=== PATIENT | female | born 1945 | race Caucasian/White ===

== ENCOUNTER → 2017-11-10 | Day surgery (SDC) | payer MEDICARE, BC ==
[2017-11-05 12:46] LABS: BASOPHILS # (AUTO) 0.1 (0.0-0.1); BASOPHILS % 1.2 % (0.0-1.0); EOSINOPHILS # (AUTO) 0.1 (0.0-0.4); EOSINOPHILS % 2.6 % (0.0-6.0); HEMATOCRIT 37.9 % (34.2-44.1); HEMOGLOBIN 12.1 g/dL (12.0-16.0); LYMPHOCYTES # (AUTO) 1.2 (1.0-3.2); LYMPHOCYTES % 23.3 % (18.0-39.1); MEAN CORPUSCULAR HEMOGLOBIN 31.6 pg (28-32); MEAN CORPUSCULAR HGB CONC 31.9 g/dL (31-35); MONOCYTES # (AUTO) 0.5 (0.2-0.8); MONOCYTES % 9.5 % (4.4-11.3); NEUTROPHILS # (AUTO) 3.1 (2.1-6.9); PLATELET COUNT 208 x10e3/uL (140-360); RED BLOOD COUNT 3.83 x10e6/uL (3.6-5.1)
[~2017-11-10] MED LIST: ACETYL L-CARNI500 MG; ACTOS30 MG PO; ALPRAZOLAM1 MG PO; AMARYL4 MG PO; ASPIRIN325 MG PO; BACLOFEN10 MG PO; CELEXA40 MG; CYMBALTA30 MG PO; DICYCLOMINE HCL10 MG PO; FENTANYL CITRATE/PF 100MCG/2 ML INJ ONE; HYOSCYAMINE SULFATE 0.5 MG/ML AMP ONE; JANUVIA100 MG PO; LOVASTATIN40 MG PO; METFORMIN HCL500 MG PO; MIDAZOLAM HCL 2 MG/2 ML VIAL ONE; NEURONTIN300 MG PO; NORCO 10-325 T1 EACH PO; NORCO 7.5-3251 EACH PO; PANTOPRAZOLE SO40 MG PO; PAXIL40 MG PO; PRENATAL FORMU1 EACH PO; PROPOFOL IV EMULSION 10 MG/ML 20 ML VIAL ONE; PROPOFOL IV EMULSION 10 MG/ML 50 ML VIAL ONE; REGLAN10 MG PO; REQUIP0.5 MG PO
[2017-11-10 13:05] VITALS: BP 151/73
--- NOTE | 2017-11-10 13:32 | Operative Report ---
DATE OF PROCEDURE: November 10, 2017 REFERRING PHYSICIAN: Dr. Ike Barnes PROCEDURES PERFORMED 1. Esophagogastroduodenoscopy with biopsies. 2. Colonoscopy with polypectomy and biopsies. INDICATIONS FOR EGD: Dyspepsia, history of Butler's esophagus. INDICATIONS FOR COLONOSCOPY: Chronic diarrhea, personal history of colon polyps, fecal urgency. MEDICATION: Patient was done under MAC. Please see anesthesiologist's note. PROCEDURE: With the patient in the left lateral decubitus position, the flexible fiberoptic Olympus gastroscope was introduced into the esophagus under direct visualization without any difficulty. A minute tongue of velvety red mucosa was noted to extend proximally from the GE junction, and that was biopsied. The scope was then advanced with ease into the stomach, traversing a small hiatal hernia. Mucosa overlying the antrum and the body revealed some patchy erythema and low-grade to moderate edema, and biopsies were obtained and sent to stain for H. pylori. Pylorus appeared to be of normal contour and shape. It was intubated with ease, and the scope was advanced all the way to the 2nd portion of the duodenum. The scope was then withdrawn slowly. Mucosa overlying the proximal 2nd portion and the duodenal bulb appeared to be within normal limits. The scope was then withdrawn back into the stomach and retroflexed. Mucosa overlying the fundus and the cardia appeared to be within normal limits. The scope was then straightened out. The stomach was decompressed. Scope was subsequently withdrawn. Patient tolerated the procedure well. IMPRESSION 1. Butler's esophagus, biopsied. 2. Small hiatal hernia. 3. Gastritis, biopsied. Biopsies sent to stain for H. pylori. PLAN: Follow up histology. Continue Protonix 40 mg 1 p.o. a.c. b.i.d. The patient was then turned around. After adequate lubrication of the anal canal, a flexible fiberoptic Olympus colonoscope was inserted into the rectum with ease and advanced all the way to the cecum. The mucosa overlying the cecum appeared to be within normal limits. The ileocecal valve was intubated, and the scope was advanced into the terminal ileum. Biopsies were obtained. The scope was then withdrawn back into the colon. It was then withdrawn slowly, and the mucosa overlying the ascending appeared to be within normal limits. One polyp was snared and 1 polyp was hot biopsied from the transverse colon. Some scattered diverticular disease was noted in the left colon. There were some patchy mild inflammatory changes noted in the left colon, and random biopsies were obtained as well as in the rectum. The scope was then retroflexed into the distal rectum, and small internal hemorrhoids were noted, none of which was actively bleeding. The scope was then straightened out. It was subsequently withdrawn after securing an adequate stool specimen that was sent for the appropriate stool studies. Patient tolerated the procedure well. IMPRESSION 1. Transverse colon polyps times 2, one snared and one hot biopsied. 2. Diverticulosis. 3. Mild, patchy, left-sided colitis. 4. Internal hemorrhoids, none actively bleeding. PLAN: Follow up histology. Follow up stool studies. Initiate Bentyl 10 mg 1 p.o. q.i.d. and VSL #3 one p.o. daily. The patient might benefit from a followup colonoscopy in 3 to 5 years. Job#: [id number] cc:IKE BARNES MD
[2017-11-10 14:01] LABS: C DIFFICILE TOXIN A&B AMP PROB NEGATIVE (NEGATIVE); WBC,FECAL (FECAL LACTOFERRIN) NEGATIVE (NEGATIVE)
== END | disposition home or self-care (01) ==
LOC: ENDO 09:46
PROVIDERS: ATTEND Internal Medicine Gastroenterology
DX: D12.3 Benign neoplasm of transverse colon (principal); Z87.19 Personal history of other diseases of the digestive system; K44.9 Diaphragmatic hernia without obstruction or gangrene; K29.70 Gastritis, unspecified, without bleeding; R19.7 Diarrhea, unspecified; R15.2 Fecal urgency; Z80.0 Family history of malignant neoplasm of digestive organs; Z68.31 Body mass index [BMI] 31.0-31.9, adult; R03.0 Elevated blood-pressure reading, without diagnosis of hypertension; Z86.010 Personal history of colon polyps; K22.70 Barrett's esophagus without dysplasia; K63.5 Polyp of colon; K57.30 Diverticulosis of large intestine without perforation or abscess without bleeding; K64.8 Other hemorrhoids; K51.50 Left sided colitis without complications; E11.9 Type 2 diabetes mellitus without complications; K21.0 Gastro-esophageal reflux disease with esophagitis; Z01.810 Encounter for preprocedural cardiovascular examination; Z01.812 Encounter for preprocedural laboratory examination
CPT/HCPCS: 36415; 43239; 45385; 83630; 83993; 85025; 87045; 87177; 87328; 87493; 88305; 88312; 93005; J1980; J2250; 45378; 45380; 45384

== ENCOUNTER → 2019-07-28 | Outpatient (CLI) | payer MEDICARE, BC ==
[~2019-07-28] MED LIST changes: -FENTANYL CITRATE/PF 100MCG/2 ML INJ ONE; -HYOSCYAMINE SULFATE 0.5 MG/ML AMP ONE; -MIDAZOLAM HCL 2 MG/2 ML VIAL ONE; -PROPOFOL IV EMULSION 10 MG/ML 20 ML VIAL ONE; -PROPOFOL IV EMULSION 10 MG/ML 50 ML VIAL ONE
--- NOTE | 2019-07-28 19:22 | Diagnostic Imaging Report ---
MRI SPINE LUMBAR WO HISTORY: Sciatica, right-sided COMPARISON: MRI of the lumbar spine report from 07/01/2012 (images not available); MRI of the lumbar spine 06/09/2012 TECHNIQUE: Sagittal T1, sagittal T2, sagittal STIR, axial T2, coronal T2, and axial proton density weighted images of the lumbar spine were obtained without contrast. DISCUSSION: Number of non-rib bearing lumbar vertebral bodies: 5. Alignment: Normal lordosis. Mild thoracolumbar levoscoliosis is present. Vertebrae: No fractures, infection or neoplasm. Conus medullaris: Normal, ends at L1-L2. Cauda equina: No masses or arachnoiditis. Posterior paraspinal muscles: There is paraspinal muscle atrophy throughout the lumbar spine. Posterior incision signal changes are noted. Soft tissues: No signal abnormalities. Multilevel advanced lumbar disc degeneration is present. T12-L1: Patent canal and foramina. L1-L2: Disc bulge without significant canal or foraminal stenosis. L2-L3: Mild canal stenosis due to disc bulge and ligamentum flavum thickening is accentuated by epidural lipomatosis. No significant foraminal stenosis. L3-L4: Moderate canal stenosis due to disc bulge and ligamentum flavum thickening is accentuated by epidural lipomatosis. Both lateral recesses are slightly effaced. Mild bilateral foraminal stenoses due to disc bulge and facet arthrosis. L4-L5: Left hemilaminotomy changes. Mild to moderate canal stenosis due to disc bulge and ligamentum flavum thickening. Both lateral recesses are slightly effaced. Mild right and moderate left foraminal stenoses due to disc bulge and facet arthrosis. L5-S1: Mild canal stenosis due to disc bulge and ligamentum flavum thickening. Mild to moderate right and moderate left foraminal stenoses due to disc bulge and facet arthrosis. IMPRESSION: 1. Multilevel advanced lumbar disc degeneration with mild thoracolumbar levoscoliosis. 2. Left hemilaminotomy changes at L4-L5. 3. Multilevel degenerative canal stenoses - moderate at L3-L4 and mild to moderate at L4-L5. 4. Multilevel degenerative foraminal stenoses - moderate on the left at L4-L5; mild to moderate right and moderate left at L5-S1. Signed by: Dr. Olu Bolton M.D. on 07/28/2019 7:19 PM
== END ==
LOC: MRI 14:22
PROVIDERS: ATTEND Internal Medicine
DX: M54.31 Sciatica, right side (principal)
CPT/HCPCS: 72148

== ENCOUNTER → 2019-08-12 | Day surgery (SDC) | payer MEDICARE, BC, OTHER ==
[2019-08-09 14:59] LABS: BASOPHILS # (AUTO) 0.1 (0.0-0.1); BASOPHILS % 0.9 % (0.0-1.0); EOSINOPHILS # (AUTO) 0.1 (0.0-0.4); EOSINOPHILS % 1.4 % (0.0-6.0); HEMATOCRIT 41.5 % (34.2-44.1); HEMOGLOBIN 12.9 g/dL (12.0-16.0); LYMPHOCYTES # (AUTO) 0.8 (1.0-3.2); LYMPHOCYTES % 8.3 % (18.0-39.1); MEAN CORPUSCULAR HEMOGLOBIN 31.1 pg (28-32); MEAN CORPUSCULAR HGB CONC 31.1 g/dL (31-35); MONOCYTES # (AUTO) 0.7 (0.2-0.8); MONOCYTES % 7.6 % (4.4-11.3); NEUTROPHILS # (AUTO) 7.5 (2.1-6.9); NEUTROPHILS % 81.6 % (38.7-80.0); PLATELET COUNT 232 x10e3/uL (140-360); RED BLOOD COUNT 4.15 x10e6/uL (3.6-5.1); RED CELL DISTRIBUTION WIDTH 13.8 % (11.7-14.4)
[2019-08-09 15:03] LABS: INR 0.88; PROTHROMBIN TIME 12.5 seconds (11.9-14.5)
[2019-08-09 15:09] LABS: ANION GAP 14.1 mmol/L (8-16); BLOOD UREA NITROGEN 17 mg/dL (7-26); BUN/CREATININE RATIO 20 (6-25); CALCIUM 9.9 mg/dL (8.4-10.2); CARBON DIOXIDE 29 mmol/L (22-29); CHLORIDE 104 mmol/L (98-107); CREATININE, SERUM 0.83 mg/dL (0.57-1.11); EST GLOMERULAR FILTRATION RATE > 60 ML/MIN (60-); GLUCOSE 144 mg/dL (74-118); POTASSIUM 4.1 mmol/L (3.5-5.1); SODIUM 143 mmol/L (136-145)
[2019-08-09 15:13] LABS: PARTIAL THROMBOPLASTIN TIME 27.2 seconds (23.8-35.5)
--- NOTE | 2019-08-09 15:18 | Diagnostic Imaging Report ---
X-ray chest PA and lateral views Comparison: None History: Preop Findings: Central airways unremarkable. Atherosclerotic aorta with prominence of descending thoracic aorta. Heart size normal. No pleural effusion. No pneumothorax. No focal lung disease. Visualized skeletal structures are remarkable for levo convexity of the thoracolumbar spine. Upper abdomen unremarkable. Impression: No acute cardiopulmonary disease. Signed by: Martin Turner MD on 08/09/2019 3:15 PM
[~2019-08-12] MED LIST changes: +ACETAMINOPHEN 1000 MG/100 ML IV ONE; +ACETAMINOPHEN 325 MG TAB PO PRN; +ASPIR 8181 MG PO; +BACITRACIN 50,000 UNIT VIAL ONE; +BACLOFEN 10 MG TAB PO SCH; +BUPIVACAINE 0.25%/EPI 30ML SDV INJ ONE; +CARISOPRODOL 350 MG TAB PO PRN; +CEFAZOLIN SOD 1 GM/NS 50ML 100 ML IV ONE; +CEFAZOLIN SOD 1 GM/NS 50ML 50 ML IV SCH; +CEPACOL SORE THROAT LOZENGES PO PRN; +DEXAMETHASONE SOD PHOS INJ 4 MG/ML VIAL ONE; +EPHEDRINE SULFATE INJ 50 MG/ML VIAL ONE; +ETOMIDATE 2 MG/ML 10 ML INJ IV ONE; +FENTANYL CITRATE/PF 100MCG/2 ML INJ ONE; +GABAPENTIN 300 MG CAP PO SCH; +GABAPENTIN 400 MG CAP PO SCH; +GLIMEPIRIDE 2 MG TAB PO SCH; +GLYCOPYRROLATE INJ 0.2 MG/ML VIAL ONE; +HYDROMORPHONE 2MG/ML 2 MG/ML ML IV PRN; +INGREZZA80 MG PO; +LACTATED RINGER'S 1,000 ML IV SCH; +LIDOCAINE HCL (LTA) 4 ML SOLN ONE; +LIDOCAINE HCL 2% LOCAL INJ 5 ML SDV VIAL INJ ONE; +MAGNESIUM/ALUMINUM/SIMETHICONE 30 ML UDC PO PRN; +MELOXICAM 7.5 MG TAB PO SCH; +MELOXICAM7.5 MG PO; +METFORMIN HCL 500 MG TAB PO SCH; +MORPHINE SULFATE 5 MG/ML VIAL IM PRN; +NEOSTIGMINE 1 MG/ML 10ML VIAL ONE; +NON-FORMULARY MEDICATION (Glimepiride (Amaryl) 4 MG) PO SCH; +ONDANSETRON HCL INJ 2MG/ML 2ML 2 MG/ML VIAL IV PRN; +ONDANSETRON HCL INJ 2MG/ML 2ML 2 MG/ML VIAL ONE; +OXYCODONE/ACETAMINOPHEN 5-325 1 EACH TABLET PO PRN; +PANTOPRAZOLE SOD 40 MG TABEC PO SCH; +PIOGLITAZONE HCL 15 MG TAB PO SCH; +PIOGLITAZONE HCL 30 MG PO SCH; +PROMETHAZINE HCL (IM) 25 MG/ML VIAL IM PRN; +PROPOFOL IV EMULSION 10 MG/ML 20 ML VIAL ONE; +ROCURONIUM BROMIDE 10 MG/ML 5ML VIAL IV ONE; +SERTRALINE HCL 50 MG TAB PO SCH; +SEVOFLURANE INHAL SOLN 250 ML PEN BTL ONE; +SIMVASTATIN 20 MG TAB PO SCH; +SIMVASTATIN 40 MG TAB PO SCH; +THROMBIN FOR SOLN 5,000 UNIT VIAL ONE; +VALBENAZINE TOSYLATE 80 MG PO SCH; +ZOLOFT50 MG PO; +ZOLPIDEM TARTRATE 5 MG TAB PO PRN
--- NOTE | 2019-08-12 09:55 | Operative Report ---
DATE OF PROCEDURE: 08/12/2019 SURGEON: Glenn Ramesh MD PREOPERATIVE DIAGNOSIS: L3-4 spinal stenosis with right-sided neurogenic claudication, M48.062. POSTOPERATIVE DIAGNOSIS: L3-4 spinal stenosis with right-sided neurogenic claudication, M48.062. PROCEDURE: 1. Right L3-4 laminotomy, medial facetectomy, and microsurgical lateral recess decompression, 01858. 2. Left L3-L4 lateral recess decompression through a unilateral right-sided laminotomy, 95381. ANESTHESIA: General. INDICATIONS: The patient is a 74-year-old woman with spinal stenosis at L3-4 due to facet and ligamentous hypertrophy, symptomatic with unilateral neurogenic claudication and L4 radiculopathy on the right side. She was taken to surgery for microsurgical lateral recess decompression bilaterally through unilateral right-sided approach. PROCEDURE IN DETAIL: After induction of general anesthesia, the patient was placed on the operating table in prone position over a Lino frame. Lumbar region was prepped and draped in sterile fashion. A preoperative x-ray was obtained. A small midline incision was created on the right side of the spinous processes and lamina of L3 and L4 and the medial aspect of the hypertrophic facet joint were exposed. The 2nd x-ray confirmed correct localization. The operating microscope was brought in. A high-speed drill equipped with tremaine bur was used to drill the inferior aspect of lamina of L3 and superior aspect of the lamina of L4 and the medial rim of the L3-L4 facet joint on the right side. The markedly hypertrophic ligamentum flavum was resected and the facet joint was undercut to fully expose and decompress the right side of the dural sac and the right L4 traversing nerve root. After satisfactory right-sided decompression had been achieved, the operating table was tilted towards the left. The base of the spinous processes of L3 and L4 were drilled. The contralateral ligamentum flavum on the left side was dissected from the undersurface of the left L3 and L4 lamina through a unilateral right-sided laminotomy. The ligamentum flavum was then resected with a 2 mm Kerrison rongeur until the contralateral L4 lateral recess was reached and decompressed. Excellent bilateral decompression was thus achieved through a unilateral right-sided laminotomy. The wound was irrigated with bacitracin solution. Hemostasis was secured. The lumbar fascia was closed with 0 Vicryl suture. Subcutaneous layer was closed with 2-0 Vicryl sutures. The skin was closed with 3-0 Monocryl sutures in subcuticular fashion. Steri-Strips and dressing were applied. The patient was awakened, extubated, and taken to postanesthesia care unit in stable condition. No intraoperative complications were encountered. ESTIMATED BLOOD LOSS: 10 mL. Glenn Ramesh MD PP/DIANE /[id number]
[2019-08-12 10:00] VITALS: BP 132/51
== END | disposition home or self-care (01) ==
LOC: OR 05:15
PROVIDERS: ATTEND Neurological Surgery
DX: M48.062 Spinal stenosis, lumbar region with neurogenic claudication (principal); E11.9 Type 2 diabetes mellitus without complications; K44.9 Diaphragmatic hernia without obstruction or gangrene; E78.5 Hyperlipidemia, unspecified; D64.9 Anemia, unspecified; F32.9 Major depressive disorder, single episode, unspecified; Z91.041 Radiographic dye allergy status; Z01.810 Encounter for preprocedural cardiovascular examination; Z01.812 Encounter for preprocedural laboratory examination; Z01.818 Encounter for other preprocedural examination; Z11.59 Encounter for screening for other viral diseases; Z79.84 Long term (current) use of oral hypoglycemic drugs; Z79.82 Long term (current) use of aspirin; Z68.30 Body mass index [BMI] 30.0-30.9, adult; Z86.73 Personal history of transient ischemic attack (TIA), and cerebral infarction without residual deficits
CPT/HCPCS: 36415 ×2; 63047; 71046; 72020; 80048; 82948; 85025; 85610; 85730; 86850; 86900; 87635; 88304; 93005; J0131; J0690; J1100; J2001; J2405; J2704; J2710; J3010

== ENCOUNTER 2019-08-27 00:12 | Observation (INO) | payer MEDICARE, BC, OTHER ==
[2019-08-27] VITALS (8 sets, daily range): BP systolic 145–164; BP diastolic 48–80
[~2019-08-27] VITALS: Ht 160 cm; Wt 77.1 kg
[~2019-08-27 00:12] MED LIST changes: -ACETAMINOPHEN 1000 MG/100 ML IV ONE; -ACETAMINOPHEN 325 MG TAB PO PRN; -BACITRACIN 50,000 UNIT VIAL ONE; -BACLOFEN 10 MG TAB PO SCH; -BUPIVACAINE 0.25%/EPI 30ML SDV INJ ONE; -CARISOPRODOL 350 MG TAB PO PRN; -CEFAZOLIN SOD 1 GM/NS 50ML 100 ML IV ONE; -CEFAZOLIN SOD 1 GM/NS 50ML 50 ML IV SCH; -CEPACOL SORE THROAT LOZENGES PO PRN; -DEXAMETHASONE SOD PHOS INJ 4 MG/ML VIAL ONE; -EPHEDRINE SULFATE INJ 50 MG/ML VIAL ONE; -ETOMIDATE 2 MG/ML 10 ML INJ IV ONE; -FENTANYL CITRATE/PF 100MCG/2 ML INJ ONE; -GABAPENTIN 300 MG CAP PO SCH; -GABAPENTIN 400 MG CAP PO SCH; -GLIMEPIRIDE 2 MG TAB PO SCH; -GLYCOPYRROLATE INJ 0.2 MG/ML VIAL ONE; -HYDROMORPHONE 2MG/ML 2 MG/ML ML IV PRN; -LACTATED RINGER'S 1,000 ML IV SCH; -LIDOCAINE HCL (LTA) 4 ML SOLN ONE; -LIDOCAINE HCL 2% LOCAL INJ 5 ML SDV VIAL INJ ONE; -MAGNESIUM/ALUMINUM/SIMETHICONE 30 ML UDC PO PRN; -MELOXICAM 7.5 MG TAB PO SCH; -METFORMIN HCL 500 MG TAB PO SCH; -MORPHINE SULFATE 5 MG/ML VIAL IM PRN; -NEOSTIGMINE 1 MG/ML 10ML VIAL ONE; -NON-FORMULARY MEDICATION (Glimepiride (Amaryl) 4 MG) PO SCH; -ONDANSETRON HCL INJ 2MG/ML 2ML 2 MG/ML VIAL IV PRN; -ONDANSETRON HCL INJ 2MG/ML 2ML 2 MG/ML VIAL ONE; -OXYCODONE/ACETAMINOPHEN 5-325 1 EACH TABLET PO PRN; -PANTOPRAZOLE SOD 40 MG TABEC PO SCH; -PIOGLITAZONE HCL 15 MG TAB PO SCH; -PIOGLITAZONE HCL 30 MG PO SCH; -PROMETHAZINE HCL (IM) 25 MG/ML VIAL IM PRN; -PROPOFOL IV EMULSION 10 MG/ML 20 ML VIAL ONE; -ROCURONIUM BROMIDE 10 MG/ML 5ML VIAL IV ONE; -SERTRALINE HCL 50 MG TAB PO SCH; -SEVOFLURANE INHAL SOLN 250 ML PEN BTL ONE; -SIMVASTATIN 20 MG TAB PO SCH; -SIMVASTATIN 40 MG TAB PO SCH; -THROMBIN FOR SOLN 5,000 UNIT VIAL ONE; -VALBENAZINE TOSYLATE 80 MG PO SCH; -ZOLPIDEM TARTRATE 5 MG TAB PO PRN
--- NOTE | 2019-08-27 01:38 | Diagnostic Imaging Report ---
History:Headache Comparison studies: None Technique: Axial images were obtained from the skull base to the vertex. Coronal and sagittal images reconstructed from the axial data. Dose modulation, iterative reconstruction, and/or weight based adjustment of the mA/kV was utilized to reduce the radiation dose to as low as reasonably achievable. Intravenous contrast: None Findings: Scalp/skull: No abnormalities. Extra-axial spaces: No masses. No fluid collections. Brain sulci: Mildly prominent. Ventricles: Mild compensatory dilatation. No hydrocephalus. Parenchyma: Focal and confluent, hypodensities in the supratentorial white matter are small vessel ischemic changes. No masses, hemorrhage, acute or chronic cortical vascular insults. Sellar/suprasellar region: No abnormalities. Craniocervical junction: Patent foramen magnum. No Chiari one malformation. Incidental findings: Subtle atherosclerotic calcifications in the carotid siphons . Impression: No acute abnormalities. Chronic findings: 1. Mild generalized volume loss. 2. Mild supratentorial white matter small vessel ischemic changes. Signed by: Dr. Wilbur Smith M.D. on 08/27/2019 1:35 AM
--- NOTE | 2019-08-27 01:48 | Emergency Department Note ---
History of Present Illnes History of Present Illness Chief Complaint: Headache History of Present Illness This is a 74 year old female PRESENTS TO ED WITH REPORT OF SEVERE HEADACHE; PT STATES, "I WOKE UP WITH A SEVERE HEADACHE AND THE TV TOLD ME TO HOLD MY CEREBELLUM AND CALL 911, SO I DID." PTS BP WAS ELEVATED AT 198/87 AT RESIDENCE, EMS ADMINISTERED ENALAPRIL WITH RESULTING BP 160/82; PT REPORTS ISIDRO MOSTLY RESOLVED AT THIS TIME, EMS ALSO REPORTS PT FSBS WAS 60 PN THIER ARRIVAL, GIVEN ORAL GLUCOSE, FSBS NOW 71 . Historian: Patient, Candy Cutter Hand/EMS Arrival Mode: [facility] Onset (how long ago): hour(s) (1) Location: HEAD Quality: PAIN Radiation: Reports non-radiation Severity: severe Onset quality: sudden Duration (how long): hour(s) (1) Timing of current episode: unable to specify Progression: resolved Chronicity: new Context: Denies recent illness, Denies recent surgery Relieving factors: none Exacerbating factors: none Associated symptoms: Reports denies other symptoms Treatments prior to arrival: other (ENALAPRIL GIVEN BY EMS FOR BLOOD PRESSURE) Past Medical/Family History Physician Review I have reviewed the patient's past medical and family history. Any updates have been documented here. Past Medical History Recent Fever: No Clinical Suspicion of Infectio: No New/Unexplained Change in Ment: No Past Medical History: Diabetes, TIA Past Surgical History: Knee Replacement, Back Surgery, Cataract Removal Social History Smoking Cessation: Never Smoker Counseling Performed: No Alcohol Use: None Any Illegal Drug Use: No Other Any Pre-Existing Lines (PICC,: No Review of Systems Review of Systems Constitutional: Reports no symptoms EENTM: Reports no symptoms Cardiovascular: Reports no symptoms Respiratory: Reports no symptoms Gastrointestinal: Reports no symptoms Genitourinary: Reports no symptoms Musculoskeletal: Reports no symptoms Integumentary: Reports no symptoms Neurological: Reports as per HPI Psychological: Reports no symptoms Endocrine: Reports no symptoms Hematological/Lymphatic: Reports no symptoms Physical Exam Related Data Allergies: Coded Allergies: Iodinated Contrast Media (Verified Allergy, Unknown, severe headache, 08/07/19) Triage Vital Signs Vital Signs Date Time Temp Pulse Resp B/P (MAP) Pulse Ox O2 Delivery O2 Flow Rate FiO2 08/27/19 00:33 98.7 81 16 142/54 97 Room Air Vital signs reviewed: Yes Physical Exam CONSTITUTIONAL Constitutional: Present well-developed, Present well-nourished, Present other (NO DISTRESS NOTED) HENT HENT: Present normocephalic, Present atraumatic, Present oropharynx cl ear/moist, Present nose normal HENT L/R: Present left ext ear normal, Present right ext ear normal EYES Eyes: Reports PERRL, Reports conjunctivae normal NECK Neck: Present ROM normal PULMONARY Pulmonary: Present effort normal, Present breath sounds normal CARDIOVASCULAR Cardiovascular: Present regular rhythm, Present heart sounds normal, Present capillary refill normal, Present normal rate GASTROINTESTINAL Abdominal: Present soft, Present nontender, Present bowel sounds normal GENITOURINARY Genitourinary: Present exam deferred SKIN Skin: Present warm, Present dry MUSCULOSKELETAL Musculoskeletal: Present ROM normal NEUROLOGICAL Neurological: Present alert, Present oriented x 3, Present no gross motor or sensory deficits PSYCHOLOGICAL Psychological: Present mood/affect normal, Present judgement normal Results Laboratory Laboratory Laboratory Tests Test 08/27/19 03:38 08/27/19 00:30 White Blood Count 5.74 x10e3/uL (4.8-10.8) Red Blood Count 3.78 x10e6/uL (3.6-5.1) Hemoglobin 12.0 g/dL (12.0-16.0) Hematocrit 38.2 % (34.2-44.1) Mean Corpuscular Volume 101.1 fL (81-99) Mean Corpuscular Hemoglobin 31.7 pg (28-32) Mean Corpuscular Hemoglobin Concent 31.4 g/dL (31-35) Red Cell Distribution Width 13.7 % (11.7-14.4) Platelet Count 279 x10e3/uL (140-360) Neutrophils (%) (Auto) 62.8 % (38.7-80.0) Lymphocytes (%) (Auto) 19.9 % (18.0-39.1) Monocytes (%) (Auto) 10.3 % (4.4-11.3) Eosinophils (%) (Auto) 5.1 % (0.0-6.0) Basophils (%) (Auto) 1.4 % (0.0-1.0) Neutrophils # (Auto) 3.6 (2.1-6.9) Lymphocytes # (Auto) 1.1 (1.0-3.2) Monocytes # (Auto) 0.6 (0.2-0.8) Eosinophils # (Auto) 0.3 (0.0-0.4) Basophils # (Auto) 0.1 (0.0-0.1) Absolute Immature Granulocyte (auto 0.03 x10e3/uL (0-0.1) Prothrombin Time 11.0 seconds (11.9-14.5) Prothromb Time International Ratio 0.75 Activated Partial Thromboplast Time 28.4 seconds (23.8-35.5) Sodium Level 146 mmol/L (136-145) Potassium Level 5.4 mmol/L (3.5-5.1) Chloride Level 105 mmol/L (98-107) Carbon Dioxide Level 29 mmol/L (22-29) Anion Gap 17.4 mmol/L (8-16) Blood Urea Nitrogen 28 mg/dL (7-26) Creatinine 1.73 mg/dL (0.57-1.11) Estimat Glomerular Filtration Rate 29 ML/MIN (60-) BUN/Creatinine Ratio 16 (6-25) Glucose Level 55 mg/dL (74-118) Calcium Level 9.5 mg/dL (8.4-10.2) Total Bilirubin 0.2 mg/dL (0.2-1.2) Aspartate Amino Transf (AST/SGOT) 20 IU/L (5-34) Alanine Aminotransferase (ALT/SGPT) 12 IU/L (0-55) Alkaline Phosphatase 72 IU/L (40-150) Creatine Kinase 29 IU/L (29-168) Creatine Kinase MB 0.40 ng/mL (0-5.0) Troponin I < 0.001 ng/mL (0-0.300) Total Protein 6.5 g/dL (6.5-8.1) Albumin 3.7 g/dL (3.5-5.0) Globulin 2.8 g/dL (2.3-3.5) Albumin/Globulin Ratio 1.3 (0.8-2.0) Lab results reviewed: Yes Laboratory comments PT WITH MILD HYPERKALEMIA AND ACUTE RENAL INSUFFICIENCY Imaging Imaging results reviewed: Yes Impressions Procedure: [id number] DX/CHEST SINGLE (PORTABLE) Exam Date: Exam Time: REPORT STATUS: Signed EXAMINATION: CHEST SINGLE (PORTABLE) INDICATION: Headache, elevated blood pressure. COMPARISON: Chest x-ray 08/09/2019 FINDINGS: TUBES and LINES: None. LUNGS: Normal lung volumes. Lungs are clear. Prominent central pulmonary vasculature. PLEURA: No pleural effusion or pneumothorax. HEART AND MEDIASTINUM: Cardiac size is mildly enlarged. Aortic calcifications. BONES AND SOFT TISSUES: No acute osseous lesion. Soft tissues are unremarkable. Degenerative changes in the spine and shoulders. UPPER ABDOMEN: No free air under the diaphragm. IMPRESSION: Mild cardiomegaly and pulmonary vascular congestion. Signed by: Markos Carpenter DO on 08/27/2019 2:28 AM Procedure: [id number] CT/CT BRAIN WO Exam Date: Exam Time: REPORT STATUS: Signed History:Headache Comparison studies: None Technique: Axial images were obtained from the skull base to the vertex. Coronal and sagittal images reconstructed from the axial data. Dose modulation, iterative reconstruction, and/or weight based adjustment of the mA/kV was utilized to reduce the radiation dose to as low as reasonably achievable. Intravenous contrast: None Findings: Scalp/skull: No abnormalities. Extra-axial spaces: No masses. No fluid collections. Brain sulci: Mildly prominent. Ventricles: Mild compensatory dilatation. No hydrocephalus. Parenchyma: Focal and confluent, hypodensities in the supratentorial white matter are small vessel ischemic changes. No masses, hemorrhage, acute or chronic cortical vascular insults. Sellar/suprasellar region: No abnormalities. Craniocervical junction: Patent foramen magnum. No Chiari one malformation. Incidental findings: Subtle atherosclerotic calcifications in the carotid siphons . Impression: No acute abnormalities. Chronic findings: 1. Mild generalized volume loss. 2. Mild supratentorial white matter small vessel ischemic changes. Signed by: Dr. Wilbur Smith M.D. on 08/27/2019 1:35 AM Dictated By: WILBUR SMITH MD, MD 4 Transcribed By: DAVON on 08/27/19134 COPY TO: ERICH OLMSTEAD MD~ Procedures 12 Lead ECG Interpretation ECG Interpretation : ECG: ECG 1 Flame Channeler: Interpreted by ED physician Date: Aug 27, 2019 Time: 00:26 Rhythm: sinus rhythm Rate: normal BPM: 78 QRS axis: left ST segments normal: Yes T waves normal: Yes Other findings: LVH Q waves: III, aVF, V1, V2 Clinical Impression: abnormal ECG Assessment & Plan Medical Decision Making MDM PT AWOKE WITH HEADACHE AND EMS REPORTS INITIAL SYS BOP 198 CBC, CMP, EKG, CARDIAC ENZYMES, CXR, CT BRAIN, UA ORDERED TO EVAL FOR INTRACRANIAL ABNORMALITY, MYOCARDIAL INFARCTION,ELECTROLYTE ABNORMALITY, UTI, I SPOKE WITH DR BARNES, PLACE IN OBS FOR IV HYDRATION, RECHECK LABS IN AM Reassessment Reassessment time: 04:13 Reassessment HEADACHE RESOLVED AT THIS TIME Assessment & Plan Final Impression: (1) Headache (2) Dehydration (3) Acute renal insufficiency (4) Hyperkalemia Depart Disposition: ADMITTED Last Vital Signs Date Time Temp Pulse Resp B/P (MAP) Pulse Ox O2 Delivery O2 Flow Rate FiO2 08/27/19 00:33 98.7 81 16 142/54 97 Room Air Home Meds Reported Medications Meloxicam (MELOXICAM) 7.5 Mg Tablet, 15 MG PO DAILY, #30 TAB 08/06/19 Valbenazine Tosylate (Ingrezza) 80 Mg Capsule, 80 MG PO DAILY 08/06/19 Sertraline Hcl (ZOLOFT) 50 Mg Tablet, 100 MG PO DAILY, #30 TAB 08/06/19 Aspirin (ASPIR 81) 81 Mg Tablet.dr, 81 MG PO DAILY 08/06/19 Citalopram Hydrobromide (CELEXA) 40 Mg Tablet 11/05/17 Pantoprazole Sodium* (PROTONIX) 40 Mg Tablet.dr, 40 MG PO BID, TAB 09/13/15 Baclofen (BACLOFEN) 10 Mg Tablet, 20 MG PO TID, TAB 09/16/13 Lovastatin (LOVASTATIN) 40 Mg Tablet, 40 MG PO DAILY 07/20/12 Gabapentin (NEURONTIN) 300 Mg Capsule, 800 MG PO TID 07/20/12 Pioglitazone Hcl (ACTOS) 30 Mg Tablet, 30 MG PO DAILY 07/20/12 Glimepiride (AMARYL) 4 Mg Tablet, 4 MG PO BID 07/20/12 Metformin Hcl (METFORMIN HCL) 500 Mg Tablet, 1000 MG PO BID 07/20/12 ERICH OLMSTEAD MD Aug 27, 2019 01:48
[2019-08-27 01:49] LABS: BASOPHILS # (AUTO) 0.1 (0.0-0.1); BASOPHILS % 1.4 % (0.0-1.0); EOSINOPHILS # (AUTO) 0.3 (0.0-0.4); EOSINOPHILS % 5.1 % (0.0-6.0); HEMATOCRIT 38.2 % (34.2-44.1); LYMPHOCYTES # (AUTO) 1.1 (1.0-3.2); LYMPHOCYTES % 19.9 % (18.0-39.1); MEAN CORPUSCULAR HEMOGLOBIN 31.7 pg (28-32); MEAN CORPUSCULAR HGB CONC 31.4 g/dL (31-35); MEAN CORPUSCULAR VOLUME 101.1 fL (81-99); MONOCYTES # (AUTO) 0.6 (0.2-0.8); MONOCYTES % 10.3 % (4.4-11.3); NEUTROPHILS # (AUTO) 3.6 (2.1-6.9); NEUTROPHILS % 62.8 % (38.7-80.0); PLATELET COUNT 279 x10e3/uL (140-360); RED BLOOD COUNT 3.78 x10e6/uL (3.6-5.1); RED CELL DISTRIBUTION WIDTH 13.7 % (11.7-14.4)
[2019-08-27 02:04] LABS: PARTIAL THROMBOPLASTIN TIME 28.4 seconds (23.8-35.5)
[2019-08-27 02:08] LABS: INR 0.75
[2019-08-27 02:10] LABS: ALANINE AMINOTRANSFERASE 12 IU/L (0-55); ALBUMIN 3.7 g/dL (3.5-5.0); ALBUMIN/GLOBULIN RATIO 1.3 (0.8-2.0); ALKALINE PHOSPHATASE 72 IU/L (40-150); ANION GAP 17.4 mmol/L (8-16); BLOOD UREA NITROGEN 28 mg/dL (7-26); BUN/CREATININE RATIO 16 (6-25); CALCIUM 9.5 mg/dL (8.4-10.2); CARBON DIOXIDE 29 mmol/L (22-29); CHLORIDE 105 mmol/L (98-107); CREATINE KINASE 29 IU/L (29-168); CREATININE, SERUM 1.73 mg/dL (0.57-1.11); EST GLOMERULAR FILTRATION RATE 29 ML/MIN (60-); POTASSIUM 5.4 mmol/L (3.5-5.1); SODIUM 146 mmol/L (136-145)
[2019-08-27 02:12] LABS: GLUCOSE 55 mg/dL (74-118)
--- NOTE | 2019-08-27 02:12 | NUR ---
CRITICAL LAB RESULT: BGL 55MG/DL. DR OLMSTEAD NOTIFIED
--- NOTE | 2019-08-27 02:32 | Diagnostic Imaging Report ---
EXAMINATION: CHEST SINGLE (PORTABLE) INDICATION: Headache, elevated blood pressure. COMPARISON: Chest x-ray 08/09/2019 FINDINGS: TUBES and LINES: None. LUNGS: Normal lung volumes. Lungs are clear. Prominent central pulmonary vasculature. PLEURA: No pleural effusion or pneumothorax. HEART AND MEDIASTINUM: Cardiac size is mildly enlarged. Aortic calcifications. BONES AND SOFT TISSUES: No acute osseous lesion. Soft tissues are unremarkable. Degenerative changes in the spine and shoulders. UPPER ABDOMEN: No free air under the diaphragm. IMPRESSION: Mild cardiomegaly and pulmonary vascular congestion. Signed by: Markos Carpenter DO on 08/27/2019 2:28 AM
[2019-08-27] MEDS ORDERED: DEXTROSE 50% SYRINGE 50 ML IV STA (03:06)
[2019-08-27] MEDS ORDERED: SODIUM CHLORIDE 0.9% 1000ML 1,000 ML IV ONE (04:15)
[2019-08-27] MEDS ORDERED: DEXTROSE 50% SYRINGE 50 ML IV PRN (04:15)
[2019-08-27 04:17] LABS: CLARITY,URINE CLEAR (CLEAR); COLOR,URINE YELLOW (YELLOW)
[2019-08-27 04:18] LABS: BILIRUBIN,URINE NEGATIVE (NEGATIVE); KETONES,URINE NEGATIVE (NEGATIVE); LEUKOCYTE ESTERASE ,URINE NEGATIVE (NEGATIVE); NITRITE,URINE NEGATIVE (NEGATIVE); PROTEIN,URINE DIPSTICK NEGATIVE (NEGATIVE); URINE UROBILINOGEN 0.2 mg/dL (0.2 - 1)
[2019-08-27 04:25] LABS: BACTERIA,URINE FEW /HPF; EPITHELIAL CELLS,URINE FEW /LPF; RENAL EPITHELIAL CELLS,URINE FEW; TRANSITIONAL EPI CELLS,URINE FEW
--- NOTE | 2019-08-27 05:15 | NUR ---
PT ARRIVED BY STRETCHER TO ROOM 111. PT IS AAOX3, RR EVEN AND NON-LABORED, ON ROOM AIR. NO IV ACCESS AT THIS TIME. PT REPORTS SHE WENT TO THE BATHROOM AND ACCIDENTLY PULLED IT OUT IN THE ER. PT ASSISTED TO AMBULATE TO HOSPITAL BED. ORIENTED PT TO HOSPITAL ROOM, CALL LIGHT, BED CONTROLS AND LIGHTS. LEFT PT LAYING SEMI FOWLERS IN BED, BED IN LOW LOCKED POSITION, SIDE RAILS UPX2, CALL LIGHT AND PHONE WITHIN REACH.
[2019-08-27] MEDS: SODIUM CHLORIDE 0.9% 1000ML 1,000 ML IV SCH ×2 (06:00→19:05)
[2019-08-27 06:52] LABS: CREATINE KINASE MB 0.5 ng/mL (0-5.0)
--- NOTE | 2019-08-27 07:10 | NUR ---
RCD PT AT BED PT IS ALERT AND ORIENTED PT RESTING ON BED IV PATENT BY SALINE FLUSH BED LOW AND LOCKED CALL LIGHT IN REACH
[2019-08-27] MEDS: GLIMEPIRIDE 2 MG TAB PO SCH ×2 (07:30→16:30)
[2019-08-27] MEDS: INSULIN REGULAR, HUMAN 100 UNIT/1 ML 3ML VIAL SQ SCH ×4 (07:30→20:37)
[2019-08-27] MEDS: PANTOPRAZOLE SOD 40 MG TABEC PO SCH ×2 (07:30→16:30)
[2019-08-27] MEDS: METFORMIN HCL 500 MG TAB PO SCH ×2 (08:00→17:00)
[2019-08-27] MEDS: MELOXICAM 7.5 MG TAB PO SCH (09:00)
[2019-08-27] MEDS ORDERED: SIMVASTATIN 20 MG TAB PO SCH (09:00)
[2019-08-27] MEDS ORDERED: PIOGLITAZONE HCL 30 MG PO SCH (09:00)
[2019-08-27] MEDS: SERTRALINE HCL 50 MG TAB PO SCH (09:00)
[2019-08-27] MEDS: BACLOFEN 10 MG TAB PO SCH ×3 (09:00→21:30)
[2019-08-27] MEDS ORDERED: NON-FORMULARY MEDICATION (Glimepiride (Amaryl) 4 MG) PO SCH (09:00)
[2019-08-27] MEDS: GABAPENTIN 400 MG CAP PO SCH ×3 (09:00→21:30)
[2019-08-27] MEDS: ASPIRIN 81 MG CHEW TAB PO SCH (09:00)
[2019-08-27] MEDS: PIOGLITAZONE HCL 15 MG TAB PO SCH (09:00)
[2019-08-27] MEDS ORDERED: GABAPENTIN 300 MG CAP PO SCH (09:00)
[2019-08-27 16:55] LABS: CREATINE KINASE 20 IU/L (29-168)
--- NOTE | 2019-08-27 19:27 | NUR ---
PT RESTING ON BED BED SIDE REPORT GIVEN TO ONCOMING NURSE
[2019-08-27] MEDS ORDERED: SIMVASTATIN 40 MG TAB PO SCH (21:00)
[2019-08-28] VITALS: BP 158/51
[2019-08-28 04:00] VITALS: BP 173/63
[2019-08-28 05:27] LABS: BASOPHILS # (AUTO) 0.1 (0.0-0.1); BASOPHILS % 1.5 % (0.0-1.0); EOSINOPHILS # (AUTO) 0.2 (0.0-0.4); EOSINOPHILS % 4.3 % (0.0-6.0); HEMATOCRIT 35.8 % (34.2-44.1); HEMOGLOBIN 11.3 g/dL (12.0-16.0); LYMPHOCYTES # (AUTO) 1.1 (1.0-3.2); LYMPHOCYTES % 19.8 % (18.0-39.1); MEAN CORPUSCULAR HEMOGLOBIN 32.1 pg (28-32); MEAN CORPUSCULAR HGB CONC 31.6 g/dL (31-35); MEAN CORPUSCULAR VOLUME 101.7 fL (81-99); MONOCYTES # (AUTO) 0.5 (0.2-0.8); NEUTROPHILS # (AUTO) 3.4 (2.1-6.9); PLATELET COUNT 223 x10e3/uL (140-360); RED BLOOD COUNT 3.52 x10e6/uL (3.6-5.1); RED CELL DISTRIBUTION WIDTH 13.7 % (11.7-14.4)
[2019-08-28 06:07] LABS: ALANINE AMINOTRANSFERASE 11 IU/L (0-55); ALBUMIN 3.3 g/dL (3.5-5.0); ALBUMIN/GLOBULIN RATIO 1.2 (0.8-2.0); ALKALINE PHOSPHATASE 70 IU/L (40-150); ANION GAP 13.2 mmol/L (8-16); BLOOD UREA NITROGEN 17 mg/dL (7-26); BUN/CREATININE RATIO 23 (6-25); CALCIUM 9.1 mg/dL (8.4-10.2); CARBON DIOXIDE 26 mmol/L (22-29); CHLORIDE 109 mmol/L (98-107); CREATININE, SERUM 0.74 mg/dL (0.57-1.11); EST GLOMERULAR FILTRATION RATE > 60 ML/MIN (60-); POTASSIUM 4.2 mmol/L (3.5-5.1); SODIUM 144 mmol/L (136-145)
[2019-08-28] MEDS: SODIUM CHLORIDE 0.9% 1000ML 1,000 ML IV SCH (06:07)
[2019-08-28 06:12] LABS: GLUCOSE 56 mg/dL (74-118)
[2019-08-28] MEDS: ONDANSETRON HCL INJ 2MG/ML 2ML 2 MG/ML VIAL IV PRN ×2 (06:15→09:34)
--- NOTE | 2019-08-28 06:19 | NUR ---
blood glucose reading 56, patient is aaox3. OJ given. Will recheck blood glucose
--- NOTE | 2019-08-28 07:05 | NUR ---
RCD PT AT BED PT IS ALERT AND ORIENTED PT RESTING ON BED IV PATENT BY SALINE FLUSH BED LOW AND LOCKED CALL LIGHT IN REACH
[2019-08-28] MEDS: GLIMEPIRIDE 2 MG TAB PO SCH (07:30)
[2019-08-28] MEDS: PANTOPRAZOLE SOD 40 MG TABEC PO SCH (07:30)
[2019-08-28] MEDS: INSULIN REGULAR, HUMAN 100 UNIT/1 ML 3ML VIAL SQ SCH (07:30)
[2019-08-28] MEDS: METFORMIN HCL 500 MG TAB PO SCH (08:00)
[2019-08-28 08:34] VITALS: BP 174/81
[2019-08-28] MEDS: SERTRALINE HCL 50 MG TAB PO SCH (09:00)
[2019-08-28] MEDS: ASPIRIN 81 MG CHEW TAB PO SCH (09:00)
[2019-08-28] MEDS: GABAPENTIN 400 MG CAP PO SCH (09:00)
[2019-08-28] MEDS: MELOXICAM 7.5 MG TAB PO SCH (09:00)
[2019-08-28] MEDS: BACLOFEN 10 MG TAB PO SCH (09:00)
[2019-08-28] MEDS: PIOGLITAZONE HCL 15 MG TAB PO SCH (09:00)
--- NOTE | 2019-08-28 09:04 | Progress Note ---
DATE: SUBJECTIVE: The patient came in with acute renal insufficiency, hyperkalemia and dehydration, feeling better, had a drop of blood sugars on glimepiride. We will hold the glimepiride down, feeling nauseous, Zofran does help. The patient's laboratory values are better. No chest pain. No shortness of breath, but complains of some nausea. OBJECTIVE: VITAL SIGNS: Temperature is 98.6, pulse of 80, respirations of 20, blood pressure is 173/63, and pulse oximetry 98%. HEENT: Normocephalic and atraumatic. Pupils are reactive. CVS: S1 and S2 normal. Regular rate and rhythm. ABDOMEN: Slightly tender in the epigastric area. EXTREMITIES: No clubbing, cyanosis and/or no edema. LABORATORY VALUES: The patient's white count is 5.9, hemoglobin 11.3, and hematocrit 35.7. Chemistry shows sodium 144, potassium 4.2, BUN of 17, creatinine 0.7, and glucose of 56. ASSESSMENT: 1. Acute renal failure. 2. Dehydration. 3. Reflux esophagitis. 4. Hyperglycemia secondary to hypoglycemic agent, namely glimepiride. 5. Hypertension. 6. Arthritis. 7. Nausea secondary to reflux esophagitis and hyperlipidemia. PLAN: Okay to discharge home. The patient has been offered to stay, but wants to go home because of the situation in the hospital. The patient will be discharged on Zofran 4 mg q.4 hours as needed. We will increase the pantoprazole to twice a day. We will hold back on the glimepiride 2 mg at this time and metformin at this time. Continue monitoring the patient's blood sugar at home. Avoid hypoglycemia. The patient has been given a bland diet, soft mechanical. Further recommendation per clinical course. The patient to see Dr. Jones as an outpatient on discharge. Strict ER warnings given and will discharge the patient. MD DRAKE Martin/GINGERL /[id number]
[2019-08-28 09:13] VITALS: BP 174/81
[2019-08-28] MEDS ORDERED: ZOFRAN4 MG PO (09:21)
[2019-08-28] MEDS ORDERED: LOSARTAN POTASS25 MG PO (09:22)
--- NOTE | 2019-08-28 09:58 | NUR ---
PATIENT WENT HOME IN SAFE CONDITION WITH HER DAUGHTER
== END 2019-08-28 09:58 | disposition home or self-care (01) ==
LOC: ER 00:45 → ERHOLD 04:17 → MED/SURG 05:30
PROVIDERS: ADMIT Internal Medicine; ATTEND Internal Medicine
DX: N17.9 Acute kidney failure, unspecified (principal); E86.0 Dehydration; R51 Headache; N28.9 Disorder of kidney and ureter, unspecified; E87.5 Hyperkalemia; I10 Essential (primary) hypertension; E11.42 Type 2 diabetes mellitus with diabetic polyneuropathy; Z82.49 Family history of ischemic heart disease and other diseases of the circulatory system; K21.0 Gastro-esophageal reflux disease with esophagitis; M19.90 Unspecified osteoarthritis, unspecified site; E11.65 Type 2 diabetes mellitus with hyperglycemia; E11.649 Type 2 diabetes mellitus with hypoglycemia without coma; Z79.84 Long term (current) use of oral hypoglycemic drugs; Z11.59 Encounter for screening for other viral diseases; Z91.041 Radiographic dye allergy status
CPT/HCPCS: 36415 ×2; 70450; 71045; 80053 ×2; 81001; 82550; 82553; 82948 ×2; 84132; 84484; 85025 ×2; 85610; 85730; 87635; 93005; 99284; G0378 ×2; J1817; J2405; J7030 ×2; J7799; S0164 ×2

== ENCOUNTER 2019-09-16 11:06 | Emergency (ER) | payer MEDICARE, BC, OTHER ==
[~2019-09-16] VITALS: Ht 160 cm; Wt 77.1 kg
[~2019-09-16 11:06] MED LIST changes: +LOSARTAN POTASS25 MG PO; +ZOFRAN4 MG PO
--- NOTE | 2019-09-16 11:35 | NUR ---
Purick placed on patient.
[2019-09-16 12:05] LABS: BASOPHILS % 0.7 % (0.0-1.0); EOSINOPHILS # (AUTO) 0.2 (0.0-0.4); EOSINOPHILS % 4.9 % (0.0-6.0); HEMOGLOBIN 11.3 g/dL (12.0-16.0); LYMPHOCYTES # (AUTO) 0.7 (1.0-3.2); LYMPHOCYTES % 16.5 % (18.0-39.1); MEAN CORPUSCULAR HEMOGLOBIN 30.9 pg (28-32); MEAN CORPUSCULAR HGB CONC 30.5 g/dL (31-35); MEAN CORPUSCULAR VOLUME 101.1 fL (81-99); MONOCYTES # (AUTO) 0.5 (0.2-0.8); MONOCYTES % 11.2 % (4.4-11.3); NEUTROPHILS # (AUTO) 2.9 (2.1-6.9); NEUTROPHILS % 66.2 % (38.7-80.0); PLATELET COUNT 192 x10e3/uL (140-360); RED BLOOD COUNT 3.66 x10e6/uL (3.6-5.1); RED CELL DISTRIBUTION WIDTH 13.4 % (11.7-14.4)
[2019-09-16 12:09] LABS: CLARITY,URINE CLEAR (CLEAR); COLOR,URINE YELLOW (YELLOW); LEUKOCYTE ESTERASE ,URINE TRACE (NEGATIVE); NITRITE,URINE NEGATIVE (NEGATIVE); PROTEIN,URINE DIPSTICK TRACE (NEGATIVE)
[2019-09-16 12:10] LABS: BILIRUBIN,URINE SMALL (NEGATIVE); KETONES,URINE TRACE (NEGATIVE); URINE UROBILINOGEN 0.2 mg/dL (0.2 - 1)
[2019-09-16 12:20] LABS: BACTERIA,URINE MANY /HPF; EPITHELIAL CELLS,URINE FEW /LPF; TRANSITIONAL EPI CELLS,URINE FEW; WBC,URINE (MAN) >50 /HPF (0-5)
[2019-09-16 12:22] LABS: ALBUMIN 3.5 g/dL (3.5-5.0); ALBUMIN/GLOBULIN RATIO 1.3 (0.8-2.0); ANION GAP 16.6 mmol/L (8-16); CALCIUM 8.9 mg/dL (8.4-10.2); CREATININE, SERUM 2.92 mg/dL (0.57-1.11); POTASSIUM 4.6 mmol/L (3.5-5.1)
[2019-09-16 12:29] LABS: CREATINE KINASE MB 0.9 ng/mL (0-5.0)
--- NOTE | 2019-09-16 13:04 | Diagnostic Imaging Report ---
CT BRAIN WO HISTORY: Altered mental status COMPARISON: Head CT 08/27/2019 Technique: Noncontrast axial scans were obtained from skull base to the vertex. Coronal and sagittal reconstructions obtained from the axial data. One or more of the following dose reduction techniques were used: Automated exposure control, adjustment of the mA and/or kV according to patient size, and/or utilization of iterative reconstruction technique. Beam hardening artifacts obscure some details. DISCUSSION: Scalp/Skull: Unremarkable. Brain sulci: Mildly prominent. Ventricles: Compensatory dilatation. Extra-axial spaces: No masses or fluid collections. Carotid siphon calcifications are present. Parenchyma: Mild to moderate bilateral deep white matter hypodensity is likely chronic microvascular ischemic change. Otherwise, no masses, hemorrhage, or large vascular territory acute infarct. Dural sinuses: No abnormal densities. Sellar/Suprasellar region: Intact. Skull base: Intact. Incidental findings: Bilateral ocular lens replacement. IMPRESSION: 1. No acute intracranial abnormalities. 2. Mild to moderate supratentorial chronic microvascular ischemic change. Mild generalized cerebral volume loss. Signed by: Dr. Olu Bolton M.D. on 09/16/2019 1:01 PM
--- NOTE | 2019-09-16 13:44 | NUR ---
Raghu Pyle (son) [phone]
--- NOTE | 2019-09-16 14:59 | NUR ---
Spoke with patients juan antonio Krishnamurthy in order to get permission to transferred downtown. He stated that patient could be transferred downtown.
[2019-09-16 15:15] VITALS: BP 151/57
--- NOTE | 2019-09-16 15:23 | Emergency Department Note ---
History of Present Illnes History of Present Illness Chief Complaint: Neurological History of Present Illness This is a 74 year old female arrived to the ED for slurred speech and generalized malaise, patient with a history of CVAs in the past. 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 Any updates have been documented here. Past Medical History Recent Fever: No Clinical Suspicion of Infectio: No New/Unexplained Change in Ment: No Past Medical History: Diabetes, TIA Other Medical History: SEVERE PERIPHERAL NEUOPATHY TARDIVE DYSKINESIA Past Surgical History: Hysterectomy, Back Surgery, Cataract Removal Other Surgery: X2 KNEE ARTHROSCOPY X2 NECK SX, X2 LOWER BACK SX Social History Smoking Cessation: Never Smoker Counseling Performed: No Alcohol Use: None Any Illegal Drug Use: No Physically hurt or threatened: No Other Any Pre-Existing Lines (PICC,: No Review of Systems Review of Systems Constitutional: Reports no symptoms EENTM: Reports no symptoms Cardiovascular: Reports no symptoms Respiratory: Reports no symptoms Gastrointestinal: Reports no symptoms Genitourinary: Reports no symptoms Musculoskeletal: Reports no symptoms Integumentary: Reports no symptoms Neurological: Reports as per HPI, Reports weakness Psychological: Reports no symptoms Endocrine: Reports no symptoms Hematological/Lymphatic: Reports no symptoms Physical Exam Related Data Allergies: Coded Allergies: Iodinated Contrast Media (Verified Allergy, Unknown, severe headache, 08/07/19) Triage Vital Signs Vital Signs Date Time Temp Pulse Resp B/P (MAP) Pulse Ox O2 Delivery O2 Flow Rate FiO2 09/16/19 11:47 98.0 75 12 120/55 96 Room Air 09/16/19 11:54 2.0 Vital signs reviewed: Yes Physical Exam CONSTITUTIONAL Constitutional: Present well-developed, Present well-nourished HENT HENT: Present normocephalic, Present atraumatic, Present oropharynx clear/moist, Present nose normal HENT L/R: Present left ext ear normal, Present right ext ear normal EYES Eyes: Reports PERRL, Reports conjunctivae normal NECK Neck: Present ROM normal PULMONARY Pulmonary: Present effort normal, Present breath sounds normal CARDIOVASCULAR Cardiovascular: Present regular rhythm, Present heart sounds normal, Present capillary refill normal, Present normal rate GASTROINTESTINAL Abdominal: Present soft, Present nontender, Present bowel sounds normal GENITOURINARY Genitourinary: Present exam deferred SKIN Skin: Present warm, Present dry MUSCULOSKELETAL Musculoskeletal: Present ROM normal NEUROLOGICAL Neurological: Present alert, Present no gross motor or sensory deficits PSYCHOLOGICAL Psychological: Present mood/affect normal, Present judgement normal Results Laboratory Result Diagram: 09/16/19 1130 09/16/19 1130 Laboratory Laboratory Tests Test 09/16/19 12:14 09/16/19 11:30 White Blood Count 4.30 x10e3/uL (4.8-10.8) Red Blood Count 3.66 x10e6/uL (3.6-5.1) Hemoglobin 11.3 g/dL (12.0-16.0) Hematocrit 37.0 % (34.2-44.1) Mean Corpuscular Volume 101.1 fL (81-99) Mean Corpuscular Hemoglobin 30.9 pg (28-32) Mean Corpuscular Hemoglobin Concent 30.5 g/dL (31-35) Red Cell Distribution Width 13.4 % (11.7-14.4) Platelet Count 192 x10e3/uL (140-360) Neutrophils (%) (Auto) 66.2 % (38.7-80.0) Lymphocytes (%) (Auto) 16.5 % (18.0-39.1) Monocytes (%) (Auto) 11.2 % (4.4-11.3) Eosinophils (%) (Auto) 4.9 % (0.0-6.0) Basophils (%) (Auto) 0.7 % (0.0-1.0) Neutrophils # (Auto) 2.9 (2.1-6.9) Lymphocytes # (Auto) 0.7 (1.0-3.2) Monocytes # (Auto) 0.5 (0.2-0.8) Eosinophils # (Auto) 0.2 (0.0-0.4) Basophils # (Auto) 0.0 (0.0-0.1) Absolute Immature Granulocyte (auto 0.02 x10e3/uL (0-0.1) Urine Color Yellow (YELLOW) Urine Clarity Clear (CLEAR) Urine pH 5 (5 - 7) Urine Specific [place] >=1.030 (1.010-1.025) Urine Protein Trace (NEGATIVE) Urine Glucose (UA) 1+ (NEGATIVE) Urine Ketones Trace (NEGATIVE) Urine Blood Negative (NEGATIVE) Urine Nitrite Negative (NEGATIVE) Urine Bilirubin Small (NEGATIVE) Urine Urobilinogen 0.2 mg/dL (0.2 - 1) Urine Leukocyte Esterase Trace (NEGATIVE) Urine RBC None /HPF (0-5) Urine WBC >50 /HPF (0-5) Urine Epithelial Cells Few /LPF (NONE) Urine Transitional Epithelial Cells Few (NONE) Urine Bacteria Many /HPF (NONE) Sodium Level 143 mmol/L (136-145) Potassium Level 4.6 mmol/L (3.5-5.1) Chloride Level 107 mmol/L (98-107) Carbon Dioxide Level 24 mmol/L (22-29) Anion Gap 16.6 mmol/L (8-16) Blood Urea Nitrogen 29 mg/dL (7-26) Creatinine 2.92 mg/dL (0.57-1.11) Estimat Glomerular Filtration Rate 16 ML/MIN (60-) BUN/Creatinine Ratio 10 (6-25) Glucose Level 214 mg/dL (74-118) Calcium Level 8.9 mg/dL (8.4-10.2) Total Bilirubin 0.2 mg/dL (0.2-1.2) Aspartate Amino Transf (AST/SGOT) 11 IU/L (5-34) Alanine Aminotransferase (ALT/SGPT) 10 IU/L (0-55) Alkaline Phosphatase 70 IU/L (40-150) Creatine Kinase 35 IU/L (29-168) Creatine Kinase MB 0.90 ng/mL (0-5.0) Troponin I 0.015 ng/mL (0-0.300) Total Protein 6.2 g/dL (6.5-8.1) Albumin 3.5 g/dL (3.5-5.0) Globulin 2.7 g/dL (2.3-3.5) Albumin/Globulin Ratio 1.3 (0.8-2.0) Imaging Imaging results reviewed: Yes Procedures 12 Lead ECG Interpretation ECG Interpretation : ECG: ECG 1 Trailer Technician: Interpreted by ED physician Prior ECG tracings: reviewed Rate: normal ST segments normal: Yes Clinical Impression: normal ECG Assessment & Plan Medical Decision Making MDM 74-year-old female arrives to the ED with, also noted to have acute renal failure. Concerns of slurred speech/altered mental status may be encephalopathic in origin. Patient transferred to [facility] for higher level of care. Assessment & Plan Final Impression: (1) Acute renal insufficiency (2) CVA (cerebral vascular accident) (3) Aphasia Depart Disposition: HOME, SELF-CARE Last Vital Signs Date Time Temp Pulse Resp B/P (MAP) Pulse Ox O2 Delivery O2 Flow Rate FiO2 09/16/19 14:42 98.2 85 12 151/57 100 Nasal Cannula 2.0 Home Meds Reported Medications Losartan Potassium (LOSARTAN POTASSIUM) 25 Mg Tablet, MG PO BID, #60 08/28/19 Ondansetron Hcl* (ZOFRAN*) 4 Mg Tablet, 4 MG PO Q4HR, #30 08/28/19 Valbenazine Tosylate (Ingrezza) 80 Mg Capsule, 80 MG PO DAILY 08/06/19 Sertraline Hcl (ZOLOFT) 50 Mg Tablet, 100 MG PO DAILY, #30 TAB 08/06/19 Aspirin (ASPIR 81) 81 Mg Tablet.dr, 81 MG PO DAILY 08/06/19 Pantoprazole Sodium* (PROTONIX) 40 Mg Tablet.dr, 40 MG PO BID, TAB 09/13/15 Baclofen (BACLOFEN) 10 Mg Tablet, 20 MG PO TID, TAB 09/16/13 Lovastatin (LOVASTATIN) 40 Mg Tablet, 40 MG PO DAILY 07/20/12 Gabapentin (NEURONTIN) 300 Mg Capsule, 800 MG PO TID 07/20/12 Pioglitazone Hcl (ACTOS) 30 Mg Tablet, 30 MG PO DAILY 07/20/12 Metformin Hcl (METFORMIN HCL) 500 Mg Tablet, 1000 MG PO BID 07/20/12 TOD DYE, Sep 16, 2019 15:23
--- NOTE | 2019-09-16 15:25 | Emergency Department Note ---
History of Present Illnes History of Present Illness Chief Complaint: Neurological History of Present Illness This is a 74 year old female . 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 Any updates have been documented here. Past Medical History Recent Fever: No Clinical Suspicion of Infectio: No New/Unexplained Change in Ment: No Past Medical History: Diabetes, TIA Other Medical History: SEVERE PERIPHERAL NEUOPATHY TARDIVE DYSKINESIA Past Surgical History: Hysterectomy, Back Surgery, Cataract Removal Other Surgery: X2 KNEE ARTHROSCOPY X2 NECK SX, X2 LOWER BACK SX Social History Smoking Cessation: Never Smoker Counseling Performed: No Alcohol Use: None Any Illegal Drug Use: No Physically hurt or threatened: No Other Any Pre-Existing Lines (PICC,: No Physical Exam Related Data Allergies: Coded Allergies: Iodinated Contrast Media (Verified Allergy, Unknown, severe headache, 08/07/19) Triage Vital Signs Vital Signs Date Time Temp Pulse Resp B/P (MAP) Pulse Ox O2 Delivery O2 Flow Rate FiO2 09/16/19 11:47 98.0 75 12 120/55 96 Room Air 09/16/19 11:54 2.0 Physical Exam CONSTITUTIONAL HENT EYES NECK PULMONARY CARDIOVASCULAR GASTROINTESTINAL GENITOURINARY SKIN MUSCULOSKELETAL NEUROLOGICAL PSYCHOLOGICAL Results Laboratory Result Diagram: 09/16/19 1130 09/16/19 1130 Laboratory Laboratory Tests Test 09/16/19 12:14 09/16/19 11:30 White Blood Count 4.30 x10e3/uL (4.8-10.8) Red Blood Count 3.66 x10e6/uL (3.6-5.1) Hemoglobin 11.3 g/dL (12.0-16.0) Hematocrit 37.0 % (34.2-44.1) Mean Corpuscular Volume 101.1 fL (81-99) Mean Corpuscular Hemoglobin 30.9 pg (28-32) Mean Corpuscular Hemoglobin Concent 30.5 g/dL (31-35) Red Cell Distribution Width 13.4 % (11.7-14.4) Platelet Count 192 x10e3/uL (140-360) Neutrophils (%) (Auto) 66.2 % (38.7-80.0) Lymphocytes (%) (Auto) 16.5 % (18.0-39.1) Monocytes (%) (Auto) 11.2 % (4.4-11.3) Eosinophils (%) (Auto) 4.9 % (0.0-6.0) Basophils (%) (Auto) 0.7 % (0.0-1.0) Neutrophils # (Auto) 2.9 (2.1-6.9) Lymphocytes # (Auto) 0.7 (1.0-3.2) Monocytes # (Auto) 0.5 (0.2-0.8) Eosinophils # (Auto) 0.2 (0.0-0.4) Basophils # (Auto) 0.0 (0.0-0.1) Absolute Immature Granulocyte (auto 0.02 x10e3/uL (0-0.1) Urine Color Yellow (YELLOW) Urine Clarity Clear (CLEAR) Urine pH 5 (5 - 7) Urine Specific [place] >=1.030 (1.010-1.025) Urine Protein Trace (NEGATIVE) Urine Glucose (UA) 1+ (NEGATIVE) Urine Ketones Trace (NEGATIVE) Urine Blood Negative (NEGATIVE) Urine Nitrite Negative (NEGATIVE) Urine Bilirubin Small (NEGATIVE) Urine Urobilinogen 0.2 mg/dL (0.2 - 1) Urine Leukocyte Esterase Trace (NEGATIVE) Urine RBC None /HPF (0-5) Urine WBC >50 /HPF (0-5) Urine Epithelial Cells Few /LPF (NONE) Urine Transitional Epithelial Cells Few (NONE) Urine Bacteria Many /HPF (NONE) Sodium Level 143 mmol/L (136-145) Potassium Level 4.6 mmol/L (3.5-5.1) Chloride Level 107 mmol/L (98-107) Carbon Dioxide Level 24 mmol/L (22-29) Anion Gap 16.6 mmol/L (8-16) Blood Urea Nitrogen 29 mg/dL (7-26) Creatinine 2.92 mg/dL (0.57-1.11) Estimat Glomerular Filtration Rate 16 ML/MIN (60-) BUN/Creatinine Ratio 10 (6-25) Glucose Level 214 mg/dL (74-118) Calcium Level 8.9 mg/dL (8.4-10.2) Total Bilirubin 0.2 mg/dL (0.2-1.2) Aspartate Amino Transf (AST/SGOT) 11 IU/L (5-34) Alanine Aminotransferase (ALT/SGPT) 10 IU/L (0-55) Alkaline Phosphatase 70 IU/L (40-150) Creatine Kinase 35 IU/L (29-168) Creatine Kinase MB 0.90 ng/mL (0-5.0) Troponin I 0.015 ng/mL (0-0.300) Total Protein 6.2 g/dL (6.5-8.1) Albumin 3.5 g/dL (3.5-5.0) Globulin 2.7 g/dL (2.3-3.5) Albumin/Globulin Ratio 1.3 (0.8-2.0) Assessment & Plan Last Vital Signs Date Time Temp Pulse Resp B/P (MAP) Pulse Ox O2 Delivery O2 Flow Rate FiO2 09/16/19 14:42 98.2 85 12 151/57 100 Nasal Cannula 2.0 Home Meds Reported Medications Losartan Potassium (LOSARTAN POTASSIUM) 25 Mg Tablet, MG PO BID, #60 08/28/19 Ondansetron Hcl* (ZOFRAN*) 4 Mg Tablet, 4 MG PO Q4HR, #30 08/28/19 Valbenazine Tosylate (Ingrezza) 80 Mg Capsule, 80 MG PO DAILY 08/06/19 Sertraline Hcl (ZOLOFT) 50 Mg Tablet, 100 MG PO DAILY, #30 TAB 08/06/19 Aspirin (ASPIR 81) 81 Mg Tablet.dr, 81 MG PO DAILY 08/06/19 Pantoprazole Sodium* (PROTONIX) 40 Mg Tablet.dr, 40 MG PO BID, TAB 09/13/15 Baclofen (BACLOFEN) 10 Mg Tablet, 20 MG PO TID, TAB 09/16/13 Lovastatin (LOVASTATIN) 40 Mg Tablet, 40 MG PO DAILY 07/20/12 Gabapentin (NEURONTIN) 300 Mg Capsule, 800 MG PO TID 07/20/12 Pioglitazone Hcl (ACTOS) 30 Mg Tablet, 30 MG PO DAILY 07/20/12 Metformin Hcl (METFORMIN HCL) 500 Mg Tablet, 1000 MG PO BID 07/20/12 TOD DYE, Sep 16, 2019 15:25
== END 2019-09-16 16:29 | disposition other institution (70) ==
LOC: ER 11:14
DX: I63.9 Cerebral infarction, unspecified (principal); R47.01 Aphasia; N28.9 Disorder of kidney and ureter, unspecified; E11.42 Type 2 diabetes mellitus with diabetic polyneuropathy
CPT/HCPCS: 36415; 70450; 80053; 81001; 82550; 82553; 84484; 85025; 93005; 99284; U0002

== ENCOUNTER 2019-09-25 18:29 | Emergency (ER) | payer MEDICARE, BC ==
[~2019-09-25] VITALS: Ht 160 cm; Wt 77.1 kg
[2019-09-25] MEDS ORDERED: VANCOMYCIN 1GM/NS 250 ML 250 ML IV ONE (18:45)
[2019-09-25] MEDS ORDERED: CEFEPIME 2 GM/NS 0.9% 100 ML 100 ML IV SCH (18:45)
--- NOTE | 2019-09-25 19:10 | NUR ---
to room on rounds. pt noted attempting to get out of stretcher. pt noted confused and combative. extra staff called to room for assistance. md ordered ativan once iv established. pt fighting staff and uncooperative during iv start. iv started to l fa c 20ga x 1 attempt. linens noted soiled c urine, linens changed. pt clothing removed, place in diaper. pt given ativan per orders. repositioned on stretcher. pt remains combative and attempting to get out of stretcher. charge nurse informed to request sitter or family to come stay c patient.
[2019-09-25] MEDS ORDERED: LORAZEPAM INJ 2 MG/ML VIAL IV ONE (19:15)
[2019-09-25] MEDS ORDERED: ZIPRASIDONE 20 MG VIAL IM PRN (19:30)
[2019-09-25 19:50] LABS: BASOPHILS # (AUTO) 0.1 (0.0-0.1); BASOPHILS % 0.4 % (0.0-1.0); EOSINOPHILS % 0.1 % (0.0-6.0); HEMATOCRIT 41.3 % (34.2-44.1); HEMOGLOBIN 13.2 g/dL (12.0-16.0); LYMPHOCYTES # (AUTO) 0.4 (1.0-3.2); LYMPHOCYTES % 3.8 % (18.0-39.1); MEAN CORPUSCULAR HEMOGLOBIN 31.4 pg (28-32); MEAN CORPUSCULAR VOLUME 98.1 fL (81-99); MONOCYTES # (AUTO) 0.7 (0.2-0.8); MONOCYTES % 6.1 % (4.4-11.3); NEUTROPHILS # (AUTO) 10.1 (2.1-6.9); NEUTROPHILS % 88.8 % (38.7-80.0); PLATELET COUNT 246 x10e3/uL (140-360); RED BLOOD COUNT 4.21 x10e6/uL (3.6-5.1); RED CELL DISTRIBUTION WIDTH 12.9 % (11.7-14.4)
[2019-09-25 20:14] LABS: ALANINE AMINOTRANSFERASE 17 IU/L (0-55); ALBUMIN 3.8 g/dL (3.5-5.0); ALBUMIN/GLOBULIN RATIO 1.5 (0.8-2.0); ALKALINE PHOSPHATASE 71 IU/L (40-150); ANION GAP 21.3 mmol/L (8-16); BLOOD UREA NITROGEN 9 mg/dL (7-26); BUN/CREATININE RATIO 12 (6-25); CALCIUM 9.5 mg/dL (8.4-10.2); CARBON DIOXIDE 25 mmol/L (22-29); CHLORIDE 98 mmol/L (98-107); CREATINE KINASE 57 IU/L (29-168); CREATININE, SERUM 0.76 mg/dL (0.57-1.11); EST GLOMERULAR FILTRATION RATE > 60 ML/MIN (60-); GLUCOSE 209 mg/dL (74-118); POTASSIUM 3.3 mmol/L (3.5-5.1); SODIUM 141 mmol/L (136-145)
[2019-09-25 20:15] LABS: PARTIAL THROMBOPLASTIN TIME 18.5 seconds (23.8-35.5)
[2019-09-25 20:17] LABS: CLARITY,URINE CLEAR (CLEAR); COLOR,URINE YELLOW (YELLOW)
[2019-09-25 20:18] LABS: BILIRUBIN,URINE NEGATIVE (NEGATIVE); KETONES,URINE 2+ (NEGATIVE); LEUKOCYTE ESTERASE ,URINE NEGATIVE (NEGATIVE); NITRITE,URINE NEGATIVE (NEGATIVE); PROTEIN,URINE DIPSTICK 1+ (NEGATIVE); URINE UROBILINOGEN 0.2 mg/dL (0.2 - 1)
[2019-09-25 20:19] LABS: BACTERIA,URINE FEW /HPF; EPITHELIAL CELLS,URINE FEW /LPF; WBC,URINE (MAN) 0-5 /HPF (0-5)
[2019-09-25 20:27] LABS: INR 0.89; PROTHROMBIN TIME 12.5 seconds (11.9-14.5)
--- NOTE | 2019-09-25 20:39 | Diagnostic Imaging Report ---
EXAMINATION: CHEST SINGLE (PORTABLE) INDICATION: ams COMPARISON: Radiograph dated 08/27/2019. FINDINGS: Shallow lung volumes. LUNGS: Shallow lung volumes. New mild patchy bibasilar opacities. . PLEURA: No pleural effusion or pneumothorax. HEART AND MEDIASTINUM: The cardiomediastinal silhouette is unremarkable. BONES AND SOFT TISSUES: Cervical fusion hardware is partially imaged and incompletely assessed. IMPRESSION: Shallow lung volumes. New mild bibasilar patchy opacities could represent atelectasis or viral pneumonia/early pneumonia in the appropriate clinical setting. Signed by: Shai Olmos MD on 09/25/2019 8:35 PM
--- NOTE | 2019-09-25 20:54 | Emergency Department Note ---
History of Present Illnes History of Present Illness Chief Complaint: Neurological History of Present Illness This is a 74 year old female brought to the emergecy room for new onset of AMS that began this morning. Patient is usually A/0X3 per ems/family. Patient was recently [facility] for a U[facility] at [facility] the medical centerand discharged. Patient is currently oriented to self and aggitated.. PER DAUGHTER THE WAY PT IS ACTING NOW IS EXACTLY SAME WAY SHE ACTED BEFORE BEING ADMITTED TO THE OTHER HOSPITAL SHE WAS DISCHARGED FROM 2 DAYS AGO . Historian: Family Member, In Home Baby Sitter/EMS Arrival Mode: [facility] Additional Treatment SALES APPRENTICE: 256 History limited by: condition of the patient (AMS, AGITATION) Onset (how long ago): hour(s) (12) Location: UNKNOWN Quality: AMS, AGITATION Radiation: Reports non-radiation Severity: severe Onset quality: sudden Duration (how long): hour(s) (12) Timing of current episode: constant Progression: worsening Chronicity: recurrent Context: Reports recent illness (UTI WITH AMS AND WAS ADMITTED TO ANOTHER HOSPITAL AND DISCHARGED 2 DAYS AGO) Past Medical/Family History Physician Review I have reviewed the patient's past medical and family history. Any updates have been documented here. Past Medical History Recent Fever: No Clinical Suspicion of Infectio: Yes New/Unexplained Change in Ment: Yes Past Medical History: Diabetes, TIA Other Medical History: SEVERE PERIPHERAL NEUROPATHY TARDIVE DYSKINESIA Past Surgical History: Hysterectomy, Back Surgery, Cataract Removal Other Surgery: X2 KNEE ARTHROSCOPY X2 NECK SX, X2 LOWER BACK SX Social History Smoking Cessation: Never Smoker Alcohol Use: None Any Illegal Drug Use: No Other Any Pre-Existing Lines (PICC,: No Review of Systems Review of Systems Constitutional: Reports no symptoms EENTM: Reports no symptoms Cardiovascular: Reports no symptoms Respiratory: Reports no symptoms Gastrointestinal: Reports no symptoms Genitourinary: Reports no symptoms Musculoskeletal: Reports no symptoms Integumentary: Reports no symptoms Neurological: Reports as per HPI Psychological: Reports as per HPI Endocrine: Reports no symptoms Hematological/Lymphatic: Reports no symptoms Physical Exam Related Data Allergies: Coded Allergies: Iodinated Contrast Media (Verified Allergy, Unknown, severe headache, 08/07/19) Triage Vital Signs Vital Signs Date Time Temp Pulse Resp B/P (MAP) Pulse Ox O2 Delivery O2 Flow Rate FiO2 09/25/19 19:04 97.9 101 20 169/80 97 Room Air Vital signs reviewed: Yes Physical Exam CONSTITUTIONAL Constitutional: Present well-developed, Present well-nourished, Present other (AGITATED) HENT HENT: Present normocephalic, Present atraumatic, Present oropharynx clear/moist, Present nose normal HENT L/R: Present left ext ear normal, Present right ext ear normal EYES Eyes: Reports PERRL, Reports conjunctivae normal NECK Neck: Present ROM normal PULMONARY Pulmonary: Present effort normal, Present breath sounds normal CARDIOVASCULAR Cardiovascular: Present regular rhythm, Present heart sounds normal, Present capillary refill normal, Present tachycardia (103) GASTROINTESTINAL Abdominal: Present soft, Present nontender, Present bowel sounds normal GENITOURINARY Genitourinary: Present exam deferred SKIN Skin: Present warm, Present dry MUSCULOSKELETAL Musculoskeletal: Present ROM normal NEUROLOGICAL PT IS ALERT, ORIENTED TO NAME ONLY AND EXTREMELY AGITATED, WILL NOT FOLLOW COMMANDS, THRASHING AROUND IN THE BED. PSYCHOLOGICAL Psychological: Present mood/affect normal, Present judgement normal Results Laboratory Result Diagram: 09/25/19191909/25/192018 Laboratory Laboratory Tests Test 09/25/19 20:19 09/25/19 19:48 09/25/19 19:20 Sodium Level 141 mmol/L (136-145) Potassium Level 3.3 mmol/L (3.5-5.1) Chloride Level 98 mmol/L (98-107) Carbon Dioxide Level 25 mmol/L (22-29) Anion Gap 21.3 mmol/L (8-16) Blood Urea Nitrogen 9 mg/dL (7-26) Creatinine 0.76 mg/dL (0.57-1.11) Estimat Glomerular Filtration Rate > 60 ML/MIN (60-) BUN/Creatinine Ratio 12 (6-25) Glucose Level 209 mg/dL (74-118) Calcium Level 9.5 mg/dL (8.4-10.2) Total Bilirubin 0.5 mg/dL (0.2-1.2) Aspartate Amino Transf (AST/SGOT) 19 IU/L (5-34) Alanine Aminotransferase (ALT/SGPT) 17 IU/L (0-55) Alkaline Phosphatase 71 IU/L (40-150) Creatine Kinase 57 IU/L (29-168) Creatine Kinase MB 1.20 ng/mL (0-5.0) Troponin I 0.004 ng/mL (0-0.300) Total Protein 6.4 g/dL (6.5-8.1) Albumin 3.8 g/dL (3.5-5.0) Globulin 2.6 g/dL (2.3-3.5) Albumin/Globulin Ratio 1.5 (0.8-2.0) Urine Color Yellow (YELLOW) Urine Clarity Clear (CLEAR) Urine pH 6 (5 - 7) Urine Specific [place] 1.020 (1.010-1.025) Urine Protein 1+ (NEGATIVE) Urine Glucose (UA) 3+ (NEGATIVE) Urine Ketones 2+ (NEGATIVE) Urine Blood Negative (NEGATIVE) Urine Nitrite Negative (NEGATIVE) Urine Bilirubin Negative (NEGATIVE) Urine Urobilinogen 0.2 mg/dL (0.2 - 1) Urine Leukocyte Esterase Negative (NEGATIVE) Urine RBC None /HPF (0-5) Urine WBC 0-5 /HPF (0-5) Urine Epithelial Cells Few /LPF (NONE) Urine Bacteria Few /HPF (NONE) White Blood Count 11.32 x10e3/uL (4.8-10.8) Red Blood Count 4.21 x10e6/uL (3.6-5.1) Hemoglobin 13.2 g/dL (12.0-16.0) Hematocrit 41.3 % (34.2-44.1) Mean Corpuscular Volume 98.1 fL (81-99) Mean Corpuscular Hemoglobin 31.4 pg (28-32) Mean Corpuscular Hemoglobin Concent 32.0 g/dL (31-35) Red Cell Distribution Width 12.9 % (11.7-14.4) Platelet Count 246 x10e3/uL (140-360) Neutrophils (%) (Auto) 88.8 % (38.7-80.0) Lymphocytes (%) (Auto) 3.8 % (18.0-39.1) Monocytes (%) (Auto) 6.1 % (4.4-11.3) Eosinophils (%) (Auto) 0.1 % (0.0-6.0) Basophils (%) (Auto) 0.4 % (0.0-1.0) Neutrophils # (Auto) 10.1 (2.1-6.9) Lymphocytes # (Auto) 0.4 (1.0-3.2) Monocytes # (Auto) 0.7 (0.2-0.8) Eosinophils # (Auto) 0.0 (0.0-0.4) Basophils # (Auto) 0.1 (0.0-0.1) Absolute Immature Granulocyte (auto 0.09 x10e3/uL (0-0.1) Differential Total Cells Counted 100 Neutrophils % (Manual) 86 % (40-74) Band Neutrophils % 4 % Lymphocytes % (Manual) 3 % (19-48) Monocytes % (Manual) 6 % (3.4-9.0) Eosinophils % (Manual) 1 % (0-7) Platelet Estimate Adequate Platelet Morphology Comment Normal Red Cell Morphology Comment Normal Prothrombin Time 12.5 seconds (11.9-14.5) Prothromb Time International Ratio 0.89 Activated Partial Thromboplast Time 18.5 seconds (23.8-35.5) Lactic Acid Level 2.0 mmol/L (0.5-2.0) Laboratory Tests Test 09/25/19 20:19 09/25/19 19:48 09/25/19 19:20 Sodium Level 141 mmol/L (136-145) Potassium Level 3.3 mmol/L (3.5-5.1) Chloride Level 98 mmol/L (98-107) Carbon Dioxide Level 25 mmol/L (22-29) Anion Gap 21.3 mmol/L (8-16) Blood Urea Nitrogen 9 mg/dL (7-26) Creatinine 0.76 mg/dL (0.57-1.11) Estimat Glomerular Filtration Rate > 60 ML/MIN (60-) BUN/Creatinine Ratio 12 (6-25) Glucose Level 209 mg/dL (74-118) Calcium Level 9.5 mg/dL (8.4-10.2) Total Bilirubin 0.5 mg/dL (0.2-1.2) Aspartate Amino Transf (AST/SGOT) 19 IU/L (5-34) Alanine Aminotransferase (ALT/SGPT) 17 IU/L (0-55) Alkaline Phosphatase 71 IU/L (40-150) Creatine Kinase 57 IU/L (29-168) Creatine Kinase MB 1.20 ng/mL (0-5.0) Troponin I 0.004 ng/mL (0-0.300) Total Protein 6.4 g/dL (6.5-8.1) Albumin 3.8 g/dL (3.5-5.0) Globulin 2.6 g/dL (2.3-3.5) Albumin/Globulin Ratio 1.5 (0.8-2.0) Urine Color Yellow (YELLOW) Urine Clarity Clear (CLEAR) Urine pH 6 (5 - 7) Urine Specific [place] 1.020 (1.010-1.025) Urine Protein 1+ (NEGATIVE) Urine Glucose (UA) 3+ (NEGATIVE) Urine Ketones 2+ (NEGATIVE) Urine Blood Negative (NEGATIVE) Urine Nitrite Negative (NEGATIVE) Urine Bilirubin Negative (NEGATIVE) Urine Urobilinogen 0.2 mg/dL (0.2 - 1) Urine Leukocyte Esterase Negative (NEGATIVE) Urine RBC None /HPF (0-5) Urine WBC 0-5 /HPF (0-5) Urine Epithelial Cells Few /LPF (NONE) Urine Bacteria Few /HPF (NONE) White Blood Count 11.32 x10e3/uL (4.8-10.8) Red Blood Count 4.21 x10e6/uL (3.6-5.1) Hemoglobin 13.2 g/dL (12.0-16.0) Hematocrit 41.3 % (34.2-44.1) Mean Corpuscular Volume 98.1 fL (81-99) Mean Corpuscular Hemoglobin 31.4 pg (28-32) Mean Corpuscular Hemoglobin Concent 32.0 g/dL (31-35) Red Cell Distribution Width 12.9 % (11.7-14.4) Platelet Count 246 x10e3/uL (140-360) Neutrophils (%) (Auto) 88.8 % (38.7-80.0) Lymphocytes (%) (Auto) 3.8 % (18.0-39.1) Monocytes (%) (Auto) 6.1 % (4.4-11.3) Eosinophils (%) (Auto) 0.1 % (0.0-6.0) Basophils (%) (Auto) 0.4 % (0.0-1.0) Neutrophils # (Auto) 10.1 (2.1-6.9) Lymphocytes # (Auto) 0.4 (1.0-3.2) Monocytes # (Auto) 0.7 (0.2-0.8) Eosinophils # (Auto) 0.0 (0.0-0.4) Basophils # (Auto) 0.1 (0.0-0.1) Absolute Immature Granulocyte (auto 0.09 x10e3/uL (0-0.1) Prothrombin Time 12.5 seconds (11.9-14.5) Prothromb Time International Ratio 0.89 Activated Partial Thromboplast Time 18.5 seconds (23.8-35.5) Lactic Acid Level 2.0 mmol/L (0.5-2.0) Lab results reviewed: Yes Imaging Imaging results reviewed: Yes Impressions Procedure: [id number] DX/CHEST SINGLE (PORTABLE) Exam Date: 09/25/19 Exam Time: 2004 REPORT STATUS: Signed EXAMINATION: CHEST SINGLE (PORTABLE) INDICATION: ams COMPARISON: Radiograph dated 08/27/2019. FINDINGS: Shallow lung volumes. LUNGS: Shallow lung volumes. New mild patchy bibasilar opacities. . PLEURA: No pleural effusion or pneumothorax. HEART AND MEDIASTINUM: The cardiomediastinal silhouette is unremarkable. BONES AND SOFT TISSUES: Cervical fusion hardware is partially imaged and incompletely assessed. IMPRESSION: Shallow lung volumes. New mild bibasilar patchy opacities could represent atelectasis or viral pneumonia/early pneumonia in the appropriate clinical setting. Signed by: Tracy Braswell MD on 09/25/2019 8:35 PM Dictated By: TRACY BRASWELL MD 34 Transcribed By: DAVON on 09/25/192034 Examination: CT head without contrast Clinical Indication: Confusion; altered mental status. Technique: Transaxial noncontrast images from the skull base through the vertex were obtained. Sagittal and coronal reformatted images were done. Dose modulation, iterative reconstruction, and/or weight based adjustment of the mA/kV was utilized to reduce the radiation dose to as low as reasonably achievable. Comparison: Head CT dated September 16, 2019. Findings: Scalp: No abnormalities. Bones: Intact. No fractures. No blastic or lytic lesions. Brain sulci: Appropriate for patient's age. Ventricles: Normal in size and configuration. No hydrocephalus. . Extra-axial space: No abnormalities. Parenchyma: Again seen are confluent areas of low-attenuation within subcortical and periventricular white matter, nonspecific, but could represent microvascular ischemic disease. No masses, hemorrhage, or acute or chronic cortical based vascular insults. Suprasellar region: No abnormalities. Craniocervical junction: The foramen magnum is patent. No Chiari one malformation. Incidental findings: Atherosclerotic calcification of the cavernous and supraclinoid internal carotid arteries. Impression: 1. No acute intracranial abnormality when compared to prior head CT dated September 16, 2019. 2. Unchanged chronic microvascular ischemic change. Signed by: Dr. Damaris Becerra M.D. on 09/25/2019 9:38 PM Dictated By: DAMARIS RODRIGUEZ MD 37 Transcribed By: DAVON on 09/25/192137 COPY TO: ERICH OLMSTEAD MD~ Procedures 12 Lead ECG Interpretation ECG Interpretation : ECG: ECG 1 Utility System Operator: Interpreted by ED physician Date: Sep 25, 2019 Time: 19:46 Rhythm: sinus rhythm Rate: normal BPM: 93 QRS axis: left ST segments normal: Yes T waves normal: Yes Q waves: II, III, aVF, V1 Clinical Impression: abnormal ECG Assessment & Plan Medical Decision Making MDM PT WITH AMS, AGITATION RECENTLY ADMITTED TO ANOTHER HOSPITAL FOR SAME AND TREATED FOR A UTI DUE TO AGITATION AND NEED TO BE ABLE TO WORK PT UP I ORDERED THE FOLLOWING GEODON 10 MG IM, ATIVAN 2 MG IV, PT RESPONDED WELL TO THESE MEDICATIONS AND IS NOW SLEEPING. CBC, CMP, EKG, CXR, CT BRAIN ,UA, BLOOD CULTURE, URINE CULTURE, LACTIC ACID, CARDIAC ENZYMES, EKG ORDERED TO EVAL FOR INTRACRANIAL ABNORMALITY, UTI, ELECTROLYTE ABNORMALITY, UTI, SEPSIS, MYOCARDIAL INFARCTION CEFEPIME 2 GRAMS IV ORDERED VANCOMYCIN 1 GRAM IV ORDERED PT WITH NEW BIBASILAR INFILTRATE ON CXR PT HAS PNEUMONIA, COVID TEST PENDING. NO NEURO AVAILABLE AT THIS FACILITY, PT WILL REQUIRE TRANSFER AGAIN. [address] POLANCO (NEURO) AT [facility] IS HAPPY TO SEE PT BUT PT NEEDS TO BE ADMITTED TO [facility]ITALIST [address] MARIE (HOSPITLALIST) ACCEPTS PT FOR TRANSFER Assessment & Plan Final Impression: (1) AMS (altered mental status) (2) Pneumonia (3) Suspected COVID-19 virus infection Depart Disposition: TRANS TO OTHER [facility] FAC[facility] Last Vital Signs Date Time Temp Pulse Resp B/P (MAP) Pulse Ox O2 Delivery O2 Flow Rate FiO2 09/25/19 19:59 93 12 163/72 97 Room Air 09/25/19 19:04 97.9 Home Meds Reported Medications Losartan Potassium (LOSARTAN POTASSIUM) 25 Mg Tablet, MG PO BID, #60 08/28/19 Ondansetron Hcl* (ZOFRAN*) 4 Mg Tablet, 4 MG PO Q4HR, #30 08/28/19 Valbenazine Tosylate (Ingrezza) 80 Mg Capsule, 80 MG PO DAILY 08/06/19 Sertraline Hcl (ZOLOFT) 50 Mg Tablet, 100 MG PO DAILY, #30 TAB 08/06/19 Aspirin (ASPIR 81) 81 Mg Tablet.dr, 81 MG PO DAILY 08/06/19 Pantoprazole Sodium* (PROTONIX) 40 Mg Tablet.dr, 40 MG PO BID, TAB 09/13/15 Baclofen (BACLOFEN) 10 Mg Tablet, 20 MG PO TID, TAB 09/16/13 Lovastatin (LOVASTATIN) 40 Mg Tablet, 40 MG PO DAILY 07/20/12 Gabapentin (NEURONTIN) 300 Mg Capsule, 800 MG PO TID 07/20/12 Pioglitazone Hcl (ACTOS) 30 Mg Tablet, 30 MG PO DAILY 07/20/12 Metformin Hcl (METFORMIN HCL) 500 Mg Tablet, 1000 MG PO BID 07/20/12 Medications in the ED Vancomycin HCl 250 ml @ 200 mls/hr NOW ONCE IV ; Start 09/25/19 at 18:45; Stop 09/25/19 at 19:59 Cefepime HCl 100 ml @ 200 mls/hr Q12H IV Last administered on 09/25/19at 19:56; Admin Dose 200 MLS/HR; Start 09/25/19 at 18:45; Stop 10/02/19 at 18:44 Lorazepam 2 mg ONCE ONCE IV Last administered on 09/25/19at 19:15; Admin Dose 2 MG; Start 09/25/19 at 19:15; Stop 09/25/19 at 19:16 Ziprasidone 10 mg HS PRN IM AGITATION Last administered on 09/25/19at 19:30; Admi n Dose 10 MG; Start 09/25/19 at 19:30; Stop 10/25/19 at 19:29 ERICH OLMSTEAD MD Sep 25, 2019 20:54
[2019-09-25 21:31] LABS: LYMPHOCYTES % (MANUAL) 3 % (19-48); MONOCYTES % (MANUAL) 6 % (3.4-9.0); NEUTROPHILS % (MANUAL) 86 % (40-74)
[2019-09-25 21:32] LABS: BAND NEUTROPHILS % (MANUAL) 4 %; EOSINOPHILS % (MANUAL) 1 % (0-7); PLATELET ESTIMATE ADEQUATE; PLATELET MORPHOLOGY COMMENT NORMAL; RBC MORPHOLOGY COMMENT NORMAL
--- NOTE | 2019-09-25 21:41 | Diagnostic Imaging Report ---
Examination: CT head without contrast Clinical Indication: Confusion; altered mental status. Technique: Transaxial noncontrast images from the skull base through the vertex were obtained. Sagittal and coronal reformatted images were done. Dose modulation, iterative reconstruction, and/or weight based adjustment of the mA/kV was utilized to reduce the radiation dose to as low as reasonably achievable. Comparison: Head CT dated September 16, 2019. Findings: Scalp: No abnormalities. Bones: Intact. No fractures. No blastic or lytic lesions. Brain sulci: Appropriate for patient's age. Ventricles: Normal in size and configuration. No hydrocephalus. . Extra-axial space: No abnormalities. Parenchyma: Again seen are confluent areas of low-attenuation within subcortical and periventricular white matter, nonspecific, but could represent microvascular ischemic disease. No masses, hemorrhage, or acute or chronic cortical based vascular insults. Suprasellar region: No abnormalities. Craniocervical junction: The foramen magnum is patent. No Chiari one malformation. Incidental findings: Atherosclerotic calcification of the cavernous and supraclinoid internal carotid arteries. Impression: 1. No acute intracranial abnormality when compared to prior head CT dated September 16, 2019. 2. Unchanged chronic microvascular ischemic change. Signed by: Dr. Damaris Becerra M.D. on 09/25/2019 9:38 PM
[2019-09-25] MEDS ORDERED: AZITHROMYCIN 500MG/NS 250 ML 250 ML IV ONE (22:00)
[2019-09-26] MEDS ORDERED: HYDRALAZINE HCL 20 MG/ML VIAL IV STA ×2 (00:19→01:52)
[2019-09-26] MEDS ORDERED: HYDRALAZINE HCL 20 MG/ML VIAL ONE (00:37)
[2019-09-26] MEDS ORDERED: ACETAMINOPHEN 650 MG SUPP PR ONE (00:43)
[2019-09-26] MEDS ORDERED: ACETAMINOPHEN 325 MG SUPP PR ONE (00:45)
[2019-09-26 02:11] VITALS: BP 180/64
== END 2019-09-26 02:14 | disposition other institution (70) ==
LOC: ER 18:32
DX: J18.9 Pneumonia, unspecified organism (principal); R41.82 Altered mental status, unspecified; Z11.59 Encounter for screening for other viral diseases
CPT/HCPCS: 36415; 70450; 71045; 80053; 81001; 82550; 82553; 83605; 84484; 85025; 85610; 85730; 87040; 87086; 93005; 99285; J0360; J0456; J2060; J3370; J3486; U0002

== ENCOUNTER 2019-10-04 12:30 | Inpatient (IN) | payer MEDICARE, BC, OTHER ==
[~2019-10-04] VITALS: Ht 160 cm; Wt 68.1 kg
[2019-10-04] MEDS ORDERED: SODIUM CHLORIDE 0.9% 1000ML 1,000 ML IV STA (13:37)
[2019-10-04 13:55] LABS: BASOPHILS % 0.3 % (0.0-1.0); HEMATOCRIT 40.7 % (34.2-44.1); HEMOGLOBIN 13.2 g/dL (12.0-16.0); LYMPHOCYTES # (AUTO) 0.3 (1.0-3.2); LYMPHOCYTES % 3.7 % (18.0-39.1); MEAN CORPUSCULAR HEMOGLOBIN 30.6 pg (28-32); MEAN CORPUSCULAR HGB CONC 32.4 g/dL (31-35); MEAN CORPUSCULAR VOLUME 94.4 fL (81-99); MONOCYTES # (AUTO) 0.5 (0.2-0.8); MONOCYTES % 6.2 % (4.4-11.3); NEUTROPHILS # (AUTO) 6.7 (2.1-6.9); NEUTROPHILS % 88.9 % (38.7-80.0); PLATELET COUNT 255 x10e3/uL (140-360); RED BLOOD COUNT 4.31 x10e6/uL (3.6-5.1); RED CELL DISTRIBUTION WIDTH 13.1 % (11.7-14.4)
[2019-10-04 14:09] LABS: INR 1.03; PARTIAL THROMBOPLASTIN TIME 31.8 seconds (23.8-35.5)
[2019-10-04 14:11] LABS: ALANINE AMINOTRANSFERASE 20 IU/L (0-55); ALBUMIN 3.9 g/dL (3.5-5.0); ALBUMIN/GLOBULIN RATIO 1.4 (0.8-2.0); ALKALINE PHOSPHATASE 82 IU/L (40-150); ANION GAP 19.2 mmol/L (8-16); BLOOD UREA NITROGEN 6 mg/dL (7-26); BUN/CREATININE RATIO 7 (6-25); CALCIUM 9.4 mg/dL (8.4-10.2); CARBON DIOXIDE 35 mmol/L (22-29); CHLORIDE 84 mmol/L (98-107); CREATININE, SERUM 0.87 mg/dL (0.57-1.11); EST GLOMERULAR FILTRATION RATE > 60 ML/MIN (60-); GLUCOSE 355 mg/dL (74-118); SODIUM 136 mmol/L (136-145)
[2019-10-04 14:17] LABS: MAGNESIUM 1.2 MG/DL (1.3-2.1)
[2019-10-04 14:19] LABS: POTASSIUM 2.2 mmol/L (3.5-5.1)
[2019-10-04 14:31] LABS: B-TYPE NATRIURETIC PEPTIDE2 152.1 pg/mL (0-100)
[2019-10-04 14:37] LABS: CREATINE KINASE MB 1.4 ng/mL (0-5.0); THYROID STIMULATING HORMONE 0.217 uIU/mL (0.350-4.940)
[2019-10-04] MEDS ORDERED: MAGNESIUM SULFATE 2GM/50ML 50 ML IV ONE ×2 (14:45→18:00)
[2019-10-04] MEDS ORDERED: POTASSIUM CHLORIDE 10MEQ/100ML 100 ML IV SCH (14:45)
--- NOTE | 2019-10-04 14:57 | Diagnostic Imaging Report ---
X-ray chest AP portable Comparison: 09/25/2019 History: Altered mental status, weakness Findings: Central airways unremarkable. Heart size borderline. Atherosclerotic ectatic aorta. No pleural effusion. No pneumothorax. No focal lung disease or nodules. Degenerative changes of the skeleton including the AC joints, the left shoulder and the lumbar spine. Anterior C-spine fusion. Upper abdomen unremarkable. Impression: No acute cardiopulmonary disease on this exam. Signed by: Martin Turner MD on 10/04/2019 2:53 PM
[2019-10-04 15:09] LABS: ABG HCO3 38 mmol/L (22-26); ABG PCO2 32 mmHg (35-45); ABG PH 7.67 (7.35-7.45); ABG PO2 53 mmHg (80-105); ABG TCO2 39
[2019-10-04 15:12] LABS: BILIRUBIN,URINE NEGATIVE (NEGATIVE); CLARITY,URINE CLEAR (CLEAR); COLOR,URINE YELLOW (YELLOW); KETONES,URINE 2+ (NEGATIVE); LEUKOCYTE ESTERASE ,URINE NEGATIVE (NEGATIVE); NITRITE,URINE NEGATIVE (NEGATIVE); PROTEIN,URINE DIPSTICK 1+ (NEGATIVE); URINE UROBILINOGEN 0.2 mg/dL (0.2 - 1)
[2019-10-04 15:19] LABS: BACTERIA,URINE RARE /HPF; EPITHELIAL CELLS,URINE FEW /LPF; RBC,URINE 0-5 /HPF (0-5); WBC,URINE (MAN) 0-5 /HPF (0-5)
[2019-10-04 15:20] LABS: TRANSITIONAL EPI CELLS,URINE FEW
--- NOTE | 2019-10-04 15:20 | Diagnostic Imaging Report ---
CT BRAIN WO HISTORY: Altered mental status COMPARISON: Head CT 09/25/2019 Technique: Noncontrast axial scans were obtained from skull base to the vertex. Coronal and sagittal reconstructions obtained from the axial data. One or more of the following dose reduction techniques were used: Automated exposure control, adjustment of the mA and/or kV according to patient size, and/or utilization of iterative reconstruction technique. Beam hardening artifacts obscure some details. DISCUSSION: Scalp/Skull: Unremarkable. Brain sulci: Mildly prominent. Ventricles: Compensatory dilatation. Extra-axial spaces: No masses or fluid collections. Carotid siphon calcifications are present. Parenchyma: Mild to moderate bilateral deep white matter hypodensity is likely chronic microvascular ischemic change. Otherwise, no masses, hemorrhage, or large vascular territory acute infarct. Dural sinuses: No abnormal densities. Sellar/Suprasellar region: Intact. Skull base: Intact. Incidental findings: Bilateral ocular lens replacement. IMPRESSION: 1. No acute intracranial abnormalities. 2. Mild to moderate supratentorial chronic microvascular ischemic change. Mild generalized cerebral volume loss. Signed by: Dr. Olu Bolton M.D. on 10/04/2019 3:16 PM
--- NOTE | 2019-10-04 15:28 | Diagnostic Imaging Report ---
CT CERVICAL SPINE WO HISTORY: Altered mental status COMPARISON: Report from cervical spine MRI dated 09/04/2015 TECHNIQUE: CT of the cervical spine without contrast. Sagittal and coronal reformations were created. One or more of the following dose reduction techniques were used: Automated exposure control, adjustment of the mA and/or kV according to patient size, and/or utilization of iterative reconstruction technique. Motion and hardware streak artifacts obscure some details. FINDINGS: Bone demineralization limits evaluation. ACDF changes from C3 to C7 are noted. Hardware from C5 to C7 has been removed. Hardware at C3-C4 remains. Cervical lordosis is straightened. There is no scoliosis or subluxation. No definite acute fracture or compression deformity seen. The craniocervical junction is intact. No gross spinal canal masses are seen. The paravertebral and paraspinal soft tissues are unremarkable. Degenerative changes: There are advanced spondylotic changes at C7-T1 and T1-T2. Minimal grade 1 anterolisthesis of C2 on C3 and C7 on T1 are due to facet arthrosis. Advanced atlantoaxial arthrosis is present; associated pannus causes at least mild canal stenosis at the C1 level. IMPRESSION: 1. No acute osseous abnormalities. 2. ACDF and degenerative changes as described above. Signed by: Dr. Olu Bolton M.D. on 10/04/2019 3:24 PM
[2019-10-04] MEDS ORDERED: ACETAMINOPHEN 325 MG SUPP PR ONE (15:30)
[2019-10-04] MEDS ORDERED: ACETAMINOPHEN 650 MG SUPP PR ONE ×3 (15:45→19:55)
[2019-10-04] MEDS ORDERED: SODIUM CHLORIDE 0.9% 1000ML 1,000 ML IV ONE (15:54)
[2019-10-04] MEDS ORDERED: VANCOMYCIN 1GM/NS 250 ML 250 ML IV ONE (17:15)
[2019-10-04] MEDS ORDERED: PANTOPRAZOLE 40 MG 10ML VIAL IV STA (17:23)
[2019-10-04] MEDS ORDERED: DEXTROSE 50% SYRINGE 50 ML IV PRN (17:30)
[2019-10-04] MEDS ORDERED: ONDANSETRON HCL INJ 2MG/ML 2ML 2 MG/ML VIAL IV PRN (17:30)
--- NOTE | 2019-10-04 17:46 | Emergency Department Note ---
History of Present Illnes History of Present Illness Chief Complaint: General Medicine Complaints History of Present Illness This is a 74 year old female presents to ED via EMS with N/V/D since last night and progressive AMS and elevated BG levels. Pt recently diagnosed and admitted to hospital with pneumonia on 09/25/19, pt negative for COVID. Historian: Band Splitter/EMS Arrival Mode: [facility] EMS Treatment COMMUNICATIONS ASSOCIATE: O2, See EMS Report Plate Fitter Required: No Onset (how long ago): day(s) Radiation: Reports non-radiation Severity: severe Onset quality: gradual Timing of current episode: constant Progression: worsening Chronicity: recurrent Context: Denies recent illness Relieving factors: none Exacerbating factors: none Associated symptoms: Reports confusion Treatments prior to arrival: none Past Medical/Family History Physician Review I have reviewed the patient's past medical and family history. Any updates have been documented here. Past Medical History Recent Fever: No Clinical Suspicion of Infectio: Yes New/Unexplained Change in Ment: Yes Past Medical History: Diabetes, TIA Other Medical History: SEVERE PERIPHERAL NEUROPATHY TARDIVE DYSKINESIA Past Surgical History: Hysterectomy, Back Surgery, Cataract Removal Other Surgery: X2 KNEE ARTHROSCOPY X2 NECK SX, X2 LOWER BACK SX Social History Smoking Cessation: Unknown if ever smoked Alcohol Use: Social Any Illegal Drug Use: No TB Exposure/Symptoms: No Physically hurt or threatened: No Family History Family history of heart diseas: No Other Any Pre-Existing Lines (PICC,: No Review of Systems ROS Narrative Unable to obtain ROS: altered mental status Review of Systems Constitutional: Reports weakness EENTM: Reports no symptoms Cardiovascular: Reports no symptoms Respiratory: Reports no symptoms Gastrointestinal: Reports no symptoms Genitourinary: Reports no symptoms Musculoskeletal: Reports no symptoms Integumentary: Reports no symptoms Neurological: Reports as per HPI Psychological: Reports no symptoms Endocrine: Reports no symptoms Hematological/Lymphatic: Reports no symptoms Physical Exam Related Data Allergies: Coded Allergies: Iodinated Contrast Media (Verified Allergy, Unknown, severe headache, 08/07/19) Triage Vital Signs Vital Signs Date Time Temp Pulse Resp B/P (MAP) Pulse Ox O2 Delivery O2 Flow Rate FiO2 10/04/19 12:57 98.7 104 21 182/83 100 Nasal Cannula 2.0 Vital signs reviewed: Yes Physical Exam CONSTITUTIONAL HENT EYES NECK PULMONARY CARDIOVASCULAR GASTROINTESTINAL GENITOURINARY SKIN MUSCULOSKELETAL NEUROLOGICAL PSYCHOLOGICAL Results Laboratory Result Diagram: 10/04/19 1307 10/04/19 1307 Laboratory Laboratory Tests Test 10/04/19 16:09 10/04/19 14:50 10/04/19 14:00 10/04/19 13:09 Urine Color Yellow (YELLOW) Urine Clarity Clear (CLEAR) Urine pH 7 (5 - 7) Urine Specific Stewart 1.015 (1.010-1.025) Urine Protein 1+ (NEGATIVE) Urine Glucose (UA) 2+ (NEGATIVE) Urine Ketones 2+ (NEGATIVE) Urine Blood Trace (NEGATIVE) Urine Nitrite Negative (NEGATIVE) Urine Bilirubin Negative (NEGATIVE) Urine Urobilinogen 0.2 mg/dL (0.2 - 1) Urine Leukocyte Esterase Negative (NEGATIVE) Urine RBC 0-5 /HPF (0-5) Urine WBC 0-5 /HPF (0-5) Urine Epithelial Cells Few /LPF (NONE) Urine Transitional Epithelial Cells Few (NONE) Urine Bacteria Rare /HPF (NONE) Arterial Blood pH 7.67 (7.35-7.45) Arterial Blood Partial Pressure CO2 32 mmHg (35-45) Arterial Blood Partial Pressure O2 53 mmHg (80-105) Arterial Blood HCO3 38 mmol/L (22-26) Arterial Blood Total CO2 39 Arterial Blood Oxygen Saturation 94.0 % (95-98) Arterial Blood Base Excess 17.0 mmol/L (-2 - 3) FiO2 28 % Ammonia 55 UG/DL (31-123) B-Type Natriuretic Peptide 152.1 pg/mL (0-100) Test 10/04/19 13:07 White Blood Count 7.54 x10e3/uL (4.8-10.8) Red Blood Count 4.31 x10e6/uL (3.6-5.1) Hemoglobin 13.2 g/dL (12.0-16.0) Hematocrit 40.7 % (34.2-44.1) Mean Corpuscular Volume 94.4 fL (81-99) Mean Corpuscular Hemoglobin 30.6 pg (28-32) Mean Corpuscular Hemoglobin Concent 32.4 g/dL (31-35) Red Cell Distribution Width 13.1 % (11.7-14.4) Platelet Count 255 x10e3/uL (140-360) Neutrophils (%) (Auto) 88.9 % (38.7-80.0) Lymphocytes (%) (Auto) 3.7 % (18.0-39.1) Monocytes (%) (Auto) 6.2 % (4.4-11.3) Eosinophils (%) (Auto) 0.0 % (0.0-6.0) Basophils (%) (Auto) 0.3 % (0.0-1.0) Neutrophils # (Auto) 6.7 (2.1-6.9) Lymphocytes # (Auto) 0.3 (1.0-3.2) Monocytes # (Auto) 0.5 (0.2-0.8) Eosinophils # (Auto) 0.0 (0.0-0.4) Basophils # (Auto) 0.0 (0.0-0.1) Absolute Immature Granulocyte (auto 0.07 x10e3/uL (0-0.1) Prothrombin Time 14.0 seconds (11.9-14.5) Prothromb Time International Ratio 1.03 Activated Partial Thromboplast Time 31.8 seconds (23.8-35.5) Sodium Level 136 mmol/L (136-145) Potassium Level 2.2 mmol/L (3.5-5.1) Chloride Level 84 mmol/L (98-107) Carbon Dioxide Level 35 mmol/L (22-29) Anion Gap 19.2 mmol/L (8-16) Blood Urea Nitrogen 6 mg/dL (7-26) Creatinine 0.87 mg/dL (0.57-1.11) Estimat Glomerular Filtration Rate > 60 ML/MIN (60-) BUN/Creatinine Ratio 7 (6-25) Glucose Level 355 mg/dL (74-118) Lactic Acid Level 2.0 mmol/L (0.5-2.0) Calcium Level 9.4 mg/dL (8.4-10.2) Magnesium Level 1.2 MG/DL (1.3-2.1) Total Bilirubin 0.8 mg/dL (0.2-1.2) Aspartate Amino Transf (AST/SGOT) 18 IU/L (5-34) Alanine Aminotransferase (ALT/SGPT) 20 IU/L (0-55) Alkaline Phosphatase 82 IU/L (40-150) Creatine Kinase 99 IU/L (29-168) Creatine Kinase MB 1.40 ng/mL (0-5.0) Troponin I 0.054 ng/mL (0-0.300) Total Protein 6.7 g/dL (6.5-8.1) Albumin 3.9 g/dL (3.5-5.0) Globulin 2.8 g/dL (2.3-3.5) Albumin/Globulin Ratio 1.4 (0.8-2.0) Thyroid Stimulating Hormone (TSH) 0.217 uIU/mL (0.350-4.940) Procedures 12 Lead ECG Interpretation ECG Interpretation : ECG: ECG 1 Plate Fitter: Interpreted by ED physician Date: Oct 04, 2019 Time: 13:19 Rhythm: sinus rhythm Rate: normal (96) QRS axis: left ST segments normal: Yes T waves normal: Yes Clinical Impression: abnormal ECG Additional Comments PROLONGED QT Critical Care Time Total Critical Care Time (min): 50 Critical care time exclusive o: separately billable procedures Critcal care necessary due to: CATTLE FEEDER failure or compromise, dehydration, me tabolic failure Critcal care time spent by me: discussion w consultants, discussion w primary provider, evaluation patient response to tx, obtaining hx from patient/surrogate, order/perform tx or interventions, order/review laboratory studies, order/review radiographic studies, pulse oximetry, re-evaluation of patient condition, review of old charts Assessment & Plan Medical Decision Making MDM AMS, N/V/D - CBC, CHEM, UA/CX, ECG, CARDIAC ENZYMES, CXR, CT BRAIN, UDS, NH3, TSH, ABG - R/O CEREBRAL BLEED, CVA, SDH, SAH, UTI, SEPSIS, PNEUMONIA, THYROID STORM, ELECTROLYTE ABNL, DKA, ENCEPHALOPATHY, DRUG INGESTION/ETOH Assessment & Plan Final Impression: (1) AMS (altered mental status) (2) Vomiting and diarrhea (3) Febrile illness (4) Metabolic alkalosis (5) Dehydration (6) Hypokalemia (7) Hypomagnesemia Depart Disposition: ADMITTED Last Vital Signs Date Time Temp Pulse Resp B/P (MAP) Pulse Ox O2 Delivery O2 Flow Rate FiO2 10/04/19 16:29 101.7 97 19 154/88 98 Nasal Cannula 3.0 Home Meds Reported Medications Losartan Potassium (LOSARTAN POTASSIUM) 25 Mg Tablet, MG PO BID, #60 08/28/19 Ondansetron Hcl* (ZOFRAN*) 4 Mg Tablet, 4 MG PO Q4HR, #30 08/28/19 Valbenazine Tosylate (Ingrezza) 80 Mg Capsule, 80 MG PO DAILY 08/06/19 Sertraline Hcl (ZOLOFT) 50 Mg Tablet, 100 MG PO DAILY, #30 TAB 08/06/19 Aspirin (ASPIR 81) 81 Mg Tablet.dr, 81 MG PO DAILY 08/06/19 Pantoprazole Sodium* (PROTONIX) 40 Mg Tablet.dr, 40 MG PO BID, TAB 09/13/15 Baclofen (BACLOFEN) 10 Mg Tablet, 20 MG PO TID, TAB 09/16/13 Lovastatin (LOVASTATIN) 40 Mg Tablet, 40 MG PO DAILY 07/20/12 Gabapentin (NEURONTIN) 300 Mg Capsule, 800 MG PO TID 07/20/12 Pioglitazone Hcl (ACTOS) 30 Mg Tablet, 30 MG PO DAILY 07/20/12 Metformin Hcl (METFORMIN HCL) 500 Mg Tablet, 1000 MG PO BID 07/20/12 Medications in the ED Sodium Chloride 1,000 ml @ 0 mls/hr Q0M STAT IV Last administered on 10/04/19at 14:15; Admin Dose 999 MLS/HR; Start 10/04/19 at 13:37; Stop 10/04/19 at 13:41; Status DC Magnesium Sulfate 50 ml @ 25 mls/hr ONCE ONCE IV Last administered on 10/04/19at 16:00; Admin Dose 25 MLS/HR; Start 10/04/19 at 14:45; Stop 10/04/19 at 16:44; Status DC Potassium Chloride 100 ml @ 100 mls/hr Q1H IV Last administered on 10/04/19at 15:22; Admin Dose 100 MLS/HR; Start 10/04/19 at 14:45; Stop 10/04/19 at 18:44 Acetaminophen 650 mg ONCE ONCE OK ; Start 10/04/19 at 15:30; Stop 10/04/19 at 15:31; Status UNV Acetaminophen 650 mg ONCE ONCE OK Last administered on 10/04/19at 15:45; Admin Dose 650 MG; Start 10/04/19 at 15:45; Stop 10/04/19 at 15:46; Status DC Sodium Chloride 1,000 ml @ 0 mls/hr Q0M ONCE IV Last administered on 10/04/19at 16:06; Admin Dose 999 MLS/HR; Start 10/04/19 at 15:54; Stop 10/04/19 at 15:58; Status DC Vancomycin HCl 250 ml @ 200 mls/hr NOW ONCE IV ; Start 10/04/19 at 17:15; Stop 10/04/19 at 18:29 Cefepime HCl 100 ml @ 200 mls/hr Q12H IV ; Start 10/04/19 at 17:15; Stop 10/11/19 at 17:14 Famotidine 20 mg Q12HR@0600,1800 IV ; Start 10/04/19 at 18:00; Stop 11/03/19 at 17:59 Ondansetron HCl 4 mg Q4H PRN IV NAUSEA AND VOMITING; Start 10/04/19 at 17:30; Stop 11/03/19 at 17:29 Pantoprazole Sodium 40 mg DAILY IV ; Start 10/05/19 at 09:00; Stop 11/04/19 at 08:59 Pantoprazole Sodium 40 mg NOW STAT IV ; Start 10/04/19 at 17:23; Stop 10/04/19 at 17:36; Status DC Potassium Chloride/Sodium Chloride 1,000 ml @ 100 mls/hr Q10H IV ; Start 10/04/19 at 17:30; Stop 10/05/19 at 13:29 Insulin Human Lispro ACHS SQ ; Start 10/04/19 at 21:00; Stop 11/03/19 at 20:59 Dextrose 50 ml PRN PRN IV BLOOD SUGAR; Start 10/04/19 at 17:30; Stop 11/03/19 at 17:29 MARK MARQUEZ MD Oct 04, 2019 17:46
[2019-10-04] MEDS ORDERED: MAGNESIUM SULF 1GRAM/DEXTROSE 100 ML IV ONE (18:00)
[2019-10-04] MEDS: FAMOTIDINE 20 MG/2 ML VIAL IV SCH (18:26)
[2019-10-04] MEDS ORDERED: ACETAMINOPHEN 325 MG TAB PO PRN (18:30)
[2019-10-04 18:33] LABS: PHENCYCLIDINE SCREEN,URINE NEGATIVE (NEGATIVE)
[2019-10-04 18:35] LABS: AMPHETAMINES SCREEN,URINE POSITIVE (NEGATIVE); BENZODIAZEPINES SCREEN,URINE POSITIVE (NEGATIVE)
[2019-10-04 18:39] LABS: SALICYLATE < 5.0 mg/dL (0-30)
[2019-10-04 19:16] LABS: POTASSIUM,URINE 15.6 mmol/L
[2019-10-04] MEDS: KCL 20MEQ/.9 SOD CHL 1,000 ML IV SCH (20:00)
[2019-10-04] MEDS: POTASSIUM CHLORIDE 20MEQ/100ML 100 ML IV SCH ×3 (20:21→23:00)
[2019-10-04] MEDS: CEFEPIME 2 GM/NS 0.9% 100 ML 100 ML IV SCH (21:14)
[2019-10-04] MEDS ORDERED: VANCOMYCIN 1GM/NS 250 ML 250 ML ONE (22:14)
[2019-10-04 22:25] LABS: OCCULT BLOOD STOOL POSITIVE (NEGATIVE)
[2019-10-04] MEDS: INSULIN LISPRO 100 UNIT/1 ML 3ML VIAL SQ SCH (22:30)
[2019-10-05 00:21] LABS: CREATINE KINASE MB 2.1 ng/mL (0-5.0)
[2019-10-05 04:21] LABS: ABG PCO2 56 mmHg (35-45); ABG PO2 184 mmHg (80-105)
[2019-10-05 04:22] LABS: ABG HCO3 34 mmol/L (22-26); ABG TCO2 36
[2019-10-05 04:32] LABS: BASOPHILS % 0.1 % (0.0-1.0); HEMATOCRIT 38.8 % (34.2-44.1); HEMOGLOBIN 12.5 g/dL (12.0-16.0); LYMPHOCYTES # (AUTO) 0.6 (1.0-3.2); LYMPHOCYTES % 6.1 % (18.0-39.1); MEAN CORPUSCULAR HEMOGLOBIN 30.7 pg (28-32); MEAN CORPUSCULAR HGB CONC 32.2 g/dL (31-35); MEAN CORPUSCULAR VOLUME 95.3 fL (81-99); MONOCYTES # (AUTO) 0.9 (0.2-0.8); MONOCYTES % 9.4 % (4.4-11.3); NEUTROPHILS # (AUTO) 7.9 (2.1-6.9); NEUTROPHILS % 83.9 % (38.7-80.0); PLATELET COUNT 241 x10e3/uL (140-360); RED BLOOD COUNT 4.07 x10e6/uL (3.6-5.1); RED CELL DISTRIBUTION WIDTH 13.3 % (11.7-14.4)
[2019-10-05] MEDS: ACETAMINOPHEN 650 MG SUPP PR PRN ×2 (04:46→20:50)
[2019-10-05 04:52] LABS: ALANINE AMINOTRANSFERASE 21 IU/L (0-55); ALBUMIN 3.6 g/dL (3.5-5.0); ALBUMIN/GLOBULIN RATIO 1.4 (0.8-2.0); ALKALINE PHOSPHATASE 72 IU/L (40-150); BLOOD UREA NITROGEN 7 mg/dL (7-26); BUN/CREATININE RATIO 10 (6-25); CALCIUM 8.7 mg/dL (8.4-10.2); CARBON DIOXIDE 30 mmol/L (22-29); CHLORIDE 95 mmol/L (98-107); CHOL/HDL RATIO 2.5 (3.0-3.6); CHOLESTEROL 178 MD/DL (0-199); CREATININE, SERUM 0.72 mg/dL (0.57-1.11); EST GLOMERULAR FILTRATION RATE > 60 ML/MIN (60-); GLUCOSE 232 mg/dL (74-118); HDL CHOLESTEROL 71 MG/DL (40-60); LDL CHOLESTEROL 90 MG/DL (60-130); SODIUM 141 mmol/L (136-145); TRIGLYCERIDES 86 MG/DL (0-149)
[2019-10-05 05:05] LABS: MAGNESIUM 1.7 MG/DL (1.3-2.1); PHOSPHORUS 2.4 MG/DL (2.3-4.7)
[2019-10-05] MEDS ORDERED: POTASSIUM CHLORIDE 20MEQ/100ML 200 ML IV ONE (05:30)
[2019-10-05 05:53] LABS: AMPHETAMINES SCREEN,URINE NEGATIVE (NEGATIVE); BENZODIAZEPINES SCREEN,URINE POSITIVE (NEGATIVE); PHENCYCLIDINE SCREEN,URINE NEGATIVE (NEGATIVE)
[2019-10-05] MEDS: KCL 20MEQ/.9 SOD CHL 1,000 ML IV SCH (06:10)
[2019-10-05] MEDS ORDERED: POTASSIUM CHLORIDE 20MEQ/100ML 100 ML IV ONE ×2 (06:15→08:15)
[2019-10-05] MEDS ORDERED: MAGNESIUM SULFATE 2GM/50ML 50 ML IV ONE (06:30)
[2019-10-05] MEDS: FAMOTIDINE 20 MG/2 ML VIAL IV SCH ×2 (06:43→17:05)
[2019-10-05] MEDS ORDERED: ACETAMINOPHEN 1000 MG/100 ML IV STA (06:54)
[2019-10-05] MEDS: INSULIN LISPRO 100 UNIT/1 ML 3ML VIAL SQ SCH ×4 (07:39→20:25)
--- NOTE | 2019-10-05 08:32 | History and Physical ---
REASON FOR ADMISSION: Sepsis, encephalopathy, electrolyte imbalance. HISTORY OF PRESENT ILLNESS: The patient is a 74-year-old, who has had multiple admissions recently for electrolyte imbalances, decreased p.o. intake, dehydration, who was brought into the emergency room with mental status changes and fever and possible sepsis as well as significant electrolyte imbalance. PAST MEDICAL HISTORY: Diabetes, neuropathy, hypertension, chronic anemia. MEDICATIONS: See MAR. ALLERGIES: IODINE CONTRAST. SOCIAL HISTORY: Lives at home. Nonsmoker, nondrinker. FAMILY HISTORY: Diabetes. PHYSICAL EXAMINATION: VITAL SIGNS: Temperature 101, pulse 84, blood pressure 136/74, sats 100%. GENERAL: She is confused, lying in bed. NECK: Supple. LUNGS: Clear to auscultation bilaterally. CARDIOVASCULAR: Regular rate and rhythm. ABDOMEN: Good bowel sounds. Soft, nontender. EXTREMITIES: No clubbing or cyanosis. NEUROLOGIC: Moves all extremities x4. ASSESSMENT AND PLAN: 1. Sepsis secondary to unknown etiology. Continue broad-spectrum antibiotics and consult Dr. Fuller, I wonder for possible encephalitis. 2. Diabetes. Continue current care and monitoring. 3. Hypertension. Continue current care and monitoring. 4. Metabolic alkalosis. Unsure due to type of diuretic therapy. So, we will continue with IV fluids. 5. Hypokalemia. We will replace and recheck. 6. Hypomagnesium, replaced. 7. Anemia. Continue to monitor. Please see hospital chart for full details. MD BLACK Ruiz/MODL /[id number]
[2019-10-05] MEDS ORDERED: PANTOPRAZOLE 40 MG 10ML VIAL IV SCH (09:00)
[2019-10-05] MEDS: CEFEPIME 2 GM/NS 0.9% 100 ML 100 ML IV SCH (10:02)
[2019-10-05 11:31] LABS: C DIFFICILE TOXIN A&B AMP PROB NEGATIVE (NEGATIVE)
[2019-10-05 12:20] LABS: CREATINE KINASE MB 2.2 ng/mL (0-5.0)
[2019-10-05 12:37] LABS: ALANINE AMINOTRANSFERASE 23 IU/L (0-55); ALBUMIN 3.6 g/dL (3.5-5.0); ALBUMIN/GLOBULIN RATIO 1.5 (0.8-2.0); ALKALINE PHOSPHATASE 70 IU/L (40-150); ANION GAP 24.6 mmol/L (8-16); BLOOD UREA NITROGEN 9 mg/dL (7-26); BUN/CREATININE RATIO 11 (6-25); CALCIUM 8.7 mg/dL (8.4-10.2); CARBON DIOXIDE 24 mmol/L (22-29); CHLORIDE 99 mmol/L (98-107); CREATININE, SERUM 0.79 mg/dL (0.57-1.11); EST GLOMERULAR FILTRATION RATE > 60 ML/MIN (60-); GLUCOSE 263 mg/dL (74-118); POTASSIUM 3.6 mmol/L (3.5-5.1); SODIUM 144 mmol/L (136-145)
--- NOTE | 2019-10-05 12:44 | Consultation ---
DATE OF CONSULTATION: 10/05/2019 History probably from chart and electronic records and discussion with ED physician. HISTORY OF PRESENT ILLNESS: A 74-year-old female, who presented to the hospital with altered mental status, was found to have severe respiratory and metabolic alkalosis with severe electrolyte imbalance. Renal was consulted. The patient is quite obtunded, opens eyes, sometimes stairs up toward the [place], restless, moving around. Does have a history of nausea, vomiting, diarrhea prior to admission. Has workup included CT brain, which showed no acute intracranial abnormalities, [id number] supratentorial chronic microvascular ischemic changes. Had a chest x-ray, please see official report, shows no acute cardiopulmonary disease. LABORATORY TESTS: As mentioned, showed a white count of 7.54, hemoglobin 13.2, and platelets 255. Sodium 136, potassium 2.2, bicarb 35, anion gap 19, BUN 6, creatinine 0.8, glucose 355, magnesium of 1.2. Phosphorus 2.5. LFTs noted. Total protein 6.7, globulin 2.8. TSH of 0.217. The patient is quite altered and has a sitter in the room. Restless, unable to get any history. Unable to get review of systems. The patient does not follow any commands. PAST MEDICAL HISTORY: History of sciatica at L3, L4 lateral stenosis, C3-C4 spondylosis, history of prior colonic polyp, lumbar radiculopathy, history of reflux esophagitis, history of diabetes, hypertension. ALLERGIES: IODINATED CONTRAST MATERIAL. CURRENT MEDICATIONS: The patient was given 2 L of normal saline and then we gave her normal saline with KCl 20 mEq/L, three runs of potassium, KCl 20 mEq, total of 60. Magnesium sulfate 2 g IV. Home medications have been stopped. She has been on apparently metformin, losartan, gabapentin, baclofen, pantoprazole, Actos, sertraline, and Ingrezza at home. SOCIAL HISTORY: Not available to me. FAMILY HISTORY: Not available to me. Please see prior admissions. Currently, she has cefepime going 2 g q.12, normal saline going. She was given a dose of vancomycin. She is on Tylenol p.r.n., ondansetron p.r.n., hydralazine p.r.n. Protonix injection. PHYSICAL EXAMINATION: GENERAL: Confused, restless. Blood pressure is 178/85, pulse rate 99, and temperature 101.2. HEAD AND NECK: No icterus noted. LUNGS: Relatively clear. No rales. HEART: S1 and S2 audible. ABDOMEN: Otherwise, soft, nontender. No visceromegaly. LOWER EXTREMITIES: No edema. SKIN: Dry, poor turgor. IMPRESSION: Combined respiratory metabolic alkalosis with profound hypokalemia, hypomagnesium, electrolyte imbalance, elevated, anion gap, history of nausea, vomiting, and diarrhea. Initially impression was aspirin toxicity, but aspirin level came back less than 5. Tylenol level was also less than 10, however, ethyl alcohol was less than 10. However, urine drug screen positive for amphetamines, methamphetamine, and benzodiazepines. So, the possible reason for respiratory alkalosis is the amphetamine and the metabolic alkalosis likely contraction alkalosis due to the nausea, vomiting, and diarrhea. Profound electrolyte imbalance, unclear how well the patient has been eating, and what the nutritional status is given the total protein, does not look like a paraproteinemia. Plan to repeat labs, potassium, magnesium has been replaced. Sitter in the room. CT scan noted afebrile. On cefepime, which I will continue. I will invite Infectious Disease. Further recommendations to follow. MD RUT Peng/DIANE /[id number]
[2019-10-05 15:09] VITALS: BP 186/69
[2019-10-05 15:25] VITALS: BP 186/69
[2019-10-05] MEDS: HYDRALAZINE HCL 20 MG/ML VIAL IV PRN (15:53)
[2019-10-05 16:18] VITALS: BP 156/77
[2019-10-05] MEDS: CEFTRIAXONE SOD 2 GM/NS 100 ML 100 ML IV SCH (17:45)
[2019-10-05] MEDS: AMPICILLIN SOD 2 GM/NS 100ML 100 ML IV SCH (17:45)
[2019-10-05 20:00] VITALS: BP 167/58
[2019-10-05] MEDS ORDERED: LABETALOL HCL 5 MG/ML 20ML VIAL IV PRN (20:00)
[2019-10-05] MEDS: SODIUM CHLORIDE 0.9% 1000ML 1,000 ML IV SCH (20:13)
[2019-10-05] MEDS ORDERED: HALOPERIDOL LACTATE 5 MG/ML VIAL IM SCH (20:15)
[2019-10-05] MEDS ORDERED: SODIUM CHLORIDE 0.9% 1000ML 1,000 ML ONE (20:17)
[2019-10-05] MEDS: SODIUM CHLORIDE 0.9% IV SCH (20:24)
[2019-10-05] MEDS: ACYCLOVIR SODIUM IV SCH (20:24)
[2019-10-05 21:08] VITALS: BP 167/58
[2019-10-05] MEDS ORDERED: KETOROLAC TROMETHAMINE 30 MG/ML VIAL IV PRN (21:15)
[2019-10-05] MEDS: IBUPROFEN 800 MG/200 ML IV PRN (21:47)
[2019-10-05] MEDS ORDERED: HYDROMORPHONE 1MG/1ML INJ IM SCH (21:50)
[2019-10-05] MEDS: VANCOMYCIN 1GM/NS 250 ML 250 ML IV SCH (21:58)
[2019-10-05] MEDS ORDERED: LIDOCAINE HCL 2% LOCAL 20 ML VIAL ONE (22:27)
[2019-10-05] MEDS ORDERED: LIDOCAINE HCL 2% LOCAL 20 ML VIAL INJ ONE (22:30)
[2019-10-05 23:31] LABS: APPEARANCE,CSF CLEAR (CLEAR); COLOR,CSF COLORLESS (COLORLESS); TUBE NUMBER 3
[2019-10-05 23:32] LABS: WHITE BLOOD CELL,CSF 4 cells/uL (0-5)
[2019-10-06] VITALS (10 sets, daily range): BP systolic 117–165; BP diastolic 41–82
--- NOTE | 2019-10-06 00:02 | Consultation ---
DATE OF CONSULTATION: Neurology Consultation REASON FOR CONSULTATION: I am seeing the patient for concern for encephalitis versus meningitis, so called in acutely to evaluate the patient to be performed. CSF sent to the lab. HISTORY OF PRESENT ILLNESS: The patient is a 74-year-old female with multiple admissions for multiple electrolyte imbalances, dehydration, decreased p.o. intake. Three strokes in the past including 1 causing brainstem dysfunction, dysmetria, disequilibrium, and nausea and vomiting. She comes in also febrile and with concerns of sepsis. She has a past medical history of diabetes, neuropathy, hypertension, chronic anemia as well as a history of 3 strokes at least as per the daughter. Medications at home, she takes aspirin, although she has been taking her medications as needed. Otherwise, the home medications include that she is on antibiotics at home. She has been getting Haldol, labetalol, lidocaine, ondansetron, magnesium, Ketoralac, and acetaminophen. She has a family history of lupus, dementia, colon cancer. She has a personal history of depression, anxiety, hysterectomy, back surgery for scoliosis. She has been experiencing substantial nausea and vomiting before admission, comes in with diffuse severe encephalopathy and what sounds like acute dystonic syndrome. CURRENT MEDICATIONS: Discussed above. SOCIAL HISTORY: Not available. FAMILY HISTORY: Other than as mentioned above is not available. PHYSICAL EXAMINATION: VITAL SIGNS: We have a temperature of 101.3, pulse of 113, blood pressure 186/96. GENERAL: She is awake. HEENT: Her extraocular muscles are intact. Her pupils are reactive. NECK: Increased tone, but not necessarily meningismus. Her trachea is midline. PULMONARY: Clear. ABDOMEN: Soft. CARDIOVASCULAR: Tachycardic. NEUROLOGIC: There is no edema, but there is extensive bruising on the left shoulder, arm, left hip either secondary to falls or possibly that is not entirely clear. Her reflexes are symmetric. Her toes are upgoing bilaterally. She has a scar on the back from previous surgery, midline between L4 and L5. No rashes in the axillary area. No rashes on the neck or on the chest. ASSESSMENT AND PLAN: Severely encephalopathic patient, comes to my attention for possible meningitis. This is a critical care consultation for meningitis evaluation acutely with an acute lumbar puncture, which was performed at the bedside. We are going to get an EEG in the morning. We will send CSF for encephalitic and meningitic labs. The opening pressure was 17 and the CSF was clear and nonturbid. I will continue her on isolation precautions as much as possible. Continue her on the current antibiotics until we get the labs back and then progress from there. As far as imaging goes, the patient did have a CT of the brain on admission, which was no acute abnormalities, but history [place] [id number]. Critical care consultation 30 minutes duration. MEENA FERRER MD RR/MODL /[id number]
[2019-10-06] MEDS: AMPICILLIN SOD 2 GM/NS 100ML 100 ML IV SCH ×3 (01:31→11:14)
[2019-10-06] MEDS: HALOPERIDOL LACTATE 5 MG/ML VIAL IM PRN ×3 (01:31→15:25)
[2019-10-06] MEDS ORDERED: PANTOPRAZOLE 40 MG 10ML VIAL IV SCH (03:15)
[2019-10-06 03:51] LABS: RETICULOCYTE % 3.4 % (0.8-2.2)
[2019-10-06] MEDS: SODIUM CHLORIDE 0.9% IV SCH ×2 (04:04→11:25)
[2019-10-06] MEDS: ACYCLOVIR SODIUM IV SCH ×2 (04:04→11:25)
[2019-10-06 04:09] LABS: ALANINE AMINOTRANSFERASE 21 IU/L (0-55); ALBUMIN 3.1 g/dL (3.5-5.0); ALBUMIN/GLOBULIN RATIO 1.4 (0.8-2.0); ALKALINE PHOSPHATASE 60 IU/L (40-150); BLOOD UREA NITROGEN 13 mg/dL (7-26); BUN/CREATININE RATIO 16 (6-25); CALCIUM 8.2 mg/dL (8.4-10.2); CARBON DIOXIDE 28 mmol/L (22-29); CHLORIDE 106 mmol/L (98-107); CREATININE, SERUM 0.79 mg/dL (0.57-1.11); EST GLOMERULAR FILTRATION RATE > 60 ML/MIN (60-); GLUCOSE 188 mg/dL (74-118); MAGNESIUM 1.9 MG/DL (1.3-2.1); PHOSPHORUS 2.8 MG/DL (2.3-4.7); SODIUM 150 mmol/L (136-145)
[2019-10-06 04:10] LABS: % IRON SATURATION 16 % (15-50); IRON 33 ug/dL (50-170); TOTAL IRON BINDING CAPACITY 209 ug/dL (261-478); TRANSFERRIN 149 mg/dL (180-382)
[2019-10-06] MEDS: CEFTRIAXONE SOD 2 GM/NS 100 ML 100 ML IV SCH (04:27)
[2019-10-06 04:30] LABS: FERRITIN 323.54 ng/mL (4.63-204.00)
[2019-10-06] MEDS ORDERED: KCL 20MEQ/.9 SOD CHL 1,000 ML IV SCH (05:15)
[2019-10-06] MEDS ORDERED: POTASSIUM CHLORIDE 20MEQ/100ML 300 ML IV ONE (05:15)
[2019-10-06] MEDS: FAMOTIDINE 20 MG/2 ML VIAL IV SCH ×2 (05:24→17:23)
--- NOTE | 2019-10-06 06:05 | Diagnostic Imaging Report ---
EXAMINATION: CHEST XRAY LINE PLACEMENT INDICATION: PICC LINE PLACEMENT, verify position COMPARISON: Chest x-ray 10/04/2019 FINDINGS: TUBES and LINES: New right upper extremity PICC, tip in the superior cavoatrial junction. LUNGS: Normal lung volumes. Lungs are clear. No consolidations. PLEURA: No pleural effusion or pneumothorax. HEART AND MEDIASTINUM: The cardiomediastinal silhouette is unremarkable. There are atherosclerotic calcifications within the aorta. BONES AND SOFT TISSUES: No acute osseous lesion. Soft tissues are unremarkable. UPPER ABDOMEN: No free air under the diaphragm. IMPRESSION: New right upper extremity PICC, tip in the superior cavoatrial junction. Signed by: Markos Carpenter DO on 10/06/2019 6:02 AM
[2019-10-06] MEDS ORDERED: SODIUM CHLORIDE 0.9% 250ML 250 ML ONE (06:16)
--- NOTE | 2019-10-06 07:32 | Consultation ---
DATE OF CONSULTATION: 10/05/2019 HISTORY OF PRESENT ILLNESS: Ms. Pyle is here for altered mental status. The patient had multiple admissions for altered mental status. The patient has diabetes, neuropathy, hypertension, anemia. The patient comes in from home. She was recently here with pneumonia. She was checked three times for COVID, twice here and one at [facility], all negative. The patient is coming with as mentioned above altered mental status. LABORATORY STUDIES: When she first came, her white count was 7.5, hemoglobin 13. Sodium 144, potassium 3.6, creatinine 0.79. Her COVID-19 is pending. Her C difficile is negative. Her white count is 9.3, hemoglobin 12. PHYSICAL EXAMINATION: GENERAL: She is currently alert, confused. VITAL SIGNS: Stable, afebrile. HEENT: Normocephalic. NECK: Supple. CHEST: Clear. HEART: S1 and S2. ABDOMEN: Soft. Bowel sounds present. EXTREMITIES: No edema. SKIN: No rash. IMPRESSION: Altered mental status fever, etiology unclear, concerned about sepsis currently, urinary tract infection with sepsis, aspiration pneumonia is a possibility. Her chest x-ray shows no acute finding. We will get CT of abdomen and pelvis. We will also proceed with an LP to rule out meningitis. We will put her on Rocephin and vancomycin and follow until we get further information. Also could try acyclovir. We will follow. MD CAMILO Malone/MODL /[id number]
[2019-10-06] MEDS: INSULIN LISPRO 100 UNIT/1 ML 3ML VIAL SQ SCH ×4 (08:05→21:23)
[2019-10-06] MEDS ORDERED: CEFEPIME 2 GM/NS 0.9% 100 ML 100 ML IV SCH (09:00)
[2019-10-06] MEDS: PANTOPRAZOLE 40 MG 10ML VIAL IV SCH ×2 (09:20→20:18)
[2019-10-06] MEDS: SODIUM CHLORIDE 0.9% 1000ML 1,000 ML IV SCH (09:20)
[2019-10-06] MEDS: VANCOMYCIN 1GM/NS 250 ML 250 ML IV SCH (09:20)
[2019-10-06] MEDS: IBUPROFEN 800 MG/200 ML IV PRN (11:14)
[2019-10-06] MEDS: ACETAMINOPHEN 650 MG SUPP PR PRN (11:27)
[2019-10-06] MEDS ORDERED: DEXTROSE 5% 1,000 ML IV ONE (11:30)
[2019-10-06] MEDS ORDERED: POTASSIUM CHLORIDE 20MEQ/100ML 100 ML IV ONE (12:00)
[2019-10-06] MEDS: DEXTROSE 5% 1,000 ML IV SCH ×2 (12:03→21:36)
[2019-10-06] MEDS: HYDRALAZINE HCL 20 MG/ML VIAL IV PRN (12:05)
[2019-10-06] MEDS: HYDROMORPHONE 1MG/1ML INJ IV PRN ×2 (13:30→14:28)
[2019-10-06 14:50] LABS: ALANINE AMINOTRANSFERASE 22 IU/L (0-55); ALBUMIN 2.9 g/dL (3.5-5.0); ALBUMIN/GLOBULIN RATIO 1.4 (0.8-2.0); ALKALINE PHOSPHATASE 56 IU/L (40-150); ANION GAP 22.5 mmol/L (8-16); BLOOD UREA NITROGEN 15 mg/dL (7-26); BUN/CREATININE RATIO 21 (6-25); CARBON DIOXIDE 22 mmol/L (22-29); CHLORIDE 111 mmol/L (98-107); CREATININE, SERUM 0.73 mg/dL (0.57-1.11); EST GLOMERULAR FILTRATION RATE > 60 ML/MIN (60-); GLUCOSE 163 mg/dL (74-118); POTASSIUM 3.5 mmol/L (3.5-5.1); SODIUM 152 mmol/L (136-145)
[2019-10-07] VITALS (7 sets, daily range): BP systolic 136–168; BP diastolic 48–79
[2019-10-07] MEDS: INSULIN LISPRO 100 UNIT/1 ML 3ML VIAL SQ SCH ×4 (00:19→18:01)
[2019-10-07] MEDS: DEXTROSE 5% 1,000 ML IV SCH (05:30)
[2019-10-07 05:50] LABS: BASOPHILS % 0.2 % (0.0-1.0); HEMATOCRIT 29.9 % (34.2-44.1); LYMPHOCYTES # (AUTO) 0.7 (1.0-3.2); LYMPHOCYTES % 12.3 % (18.0-39.1); MEAN CORPUSCULAR HGB CONC 33.1 g/dL (31-35); MEAN CORPUSCULAR VOLUME 102.7 fL (81-99); MONOCYTES # (AUTO) 0.6 (0.2-0.8); MONOCYTES % 11.1 % (4.4-11.3); NEUTROPHILS # (AUTO) 4.2 (2.1-6.9); NEUTROPHILS % 75.7 % (38.7-80.0); PLATELET COUNT 141 x10e3/uL (140-360); RED BLOOD COUNT 2.91 x10e6/uL (3.6-5.1); RED CELL DISTRIBUTION WIDTH 14.8 % (11.7-14.4)
[2019-10-07 05:58] LABS: ALANINE AMINOTRANSFERASE 19 IU/L (0-55); ALBUMIN 2.6 g/dL (3.5-5.0); ALBUMIN/GLOBULIN RATIO 1.4 (0.8-2.0); ALKALINE PHOSPHATASE 56 IU/L (40-150); ANION GAP 14.7 mmol/L (8-16); BLOOD UREA NITROGEN 11 mg/dL (7-26); BUN/CREATININE RATIO 17 (6-25); CALCIUM 7.9 mg/dL (8.4-10.2); CARBON DIOXIDE 27 mmol/L (22-29); CHLORIDE 106 mmol/L (98-107); CREATININE, SERUM 0.63 mg/dL (0.57-1.11); EST GLOMERULAR FILTRATION RATE > 60 ML/MIN (60-); GLUCOSE 174 mg/dL (74-118); SODIUM 145 mmol/L (136-145)
[2019-10-07 06:01] LABS: POTASSIUM 2.7 mmol/L (3.5-5.1)
[2019-10-07 06:15] LABS: HEMOGLOBIN 9.9 g/dL (12.0-16.0)
[2019-10-07] MEDS ORDERED: POTASSIUM CHLORIDE 20MEQ/100ML 300 ML IV ONE (06:30)
[2019-10-07 06:44] LABS: AMYLASE 25 U/L (25-125); LIPASE 31 U/L (8-78)
[2019-10-07] MEDS: FAMOTIDINE 20 MG/2 ML VIAL IV SCH ×2 (06:46→18:00)
--- NOTE | 2019-10-07 07:17 | Diagnostic Imaging Report ---
EXAMINATION: MRI of the brain without contrast. HISTORY: Altered mental status, dehydration, fever COMPARISON: None. TECHNIQUE: Sagittal T2; axial DWI, T2, FLAIR, T1-IR, T2 gradient echo; coronal FLAIR. Image quality: Artifact from patient's motion limits the evaluation of most of the sequences. FINDINGS: Parenchyma: 1. Scatter and mildly confluent periventricular white matter T2 and FLAIR hyperintense foci, most likely nonspecific chronic microvascular ischemic changes. 2. No mass, hemorrhage, acute or chronic infarcts. Skull: Unremarkable. Vessels: Expected flow voids present in the major arteries and dural sinuses. Extra-axial spaces: No abnormal signal intensity or mass effect. Brain volume: Within normal limits for age. Ventricles: No hydrocephalus or displacement. Foramen magnum: Unremarkable. Sella: Unremarkable. Paranasal / mastoid sinuses: No significant inflammatory disease. IMPRESSION: 1. Suboptimal study due to motion artifact. Grossly no acute intracranial hemorrhage, infarct, midline shift or herniation. 2. Moderate chronic microvascular ischemic changes, stable compared to head CT of 10/04/2019. Signed by: Dr. Leslie Barkley M.D. on 10/07/2019 7:13 AM
[2019-10-07] MEDS: PANTOPRAZOLE 40 MG 10ML VIAL IV SCH ×2 (07:59→19:25)
[2019-10-07] MEDS: CEFTRIAXONE SOD 1 GM/NS 50 ML 50 ML IV SCH (08:02)
[2019-10-07] MEDS ORDERED: POTASSIUM CHLORIDE 20MEQ/100ML 200 ML IV ONE (12:00)
[2019-10-07] MEDS ORDERED: MAGNESIUM SULFATE 2GM/50ML 50 ML IV ONE (12:30)
[2019-10-07] MEDS: POTASSIUM CHLORIDE 20 MEQ in DEXTROSE 5% 1,000 ML IV SCH (12:46)
--- NOTE | 2019-10-07 21:45 | Electroencephalogram ---
DATE OF STUDY: 10/07/2019 REQUESTING PHYSICIAN: PROCEDURE: 30 minute EEG. INDICATIONS FOR PROCEDURE: EEG is being done to evaluate for encephalopathy. 10-20 international electrode placement EEG read as bipolar and transverse montages. EEG DATA: Posterior dominant rhythm is 5 to 7 hertz reactive. Intermittent high-amplitude slow waves and delta frequency noted in this EEG. Increased beta activity is noted in the posterior head regions as well as anterior frontal regions bilaterally. Intermittent slowing is seen frequently gets EEG about 50% of the record. No seizures captured in this EEG. Posterior dominant rhythm is reactive at times as high as 8 hertz, but often stays in the theta frequency and this is 5 to 7 range. EEG INTERPRETATION: This EEG suggests a [id number] encephalopathy with reactivity. There is increased beta activity suggesting possible sedation, but no underlying evidence epileptogenicity seizure activity captured in this study. MD ISIS MEDRANO/DIANE /[id number]
[2019-10-08] VITALS (9 sets, daily range): BP systolic 143–181; BP diastolic 48–85
[2019-10-08] MEDS: INSULIN LISPRO 100 UNIT/1 ML 3ML VIAL SQ SCH ×4 (01:00→18:00)
[2019-10-08] MEDS: POTASSIUM CHLORIDE 20 MEQ in DEXTROSE 5% 1,000 ML IV SCH ×3 (02:25→21:55)
[2019-10-08] MEDS ORDERED: D5NS/KCL 20MEQ 1,000 ML IV ONE (02:26)
--- NOTE | 2019-10-08 04:17 | Progress Note ---
DATE: 10/07/2019 SUBJECTIVE: Ms. Pyle remains confused, seems to be in more alert. She is currently on Rocephin. LABORATORY DATA: Reviewed. Her white count is 5.5, hemoglobin 9.9. Her C difficile was negative. Her sodium 145, potassium of 2.7. PHYSICAL EXAMINATION: GENERAL: Currently alert, confused. VITAL SIGNS: Stable. There is no fever since admission. HEENT: She is not icteric. NECK: Supple. CHEST: Clear. HEART: S1, S2. No murmurs. ABDOMEN: Soft. Bowel sounds present. EXTREMITIES: No edema. SKIN: No rash. Her blood cultures coagulase-negative staph contamination. Urine cultures are negative. IMPRESSION: 1. Altered mental status, probably metabolic, concerns drug-related. Fever on admission, could be also on drug. 2. Altered mental status. Neurology continued to follow. If her blood cultures are negative, can discontinue antibiotic. MD CAMILO Malone/DIANE /[id number]
[2019-10-08 05:45] LABS: ALANINE AMINOTRANSFERASE 19 IU/L (0-55); ALBUMIN 2.7 g/dL (3.5-5.0); ALBUMIN/GLOBULIN RATIO 1.4 (0.8-2.0); ALKALINE PHOSPHATASE 64 IU/L (40-150); ANION GAP 13.4 mmol/L (8-16); BLOOD UREA NITROGEN < 5 mg/dL (7-26); CALCIUM 8.2 mg/dL (8.4-10.2); CARBON DIOXIDE 28 mmol/L (22-29); CHLORIDE 105 mmol/L (98-107); CREATININE, SERUM 0.64 mg/dL (0.57-1.11); EST GLOMERULAR FILTRATION RATE > 60 ML/MIN (60-); GLUCOSE 190 mg/dL (74-118); MAGNESIUM 1.6 MG/DL (1.3-2.1); POTASSIUM 3.4 mmol/L (3.5-5.1); SODIUM 143 mmol/L (136-145)
[2019-10-08 05:49] LABS: BUN/CREATININE RATIO 8 (6-25)
[2019-10-08 05:50] LABS: BASOPHILS % 0.5 % (0.0-1.0); EOSINOPHILS % 0.7 % (0.0-6.0); HEMATOCRIT 37.5 % (34.2-44.1); HEMOGLOBIN 11.7 g/dL (12.0-16.0); LYMPHOCYTES # (AUTO) 0.9 (1.0-3.2); LYMPHOCYTES % 21.5 % (18.0-39.1); MEAN CORPUSCULAR HEMOGLOBIN 30.5 pg (28-32); MEAN CORPUSCULAR HGB CONC 31.2 g/dL (31-35); MEAN CORPUSCULAR VOLUME 97.7 fL (81-99); MONOCYTES # (AUTO) 0.6 (0.2-0.8); MONOCYTES % 12.8 % (4.4-11.3); NEUTROPHILS # (AUTO) 2.8 (2.1-6.9); NEUTROPHILS % 63.8 % (38.7-80.0); PLATELET COUNT 170 x10e3/uL (140-360); RED BLOOD COUNT 3.84 x10e6/uL (3.6-5.1); RED CELL DISTRIBUTION WIDTH 14.2 % (11.7-14.4)
[2019-10-08] MEDS: FAMOTIDINE 20 MG/2 ML VIAL IV SCH ×2 (06:28→18:29)
[2019-10-08] MEDS: PANTOPRAZOLE 40 MG 10ML VIAL IV SCH ×2 (08:54→20:24)
[2019-10-08] MEDS: CEFTRIAXONE SOD 1 GM/NS 50 ML 50 ML IV SCH (09:00)
[2019-10-08] MEDS: IRON SUCROSE 100 MG in SODIUM CHLORIDE 0.9% 100 ML 100 ML IV SCH (09:40)
[2019-10-08] MEDS: DIVALPROEX SODIUM 250 MG TAB...DR PO SCH (20:24)
[2019-10-08] MEDS: HYDRALAZINE HCL 20 MG/ML VIAL IV PRN (20:25)
[2019-10-08] MEDS ORDERED: DEPAKOTE DELAYED-RELEASE TAB 500 MG PO SCH (21:00)
[2019-10-09] VITALS (10 sets, daily range): BP systolic 132–163; BP diastolic 60–91
[2019-10-09] MEDS: INSULIN LISPRO 100 UNIT/1 ML 3ML VIAL SQ SCH ×4 (05:25→18:44)
[2019-10-09] MEDS: FAMOTIDINE 20 MG/2 ML VIAL IV SCH ×2 (05:37→18:24)
[2019-10-09] MEDS: PANTOPRAZOLE 40 MG 10ML VIAL IV SCH ×2 (08:34→20:11)
[2019-10-09] MEDS: CEFTRIAXONE SOD 1 GM/NS 50 ML 50 ML IV SCH (08:34)
[2019-10-09] MEDS: DIVALPROEX SODIUM 250 MG TAB...DR PO SCH ×3 (08:35→20:11)
[2019-10-09] MEDS: IRON SUCROSE 100 MG in SODIUM CHLORIDE 0.9% 100 ML 100 ML IV SCH (08:35)
--- NOTE | 2019-10-09 08:52 | Progress Note ---
DATE: SUBJECTIVE: This is a 74-year-old female, who came in with acute mental status changes. The patient currently has a diagnosis of encephalopathy, seen by Dr. Espana, Neurology and also has metabolic alkalosis and febrile illness. Current medications reviewed. The patient has a sitter by the bedside. Had an episode of diarrhea today. Otherwise, sleepy, but is available to answer questions. MEDICATIONS: Reviewed. OBJECTIVE: VITAL SIGNS: Temperature 98.6, pulse of 102, respirations of 21, blood pressure is 155/69, pulse oximetry of 97%. HEENT: Normocephalic and atraumatic. Pupils are reactive. CVS: S1 and S2, tachy. ABDOMEN: Soft, nontender, nondistended. EXTREMITIES: No clubbing, no cyanosis, no edema. LABORATORY VALUES: White count today was 4.38, hemoglobin of 11.7, hematocrit 37.5. Chemistries; glucose has been running from which was today's morning at 05:22. Toxicology; amphetamines positive and benzodiazepines are positive. Serology pending. Cultures and viral studies and also pending fungal studies. MICROBIOLOGY: Blood culture preliminary showed coagulase-negative Staphylococcus, contaminant probably otherwise AFB is pending. ASSESSMENT: This is Ms. Pyle with acute encephalopathy, contamination with coagulase-negative Staph, and altered mental status. PLAN: Continue to monitor the patient. Discontinue all antibiotics at this time. Continue monitoring her mental status. Try to avoid sedation as much as possible. Further recommendation and clinical course for hypertension, for her diabetes, and for rate control. Continue same medication. We will scale down the insulin to low dose. Further recommendation per clinical course. Montrell Santoyo MD ASJ/MODL /[id number]
[2019-10-09] MEDS: POTASSIUM CHLORIDE 20 MEQ in DEXTROSE 5% 1,000 ML IV SCH ×2 (09:13→18:26)
--- NOTE | 2019-10-09 17:39 | Progress Note ---
DATE: SUBJECTIVE: The patient is seen and evaluated. I had discussed with staff, the patient is currently in room in a bed comfortable with sitting in her room. REVIEW OF SYSTEMS: No nausea, vomiting, fever, chills, chest pain, shortness of breath, headache, rash, diarrhea. PHYSICAL EXAMINATION: VITAL SIGNS: Temperature is 98.4, pulse of 101, respirations 16, blood pressure 135/60. GENERAL: The patient is alert and oriented to herself. She knows where she is. She knows the year. She does not know what month, wants to go home. Very pleasant. CV: S1, S2. CHEST: Equal expansion. Clear to auscultation. No acute distress. ABDOMEN: Soft, nontender, no distention. Bowel sounds positive. HEENT: Moist. No pallor. No JVD. EXTREMITIES: Moves all, weak and as a matter of fact the patient ambulates with the help of the staff to the bathroom. MEDICATIONS: Medication list reviewed. From ID point of view the patient is on Rocephin. LABORATORY STUDIES: White blood cells of 4.38, hemoglobin 11.7, platelet 170. Sodium 143, potassium 3.4, creatinine of 0.64. MICROBIOLOGY: No new microbiology studies available. Blood culture from 10/04/2019 showed coag-negative staph. Spinal fluid from 10/05/2019 culture negative so far. AFB smear of the bronchial wash is pending. Urine culture was negative on 10/04/2019. RADIOLOGY STUDIES: Showing it is pending the result. The patient had MRI of the brain on 10/06/2019, showed suboptimal study due to motion artifact coarsely. No acute intracranial hemorrhage, infarct, midline shift or herniation. The patient showed to have moderate chronic microvascular ischemic changes that overall seem to be stable compared with the CT head on 10/04/2019. Serology; West Nile negative. HSV, PCR negative. RSV rhinovirus, Aspergillus, parainfluenza, influenza A and B, chlamydia and adenovirus all pending. ASSESSMENT AND PLAN: Altered mental status and fever. The patient remains confused, however, as mentioned above. The patient is alert and oriented x2. Fever resolved. Workup as mentioned above. Continue with Rocephin. Severely debilitated, needs PT/OT. Contaminated blood culture. Can discontinue Rocephin from ID point of view and continue to follow with the serology and remaining of the workup. This was discussed with Dr. Fuller in detail. Dictated by Jaspal Whitman) ASHWINI Knutson MD FABRICIO Malone/DIANE /[id number]
[2019-10-09] MEDS: HALOPERIDOL LACTATE 5 MG/ML VIAL IM PRN (17:41)
[2019-10-10] MEDS: INSULIN LISPRO 100 UNIT/1 ML 3ML VIAL SQ SCH ×4 (00:42→15:50)
[2019-10-10 04:19] VITALS: BP 158/71
[2019-10-10] MEDS: FAMOTIDINE 20 MG/2 ML VIAL IV SCH ×2 (05:25→17:15)
[2019-10-10] MEDS: POTASSIUM CHLORIDE 20 MEQ in DEXTROSE 5% 1,000 ML IV SCH ×3 (05:48→18:25)
[2019-10-10 06:09] LABS: BASOPHILS % 0.6 % (0.0-1.0); EOSINOPHILS # (AUTO) 0.2 (0.0-0.4); EOSINOPHILS % 4.5 % (0.0-6.0); HEMATOCRIT 37.7 % (34.2-44.1); HEMOGLOBIN 11.8 g/dL (12.0-16.0); LYMPHOCYTES # (AUTO) 1.2 (1.0-3.2); LYMPHOCYTES % 24.1 % (18.0-39.1); MEAN CORPUSCULAR HEMOGLOBIN 30.6 pg (28-32); MEAN CORPUSCULAR HGB CONC 31.3 g/dL (31-35); MEAN CORPUSCULAR VOLUME 97.9 fL (81-99); MONOCYTES # (AUTO) 0.7 (0.2-0.8); MONOCYTES % 13.6 % (4.4-11.3); NEUTROPHILS # (AUTO) 2.9 (2.1-6.9); NEUTROPHILS % 56.2 % (38.7-80.0); PLATELET COUNT 185 x10e3/uL (140-360); RED BLOOD COUNT 3.85 x10e6/uL (3.6-5.1); RED CELL DISTRIBUTION WIDTH 14.5 % (11.7-14.4)
[2019-10-10 06:19] LABS: ANION GAP 15.6 mmol/L (8-16); BLOOD UREA NITROGEN < 5 mg/dL (7-26); CALCIUM 8.7 mg/dL (8.4-10.2); CARBON DIOXIDE 24 mmol/L (22-29); CHLORIDE 107 mmol/L (98-107); CREATININE, SERUM 0.65 mg/dL (0.57-1.11); EST GLOMERULAR FILTRATION RATE > 60 ML/MIN (60-); GLUCOSE 145 mg/dL (74-118); POTASSIUM 3.6 mmol/L (3.5-5.1); SODIUM 143 mmol/L (136-145)
[2019-10-10 06:29] LABS: BUN/CREATININE RATIO 8 (6-25)
[2019-10-10] MEDS: DIVALPROEX SODIUM 250 MG TAB...DR PO SCH ×2 (08:25→14:51)
[2019-10-10] MEDS: PANTOPRAZOLE 40 MG 10ML VIAL IV SCH ×2 (08:25→20:26)
[2019-10-10] MEDS: IRON SUCROSE 100 MG in SODIUM CHLORIDE 0.9% 100 ML 100 ML IV SCH (08:25)
--- NOTE | 2019-10-10 09:20 | Progress Note ---
DATE: SUBJECTIVE: Karissa Pyle is a 74-year-old female, who came in with acute mental status changes, was diagnosed with acute encephalopathy. The patient is currently feeling much better. She also had metabolic alkalosis and dehydration, feeling better, sitting up, and very coherent. Alert and oriented x3. No complaints today from nursing staff. The patient has a sitter by the bedside. OBJECTIVE: VITAL SIGNS: Temperature is 98.3, pulse of 68, respirations of 18, and blood pressure is 158/71. HEENT: Normocephalic and atraumatic. Pupils are reactive. CVS: S1 and S2 normal. Regular rate and rhythm. ABDOMEN: Soft, nontender, and nondistended. EXTREMITIES: No clubbing. No cyanosis. No edema. LABORATORY VALUES: From today, white count is 5.07, hemoglobin of 11.8, and hematocrit of 37. Chemistry shows sodium 143, BUN of less than 5, and creatinine is 0.65. Serology; viral cultures are pending. Coronavirus not detected. No new imaging studies. ASSESSMENT: This is Ms. Karissa Pyle with: 1. Acute encephalopathy, blood cultures with contamination. 2. Altered mental status. 3. Fever. PLAN: Continue with workup. Viral cultures are pending. Continue with Rocephin. Physical therapy to be ordered. Contaminated blood cultures. We will continue monitoring. Discontinued Rocephin. Further recommendation per clinical course. The patient is faring well. Physical therapy and occupational therapy will be ordered today. MD DRAKE Martin/MODL /[id number]
[2019-10-10 09:21] VITALS: BP 109/63
[2019-10-10 09:45] VITALS: BP 145/75
[2019-10-10 11:51] VITALS: BP 154/61
--- NOTE | 2019-10-10 14:22 | Progress Note ---
DATE: SUBJECTIVE: The patient is seen and evaluated. Discussed with the grandson in the room. Discussed with staff. No new complaints. REVIEW OF SYSTEMS: The patient remains confused, but from my discussion with the family has improved some, but she is still confused. PHYSICAL EXAMINATION: VITAL SIGNS: Temperature 98.5, pulse 105, respiration 18, and blood pressure 154/61. GENERAL: Alert and oriented to herself and she knows that her grandson in the room, but from our discussion with the patient and this grandson, the patient seems to be confused. CV: S1 and S2. CHEST: Equal expansion. Clear to auscultation bilaterally. ABDOMEN: Soft. No distention. Nontender. HEENT: Moist. No pallor. No JVD. EXTREMITIES: Weak. No significant edema. MEDICATIONS: Reviewed and from ID point of view, the patient is off antibiotic, status post Rocephin. LABORATORY STUDIES: White count of 5.07, hemoglobin 11.8, and platelet 185. Sodium 142, potassium 3.6, and creatinine 0.65. Serology is still pending. No new serology result. MICROBIOLOGY: No new microbiology studies available. RADIOLOGY STUDIES: Also, no new radiology studies available. ASSESSMENT AND PLAN: 1. Altered mental status. 2. Fever, resolved. 3. Debility. 4. The patient is status post Rocephin. Follow with the serology. No new microbiology studies available. Slowly improving. However, the patient still remains confused. No new findings at this point. Discussed with Dr. Fuller in details. Dictated by Jaspal Knutson PA-C (Al) Keyla Fuller MD /MODL /[id number]
[2019-10-10 16:25] VITALS: BP 155/65
[2019-10-10 20:00] VITALS: BP 144/61
[2019-10-11] VITALS (9 sets, daily range): BP systolic 116–152; BP diastolic 61–91
[2019-10-11] MEDS: INSULIN LISPRO 100 UNIT/1 ML 3ML VIAL SQ SCH ×4 (00:50→18:00)
[2019-10-11] MEDS: FAMOTIDINE 20 MG/2 ML VIAL IV SCH ×2 (05:54→18:33)
[2019-10-11] MEDS ORDERED: POTASSIUM CHLORIDE 20 MEQ in DEXTROSE 5% 1,000 ML IV SCH (09:15)
[2019-10-11] MEDS: IRON SUCROSE 100 MG in SODIUM CHLORIDE 0.9% 100 ML 100 ML IV SCH (09:30)
[2019-10-11] MEDS: PANTOPRAZOLE 40 MG 10ML VIAL IV SCH ×2 (09:30→20:59)
[2019-10-11] MEDS: HYDROMORPHONE 1MG/1ML INJ IV PRN (20:59)
[2019-10-12] VITALS (8 sets, daily range): BP systolic 126–158; BP diastolic 51–62
[2019-10-12] MEDS: INSULIN LISPRO 100 UNIT/1 ML 3ML VIAL SQ SCH ×5 (00:33→21:00)
[2019-10-12] MEDS: FAMOTIDINE 20 MG/2 ML VIAL IV SCH ×2 (05:45→17:30)
[2019-10-12 06:01] LABS: BASOPHILS # (AUTO) 0.1 (0.0-0.1); EOSINOPHILS # (AUTO) 0.3 (0.0-0.4); EOSINOPHILS % 4.2 % (0.0-6.0); HEMATOCRIT 35.9 % (34.2-44.1); HEMOGLOBIN 11.2 g/dL (12.0-16.0); LYMPHOCYTES # (AUTO) 1.1 (1.0-3.2); MEAN CORPUSCULAR HEMOGLOBIN 30.9 pg (28-32); MEAN CORPUSCULAR HGB CONC 31.2 g/dL (31-35); MEAN CORPUSCULAR VOLUME 98.9 fL (81-99); MONOCYTES # (AUTO) 0.8 (0.2-0.8); MONOCYTES % 13.7 % (4.4-11.3); NEUTROPHILS # (AUTO) 3.6 (2.1-6.9); NEUTROPHILS % 60.7 % (38.7-80.0); PLATELET COUNT 213 x10e3/uL (140-360); RED BLOOD COUNT 3.63 x10e6/uL (3.6-5.1); RED CELL DISTRIBUTION WIDTH 14.7 % (11.7-14.4)
[2019-10-12 06:19] LABS: ALANINE AMINOTRANSFERASE 12 IU/L (0-55); ALBUMIN 2.8 g/dL (3.5-5.0); ALBUMIN/GLOBULIN RATIO 1.2 (0.8-2.0); ALKALINE PHOSPHATASE 82 IU/L (40-150); ANION GAP 14.3 mmol/L (8-16); BLOOD UREA NITROGEN < 5 mg/dL (7-26); CALCIUM 8.5 mg/dL (8.4-10.2); CARBON DIOXIDE 28 mmol/L (22-29); CHLORIDE 103 mmol/L (98-107); CREATININE, SERUM 0.71 mg/dL (0.57-1.11); EST GLOMERULAR FILTRATION RATE > 60 ML/MIN (60-); GLUCOSE 110 mg/dL (74-118); MAGNESIUM 1.3 MG/DL (1.3-2.1); POTASSIUM 3.3 mmol/L (3.5-5.1); SODIUM 142 mmol/L (136-145)
[2019-10-12 06:20] LABS: BUN/CREATININE RATIO 7 (6-25)
[2019-10-12] MEDS: PANTOPRAZOLE 40 MG 10ML VIAL IV SCH ×2 (08:35→21:13)
[2019-10-12] MEDS: IRON SUCROSE 100 MG in SODIUM CHLORIDE 0.9% 100 ML 100 ML IV SCH (10:23)
[2019-10-12] MEDS: HYDROMORPHONE 1MG/1ML INJ IV PRN (10:30)
[2019-10-12] MEDS ORDERED: POTASSIUM CHLORIDE 20MEQ/100ML 200 ML IV ONE (11:45)
[2019-10-13] VITALS (8 sets, daily range): BP systolic 127–171; BP diastolic 56–86
[2019-10-13] MEDS: FAMOTIDINE 20 MG/2 ML VIAL IV SCH ×2 (05:15→17:22)
[2019-10-13] MEDS: INSULIN LISPRO 100 UNIT/1 ML 3ML VIAL SQ SCH ×4 (07:30→20:18)
[2019-10-13] MEDS: PANTOPRAZOLE 40 MG 10ML VIAL IV SCH ×2 (08:13→20:17)
[2019-10-13] MEDS: IRON SUCROSE 100 MG in SODIUM CHLORIDE 0.9% 100 ML 100 ML IV SCH (08:13)
[2019-10-13] MEDS: HYDRALAZINE HCL 20 MG/ML VIAL IV PRN (09:06)
[2019-10-13 12:50] LABS: ANION GAP 17.1 mmol/L (8-16); BLOOD UREA NITROGEN 5 mg/dL (7-26); BUN/CREATININE RATIO 7 (6-25); CALCIUM 8.6 mg/dL (8.4-10.2); CARBON DIOXIDE 25 mmol/L (22-29); CHLORIDE 104 mmol/L (98-107); CREATININE, SERUM 0.71 mg/dL (0.57-1.11); EST GLOMERULAR FILTRATION RATE > 60 ML/MIN (60-); GLUCOSE 139 mg/dL (74-118); POTASSIUM 4.1 mmol/L (3.5-5.1); SODIUM 142 mmol/L (136-145)
[2019-10-13] MEDS ORDERED: HYDROMORPHONE 1MG/1ML INJ IV PRN (14:45)
[2019-10-13] MEDS ORDERED: DIPHENHYDRAMINE HCL INJ 50 MG/ML VIAL IV ONE (18:30)
[2019-10-13] MEDS: HYDROCODONE/APAP 10MG-325MG TAB PO PRN (20:55)
[2019-10-14] VITALS (8 sets, daily range): BP systolic 125–145; BP diastolic 55–69
[2019-10-14] MEDS: HALOPERIDOL LACTATE 5 MG/ML VIAL IM PRN
[2019-10-14] MEDS: FAMOTIDINE 20 MG/2 ML VIAL IV SCH ×2 (06:23→17:27)
[2019-10-14] MEDS: INSULIN LISPRO 100 UNIT/1 ML 3ML VIAL SQ SCH ×4 (07:30→22:02)
[2019-10-14] MEDS: PANTOPRAZOLE 40 MG 10ML VIAL IV SCH ×2 (07:49→18:41)
[2019-10-14] MEDS: IRON SUCROSE 100 MG in SODIUM CHLORIDE 0.9% 100 ML 100 ML IV SCH (07:51)
--- NOTE | 2019-10-14 12:03 | Diagnostic Imaging Report ---
PROCEDURE: X-RAY MODIFIED BARIUM SWALLOW COMPARISON: None. INDICATION: Aspiration Radiation Details: Fluoroscopy time: 1.9 minutes Cumulative dose: 8.7 mGy DISCUSSION: Fluoroscopic examination was performed in conjunction with speech pathology during swallowing a variety of thin and thick liquid consistencies. Provided images demonstrate minimal laryngeal penetration and no aspiration. CONCLUSION: Modified barium swallow demonstrating minimal laryngeal penetration and no aspiration. Please refer to the speech pathology report for further details. Signed by: Jesse Leonard MD on 10/14/2019 12:00 PM
--- NOTE | 2019-10-14 14:41 | Consultation ---
DATE OF CONSULTATION: 10/14/2019 REASON FOR CONSULTATION: 1. Debilitation. 2. Sepsis. 3. Encephalopathy. 4. Diabetes. HISTORY: A 74-year-old female with multiple medical issues secondary to electrolyte imbalances, who has been in the hospital now secondary to electrolyte imbalance. Came into the hospital at this time on 10/04/2019 with diagnosis of sepsis secondary to unknown etiology and possible encephalitis, was seen by Dr. Fuller, undergoing workup. She is doing a lot better now. I am being asked to evaluate for rehab needs. PAST MEDICAL HISTORY: Diabetes, hypertension, metabolic alkalosis, anemia, history of dementia, history of colon cancer, and anxiety. PAST SURGICAL HISTORY: Hysterectomy and back surgery for scoliosis. SOCIAL HISTORY: Lives with her daughter. Her daughter actually moved in recently with her. She has a walker to mobilize. FAMILY HISTORY: Noncontributory. ALLERGIES: PLEASE SEE ELECTRONIC MAR. LABORATORY DATA: White cell count of 5.9, hemoglobin 11.2, hematocrit 35.9, and platelets of 213. Sodium is 140, potassium 4.1, BUN of 5, and creatinine 0.71. DIAGNOSTIC STUDIES: She had a modified barium swallow which showed minimal laryngeal penetration with no aspiration. She had a brain MRI, suboptimal secondary to motion artifact, but moderate chronic microvascular ischemic changes. Chest x-ray the other day, no acute cardiopulmonary disease. PHYSICAL EXAMINATION: GENERAL: Awake and alert. She is oriented x3. Knows it is obvious 2019, Raman is the president. She had 2/3 recall for testing of short-term memory. EYES: Gaze conjugate. ORAL: Tongue is midline. NECK: Supple. HEART: Regular. LUNGS: Fair air entry. ABDOMEN: Nondistended. EXTREMITIES: Functional range of motion without focal deficits demonstrating 4/5 strength in arms and legs bilaterally. Clonus negative bilaterally. Sensory chavez, denies any numbness, tingling in her feet or face. GENITOURINARY: She has a Fisher in place. NEUROLOGIC: She was able to get up with me to walk with a walker, slow steps, slightly decreased maxim. Using a walker for her balance. IMPRESSION: 1. Encephalopathy. 2. Sepsis. 3. Electrolyte abnormalities. 4. Hypertension. 5. Diabetes. PLAN: Physical Therapy has evaluated the patient and they note that she is back to baseline. She tells me she is pretty much close to her baseline. At this point, inpatient rehab would not be of much help. She should hopefully can go home with home health. Walking 200 feet, modified independent according to chart records. Thank you once again for allowing me to participate in the care of this pleasant patient. Zoran Pino DO RPL/MODL /[id number]
[2019-10-14] MEDS: HYDROCODONE/APAP 10MG-325MG TAB PO PRN ×2 (18:21→23:06)
[2019-10-15] VITALS: BP 135/52
[2019-10-15 04:00] VITALS: BP 144/50
[2019-10-15] MEDS: FAMOTIDINE 20 MG/2 ML VIAL IV SCH (05:58)
[2019-10-15] MEDS ORDERED: DIPHENHYDRAMINE HCL 25 MG CAP PO PRN (06:00)
[2019-10-15 07:30] VITALS: BP 152/75
[2019-10-15] MEDS: INSULIN LISPRO 100 UNIT/1 ML 3ML VIAL SQ SCH ×3 (07:30→16:30)
[2019-10-15] MEDS ORDERED: ONDANSETRON HCL 4 MG ORAL DISINTEGRATING TAB PO PRN (07:45)
[2019-10-15] MEDS: IRON SUCROSE 100 MG in SODIUM CHLORIDE 0.9% 100 ML 100 ML IV SCH (08:24)
[2019-10-15] MEDS: PANTOPRAZOLE 40 MG 10ML VIAL IV SCH (08:24)
[2019-10-15 08:31] VITALS: BP 152/75
[2019-10-15 11:44] VITALS: BP 146/76
[2019-10-15 15:59] VITALS: BP 131/60
--- NOTE | 2019-10-16 07:43 | Discharge Summary ---
DISCHARGE DIAGNOSES: 1. Encephalopathy secondary to toxins. 2. Acute renal failure. 3. Electrolyte imbalance. 4. Diabetes. HISTORY OF PRESENT ILLNESS AND HOSPITAL COURSE: See hospital chart for full details. The patient is a lady, who presented with acute encephalopathic changes, fever, acute renal failure and electrolyte imbalance. She was brought in and placed on IV fluids. Her electrolytes replaced. She was seen by Infectious Disease where she had an LP done that was negative, cultures were done that were negative. The patient has been having repeated bouts where she has had three hospitalizations in a very short periods of time for similar circumstances and recently she started a new medicine called Ingrezza for tardive dyskinesia and we felt like it may be drug-induced aspect, so this medication was withheld and family states that she has only deteriorated since she has been placed on that medication. By the time of discharge the patient was back to her baseline mental status. She was eating well with no issues. She did have some evidence of low iron anemia, which she was seen by GI, who is going to do an outpatient study for, spoke to the family, the daughter is going to be staying with the patient at all times, so we will keep an eye on her status and she will follow up with me in about 1 to 2 weeks. Please see hospital chart for full details. MD BLACK Ruiz/DIANE /[id number]
== END 2019-10-15 17:30 | disposition home or self-care (01) | DRG 92 ==
LOC: ER 12:35 → ERHOLD 17:32 → IMCU 10-05 14:42 → MED/SURG 10-07 17:35
PROVIDERS: ADMIT Internal Medicine; ATTEND Internal Medicine
PROC: 009U3ZX Drainage of Spinal Canal, Percutaneous Approach, Diagnostic (ICD-10-PCS; principal; 2019-10-05)
PROC: 02HV33Z Insertion of Infusion Device into Superior Vena Cava, Percutaneous Approach (ICD-10-PCS; 2019-10-06)
PROC: B548ZZA Ultrasonography of Superior Vena Cava, Guidance (ICD-10-PCS; 2019-10-06)
DX: G92 Toxic encephalopathy (principal); E87.4 Mixed disorder of acid-base balance; N17.9 Acute kidney failure, unspecified; K92.2 Gastrointestinal hemorrhage, unspecified; E11.42 Type 2 diabetes mellitus with diabetic polyneuropathy; E87.6 Hypokalemia; E83.42 Hypomagnesemia; I10 Essential (primary) hypertension; E86.0 Dehydration; Z84.89 Family history of other specified conditions; Z80.0 Family history of malignant neoplasm of digestive organs; R53.81 Other malaise; Z86.73 Personal history of transient ischemic attack (TIA), and cerebral infarction without residual deficits; Z91.041 Radiographic dye allergy status; F03.90 Unspecified dementia, unspecified severity, without behavioral disturbance, psychotic disturbance, mood disturbance, and anxiety; T50.995A Adverse effect of other drugs, medicaments and biological substances, initial encounter; D50.9 Iron deficiency anemia, unspecified; Z79.82 Long term (current) use of aspirin; Z79.84 Long term (current) use of oral hypoglycemic drugs
CPT/HCPCS: 36415; 36569; 36600; 51700; 70450; 70551; 71045; 72125; 74230; 74470; 80048; 80053; 80061; 80307; 80320; 80329; 81001; 82140; 82150; 82270; 82550; 82553; 82607; 82728; 82805; 82945; 82948; 83520; 83540; 83605; 83690; 83735; 83880; 84100; 84133; 84300; 84443; 84466; 84484; 85025; 85045; 85610; 85651; 85730; 86592; 86606; 86612; 86698; 86789; 87040; 87070; 87071; 87086; 87116; 87205; 87206; 87493; 87529; 87633; 87798; 89051; 93005; 95812; 96361; 96372; 97139; 99284; J0360; J0696; J1170; J1200; J1630; J1756; J2001; J2405; J3370; J3475; J3480; J7030; J7050; J7070; J7799; U0002

== ENCOUNTER 2019-10-17 15:06 | Inpatient (IN) | payer MEDICARE, BC ==
[~2019-10-17] VITALS: Ht 160 cm; Wt 68.0 kg
[2019-10-17] MEDS ORDERED: CEFEPIME 1GM/NS 0.9% 50 ML 50 ML IV STA (15:28)
[2019-10-17] MEDS ORDERED: SODIUM CHLORIDE 0.9% 1000ML 1,000 ML IV STA (15:28)
--- NOTE | 2019-10-17 15:34 | Emergency Department Note ---
History of Present Illnes History of Present Illness Chief Complaint: General Medicine Complaints History of Present Illness This is a 74 year old female arrived to the ED altered, unable to provide any history. Chief Complaint Comment Patient in from home via EMS with reports of altered mental status, hypoxia and hyperglycemia. Patient is unable to provide any subjective information and responds to painful stimuli only. Patient does not open up her eyes during triage even for pain. Patient was found on the ground, supine, at home by her daughter who called 911. She was last seen normal yesterday when she was out with her family shopping and eating. 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 Any updates have been documented here. Past Medical History Recent Fever: No Clinical Suspicion of Infectio: Yes New/Unexplained Change in Ment: Yes Past Medical History: Hypertension, Diabetes, TIA, Anemia, Depression, GERD Other Medical History: SEVERE PERIPHERAL NEUROPATHY TARDIVE DYSKINESIA Past Surgical History: Back Surgery Other Surgery: X2 KNEE ARTHROSCOPY X2 NECK SX, X2 LOWER BACK SX Review of Systems ROS Narrative Unable to obtain ROS: Unable to obtain due to, altered mental status Physical Exam Related Data Allergies: Coded Allergies: Iodinated Contrast Media (Verified Allergy, Unknown, severe headache, 08/07/19) Triage Vital Signs Vital Signs Date Time Temp Pulse Resp B/P (MAP) Pulse Ox O2 Delivery O2 Flow Rate FiO2 10/17/19 15:17 97.4 94 13 133/95 100 Nasal Cannula 2.0 Physical Exam CONSTITUTIONAL Constitutional: Present well-developed, Present well-nourished HENT HENT: Present normocephalic, Present atraumatic, Present oropharynx clear/moist, Present nose normal HENT L/R: Present left ext ear normal, Present right ext ear normal EYES Eyes: Reports PERRL, Reports conjunctivae normal NECK Neck: Present ROM normal PULMONARY Pulmonary: Present effort normal, Present breath sounds normal CARDIOVASCULAR Cardiovascular: Present regular rhythm, Present heart sounds normal, Present capillary refill normal, Present normal rate GASTROINTESTINAL Abdominal: Present soft, Present nontender, Present bowel sounds normal GENITOURINARY Genitourinary: Present exam deferred SKIN Skin: Present warm, Present dry MUSCULOSKELETAL Musculoskeletal: Present ROM normal NEUROLOGICAL Neurological: Present no gross motor or sensory deficits PSYCHOLOGICAL Psychological: Present judgement normal; Absent mood/affect normal Results Laboratory Lab results reviewed: Yes Laboratory comments Laboratory Tests Test 10/17/19 17:00 10/17/19 15:35 White Blood Count 9.96 x10e3/uL (4.8-10.8) Red Blood Count 4.40 x10e6/uL (3.6-5.1) Hemoglobin 13.7 g/dL (12.0-16.0) Hematocrit 44.7 % (34.2-44.1) Mean Corpuscular Volume 101.6 fL (81-99) Mean Corpuscular Hemoglobin 31.1 pg (28-32) Mean Corpuscular Hemoglobin Concent 30.6 g/dL (31-35) Red Cell Distribution Width 15.5 % (11.7-14.4) Platelet Count 183 x10e3/uL (140-360) Neutrophils (%) (Auto) 82.8 % (38.7-80.0) Lymphocytes (%) (Auto) 6.9 % (18.0-39.1) Monocytes (%) (Auto) 9.2 % (4.4-11.3) Eosinophils (%) (Auto) 0.1 % (0.0-6.0) Basophils (%) (Auto) 0.5 % (0.0-1.0) Neutrophils # (Auto) 8.2 (2.1-6.9) Lymphocytes # (Auto) 0.7 (1.0-3.2) Monocytes # (Auto) 0.9 (0.2-0.8) Eosinophils # (Auto) 0.0 (0.0-0.4) Basophils # (Auto) 0.1 (0.0-0.1) Absolute Immature Granulocyte (auto 0.05 x10e3/uL (0-0.1) Sodium Level 140 mmol/L (136-145) Potassium Level 4.6 mmol/L (3.5-5.1) Chloride Level 105 mmol/L (98-107) Carbon Dioxide Level 20 mmol/L (22-29) Anion Gap 19.6 mmol/L (8-16) Blood Urea Nitrogen 21 mg/dL (7-26) Creatinine 1.32 mg/dL (0.57-1.11) Estimat Glomerular Filtration Rate 40 ML/MIN (60-) BUN/Creatinine Ratio 16 (6-25) Glucose Level 276 mg/dL (74-118) Lactic Acid Level 2.8 mmol/L (0.5-2.0) Calcium Level 8.6 mg/dL (8.4-10.2) Total Bilirubin 0.5 mg/dL (0.2-1.2) Aspartate Amino Transf (AST/SGOT) 10 IU/L (5-34) Alanine Aminotransferase (ALT/SGPT) 11 IU/L (0-55) Alkaline Phosphatase 108 IU/L (40-150) Creatine Kinase 25 IU/L (29-168) Creatine Kinase MB 0.60 ng/mL (0-5.0) Troponin I 0.003 ng/mL (0-0.300) Total Protein 5.6 g/dL (6.5-8.1) Albumin 2.8 g/dL (3.5-5.0) Globulin 2.8 g/dL (2.3-3.5) Albumin/Globulin Ratio 1.0 (0.8-2.0) Urine Color Yellow (YELLOW) Urine Clarity Sl cloudy (CLEAR) Urine pH 5 (5 - 7) Urine Specific [place] >=1.030 (1.010-1.025) Urine Protein Negative (NEGATIVE) Urine Glucose (UA) 2+ (NEGATIVE) Urine Ketones Negative (NEGATIVE) Urine Blood Negative (NEGATIVE) Urine Nitrite Negative (NEGATIVE) Urine Bilirubin Small (NEGATIVE) Urine Urobilinogen 0.2 mg/dL (0.2 - 1) Urine Leukocyte Esterase Negative (NEGATIVE) Urine RBC 0-5 /HPF (0-5) Urine WBC 0-5 /HPF (0-5) Urine Epithelial Cells Few /LPF (NONE) Urine Bacteria Rare /HPF (NONE) Urine Opiates Screen Negative (NEGATIVE) Urine Methadone Screen Negative (NEGATIVE) Urine Barbiturates Screen Negative (NEGATIVE) Urine Phencyclidine Screen Negative (NEGATIVE) Urine Amphetamines Screen Negative (NEGATIVE) Urine Methamphetamines Screen Negative (NEGATIVE) Urine Benzodiazepines Screen Negative (NEGATIVE) Urine Cocaine Screen Negative (NEGATIVE) Urine Cannabinoids Screen Negative (NEGATIVE) Assessment & Plan Medical Decision Making MDM 74 F arrived to the ED unable to provide history 2/2 AMS. Concerns of impending sepsis at 1730 Lactic acid elevated, Dr. Bolanos signed out to follow second lactic Cefepime given at 1557 Blood cultures collected Pt admitted. Assessment & Plan Final Impression: (1) Severe sepsis (2) Altered mental status Depart Disposition: ADMITTED Last Vital Signs Date Time Temp Pulse Resp B/P (MAP) Pulse Ox O2 Delivery O2 Flow Rate FiO2 10/17/19 15:17 97.4 94 13 133/95 100 Nasal Cannula 2.0 Home Meds Reported Medications Losartan Potassium (LOSARTAN POTASSIUM) 25 Mg Tablet, MG PO BID, #60 08/28/19 Ondansetron Hcl* (ZOFRAN*) 4 Mg Tablet, 4 MG PO Q4HR, #30 08/28/19 Sertraline Hcl (ZOLOFT) 50 Mg Tablet, 100 MG PO DAILY, #30 TAB 08/06/19 Aspirin (ASPIR 81) 81 Mg Tablet.dr, 81 MG PO DAILY 08/06/19 Pantoprazole Sodium* (PROTONIX) 40 Mg Tablet.dr, 40 MG PO BID, TAB 09/13/15 Baclofen (BACLOFEN) 10 Mg Tablet, 20 MG PO TID, TAB 09/16/13 Lovastatin (LOVASTATIN) 40 Mg Tablet, 40 MG PO DAILY 07/20/12 Gabapentin (NEURONTIN) 300 Mg Capsule, 800 MG PO TID 07/20/12 Pioglitazone Hcl (ACTOS) 30 Mg Tablet, 30 MG PO DAILY 07/20/12 Metformin Hcl (METFORMIN HCL) 500 Mg Tablet, 1000 MG PO BID 07/20/12 Discontinued Reported Medications Valbenazine Tosylate (Ingrezza) 80 Mg Capsule, 80 MG PO DAILY 08/06/19 Medications in the ED Cefepime HCl 50 ml @ 100 mls/hr Q24H STAT IV ; Start 10/17/19 at 15:28; Stop 10/17/19 at 15:57 Sodium Chloride 1,000 ml @ 0 mls/hr Q0M STAT IV ; Start 10/17/19 at 15:28; Stop 10/17/19 at 15:31; Status TOD VANEGAS DO Oct 17, 2019 15:34
[2019-10-17 16:03] LABS: CLARITY,URINE SL CLOUDY (CLEAR); COLOR,URINE YELLOW (YELLOW)
[2019-10-17 16:04] LABS: LEUKOCYTE ESTERASE ,URINE NEGATIVE (NEGATIVE); NITRITE,URINE NEGATIVE (NEGATIVE)
[2019-10-17 16:05] LABS: AMPHETAMINES SCREEN,URINE NEGATIVE (NEGATIVE); BENZODIAZEPINES SCREEN,URINE NEGATIVE (NEGATIVE); KETONES,URINE NEGATIVE (NEGATIVE); PHENCYCLIDINE SCREEN,URINE NEGATIVE (NEGATIVE); PROTEIN,URINE DIPSTICK NEGATIVE (NEGATIVE)
[2019-10-17 16:06] LABS: BACTERIA,URINE RARE /HPF; BILIRUBIN,URINE SMALL (NEGATIVE); EPITHELIAL CELLS,URINE FEW /LPF; RBC,URINE 0-5 /HPF (0-5); URINE UROBILINOGEN 0.2 mg/dL (0.2 - 1); WBC,URINE (MAN) 0-5 /HPF (0-5)
--- NOTE | 2019-10-17 16:21 | Diagnostic Imaging Report ---
EXAMINATION: CHEST SINGLE (PORTABLE) INDICATION: Altered mental status. COMPARISON: None FINDINGS: TUBES and LINES: None. LUNGS: Normal lung volumes. Lungs are clear. No consolidations. PLEURA: No pleural effusion or pneumothorax. Obliquely oriented density overlying the right midlung may represent small amount of fluid or scarring in the minor fissure. HEART AND MEDIASTINUM: The cardiomediastinal silhouette is unremarkable. BONES AND SOFT TISSUES: No acute osseous lesion. Soft tissues are unremarkable. UPPER ABDOMEN: No free air under the diaphragm. IMPRESSION: 1. No acute thoracic radiographic abnormality. 2. Obliquely oriented density overlying the right midlung may represent small amount of fluid or scarring in the minor fissure. Signed by: Irwin Cheney MD on 10/17/2019 4:17 PM
[2019-10-17 17:10] LABS: BASOPHILS # (AUTO) 0.1 (0.0-0.1); BASOPHILS % 0.5 % (0.0-1.0); EOSINOPHILS % 0.1 % (0.0-6.0); HEMATOCRIT 44.7 % (34.2-44.1); HEMOGLOBIN 13.7 g/dL (12.0-16.0); LYMPHOCYTES # (AUTO) 0.7 (1.0-3.2); LYMPHOCYTES % 6.9 % (18.0-39.1); MEAN CORPUSCULAR HEMOGLOBIN 31.1 pg (28-32); MEAN CORPUSCULAR HGB CONC 30.6 g/dL (31-35); MEAN CORPUSCULAR VOLUME 101.6 fL (81-99); MONOCYTES # (AUTO) 0.9 (0.2-0.8); MONOCYTES % 9.2 % (4.4-11.3); NEUTROPHILS # (AUTO) 8.2 (2.1-6.9); NEUTROPHILS % 82.8 % (38.7-80.0); PLATELET COUNT 183 x10e3/uL (140-360); RED CELL DISTRIBUTION WIDTH 15.5 % (11.7-14.4)
--- NOTE | 2019-10-17 17:11 | Diagnostic Imaging Report ---
Examination: CT head without contrast Clinical Indication: Altered mental status. Technique: Transaxial noncontrast images from the skull base through the vertex were obtained. Sagittal and coronal reformatted images were done. Dose modulation, iterative reconstruction, and/or weight based adjustment of the mA/kV was utilized to reduce the radiation dose to as low as reasonably achievable. Comparison: Head CT dated 10/04/2019. Brain MRI dated 10/06/2019. Findings: Scalp: No abnormalities. Bones: Intact. No fractures. No blastic or lytic lesions. Brain sulci: Mild volume loss for patient's age. Ventricles: No hydrocephalus. Extra-axial space: No abnormalities. Parenchyma: There are mild confluent areas of low-attenuation within subcortical and periventricular white matter, nonspecific, but could represent microvascular ischemic disease. No masses, hemorrhage, or acute or chronic cortical based vascular insults. Suprasellar region: No abnormalities. Craniocervical junction: The foramen magnum is patent. No Chiari one malformation. Impression: 1. No acute intracranial finding. No change from prior head CT dated 10/04/2019. 2. Unchanged generalized volume loss and chronic microvascular ischemic change. Signed by: Dr. Damaris Becerra M.D. on 10/17/2019 5:08 PM
[2019-10-17 17:34] LABS: ALBUMIN 2.8 g/dL (3.5-5.0); ANION GAP 19.6 mmol/L (8-16); CALCIUM 8.6 mg/dL (8.4-10.2); CREATININE, SERUM 1.32 mg/dL (0.57-1.11); POTASSIUM 4.6 mmol/L (3.5-5.1)
[2019-10-17 17:43] LABS: CREATINE KINASE MB 0.6 ng/mL (0-5.0)
[2019-10-18] MEDS ORDERED: SODIUM CHLORIDE 0.9% 1000ML 1,000 ML ONE (00:25)
[2019-10-18] MEDS: SODIUM CHLORIDE 0.9% 1000ML 1,000 ML IV SCH ×3 (00:30→20:30)
[2019-10-18 03:54] LABS: CREATINE KINASE MB 0.9 ng/mL (0-5.0)
[2019-10-18 05:37] LABS: BASOPHILS % 0.6 % (0.0-1.0); EOSINOPHILS # (AUTO) 0.1 (0.0-0.4); EOSINOPHILS % 0.7 % (0.0-6.0); HEMATOCRIT 28.5 % (34.2-44.1); HEMOGLOBIN 9.4 g/dL (12.0-16.0); LYMPHOCYTES # (AUTO) 0.7 (1.0-3.2); LYMPHOCYTES % 10.1 % (18.0-39.1); MEAN CORPUSCULAR HEMOGLOBIN 33.5 pg (28-32); MEAN CORPUSCULAR VOLUME 101.4 fL (81-99); MONOCYTES # (AUTO) 0.6 (0.2-0.8); MONOCYTES % 9.2 % (4.4-11.3); NEUTROPHILS # (AUTO) 5.4 (2.1-6.9); NEUTROPHILS % 78.8 % (38.7-80.0); PLATELET COUNT 164 x10e3/uL (140-360); RED BLOOD COUNT 2.81 x10e6/uL (3.6-5.1); RED CELL DISTRIBUTION WIDTH 15.3 % (11.7-14.4)
[2019-10-18 05:59] LABS: ALANINE AMINOTRANSFERASE 9 IU/L (0-55); ALBUMIN/GLOBULIN RATIO 1.1 (0.8-2.0); ALKALINE PHOSPHATASE 71 IU/L (40-150); BLOOD UREA NITROGEN 11 mg/dL (7-26); BUN/CREATININE RATIO 20 (6-25); CARBON DIOXIDE 18 mmol/L (22-29); CHLORIDE 116 mmol/L (98-107); CREATININE, SERUM 0.55 mg/dL (0.57-1.11); EST GLOMERULAR FILTRATION RATE > 60 ML/MIN (60-); GLUCOSE 120 mg/dL (74-118); SODIUM 144 mmol/L (136-145)
[2019-10-18 06:08] LABS: CALCIUM 6.1 mg/dL (8.4-10.2)
[2019-10-18 06:20] VITALS: BP 138/58
[2019-10-18] MEDS ORDERED: POTASSIUM CHLORIDE 10MEQ EA PO SCH (06:50)
[2019-10-18] MEDS ORDERED: CALCIUM GLUCONATE 10% INJ 9.3 MEQ in SODIUM CHLORIDE 0.9% 100 ML 100 ML IV ONE (07:15)
[2019-10-18] MEDS: PANTOPRAZOLE SOD 40 MG TABEC PO SCH ×2 (08:13→18:34)
[2019-10-18] MEDS: ASPIRIN 81 MG CHEW TAB PO SCH (08:13)
[2019-10-18] MEDS: SIMVASTATIN 20 MG TAB PO SCH (08:13)
[2019-10-18 08:55] VITALS: BP 138/58
[2019-10-18 11:23] VITALS: BP 138/58
--- NOTE | 2019-10-18 12:21 | History and Physical ---
REASON FOR ADMISSION: Encephalopathy. HISTORY OF PRESENT ILLNESS: The patient was recently discharged two days ago for admission for acute renal failure and encephalopathy, which was felt to be secondary to her medication that was discontinued. She went home, had a very good day on Friday, went shopping, meeting with the daughter and the daughter stated after they got back from shopping the patient then started becoming very sleepy and by the next morning after about 24 hours of being asleep, daughter was concerned, called me with teleconference since the patient was sedated light but she was able to converse. The family was overly concerned that she was confused again, so she was then brought in back into the emergency room where she was once again confused, but when she left the hospital two days earlier, she was alert and oriented x4 and was able to ambulate without any assistance and patient refused any type of long term or rehab. PAST MEDICAL HISTORY: Significant for diabetes, hypertension, neuropathy, gastritis, tardive dyskinesia. MEDICATIONS: See MAR. ALLERGIES: SEE EMR. SOCIAL HISTORY: Nonsmoker and nondrinker. Lives at home. The daughter just recently moved in with her due to her decline in health. FAMILY HISTORY: Hypertension. PHYSICAL EXAMINATION: VITAL SIGNS: Temperature 98.6, blood pressure 156/74, pulse 74, sats 98%. GENERAL: She is in no apparent distress. NECK: Supple. Oropharynx is little dry. CARDIOVASCULAR: Regular rate and rhythm. LUNGS: Clear to auscultation bilaterally. ABDOMEN: Has good bowel sounds, soft, nontender. EXTREMITIES: No clubbing or cyanosis. NEUROLOGIC: She moves all extremities x4. She is alert, but very confused. ASSESSMENT AND PLAN: 1. Encephalopathy. Unsure of the etiology. Her lactic acid is elevated, but no other evidence of infection, so we will continue to monitor. We will consult Neuro tomorrow. 2. Acute renal failure. We will rehydrate her since usually hydration helps. 3. Diabetes. We will continue to monitor her right now. 4. Hypertension. We will continue to monitor. We will try to hold off those medications to see how her encephalopathy does. 5. Gastritis. We will continue with her proton pump inhibitor. Please see hospital chart for details. Ike Robert, MD [place]/DIANE /[id number]
[2019-10-18 12:37] LABS: CREATINE KINASE MB 1.9 ng/mL (0-5.0)
[2019-10-18 12:58] VITALS: BP 138/58
--- NOTE | 2019-10-18 13:07 | Consultation ---
DATE OF CONSULTATION: 10/18/2019 Neurology Consultation HISTORY OF PRESENT ILLNESS: The patient is known to me from previous admission. She is a 74-year-old female with history of neurocognitive decline, apparently spontaneous. She was recently hospitalized for nonresponsive state. A thorough evaluation was performed including EEG, MRI, and spinal tap, which were felt to be reassuring and then she was brought back to the emergency room by the EMS for minimal response with stimulation. She does have a history of doing this similar thing for several months before as per the daughter without a clear diagnosis being made. She is awake at this time. She is responsive. She is conversant. She is mildly disoriented, but pleasant. There is no evidence of focal neurological deficits and the previous evaluations did not reveal any evidence of seizure activity. REVIEW OF SYSTEMS: As per her entirely negative. No complaints of any acute neurological changes. SOCIAL HISTORY: Denies tobacco, alcohol, or drugs. PHYSICAL EXAMINATION: VITAL SIGNS: Temperature on admission was 99.5, respiratory rate is 16 to 20, blood pressure 125/53, heart rate is between 99 and 103. HEENT: Extraocular muscles intact. She is following some commands pretty well. She does not do crossover or three-step command very well. She does not have ptosis. Her pupils are reactive. Face is symmetric. Her speech is clear. There is no nuchal rigidity. NECK: Supple. CARDIOVASCULAR: Mildly tachycardic. PULMONARY: Clear. ABDOMEN: Soft and nontender. EXTREMITIES: There is no significant edema in upper and lower extremities. NEUROLOGICAL: Her strength is 4/5 in uppers and lowers. Reflexes diminished, but present in all four. There is no ataxia or tremors noted or cogwheeling or increased tone or myotonia. ASSESSMENT AND PLAN: I am seeing Ms. 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 She might have a form of dementia that is causing these kind of fluctuations. We are going to repeat the EEG. I am going to start her on Depakote 250 t.i.d., both as a neurotropic as well as a possible antiepileptic until the EEG is done. We will check a prolactin level and ammonia level, and I will also start her on rivastigmine to increase acetylcholine availability in her brain for possible dementia-like symptoms. [id number] Neurology Consultation. MD ISIS MEDRANO/DIANE /[id number]
[2019-10-18] MEDS: DIVALPROEX SODIUM 250 MG TAB...DR PO SCH ×2 (15:56→22:20)
[2019-10-18] MEDS: RIVASTIGMINE TARTRATE 1.5 MG CAP PO SCH (18:34)
--- NOTE | 2019-10-18 21:00 | NUR ---
Received patient from ICU confused, given a sponge bath and settled in bed, vitals stable
[2019-10-18 22:29] VITALS: BP 133/68
[2019-10-18 22:31] VITALS: BP 133/68
[2019-10-19] VITALS (8 sets, daily range): BP systolic 121–147; BP diastolic 56–93
[2019-10-19 04:38] LABS: BASOPHILS % 0.5 % (0.0-1.0); EOSINOPHILS # (AUTO) 0.1 (0.0-0.4); EOSINOPHILS % 1.7 % (0.0-6.0); HEMATOCRIT 33.7 % (34.2-44.1); HEMOGLOBIN 10.9 g/dL (12.0-16.0); LYMPHOCYTES % 13.3 % (18.0-39.1); MEAN CORPUSCULAR HEMOGLOBIN 31.3 pg (28-32); MEAN CORPUSCULAR HGB CONC 32.3 g/dL (31-35); MEAN CORPUSCULAR VOLUME 96.8 fL (81-99); MONOCYTES # (AUTO) 0.8 (0.2-0.8); MONOCYTES % 10.4 % (4.4-11.3); NEUTROPHILS # (AUTO) 5.5 (2.1-6.9); NEUTROPHILS % 73.7 % (38.7-80.0); PLATELET COUNT 198 x10e3/uL (140-360); RED BLOOD COUNT 3.48 x10e6/uL (3.6-5.1); RED CELL DISTRIBUTION WIDTH 14.9 % (11.7-14.4)
[2019-10-19 04:49] LABS: ALBUMIN 3.1 g/dL (3.5-5.0)
[2019-10-19 04:58] LABS: ALANINE AMINOTRANSFERASE 10 IU/L (0-55); ALBUMIN/GLOBULIN RATIO 1.8 (0.8-2.0); ALKALINE PHOSPHATASE 82 IU/L (40-150); ANION GAP 14.6 mmol/L (8-16); BLOOD UREA NITROGEN < 5 mg/dL (7-26); CALCIUM 8.2 mg/dL (8.4-10.2); CARBON DIOXIDE 21 mmol/L (22-29); CHLORIDE 108 mmol/L (98-107); CREATININE, SERUM 0.63 mg/dL (0.57-1.11); EST GLOMERULAR FILTRATION RATE > 60 ML/MIN (60-); GLUCOSE 117 mg/dL (74-118); MAGNESIUM 1.2 MG/DL (1.3-2.1); POTASSIUM 3.6 mmol/L (3.5-5.1); SODIUM 140 mmol/L (136-145)
[2019-10-19 05:07] LABS: BUN/CREATININE RATIO 8 (6-25)
--- NOTE | 2019-10-19 06:00 | NUR ---
remains confused but vitals stable.
[2019-10-19] MEDS: DIVALPROEX SODIUM 250 MG TAB...DR PO SCH ×3 (06:13→21:32)
[2019-10-19] MEDS: SODIUM CHLORIDE 0.9% 1000ML 1,000 ML IV SCH ×2 (07:34→17:15)
[2019-10-19] MEDS: PANTOPRAZOLE SOD 40 MG TABEC PO SCH ×2 (08:07→17:15)
[2019-10-19] MEDS: ASPIRIN 81 MG CHEW TAB PO SCH (08:07)
[2019-10-19] MEDS: SIMVASTATIN 20 MG TAB PO SCH (08:07)
[2019-10-19] MEDS: RIVASTIGMINE TARTRATE 1.5 MG CAP PO SCH ×2 (08:13→17:15)
--- NOTE | 2019-10-19 09:56 | NUR ---
awake and pleasnt HEENT: Extraocular muscles intact. She is following some commands pretty well. She does not do crossover or three-step command very well. She does not have ptosis. Her pupils are reactive. Face is symmetric. Her speech is clear. There is no nuchal rigidity. NECK: Supple. CARDIOVASCULAR: Mildly tachycardic. PULMONARY: Clear. ABDOMEN: Soft and nontender. EXTREMITIES: There is no significant edema in upper and lower extremities. NEUROLOGICAL: Her strength is 4/5 in uppers and lowers. Reflexes diminished, but present in all four. There is no ataxia or tremors noted or cogwheeling or increased tone or myotonia. ASSESSMENT AND PLAN: I am seeing Ms. 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 initiate depakote 250 tid repeat EEG possible cataplexy will need halfway eeg for evaluating a symptomatic onset and recovery period . EMU admission wuld be warranted
--- NOTE | 2019-10-19 20:00 | NUR ---
Received patient alert showing much more improvement than from the previous night, vitals stable
[2019-10-19] MEDS: ZOLPIDEM TARTRATE 5 MG TAB PO PRN (21:32)
[2019-10-20] VITALS (8 sets, daily range): BP systolic 118–155; BP diastolic 54–75
[2019-10-20] MEDS: SODIUM CHLORIDE 0.9% 1000ML 1,000 ML IV SCH ×2 (05:03→13:21)
[2019-10-20] MEDS: DIVALPROEX SODIUM 250 MG TAB...DR PO SCH ×3 (06:18→20:29)
--- NOTE | 2019-10-20 07:25 | NUR ---
awake, responsive sitting in bed vs 98 89 147/ 81 HEENT: eomi. ncat NECK: Supple. CARDIOVASCULAR: rrr. PULMONARY: Clear. ABDOMEN: Soft and nontender. EXTREMITIES: There is no significant edema in upper and lower extremities. NEUROLOGICAL: Her strength is 4/5 in uppers and lowers. Reflexes diminished, but present in all four. There is no ataxia or tremors noted or cogwheeling or increased tone or myotonia. ASSESSMENT AND PLAN: I am seeing Ms. 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
--- NOTE | 2019-10-20 07:36 | NUR ---
eeg 30 min study 10/20 international electrode placement system read in bipolar and transverse montage EEG data posterior dominant rythm 7-9hz - reactive anterior beta - 14-18hz < 20mv intermittent slow waves- theta frequecy EEG interpretation abnormal I mild diffuse encephalopathy w background slowing. no evidence for seizure activiy
[2019-10-20] MEDS: SIMVASTATIN 20 MG TAB PO SCH (08:27)
[2019-10-20] MEDS: PAROXETINE HCL 20 MG TAB PO SCH (08:27)
[2019-10-20] MEDS: LACTOBACILLUS ACIDOPHILUS CAPSULE PO SCH ×2 (08:27→16:34)
[2019-10-20] MEDS: PANTOPRAZOLE SOD 40 MG TABEC PO SCH ×2 (08:27→16:34)
[2019-10-20] MEDS: ASPIRIN 81 MG CHEW TAB PO SCH (08:27)
[2019-10-20] MEDS: RIVASTIGMINE TARTRATE 1.5 MG CAP PO SCH ×2 (08:58→16:34)
[2019-10-20] MEDS: LOPERAMIDE HCL 2 MG CAP PO PRN (16:39)
--- NOTE | 2019-10-20 19:05 | NUR ---
Received patient from day nurse patient is alert and oriented x3. patient is on 2 lc/prn room air. safety and fall precautions maintained as per hospital protocol: bed in lowest position and locked, needed items beside bed and call [facility] close to patient, patient instructed to use it to call nurses for help. patient is currently stable, will continue to monitor.
[2019-10-20] MEDS: ZOLPIDEM TARTRATE 5 MG TAB PO PRN (20:29)
[2019-10-21] VITALS (8 sets, daily range): BP systolic 120–160; BP diastolic 64–99
[2019-10-21] MEDS: SODIUM CHLORIDE 0.9% 1000ML 1,000 ML IV SCH ×3 (03:59→18:30)
[2019-10-21] MEDS ORDERED: MAGNESIUM SULFATE 2GM/50ML 50 ML IV ONE (04:45)
[2019-10-21 04:49] LABS: BASOPHILS % 1.1 % (0.0-1.0); EOSINOPHILS # (AUTO) 0.2 (0.0-0.4); EOSINOPHILS % 4.8 % (0.0-6.0); HEMOGLOBIN 10.4 g/dL (12.0-16.0); LYMPHOCYTES # (AUTO) 0.9 (1.0-3.2); LYMPHOCYTES % 24.4 % (18.0-39.1); MEAN CORPUSCULAR HEMOGLOBIN 30.8 pg (28-32); MEAN CORPUSCULAR HGB CONC 31.5 g/dL (31-35); MEAN CORPUSCULAR VOLUME 97.6 fL (81-99); MONOCYTES # (AUTO) 0.4 (0.2-0.8); MONOCYTES % 12.3 % (4.4-11.3); PLATELET COUNT 193 x10e3/uL (140-360); RED BLOOD COUNT 3.38 x10e6/uL (3.6-5.1); RED CELL DISTRIBUTION WIDTH 14.2 % (11.7-14.4)
[2019-10-21] MEDS: PANTOPRAZOLE 40 MG 10ML VIAL IV SCH ×3 (04:53→20:48)
[2019-10-21 05:14] LABS: ALANINE AMINOTRANSFERASE 6 IU/L (0-55); ALBUMIN 2.8 g/dL (3.5-5.0); ALBUMIN/GLOBULIN RATIO 1.8 (0.8-2.0); ALKALINE PHOSPHATASE 70 IU/L (40-150); ANION GAP 13.3 mmol/L (8-16); BLOOD UREA NITROGEN < 5 mg/dL (7-26); CALCIUM 7.5 mg/dL (8.4-10.2); CARBON DIOXIDE 22 mmol/L (22-29); CHLORIDE 110 mmol/L (98-107); CREATININE, SERUM 0.57 mg/dL (0.57-1.11); EST GLOMERULAR FILTRATION RATE > 60 ML/MIN (60-); GLUCOSE 99 mg/dL (74-118); POTASSIUM 3.3 mmol/L (3.5-5.1); SODIUM 142 mmol/L (136-145)
[2019-10-21 05:22] LABS: BUN/CREATININE RATIO 9 (6-25)
[2019-10-21] MEDS: DIVALPROEX SODIUM 250 MG TAB...DR PO SCH ×3 (05:41→23:18)
[2019-10-21 05:46] LABS: FERRITIN 697.25 ng/mL (4.63-204.00)
--- NOTE | 2019-10-21 06:45 | NUR ---
Patient endorsed to next shift for continuity of care.
[2019-10-21] MEDS: RIVASTIGMINE TARTRATE 1.5 MG CAP PO SCH ×2 (08:42→17:06)
[2019-10-21] MEDS: SIMVASTATIN 20 MG TAB PO SCH (08:43)
[2019-10-21] MEDS: LACTOBACILLUS ACIDOPHILUS CAPSULE PO SCH ×2 (08:43→17:06)
[2019-10-21] MEDS: ASPIRIN 81 MG CHEW TAB PO SCH (08:43)
[2019-10-21] MEDS: PAROXETINE HCL 20 MG TAB PO SCH (08:43)
[2019-10-21] MEDS: LOPERAMIDE HCL 2 MG CAP PO PRN ×3 (08:43→19:28)
--- NOTE | 2019-10-21 17:22 | NUR ---
awake, responsive sitting in bed 98 89 153/64 HEENT: eomi. ncat NECK: Supple. CARDIOVASCULAR: rrr. PULMONARY: Clear. ABDOMEN: Soft and nontender. EXTREMITIES: There is no significant edema in upper and lower extremities. NEUROLOGICAL: Her strength is 4/5 in uppers and lowers. Reflexes diminished, but present in all four. There is no ataxia or tremors noted or cogwheeling or increased tone or myotonia. ASSESSMENT AND PLAN: I am seeing Ms. 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 initiate depakote 250 tid - empirically for possible intemrittent subclinical seizure and possible cataplexy - sleep study and halfway EEG -either at home or emu
[2019-10-21] MEDS ORDERED: LEVETIRACETAM 500MG/5ML VIAL 2,000 MG in SODIUM CHLORIDE 0.9% 100 ML 100 ML IV SCH (17:30)
[2019-10-21] MEDS ORDERED: SODIUM CHLORIDE 0.9% INJ SCH (18:00)
[2019-10-21] MEDS ORDERED: VALPROATE SOD INJ SCH (18:00)
[2019-10-21] MEDS: ZOLPIDEM TARTRATE 5 MG TAB PO PRN (20:48)
[2019-10-21] MEDS ORDERED: LORAZEPAM INJ 2 MG/ML VIAL IV SCH (22:00)
[2019-10-22] VITALS (8 sets, daily range): BP systolic 139–161; BP diastolic 60–94
[2019-10-22] MEDS ORDERED: DICYCLOMINE HCL 10 MG CAP PO STA (02:44)
[2019-10-22] MEDS ORDERED: POTASSIUM CHLORIDE 20 MEQ TAB CR PO ONE (04:00)
[2019-10-22 05:17] LABS: BASOPHILS # (AUTO) 0.1 (0.0-0.1); BASOPHILS % 1.2 % (0.0-1.0); EOSINOPHILS # (AUTO) 0.1 (0.0-0.4); EOSINOPHILS % 3.2 % (0.0-6.0); HEMATOCRIT 33.2 % (34.2-44.1); HEMOGLOBIN 11.1 g/dL (12.0-16.0); LYMPHOCYTES # (AUTO) 0.8 (1.0-3.2); LYMPHOCYTES % 18.3 % (18.0-39.1); MEAN CORPUSCULAR HEMOGLOBIN 32.7 pg (28-32); MEAN CORPUSCULAR HGB CONC 33.4 g/dL (31-35); MEAN CORPUSCULAR VOLUME 97.9 fL (81-99); MONOCYTES # (AUTO) 0.5 (0.2-0.8); NEUTROPHILS # (AUTO) 2.6 (2.1-6.9); NEUTROPHILS % 62.6 % (38.7-80.0); PLATELET COUNT 191 x10e3/uL (140-360); RED BLOOD COUNT 3.39 x10e6/uL (3.6-5.1); RED CELL DISTRIBUTION WIDTH 14.1 % (11.7-14.4)
[2019-10-22 05:54] LABS: ALANINE AMINOTRANSFERASE 9 IU/L (0-55); ALBUMIN 3.1 g/dL (3.5-5.0); ALBUMIN/GLOBULIN RATIO 1.7 (0.8-2.0); ALKALINE PHOSPHATASE 77 IU/L (40-150); ANION GAP 15.7 mmol/L (8-16); CALCIUM 8.3 mg/dL (8.4-10.2); CARBON DIOXIDE 23 mmol/L (22-29); CHLORIDE 107 mmol/L (98-107); CREATININE, SERUM 0.56 mg/dL (0.57-1.11); EST GLOMERULAR FILTRATION RATE > 60 ML/MIN (60-); GLUCOSE 130 mg/dL (74-118); MAGNESIUM 1.5 MG/DL (1.3-2.1); POTASSIUM 3.7 mmol/L (3.5-5.1); SODIUM 142 mmol/L (136-145)
[2019-10-22 06:02] LABS: BLOOD UREA NITROGEN < 5 mg/dL (7-26); BUN/CREATININE RATIO 9 (6-25)
[2019-10-22] MEDS: DIVALPROEX SODIUM 250 MG TAB...DR PO SCH ×3 (06:13→21:04)
[2019-10-22] MEDS: METRONIDAZOLE 500MG/NS 100ML 100 ML IV SCH ×4 (06:13→22:48)
[2019-10-22] MEDS: SODIUM CHLORIDE 0.9% 1000ML 1,000 ML IV SCH ×3 (06:13→22:48)
[2019-10-22] MEDS: LACTOBACILLUS ACIDOPHILUS CAPSULE PO SCH ×2 (08:37→15:56)
[2019-10-22] MEDS: IRON SUCROSE 100 MG in SODIUM CHLORIDE 0.9% 100 ML 100 ML IV SCH (08:37)
[2019-10-22] MEDS: RIVASTIGMINE TARTRATE 1.5 MG CAP PO SCH ×2 (08:37→15:56)
[2019-10-22] MEDS: PANTOPRAZOLE 40 MG 10ML VIAL IV SCH ×2 (08:37→21:04)
[2019-10-22] MEDS: PAROXETINE HCL 20 MG TAB PO SCH (08:37)
[2019-10-22] MEDS: SIMVASTATIN 20 MG TAB PO SCH (08:37)
[2019-10-22] MEDS: DICYCLOMINE HCL 10 MG CAP PO SCH ×3 (08:37→21:04)
[2019-10-22] MEDS: ASPIRIN 81 MG CHEW TAB PO SCH (08:37)
--- NOTE | 2019-10-22 09:49 | NUR ---
pt aaox3. no c/o pain. amb to [facility]. vs stable.
--- NOTE | 2019-10-22 11:17 | NUR ---
[facility] CM SPOKE WITH DR BARNES WHO STATES PT MAY DC TOMORROW TO SNF
[2019-10-22] MEDS: ZOLPIDEM TARTRATE 5 MG TAB PO PRN (21:04)
[2019-10-23] VITALS: BP 121/68
[2019-10-23 04:00] VITALS: BP 133/73
[2019-10-23 05:51] LABS: BASOPHILS # (AUTO) 0.1 (0.0-0.1); BASOPHILS % 1.9 % (0.0-1.0); EOSINOPHILS # (AUTO) 0.1 (0.0-0.4); EOSINOPHILS % 3.3 % (0.0-6.0); HEMATOCRIT 33.1 % (34.2-44.1); HEMOGLOBIN 10.8 g/dL (12.0-16.0); LYMPHOCYTES # (AUTO) 0.8 (1.0-3.2); LYMPHOCYTES % 22.2 % (18.0-39.1); MEAN CORPUSCULAR HEMOGLOBIN 32.3 pg (28-32); MEAN CORPUSCULAR HGB CONC 32.6 g/dL (31-35); MEAN CORPUSCULAR VOLUME 99.1 fL (81-99); MONOCYTES # (AUTO) 0.4 (0.2-0.8); MONOCYTES % 11.1 % (4.4-11.3); PLATELET COUNT 201 x10e3/uL (140-360); RED BLOOD COUNT 3.34 x10e6/uL (3.6-5.1); RED CELL DISTRIBUTION WIDTH 14.2 % (11.7-14.4)
[2019-10-23] MEDS: METRONIDAZOLE 500MG/NS 100ML 100 ML IV SCH ×2 (05:53→12:49)
[2019-10-23] MEDS: DIVALPROEX SODIUM 250 MG TAB...DR PO SCH ×2 (05:53→15:00)
[2019-10-23 06:10] LABS: ALANINE AMINOTRANSFERASE 9 IU/L (0-55); ALBUMIN/GLOBULIN RATIO 1.9 (0.8-2.0); ALKALINE PHOSPHATASE 75 IU/L (40-150); ANION GAP 14.3 mmol/L (8-16); BLOOD UREA NITROGEN < 5 mg/dL (7-26); CALCIUM 8.1 mg/dL (8.4-10.2); CARBON DIOXIDE 24 mmol/L (22-29); CHLORIDE 105 mmol/L (98-107); CREATININE, SERUM 0.57 mg/dL (0.57-1.11); EST GLOMERULAR FILTRATION RATE > 60 ML/MIN (60-); GLUCOSE 121 mg/dL (74-118); POTASSIUM 3.3 mmol/L (3.5-5.1); SODIUM 140 mmol/L (136-145)
[2019-10-23 06:31] LABS: BUN/CREATININE RATIO 9 (6-25)
--- NOTE | 2019-10-23 06:42 | NUR ---
NOTIFIED DR BARNES PT POT LEVEL 3.3 THIS AM, ORDERED 40 PO POTASSIUM X1. ENTERED ORDER AND WILL CONT TO MONITOR.
[2019-10-23] MEDS ORDERED: POTASSIUM CHLORIDE 20 MEQ TAB CR PO ONE (07:10)
[2019-10-23 07:21] VITALS: BP 162/62
[2019-10-23 07:22] VITALS: BP 133/73
--- NOTE | 2019-10-23 07:26 | NUR ---
CUSTODIAL FACILITY DISCHARGE INFORMATION PATIENT HAS BEEN ACCEPTED TO: [address] [place] [address] ACCEPTING CABLE WORKER HELPER: Juan Antonio YEUNG MD: Dr. Ornelas ROOM: 109 NURSE CALL REPORT TO: [phone] (call for 100 sidhu nurse) IMM SIGNED AND OBTAINED (if applicable): THE FOLLOWING DOCUMENTS MUST ACCOMPANY PATIENT FOR TRANSFER: copy of chart COPIED CHART: RTF: placed with pt's packet on chart [id number] DNR: n/a ANAIS King notified of acceptance and that Venof[facility] must be DC'd prior to pt transferring. Addendum: 10/23/19 at 0814 by Odette Hernandez CM CORRECT ACCEPTING MD: DR. BARNES
[2019-10-23 08:22] LABS: ANISOCYTOSIS SLIGHT; EOSINOPHILS % (MANUAL) 2 % (0-7); LYMPHOCYTES % (MANUAL) 25 % (19-48); MONOCYTES % (MANUAL) 7 % (3.4-9.0); NEUTROPHILS % (MANUAL) 65 % (40-74); PLATELET ESTIMATE ADEQUATE; PLATELET MORPHOLOGY COMMENT NORMAL; RBC MORPHOLOGY COMMENT ABNORMAL
[2019-10-23] MEDS: ASPIRIN 81 MG CHEW TAB PO SCH (08:33)
[2019-10-23] MEDS: PANTOPRAZOLE 40 MG 10ML VIAL IV SCH (08:33)
[2019-10-23] MEDS: SIMVASTATIN 20 MG TAB PO SCH (08:33)
[2019-10-23] MEDS: IRON SUCROSE 100 MG in SODIUM CHLORIDE 0.9% 100 ML 100 ML IV SCH (08:33)
[2019-10-23] MEDS: RIVASTIGMINE TARTRATE 1.5 MG CAP PO SCH (08:33)
[2019-10-23] MEDS: DICYCLOMINE HCL 10 MG CAP PO SCH ×2 (08:33→15:00)
[2019-10-23] MEDS: LACTOBACILLUS ACIDOPHILUS CAPSULE PO SCH (08:33)
[2019-10-23] MEDS: PAROXETINE HCL 20 MG TAB PO SCH (08:33)
[2019-10-23] MEDS: SODIUM CHLORIDE 0.9% 1000ML 1,000 ML IV SCH (09:45)
--- NOTE | 2019-10-23 11:22 | Progress Note ---
DATE: SUBJECTIVE: Ms. Karissa Pyle is a 74-year-old female, who came in with acute mental status changes en route rehab facility. The patient is feeling better. Ambulating well, she continues to be verbal and noted. OBJECTIVE: VITAL SIGNS: Temperature of 98.4, pulse of 88, respirations of 24, blood pressure is 162/66, and she is on nasal cannula 2 L with satting 96%. HEENT: Normocephalic, atraumatic. Pupils are reactive. CVS: S1 and S2 normal. Regular rate and rhythm. ABDOMEN: Nontender, nondistended. EXTREMITIES: No clubbing, no cyanosis, no edema. MEDICATIONS: She is still on Flagyl, Depakote, zolpidem 5 mg p.r.n., lactobacillus twice a day, rivastigmine for dementia, paroxetine, simvastatin and loperamide as needed. LABORATORY VALUES: As noted. Diarrhea is better. ASSESSMENT AND PLAN: 1. Ms. Karissa Pyle with diarrhea, which is better. 2. Acute mental status, which is better. Encephalopathy better. Reflux esophagitis, type 2 diabetes and hypertension. 3. Continue current medication. For further information, look in the chart. Anemia of chronic disease. Continue monitoring her blood counts , which is better. Further recommendation per clinical course, can be discharged to the long term when accepted. MD DRAKE Martin/GINGERL /[id number]
[2019-10-23 12:00] VITALS: BP 154/84
[2019-10-23] MEDS ORDERED: ONDANSETRON HCL INJ 2MG/ML 2ML 2 MG/ML VIAL IV PRN (12:30)
[2019-10-23 16:19] VITALS: BP 149/83
== END 2019-10-23 18:23 | DRG 92 ==
LOC: ER 16:12 → ERHOLD 17:21 → ICU 10-18 06:27 → OBSVTOIN 10-18 16:58 → IMCU 10-18 19:41
PROVIDERS: ADMIT Internal Medicine; ATTEND Internal Medicine
DX: G92 Toxic encephalopathy (principal); N17.9 Acute kidney failure, unspecified; I10 Essential (primary) hypertension; R09.02 Hypoxemia; E11.65 Type 2 diabetes mellitus with hyperglycemia; E11.42 Type 2 diabetes mellitus with diabetic polyneuropathy; G24.01 Drug induced subacute dyskinesia; K29.70 Gastritis, unspecified, without bleeding; K21.0 Gastro-esophageal reflux disease with esophagitis; R19.7 Diarrhea, unspecified; F32.9 Major depressive disorder, single episode, unspecified; D64.9 Anemia, unspecified; Z91.041 Radiographic dye allergy status; Z11.59 Encounter for screening for other viral diseases; Z79.82 Long term (current) use of aspirin; Z79.84 Long term (current) use of oral hypoglycemic drugs
CPT/HCPCS: 36415; 51700; 70450; 71045; 80053; 80307; 81001; 82140; 82270; 82375; 82550; 82553; 82607; 82728; 82746; 83540; 83605; 83630; 83690; 83735; 83880; 84146; 84466; 84484; 85025; 85045; 87040; 87045; 87177; 93005; 95812; 97139; 99285; G0378; J0610; J0692; J1756; J2405; J3475; J7030; U0002

== ENCOUNTER 2019-12-10 06:06 | Inpatient (IN) | payer MEDICARE, BC ==
[~2019-12-10] VITALS: Ht 160 cm; Wt 68.0 kg
[2019-12-10] MEDS ORDERED: ONDANSETRON HCL INJ 2MG/ML 2ML 2 MG/ML VIAL IV STA (06:58)
[2019-12-10] MEDS ORDERED: MORPHINE SULFATE INJ 4 MG/ML INJ 1ML IV PRN (07:00)
[2019-12-10 07:12] LABS: BASOPHILS % 0.7 % (0.0-1.0); CLARITY,URINE CLEAR (CLEAR); COLOR,URINE YELLOW (YELLOW); EOSINOPHILS % 0.2 % (0.0-6.0); HEMATOCRIT 40.1 % (34.2-44.1); HEMOGLOBIN 13.1 g/dL (12.0-16.0); LYMPHOCYTES # (AUTO) 0.6 (1.0-3.2); LYMPHOCYTES % 11.2 % (18.0-39.1); MEAN CORPUSCULAR HGB CONC 32.7 g/dL (31-35); MEAN CORPUSCULAR VOLUME 94.8 fL (81-99); MONOCYTES # (AUTO) 0.8 (0.2-0.8); MONOCYTES % 14.3 % (4.4-11.3); NEUTROPHILS # (AUTO) 4.1 (2.1-6.9); NEUTROPHILS % 73.1 % (38.7-80.0); PLATELET COUNT 156 x10e3/uL (140-360); RED BLOOD COUNT 4.23 x10e6/uL (3.6-5.1); RED CELL DISTRIBUTION WIDTH 13.2 % (11.7-14.4)
[2019-12-10 07:13] LABS: KETONES,URINE 2+ (NEGATIVE); LEUKOCYTE ESTERASE ,URINE NEGATIVE (NEGATIVE); NITRITE,URINE NEGATIVE (NEGATIVE); PROTEIN,URINE DIPSTICK NEGATIVE (NEGATIVE); URINE UROBILINOGEN 0.2 mg/dL (0.2 - 1)
[2019-12-10 07:14] LABS: BACTERIA,URINE RARE /HPF; BILIRUBIN,URINE NEGATIVE (NEGATIVE); EPITHELIAL CELLS,URINE FEW /LPF; RBC,URINE 0-5 /HPF (0-5); WBC,URINE (MAN) 0-5 /HPF (0-5)
[2019-12-10 07:35] LABS: ALANINE AMINOTRANSFERASE 14 IU/L (0-55); ALBUMIN 3.4 g/dL (3.5-5.0); ALBUMIN/GLOBULIN RATIO 1.4 (0.8-2.0); ALKALINE PHOSPHATASE 80 IU/L (40-150); ANION GAP 17.8 mmol/L (8-16); BLOOD UREA NITROGEN 13 mg/dL (7-26); BUN/CREATININE RATIO 15 (6-25); CALCIUM 9.2 mg/dL (8.4-10.2); CARBON DIOXIDE 28 mmol/L (22-29); CHLORIDE 97 mmol/L (98-107); CREATININE, SERUM 0.87 mg/dL (0.57-1.11); EST GLOMERULAR FILTRATION RATE > 60 ML/MIN (60-); GLUCOSE 306 mg/dL (74-118); POTASSIUM 3.8 mmol/L (3.5-5.1); SODIUM 139 mmol/L (136-145)
[2019-12-10 12:31] VITALS: BP 138/81
[2019-12-10] MEDS: MORPHINE SULFATE INJ 4 MG/ML INJ 1ML IV PRN ×2 (16:02→20:08)
[2019-12-10] MEDS ORDERED: DEPAKOTE250 MG PO (16:12)
[2019-12-10] MEDS ORDERED: PAXIL40 MG PO (16:12)
[2019-12-10] MEDS ORDERED: RIVASTIGMINE1.5 MG PO (16:12)
[2019-12-10] MEDS ORDERED: XANAX0.5 MG PO (16:13)
[2019-12-10 16:25] VITALS: BP 138/81
[2019-12-10 16:30] VITALS: BP 138/81
[2019-12-10] MEDS ORDERED: DEXTROSE 50% SYRINGE 50 ML IV PRN (16:45)
[2019-12-10] MEDS ORDERED: ALPRAZOLAM 0.5 MG TAB PO PRN (16:45)
[2019-12-10 16:46] VITALS: BP 122/53
[2019-12-10] MEDS ORDERED: ONDANSETRON HCL 4 MG ORAL DISINTEGRATING TAB PO PRN (17:00)
[2019-12-10] MEDS ORDERED: ALPRAZOLAM 1 MG TAB PO PRN (17:00)
[2019-12-10] MEDS ORDERED: NON-FORMULARY MEDICATION (Ondansetron Hcl* (Zofran*) 4 MG) PO SCH (18:00)
[2019-12-10] MEDS: DIVALPROEX SODIUM 250 MG TAB...DR PO SCH (18:36)
[2019-12-10] MEDS: RIVASTIGMINE TARTRATE 1.5 MG CAP PO SCH (18:36)
[2019-12-10 19:50] VITALS: BP 107/55
[2019-12-10] MEDS: BACLOFEN 10 MG TAB PO SCH (20:07)
[2019-12-10] MEDS: INSULIN REGULAR, HUMAN 100 UNIT/1 ML 3ML VIAL SQ SCH (20:08)
[2019-12-10 23:50] VITALS: BP 94/47
[2019-12-11] VITALS (7 sets, daily range): BP systolic 100–119; BP diastolic 57–67
[2019-12-11] MEDS: INSULIN REGULAR, HUMAN 100 UNIT/1 ML 3ML VIAL SQ SCH ×4 (07:30→20:58)
[2019-12-11] MEDS: PAROXETINE HCL 20 MG TAB PO SCH (11:01)
[2019-12-11] MEDS: ENOXAPARIN 30 MG/0.3 ML SYR SC SCH ×2 (11:01→22:05)
[2019-12-11] MEDS: BACLOFEN 10 MG TAB PO SCH ×3 (11:01→21:00)
[2019-12-11] MEDS: DIVALPROEX SODIUM 250 MG TAB...DR PO SCH ×2 (11:01→17:38)
[2019-12-11] MEDS: PANTOPRAZOLE SOD 40 MG TABEC PO SCH (11:01)
[2019-12-11] MEDS: RIVASTIGMINE TARTRATE 1.5 MG CAP PO SCH ×2 (11:01→17:39)
[2019-12-11] MEDS: ASPIRIN 81 MG CHEW TAB PO SCH (11:01)
[2019-12-11] MEDS: SIMVASTATIN 20 MG TAB PO SCH (21:00)
[2019-12-11] MEDS: SODIUM CHLORIDE 0.9% 1000ML 1,000 ML IV SCH (23:54)
[2019-12-12] VITALS (8 sets, daily range): BP systolic 126–178; BP diastolic 62–85
[2019-12-12] MEDS: INSULIN REGULAR, HUMAN 100 UNIT/1 ML 3ML VIAL SQ SCH ×4 (07:30→21:00)
[2019-12-12] MEDS: PAROXETINE HCL 20 MG TAB PO SCH (09:00)
[2019-12-12] MEDS: BACLOFEN 10 MG TAB PO SCH ×3 (09:00→21:50)
[2019-12-12] MEDS: ENOXAPARIN 30 MG/0.3 ML SYR SC SCH ×2 (09:00→21:00)
[2019-12-12] MEDS: PANTOPRAZOLE SOD 40 MG TABEC PO SCH (09:00)
[2019-12-12] MEDS: DIVALPROEX SODIUM 250 MG TAB...DR PO SCH ×2 (09:00→19:41)
[2019-12-12] MEDS: ASPIRIN 81 MG CHEW TAB PO SCH (09:00)
[2019-12-12] MEDS: RIVASTIGMINE TARTRATE 1.5 MG CAP PO SCH ×2 (09:00→17:00)
[2019-12-12 10:46] LABS: BASOPHILS % 0.6 % (0.0-1.0); EOSINOPHILS % 0.2 % (0.0-6.0); HEMATOCRIT 36.7 % (34.2-44.1); LYMPHOCYTES # (AUTO) 0.5 (1.0-3.2); LYMPHOCYTES % 8.3 % (18.0-39.1); MEAN CORPUSCULAR HGB CONC 32.7 g/dL (31-35); MEAN CORPUSCULAR VOLUME 94.8 fL (81-99); MONOCYTES # (AUTO) 0.8 (0.2-0.8); NEUTROPHILS % 78.6 % (38.7-80.0); PLATELET COUNT 142 x10e3/uL (140-360); RED BLOOD COUNT 3.87 x10e6/uL (3.6-5.1)
[2019-12-12 10:47] LABS: ABG HCO3 28 mmol/L (22-26); ABG PCO2 45 mmHg (35-45); ABG PH 7.39 (7.35-7.45); ABG PO2 74 mmHg (80-105); ABG TCO2 29
[2019-12-12 11:14] LABS: ALANINE AMINOTRANSFERASE 9 IU/L (0-55); ALBUMIN 2.8 g/dL (3.5-5.0); ALBUMIN/GLOBULIN RATIO 1.2 (0.8-2.0); ALKALINE PHOSPHATASE 68 IU/L (40-150); BLOOD UREA NITROGEN 17 mg/dL (7-26); BUN/CREATININE RATIO 24 (6-25); CARBON DIOXIDE 25 mmol/L (22-29); CHLORIDE 98 mmol/L (98-107); CREATININE, SERUM 0.71 mg/dL (0.57-1.11); EST GLOMERULAR FILTRATION RATE > 60 ML/MIN (60-); GLUCOSE 220 mg/dL (74-118); SODIUM 138 mmol/L (136-145)
[2019-12-12] MEDS: SODIUM CHLORIDE 0.9% 1000ML 1,000 ML IV SCH ×2 (14:03→17:52)
[2019-12-12] MEDS ORDERED: CEFAZOLIN SOD 2 GM/D5W 50ML 50 ML IV ONE (15:00)
[2019-12-12] MEDS ORDERED: CEFAZOLIN SOD 1 GM VIAL IV ONE (15:00)
[2019-12-12] MEDS ORDERED: HYDROCODONE/APAP 7.5MG-325MG 1 EA TAB PO PRN (17:00)
[2019-12-12] MEDS ORDERED: ZOLPIDEM TARTRATE 5 MG TAB PO PRN (17:00)
[2019-12-12] MEDS ORDERED: DIPHENHYDRAMINE HCL INJ 50 MG/ML VIAL IV PRN (17:00)
[2019-12-12] MEDS: ASPIRIN 325 MG TAB PO SCH (17:00)
[2019-12-12] MEDS ORDERED: KETOROLAC TROMETHAMINE 30 MG/ML VIAL IV PRN (17:00)
[2019-12-12] MEDS ORDERED: DOCUSATE SODIUM 100 MG CAP PO PRN (17:00)
[2019-12-12] MEDS ORDERED: HYDROCODONE/APAP 5MG-325MG TAB PO PRN (17:00)
[2019-12-12] MEDS ORDERED: ACETAMINOPHEN 650 MG SUPP PR PRN (17:00)
[2019-12-12] MEDS: ONDANSETRON HCL INJ 2MG/ML 2ML 2 MG/ML VIAL IV PRN (18:15)
[2019-12-12] MEDS ORDERED: SEVOFLURANE INHAL SOLN 250 ML PEN BTL ONE (19:20)
[2019-12-12] MEDS ORDERED: NEOSTIGMINE 1 MG/ML 10ML VIAL ONE (19:20)
[2019-12-12] MEDS ORDERED: ONDANSETRON HCL INJ 2MG/ML 2ML 2 MG/ML VIAL ONE (19:20)
[2019-12-12] MEDS ORDERED: LIDOCAINE HCL 2% LOCAL INJ 5 ML SDV VIAL INJ ONE (19:20)
[2019-12-12] MEDS ORDERED: KETOROLAC TROMETHAMINE 30 MG/ML VIAL ONE (19:20)
[2019-12-12] MEDS ORDERED: DEXAMETHASONE SOD PHOS INJ 4 MG/ML VIAL ONE (19:20)
[2019-12-12] MEDS ORDERED: ROCURONIUM BROMIDE 10 MG/ML 5ML VIAL IV ONE (19:20)
[2019-12-12] MEDS ORDERED: ATROPINE SULFATE 1 MG/ML VIAL ONE (19:20)
[2019-12-12] MEDS ORDERED: LABETALOL HCL 5 MG/ML 20ML VIAL ONE (19:20)
[2019-12-12] MEDS ORDERED: PROPOFOL IV EMULSION 10 MG/ML 20 ML VIAL ONE (19:20)
[2019-12-12] MEDS: CELECOXIB 100 MG CAP PO SCH (19:41)
[2019-12-12] MEDS: SIMVASTATIN 20 MG TAB PO SCH (21:50)
[2019-12-13] VITALS (11 sets, daily range): BP systolic 133–176; BP diastolic 51–91
[2019-12-13] MEDS: SODIUM CHLORIDE 0.9% 1000ML 1,000 ML IV SCH ×5 (02:24→23:00)
[2019-12-13] MEDS: ONDANSETRON HCL INJ 2MG/ML 2ML 2 MG/ML VIAL IV PRN ×2 (03:40→15:28)
[2019-12-13 04:58] LABS: HEMATOCRIT 29.6 % (34.2-44.1); HEMOGLOBIN 9.9 g/dL (12.0-16.0)
[2019-12-13] MEDS: ACETAMINOPHEN 1000 MG/100 ML IV PRN (06:21)
[2019-12-13] MEDS: CEFAZOLIN SOD 1 GM/NS 50ML 50 ML IV SCH ×3 (07:49→16:17)
[2019-12-13] MEDS: CELECOXIB 100 MG CAP PO SCH ×2 (08:00→16:22)
[2019-12-13] MEDS: ENOXAPARIN 30 MG/0.3 ML SYR SC SCH ×2 (08:11→21:44)
[2019-12-13] MEDS: ASPIRIN 81 MG CHEW TAB PO SCH (09:00)
[2019-12-13] MEDS: PANTOPRAZOLE SOD 40 MG TABEC PO SCH (09:00)
[2019-12-13] MEDS: DIVALPROEX SODIUM 250 MG TAB...DR PO SCH ×2 (09:00→16:22)
[2019-12-13] MEDS: PAROXETINE HCL 20 MG TAB PO SCH (09:00)
[2019-12-13] MEDS: ASPIRIN 325 MG TAB PO SCH ×2 (09:00→16:26)
[2019-12-13] MEDS: BACLOFEN 10 MG TAB PO SCH ×3 (09:00→21:43)
[2019-12-13] MEDS: RIVASTIGMINE TARTRATE 1.5 MG CAP PO SCH ×2 (09:00→16:22)
[2019-12-13] MEDS: INSULIN REGULAR, HUMAN 100 UNIT/1 ML 3ML VIAL SQ SCH ×4 (09:18→21:45)
[2019-12-13] MEDS: SIMVASTATIN 20 MG TAB PO SCH (21:43)
[2019-12-14] VITALS (7 sets, daily range): BP systolic 91–121; BP diastolic 42–55
[2019-12-14] MEDS ORDERED: ACETAMINOPHEN 1000 MG/100 ML 100 ML IV ONE (02:45)
[2019-12-14] MEDS: ACETAMINOPHEN 1000 MG/100 ML IV PRN (02:52)
[2019-12-14 04:51] LABS: BASOPHILS % 0.1 % (0.0-1.0); HEMATOCRIT 23.1 % (34.2-44.1); HEMOGLOBIN 7.4 g/dL (12.0-16.0); LYMPHOCYTES # (AUTO) 0.9 (1.0-3.2); MEAN CORPUSCULAR HEMOGLOBIN 30.6 pg (28-32); MEAN CORPUSCULAR VOLUME 95.5 fL (81-99); MONOCYTES # (AUTO) 0.9 (0.2-0.8); MONOCYTES % 12.9 % (4.4-11.3); NEUTROPHILS # (AUTO) 5.4 (2.1-6.9); NEUTROPHILS % 74.7 % (38.7-80.0); PLATELET COUNT 135 x10e3/uL (140-360); RED BLOOD COUNT 2.42 x10e6/uL (3.6-5.1); RED CELL DISTRIBUTION WIDTH 13.5 % (11.7-14.4)
[2019-12-14 05:08] LABS: ALBUMIN 2.3 g/dL (3.5-5.0); ALKALINE PHOSPHATASE 43 IU/L (40-150); ANION GAP 14.8 mmol/L (8-16); BUN/CREATININE RATIO 35 (6-25); CALCIUM 8.4 mg/dL (8.4-10.2); CARBON DIOXIDE 27 mmol/L (22-29); CHLORIDE 100 mmol/L (98-107); CREATININE, SERUM 0.86 mg/dL (0.57-1.11); EST GLOMERULAR FILTRATION RATE > 60 ML/MIN (60-); GLUCOSE 154 mg/dL (74-118); MAGNESIUM 1.5 MG/DL (1.3-2.1); POTASSIUM 3.8 mmol/L (3.5-5.1); SODIUM 138 mmol/L (136-145)
[2019-12-14 05:10] LABS: ALANINE AMINOTRANSFERASE < 6 IU/L (0-55)
[2019-12-14 05:13] LABS: BLOOD UREA NITROGEN 30 mg/dL (7-26)
[2019-12-14] MEDS: SODIUM CHLORIDE 0.9% 1000ML 1,000 ML IV SCH ×2 (08:16)
[2019-12-14] MEDS: ASPIRIN 325 MG TAB PO SCH (08:16)
[2019-12-14] MEDS: CELECOXIB 100 MG CAP PO SCH (08:16)
[2019-12-14] MEDS: PANTOPRAZOLE SOD 40 MG TABEC PO SCH (08:16)
[2019-12-14] MEDS: RIVASTIGMINE TARTRATE 1.5 MG CAP PO SCH (08:16)
[2019-12-14] MEDS: DIVALPROEX SODIUM 250 MG TAB...DR PO SCH (08:16)
[2019-12-14] MEDS: PAROXETINE HCL 20 MG TAB PO SCH (08:16)
[2019-12-14] MEDS: BACLOFEN 10 MG TAB PO SCH (08:16)
[2019-12-14] MEDS: INSULIN REGULAR, HUMAN 100 UNIT/1 ML 3ML VIAL SQ SCH (08:46)
[2019-12-14] MEDS: ENOXAPARIN 30 MG/0.3 ML SYR SC SCH (10:29)
== END 2019-12-14 11:28 | DRG 481 ==
LOC: ER 07:15 → ERHOLD 08:41 → MED/SURG 12:08
PROVIDERS: ADMIT Internal Medicine; ATTEND Internal Medicine
PROC: 0QS706Z Reposition Left Upper Femur with Intramedullary Internal Fixation Device, Open Approach (ICD-10-PCS; principal; 2019-12-12 16:00)
DX: S72.142A Displaced intertrochanteric fracture of left femur, initial encounter for closed fracture (principal); D62 Acute posthemorrhagic anemia; I10 Essential (primary) hypertension; F41.9 Anxiety disorder, unspecified; E11.42 Type 2 diabetes mellitus with diabetic polyneuropathy; Z91.041 Radiographic dye allergy status; Z82.49 Family history of ischemic heart disease and other diseases of the circulatory system; E78.5 Hyperlipidemia, unspecified; W18.39XA Other fall on same level, initial encounter; Y93.01 Activity, walking, marching and hiking; Y92.019 Unspecified place in single-family (private) house as the place of occurrence of the external cause; K21.9 Gastro-esophageal reflux disease without esophagitis; Z11.59 Encounter for screening for other viral diseases
CPT/HCPCS: 36415; 36600; 51700; 70450; 76000; 80053; 80164; 81001; 82140; 82805; 82948; 83735; 85014; 85018; 85025; 86850; 86900; 93005; 96372; 97139; 99285; C1713; J0461; J0690; J1100; J1650; J1817; J1885; J2001; J2270; J2405; J2710; J7030; Q0162; U0002

== ENCOUNTER 2019-12-17 15:00 | Emergency (ER) | payer MEDICARE, BC ==
[~2019-12-17] VITALS: Ht 160 cm; Wt 68.0 kg
[~2019-12-17 15:00] MED LIST changes: +DEPAKOTE250 MG PO; +RIVASTIGMINE1.5 MG PO; +XANAX0.5 MG PO
--- NOTE | 2019-12-17 15:21 | Emergency Department Note ---
History of Present Illnes History of Present Illness Chief Complaint: Neurological History of Present Illness This is a 74 year old female status post left hip replacement approx imately one week ago here for altered mental status, per the [facility] they thought that her oxygen was low, EMS also had a low but not able to have a waveform with it. Patient does have thick fingernail coloring. Patient here denies any pain. . Arrival Mode: EMS Onset (how long ago): day(s) (1) Location: AMS worse 1 day, confused Radiation: Reports non-radiation Severity: moderate Onset quality: gradual Duration (how long): hour(s) (1) Timing of current episode: constant Progression: worsening Context: Reports recent surgery Relieving factors: none Exacerbating factors: none Associated symptoms: Reports confusion Treatments prior to arrival: none (BILLY WALDRON MD) Past Medical/Family History Physician Review I have reviewed the patient's past medical and family history. Any updates have been documented here. (BILLY WALDRON MD) Past Medical History Past Medical History: Hypertension, Diabetes Other Medical History: TIA, ANEMIA, DEPRESSION, GERD, NEUROPATHY, TARDIVE DYSKYNESIA Past Surgical History: Hip Replacement, Knee Replacement, Back Surgery, Cataract Removal Other Surgery: X2 KNEE ARTHROSCOPY X2 NECK SX, X2 LOWER BACK SX (BILLY WALDRON MD) Review of Systems ROS Narrative L hip replacement (BILLY WALDRON MD) Physical Exam Related Data Allergies: Coded Allergies: Iodinated Contrast Media (Verified Allergy, Unknown, severe headache, 08/07/19) Vital signs reviewed: Yes (BILLY WALDRON MD) Physical Exam CONSTITUTIONAL Constitutional: Present well-developed, Present well-nourished HENT HENT: Present normocephalic, Present atraumatic, Present oropharynx clear/moist, Present nose normal HENT L/R: Present left ext ear normal, Present right ext ear normal EYES Eyes: Reports PERRL, Reports conjunctivae normal NECK Neck: Present ROM normal PULMONARY Pulmonary: Present effort normal, Present other (diminished at the bases) CARDIOVASCULAR Cardiovascular: Present regular rhythm, Present heart sounds normal, Present capillary refill normal, Present normal rate GASTROINTESTINAL Abdominal: Present soft, Present nontender, Present bowel sounds normal GENITOURINARY Genitourinary: Present exam deferred SKIN Skin: Present warm, Present dry, Present other (surgical site c/d/i, ecchymosis ) MUSCULOSKELETAL Musculoskeletal: Present ROM normal NEUROLOGICAL Neurological: Present alert, Present oriented x 3, Present no gross motor or sensory deficits PSYCHOLOGICAL Psychological: Present mood/affect normal, Present judgement normal (BILLY WALDRON MD) Results Laboratory Laboratory Laboratory Tests Test 12/17/19 15:08 Bedside Glucose 213 mg/dL (70-120) (BILLY WALDRON MD) Imaging Imaging results reviewed: Yes Impressions Perfusion Lung Scan NOTE: Lung ventilation studies with xenon are not being performed per the recommendation of the Society of Nuclear Medicine and Molecular Imaging. It is not possible to be certain that the ventilation system is adequately disinfected. Ventilation studies with Tc-99m DTPA particles is contraindicated because the delivery by nebulization generates too many water droplets from the patient's airway. Reason for exam: 74-year-old female with acute onset SOB and dyspnea. Comparison: Chest radiograph 12/17/2019 Discussion: Ventilation images were not obtained. See note above. Perfusion images of the lungs were obtained in multiple projections following intravenous administration of approximately 6 mCi of Tc-99m MAA. Distribution of tracer is minimally throughout the lungs. No segmental perfusion defects of any size are identified. The cardiomediastinal silhouette is unremarkable. Impression: 1. Scan findings represent a VERY LOW probability for acute pulmonary embolic disease based on the perfusion only modified PIOPED II criteria. Concurrent ventilation study would not alter the assigned probability for acute PE. 2. Scan findings are compatible with diffuse parenchymal and/or obstructive lung disease. Signed by: Dr. An Thomas M.D. on 12/17/2019 10:47 PM Dictated By: AN THOMAS MD 46 Transcribed By: DAVON on 12/17/192246 COPY TO: BILLY WALDRON MD~ (ERICH OLMSTEAD MD) Assessment & Plan Medical Decision Making MDM Patient is a 74-year-old female with recent left hip replacement, now with altered mental status and concern for hypoxia. On exam at arrival, patient was placed on room air with 100% saturation. Concerned that her pulse oximetry was inaccurate, we'll check for infection. (BILLY WALDRON MD) Reassessment Reassessment EKG interp by ar NSR, rate 88, nl intervals, LAD, no ST changes 6PM patient talking, h/o UTI "few weeks ago" RA sat 100% (BILLY WALDRON MD) Assessment & Plan Final Impression: (1) Dyspnea (ERICH OLMSTEAD MD) Depart Disposition: TRANSFER CUSTODIAL Home Meds Reported Medications Alprazolam (XANAX) 0.5 Mg Tablet, 1 MG PO DAILY PRN for ANXIETY 12/10/19 Paroxetine Hcl (PAXIL) 40 Mg Tablet, 40 MG PO DAILY, TAB 12/10/19 Rivastigmine Tartrate (RIVASTIGMINE) 1.5 Mg Capsule, 1.5 MG PO BID, #60 CAP 12/10/19 Divalproex Sodium (DEPAKOTE) 250 Mg Tabec, 250 MG PO BID 12/10/19 Ondansetron Hcl* (ZOFRAN*) 4 Mg Tablet, 4 MG PO Q4HR, #30 08/28/19 Aspirin (ASPIR 81) 81 Mg Tablet.dr, 81 MG PO DAILY 08/06/19 Pantoprazole Sodium* (PROTONIX) 40 Mg Tablet.dr, 40 MG PO DAILY, TAB 09/13/15 Baclofen (BACLOFEN) 10 Mg Tablet, 20 MG PO TID, TAB 09/16/13 Lovastatin (LOVASTATIN) 40 Mg Tablet, 40 MG PO DAILY 07/20/12 Discontinued Reported Medications Losartan Potassium (LOSARTAN POTASSIUM) 25 Mg Tablet, MG PO BID, #60 08/28/19 Sertraline Hcl (ZOLOFT) 50 Mg Tablet, 100 MG PO DAILY, #30 TAB 08/06/19 Gabapentin (NEURONTIN) 300 Mg Capsule, 800 MG PO TID 07/20/12 Pioglitazone Hcl (ACTOS) 30 Mg Tablet, 30 MG PO DAILY 07/20/12 Metformin Hcl (METFORMIN HCL) 500 Mg Tablet, 1000 MG PO BID 07/20/12 BILLY WALDRON MD Dec 17, 2019 15:21 ERICH OLMSTEAD MD Dec 17, 2019 22:56
--- NOTE | 2019-12-17 16:02 | Diagnostic Imaging Report ---
Chest, 1 view, 12/17/2019. History: Shortness of breath, altered mental status. Comparison: None available. Findings: There is poor inspiration. The cardiomediastinal silhouette and pulmonary vasculature are within normal limits for a portable exam. There is no focal consolidation or pleural effusion. Linear opacities are present at the right lung base. There are no acute osseous or soft tissue abnormalities. Impression: Right-sided linear atelectasis. Signed by: Roman Blanc on 12/17/2019 3:59 PM
--- NOTE | 2019-12-17 16:05 | Diagnostic Imaging Report ---
EXAMINATION: Head CT HISTORY: Alteration of consciousness COMPARISON: Head CT 12/12/2019, 10/17/2019, 10/04/2019, 09/25/2019, 09/16/2019, 08/27/2019, brain MRI 10/06/2019. TECHNIQUE: Helical axial images of the head were obtained. Reformatted coronal and sagittal images from the axial data. Dose modulation, iterative reconstruction, and/or weight based adjustment of the mA/kV was utilized to reduce the radiation dose to as low as reasonably achievable. FINDINGS: Parenchyma: 1. Unchanged moderate confluent supratentorial white matter hypodensities, most likely nonspecific chronic microvascular ischemic changes.. 2. No mass or hemorrhage. No CT evidence of acute territorial vascular insult. Extra-axial spaces:No abnormal density. No extra-axial fluid collections Brain volume: Normal for age. Ventricles: Stable nonspecific ventriculomegaly which may correspond to ex vacuo compensatory dilatation, however mild degree of communicating normal pressure hydrocephalus cannot be excluded in the appropriate clinical setting. Arteries: No density suggestive of thrombus. Dural sinuses: No abnormal density. Foramen magnum: No mass, Chiari malformation, or basilar invagination. Sella: No obvious mass. Paranasal/mastoid sinuses: Imaged portions unremarkable. Skull/Scalp: No lytic or blastic lesions. No fractures. IMPRESSION: 1. No acute intracranial abnormalities. 2. Persistent mild ventriculomegaly. 3. Moderate chronic microvascular ischemic changes, stable compared to head CT of 12/12/2019, and 5 additional head CTs during the last 3 months Signed by: Dr. Leslie Barkley M.D. on 12/17/2019 4:02 PM
[2019-12-17 17:20] LABS: BASOPHILS % 0.8 % (0.0-1.0); EOSINOPHILS % 0.6 % (0.0-6.0); HEMATOCRIT 30.1 % (34.2-44.1); HEMOGLOBIN 9.5 g/dL (12.0-16.0); LYMPHOCYTES # (AUTO) 0.8 (1.0-3.2); LYMPHOCYTES % 15.6 % (18.0-39.1); MEAN CORPUSCULAR HEMOGLOBIN 30.6 pg (28-32); MEAN CORPUSCULAR HGB CONC 31.6 g/dL (31-35); MEAN CORPUSCULAR VOLUME 97.1 fL (81-99); MONOCYTES # (AUTO) 0.5 (0.2-0.8); MONOCYTES % 10.3 % (4.4-11.3); NEUTROPHILS # (AUTO) 3.5 (2.1-6.9); NEUTROPHILS % 70.9 % (38.7-80.0); PLATELET COUNT 267 x10e3/uL (140-360); RED CELL DISTRIBUTION WIDTH 13.4 % (11.7-14.4)
[2019-12-17 17:33] LABS: INR 0.94; PROTHROMBIN TIME 13.1 seconds (11.9-14.5)
[2019-12-17 17:41] LABS: ALBUMIN 2.8 g/dL (3.5-5.0); ALBUMIN/GLOBULIN RATIO 1.2 (0.8-2.0); ALKALINE PHOSPHATASE 54 IU/L (40-150); ANION GAP 16.2 mmol/L (8-16); BLOOD UREA NITROGEN 18 mg/dL (7-26); BUN/CREATININE RATIO 25 (6-25); CALCIUM 8.9 mg/dL (8.4-10.2); CARBON DIOXIDE 32 mmol/L (22-29); CHLORIDE 101 mmol/L (98-107); CREATINE KINASE 14 IU/L (29-168); CREATININE, SERUM 0.71 mg/dL (0.57-1.11); EST GLOMERULAR FILTRATION RATE > 60 ML/MIN (60-); GLUCOSE 202 mg/dL (74-118); POTASSIUM 3.2 mmol/L (3.5-5.1); SODIUM 146 mmol/L (136-145)
[2019-12-17 17:42] LABS: ALANINE AMINOTRANSFERASE < 6 IU/L (0-55)
[2019-12-17 18:01] LABS: THYROID STIMULATING HORMONE 1.028 uIU/mL (0.350-4.940)
[2019-12-17 18:15] LABS: BILIRUBIN,URINE NEGATIVE (NEGATIVE); CLARITY,URINE CLEAR (CLEAR); COLOR,URINE YELLOW (YELLOW); KETONES,URINE TRACE (NEGATIVE); LEUKOCYTE ESTERASE ,URINE NEGATIVE (NEGATIVE); MUCUS,URINE RARE (RARE); NITRITE,URINE NEGATIVE (NEGATIVE); PROTEIN,URINE DIPSTICK NEGATIVE (NEGATIVE); RBC,URINE 0-5 /HPF (0-5); URINE UROBILINOGEN 0.2 mg/dL (0.2 - 1); WBC,URINE (MAN) 0-5 /HPF (0-5)
--- NOTE | 2019-12-17 22:50 | Diagnostic Imaging Report ---
Perfusion Lung Scan NOTE: Lung ventilation studies with xenon are not being performed per the recommendation of the Society of Nuclear Medicine and Molecular Imaging. It is not possible to be certain that the ventilation system is adequately disinfected. Ventilation studies with Tc-99m DTPA particles is contraindicated because the delivery by nebulization generates too many water droplets from the patient's airway. Reason for exam: 74-year-old female with acute onset SOB and dyspnea. Comparison: Chest radiograph 12/17/2019 Discussion: Ventilation images were not obtained. See note above. Perfusion images of the lungs were obtained in multiple projections following intravenous administration of approximately 6 mCi of Tc-99m MAA. Distribution of tracer is minimally throughout the lungs. No segmental perfusion defects of any size are identified. The cardiomediastinal silhouette is unremarkable. Impression: 1. Scan findings represent a VERY LOW probability for acute pulmonary embolic disease based on the perfusion only modified PIOPED II criteria. Concurrent ventilation study would not alter the assigned probability for acute PE. 2. Scan findings are compatible with diffuse parenchymal and/or obstructive lung disease. Signed by: Dr. Twyla Petersen M.D. on 12/17/2019 10:47 PM
[2019-12-17 23:05] VITALS: BP 114/83
--- OUTSIDE RECORDS SUMMARY | 2019-12-23 18:04 | XMS REPORT | Clinical Summary ---
Author Author CHARU [facility] Address Unknown Phone Unavailable Care Team Providers Care Line Clearance Foreman Name Role Phone Ike Jones PCP Allergies No Known Allergies Medications End Date Status Medication Sig Dispensed Refills Start Date Active sertraline (ZOLOFT) 100 Take 100 mg 0 MG tablet by mouth daily. Active losartan (COZAAR) 25 MG Take 25 mg by 0 tablet mouth 2 (two) times daily. Active valbenazine (INGREZZA) 80 Take 80 mg by 0 mg Cap mouth daily. Active metFORMIN (GLUCOPHAGE) Take 1 tablet 0 02 1000 MG tablet (1,000 mg 0 total) by mouth 2 (two) times daily with breakfast and dinner. 09/29/2019 Discontinued (Stop Taking at Discharge) ALPRAZolam (XANAX) 0.5 MG Take 0.5 mg 0 tablet by mouth daily as needed for Anxiety. 09/20/2019 Discontinued (Stop Taking at Discharge) HYDROcodone-acetaminophen Take 1 tablet 0 (NORCO 10-325) 10-325 mg by mouth per tablet every 6 (six) hours as needed for Pain. 09/20/2019 Discontinued (Stop Taking at Discharge) gabapentin (NEURONTIN) Take 800 mg 0 800 MG tablet by mouth 3 (three) times daily. 09/20/2019 Discontinued (Reorder) metFORMIN (GLUCOPHAGE) Take 2,000 mg 0 1000 MG tablet by mouth 2 (two) times daily with breakfast and dinner. 12/20/2019 amLODIPine (NORVASC) 10 Take 0.5 15 tablet 2 MG tablet tablets (5 mg 0 total) by mouth daily for 90 days. 10/21/2019 magnesium oxide (MAG-OX) Take 1 tablet 30 tablet 0 400 mg (241.3 mg (400 mg 0 magnesium) tablet total) by mouth daily for 30 days. 10/01/2019 potassium chloride SA Take 1 tablet 10 tablet 0 (K-DUR,KLOR-CON) 20 MEQ (20 mEq 0 tablet total) by mouth daily for 10 days. 10/09/2019 levoFLOXacin (LEVAQUIN) Take 1 tablet 10 tablet 0 750 MG tablet (750 mg 0 total) by mouth daily for 10 days. Active Problems Problem Noted Date Agitation 09/26/2019 PNA (pneumonia) 09/26/2019 Toxic metabolic encephalopathy 09/26/2019 AMS (altered mental status) 09/16/2019 Benign essential HTN 09/16/2019 Type 2 diabetes mellitus without complication, withou t long-term current 09/16/2019 use of insulin MALIA (acute kidney injury) 09/16/2019 Encounters Care Team Description Date Type Specialty 09/27/2019 Travel Mateus Whitt MD Asim, MD Anastacio Slater, Kali Gotti MD Pneumonia of both lower lobes due to inf ectious organism (Primary Dx); Toxic metabolic encephalopathy; Benign essential HTN; Type 2 diabetes mellitus without complication, without long-term current use of insulin (HCC); MALIA (acute kidney injury) (HCC) 09/26/2019 [facility]icine - Encounter 09/29/2019 09/19/2019 Travel CamargoVivi echols MD Patel, MD Bryan Kern, Jasmyne oGel MD MALIA (acute kidney injury) (HCC); Altered mental status, unspecified altered mental status type; Benign essential HTN; Acute metabolic encephalopathy; Type 2 diabetes mellitus with diabetic polyneuropathy, without long-term current use of insulin ([facility]); Tardive dyskinesia; Acute cystitis without hematuria; Intractable nausea and vomiting 09/16/2019 [facility] dicine - Encounter 09/20/2019 Vivi Camargo MD 09/16/2019 Orders Only Internal Medicine CamargoVivi MD 09/16/2019 Documentation Internal Medicine after 12/16/2018 Social History Date Tobacco Use Types Packs/Day Years Used Never Smoker Smokeless Tobacco: Never Used Sex Assigned at Date Recorded Not on file Last Filed Vital Signs Reading Time Taken Comments Vital Sign 173/71 09/29/2019 3:34 PM CDT Blood Pressure 77 09/29/2019 3:34 PM CDT Pulse 36.8 C (98.2 F) 09/29/2019 3:34 PM CDT Temperature 18 09/29/2019 3:34 PM CDT Respiratory Rate 94% 09/29/2019 3:34 PM CDT Oxygen Saturation - - Inhaled Oxygen Concentration 70.5 kg (155 lb 6.8 oz) 09/26/2019 3:00 AM CDT Weight 160 cm (5' 3") 09/19/2019 9:07 PM CDT Height 27.53 09/19/2019 9:07 PM CDT Body Mass Index Plan of Treatment Health Maintenance Due Date Last Done Comments BREAST CANCER SCREENING 1945 COLON CANCER SCREENING 1947 COLONOSCOPY DIABETIC EYE EXAM 1957 DIABETIC FOOT EXAM 1957 URINE MICROALBUMIN 1957 PNEUMOCOCCAL 65+ YRS (1 02/23/2012 of 1 - [id number]) MEDICARE ANNUAL WELLNESS 02/18/2013 (YEAR 2 or FIRST YEAR if no IPPE) INFLUENZA VACCINE (#1) 2019 HEMOGLOBIN A1C 03/18/2020 09/16/2019 Procedures Comments Procedure Name Priority Date/Time Associated Diag nosis RHYTHM STRIP - SCAN 09/30/2019 3:10 PM CDT POCT-GLUCOSE METER Routine 09/29/2019 11:59 AM CDT CBC W/PLT COUNT & AUTO Routine 09/29/2019 DIFFERENTIAL 10:47 AM CDT CBC W/PLT COUNT & AUTO Routine 09/29/2019 DIFFERENTIAL 10:47 AM CDT POCT-GLUCOSE METER Routine 09/29/2019 8:05 AM CDT POCT-GLUCOSE METER Routine 09/28/2019 9:06 PM CDT POCT-GLUCOSE METER Routine 09/28/2019 5:06 PM CDT POCT-GLUCOSE METER Routine 09/28/2019 11:28 AM CDT POCT-GLUCOSE METER Routine 09/28/2019 8:36 AM CDT CBC W/PLT COUNT & AUTO Routine 09/28/2019 DIFFERENTIAL 4:03 AM CDT COMPREHENSIVE METABOLIC Routine 09/28/2019 PANEL 4:03 AM CDT CBC W/PLT COUNT & AUTO Routine 09/28/2019 DIFFERENTIAL 4:03 AM CDT POCT-GLUCOSE METER Routine 09/27/2019 9:32 PM CDT POCT-GLUCOSE METER Routine 09/27/2019 5:25 PM CDT POCT-GLUCOSE METER Routine 09/27/2019 12:13 PM CDT POCT-GLUCOSE METER Routine 09/27/2019 7:37 AM CDT CBC W/PLT COUNT & AUTO Routine 09/27/2019 DIFFERENTIAL 5:13 AM CDT VANCOMYCIN LEVEL, TROUGH Timed 09/27/2019 5:13 AM CDT COMPREHENSIVE METABOLIC Routine 09/27/2019 PANEL 5:13 AM CDT CBC W/PLT COUNT & AUTO Routine 09/27/2019 DIFFERENTIAL 5:13 AM CDT POCT-GLUCOSE METER Routine 09/26/2019 9:15 PM CDT POCT-GLUCOSE METER Routine 09/26/2019 5:15 PM CDT PROCALCITONIN STAT 09/26/2019 12:47 PM CDT LACTIC ACID, VENOUS STAT 09/26/2019 12:47 PM CDT MRSA SCREEN Routine 09/26/2019 12:47 PM CDT POCT-GLUCOSE METER Routine 09/26/2019 12:23 PM CDT POCT-GLUCOSE METER Routine 09/26/2019 9:12 AM CDT LEGIONELLA URINE ANTIGEN Routine 09/26/2019 4:56 AM CDT STREP PNEUMONIAE ANTIGEN Routine 09/26/2019 4:56 AM CDT SARS-COV2/RT-PCR ([facility] & Routine 09/26/2019 REF LABS) 4:35 AM CDT CBC W/PLT COUNT & AUTO Routine 09/26/2019 DIFFERENTIAL 4:25 AM CDT MAGNESIUM Routine 09/26/2019 4:25 AM CDT COMPREHENSIVE METABOLIC Routine 09/26/2019 PANEL 4:25 AM CDT CBC W/PLT COUNT & AUTO Routine 09/26/2019 DIFFERENTIAL 4:25 AM CDT RHYTHM STRIP - SCAN 09/21/2019 3:30 PM CDT POCT-GLUCOSE METER Routine 09/20/2019 8:55 AM CDT PHOSPHORUS STAT 09/20/2019 4:33 AM CDT MAGNESIUM Routine 09/20/2019 4:33 AM CDT CBC (HEMOGRAM ONLY) Routine 09/20/2019 4:33 AM CDT BASIC METABOLIC PANEL (7) Routine 09/20/2019 4:33 AM CDT POCT-GLUCOSE METER Routine 09/19/2019 9:07 PM CDT POCT-GLUCOSE METER Routine 09/19/2019 5:47 PM CDT POTASSIUM Routine 09/19/2019 5:07 PM CDT ECG 12-LEAD STAT 09/19/2019 11:59 AM CDT POCT-GLUCOSE METER Routine 09/19/2019 11:25 AM CDT PHOSPHORUS STAT 09/19/2019 10:59 AM CDT MAGNESIUM Routine 09/19/2019 10:59 AM CDT POCT-GLUCOSE METER Routine 09/19/2019 8:59 AM CDT CBC (HEMOGRAM ONLY) Routine 09/19/2019 3:50 AM CDT BASIC METABOLIC PANEL (7) Routine 09/19/2019 3:50 AM CDT POCT-GLUCOSE METER Routine 09/18/2019 8:27 PM CDT POCT-GLUCOSE METER Routine 09/18/2019 12:09 PM CDT US ABDOMEN COMPLETE Routine 09/18/2019 8:54 AM CDT POCT-GLUCOSE METER Routine 09/18/2019 8:12 AM CDT CREATINE KINASE (CK) Routine 09/18/2019 4:41 AM CDT CBC (HEMOGRAM ONLY) Routine 09/18/2019 4:41 AM CDT BASIC METABOLIC PANEL (7) Routine 09/18/2019 4:41 AM CDT CREATINE KINASE (CK) Routine 09/17/2019 10:39 PM CDT POCT-GLUCOSE METER Routine 09/17/2019 4:57 PM CDT RAPID DRUG SCREEN, URINE Routine 09/17/2019 1:03 PM CDT UREA NITROGEN, RANDOM Routine 09/17/2019 URINE 1:03 PM CDT CREATININE, RANDOM URINE Routine 09/17/2019 1:03 PM CDT SODIUM, RANDOM URINE Routine 09/17/2019 1:03 PM CDT URINALYSIS W/ REFLEX Routine 09/17/2019 URINE CULTURE 1:03 PM CDT XR CHEST 1 VIEW Routine 09/17/2019 PORTABLE/BEDSIDE 12:22 PM CDT ECG 12-LEAD Routine 09/17/2019 11:18 AM CDT POCT-GLUCOSE METER Routine 09/17/2019 11:13 AM CDT POCT-GLUCOSE METER Routine 09/17/2019 7:17 AM CDT HEPATIC FUNCTION PANEL Add-On 09/17/2019 4:44 AM CDT LIPASE Add-On 09/17/2019 4:44 AM CDT CBC (HEMOGRAM ONLY) Routine 09/17/2019 4:44 AM CDT BASIC METABOLIC PANEL (7) Routine 09/17/2019 4:44 AM CDT POCT-GLUCOSE METER Routine 09/16/2019 9:28 PM CDT TSH/FREE T4 IF INDICATED Routine 09/16/2019 7:13 PM CDT VITAMIN B12 AND FOLATE Routine 09/16/2019 7:13 PM CDT LIPID PANEL Routine 09/16/2019 6:46 PM CDT HEMOGLOBIN A1C AP Routine 09/16/2019 6:46 PM CDT CBC (HEMOGRAM ONLY) Routine 09/16/2019 6:46 PM CDT BASIC METABOLIC PANEL (7) Routine 09/16/2019 6:46 PM CDT SARS-COV2/RT-PCR ([facility] & Routine 09/16/2019 REF LABS) 6:34 PM CDT after 12/16/2018 Results * RHYTHM STRIP - SCAN (09/30/2019 3:10 PM CDT) Only the most recent of 2 results within the time period is included. Narrative Performed At This result has an attachment that is n ot available. * POC-Glucose meter (09/29/2019 11:59 AM CDT) Only the most recent of 26 results within the time period is included. POC-Glucose 234 (H)Comment: : TESTED AT 70 - 110 mg/dL [facility] [address] [facility] [address]: Rivet Passer/Preschool Assistant Teacher ID [facility] = [id number] for ANA MAR Specimen Blood Performing Organization Address City/State/Zipcode Ph one Number [place] [phone] [place], [place] [address] * CBC with platelet count + automated diff (09/29/2019 10:47 AM CDT) Only the most recent of 4 results within the time period is included. Pathologist [facility] WBC 5.8 3.5 - 10.5 K/L [facility] RBC 3.79 (L) 3.93 - 5.22 M/L [facility] Hemoglobin 12.0 11.2 - 15.7 GM/DL [facility] Hematocrit 37.0 34.1 - 44.9 % [facility] MCV 97.6 (H) 79.4 - 94.8 fL [facility] MCH 31.7 25.6 - 32.2 pg [facility] MCHC 32.4 32.2 - 35.5 GM/DL [facility] RDW 12.8 11.7 - 14.4 % [facility] Platelets 215 150 - 450 K/CU MM [facility] MPV 10.7 9.4 - 12.3 fL [facility] nRBC 0 0 - 0 /100 WBC [facility] % Neutros 78 % [facility] % Lymphs 11 % [facility] % Monos 10 % [facility] % Eos 0 % [facility] % Baso 0 % [facility] # Neutros 4.51 1.56 - 6.13 K/L [facility] # Lymphs 0.62 (L) 1.18 - 3.74 K/L [facility] # Monos 0.57 (H) 0.24 - 0.36 K/L [facility] # Eos 0.01 (L) 0.04 - 0.36 K/L [facility] # Baso 0.02 0.01 - 0.08 K/L [facility] Immature 2 (H) 0 - 1 % [facility] Specimen Blood Performing Organization Address City/State/Zipcode Ph one Number [address] [facility] * Comprehensive metabolic panel (09/28/2019 4:03 AM CDT) Only the most recent of 3 results within the time period is included. Protein, Total 6.3Comment: Specimen slightly 6.0 - 8.3 gm/dL [facility] Albumin 3.8Comment: Specimen slightly 3.5 - 5.0 g/dL [facility] Alkaline 62 40 - 150 U/L [facility] Total Bilirubin 0.6Comment: Specimen slightly 0.2 - 1.2 mg/dL [facility] Sodium 144 136 - 145 meq/L [facility] Potassium 3.0 (L)Comment: Specimen 3.5 - 5.1 meq/L [facility] Chloride 102 98 - 107 meq/L [facility] CO2 27 22 - 29 meq/L [facility] BUN 14 7 - 21 mg/dL [facility] Creatinine 0.86Comment: Specimen slightly 0.57 - 1.25 mg/ dL [facility] Glucose 237 (H) 70 - 105 mg/dL [facility] Calcium 8.8 8.4 - 10.2 mg/dL [facility] AST 26Comment: Specimen slightly 5 - 34 U/L C [facility] ALT 26Comment: Specimen slightly 6 - 55 U/L C [facility] EGFR Comment: INSUFFICIENT CLINICAL [facility] DATA TO CALCULATE ESTIMATED [facility] GFR. [facility] Specimen Blood Narrative Performed At Rivet Passer ID - DB [facility] Performing Organization Address [facility] [address] [place] [address] [phone] [place] [address] * Vancomycin level, trough (09/27/2019 5:13 AM CDT) Vancomycin Tr 14.4 10.0 - 20.0 ug/mL [facility] Specimen Blood Narrative Performed At Rivet Passer ID - EDASI [facility] Performing Organization Address [facility] one [place] [address] [phone] [place] [address] * Procalcitonin (09/26/2019 12:47 PM CDT) Procalcitonin 0.05 (H) <0.05 ng/mL [facility] Specimen Blood Narrative Performed At SEPSIS RISK (ng/mL) [facility] Low: 0.05-0.50 [facility] Intermediate: 0.51-2.00 High: >=2.01 Performing Organization Address [facility] one [place] [address] [phone] [place] [address] * Lactic acid, venous (09/26/2019 12:47 PM CDT) Lactate, Venous 1.05Comment: Specimen slightly 0.50 - 2.20 mm ol/L [facility] hemolyzed [facility] Specimen Blood Narrative Performed At Rivet Passer ID - ORION Barclay [facility] Performing Organization Address [facility] Ph one Number [facility] [address] [place], [place] [address] [facility] * MRSA screen (09/26/2019 12:47 PM CDT) Result No MRSA isolated [facility] Specimen Nasal - Both anterior nares (body structure) Performing Organization Address [facility] one Number [address] [facility] * Strep pneumoniae antigen (09/26/2019 4:56 AM CDT) Strep Presumptive negative for Presumptive negative [facility] pneumoniae pneumococcal pneumonia - see for pneumococcal [facility] Antigen comment pneumonia - see [facility] comment, Presumptive negative for pneumococcal meningitis - see comment Specimen Urine Narrative Performed At Presumptive negative for pneumococcal p neumonia, suggesting no current or recent [facility] pneumococcal infection. Infection due t o S. pneumoniae cannot be ruled out since [facility] the antigen present in the sample may b e below the detection limit of the test. Performing Organization Address [facility] one Number [facility] [address] [place], [place] [address] [facility] * Legionella antigen, urine (09/26/2019 4:56 AM CDT) Legionella Negative - see commentComment: [facility] Urine Antigen Negative for L. pneumophila [facility] serogroup 1 antigen, [facility]ENTER suggesting no recent or current infection with this serogroup. Legionellosis cannot be ruled out since other serogroups and species may cause disease. Specimen Urine Performing Organization Address [facility] one Number [facility] [address] [place], [place] [address] [facility] * SARS-CoV2/RT-PCR (Symptomatic ONLY) (09/26/2019 4:35 AM CDT) Only the most recent of 2 results within the time period is included. SARS-COV2/RT-PC Negative Not Detected, [facility] R Negative, See [facility] external report for [facility]ENTER linked test SARS-COV-2 [facility] PERFORMING LAB [facility] Specimen Other - Nasopharyngeal wall structure (body structure) Narrative Performed At Negative result for this test determine s that SARS-CoV-2 RNA was not present in [facility] the specimen above the Limit of Detecti on (LOD). However, Negative results do [facility] not preclude SARS-CoV-2 infection and s hould not be used as the sole basis for treatment or patient management decisio ns. Negative results must be combined with clinical observations, patient his tory, and epidemiological information. A false negative result may occur if a sp ecimen is improperly collected, transported or handled. A false negat chrissie result should be considered if patient's recent exposures or clinical presentation indicate that COVID-19 (SARS-CoV-2) is likely and diagnostic t ests for other causes of illness are negative. Re-testing should be consid ered in cases of suspected false negatives. The limit of detection for this assay i s 800 copies/mL. This SARS CoV-2 test is a real-time RT- PCR test intended for the qualitative detection of nucleic acid from SARS-CoV -2 in a nasopharyngeal swab specimen collected from individuals suspected of COVID-19 by their healthcare provider. This test has not been Food and Drug Ad ministration (FDA) cleared or approved. This is a modified version of an appr samira Emergency Use Authorization (EUA) and is in the process of review by the FDA. Once authorized by the FDA, the issued EUA will be effective until the declaration that circumstances exist justifying the authorization of the anjelica rgency use of in vitro diagnostic tests for detection and/or diagnosis of COVID -19 is terminated under Section 564(b)(2) of the Act or the EUA is revoked under Section 564(g) of the Act. Fact Sheet for Healthcare Providers: https://www.get2play.A Fourth Act/sites/default/files/product/documents/Fact_Sheet_HC_Provi fwjr_Rjhe_XYVI-GdK-0.pdf Fact Sheet for Healthcare Patients: https://www.MWI/sites/default/files/product/documents/Fact_Sheet_Patients _Hsdv_JNCO-BtM-8.pdf Performing Laboratory: [address] [place] [address] Performing Organization Address City/[facility] Ph one Number [place] [phone] * Magnesium (09/26/2019 4:25 AM CDT) Only the most recent of 3 results within the time period is included. Magnesium 1.2 (L) 1.6 - 2.6 mg/dL [facility] Specimen Blood Narrative Performed At Rivet Passer ID - EDASI [facility] Performing Organization Address City/[facility] Ph one Number [place] [phone] [phone] [address] * CBC (Hemogram only) (09/20/2019 4:33 AM CDT) Only the most recent of 5 results within the time period is included. WBC 7.0 3.5 - 10.5 K/L [facility] RBC 3.63 (L) 3.93 - 5.22 M/L [facility] Hemoglobin 11.4 11.2 - 15.7 GM/DL [facility] Hematocrit 35.2 34.1 - 44.9 % [facility] MCV 97.0 (H) 79.4 - 94.8 fL [facility] MCH 31.4 25.6 - 32.2 pg [facility] MCHC 32.4 32.2 - 35.5 GM/DL [facility] RDW 13.1 11.7 - 14.4 % [facility] Platelets 212 150 - 450 K/CU MM [facility] MPV 10.9 9.4 - 12.3 fL [facility] nRBC 0 0 - 0 /100 WBC [facility] Specimen Blood - Entire right upper arm (body structure) Performing Organization Address [facility] Ph one Number [address] 0 [phone] [place] [address] * Phosphorus (09/20/2019 4:33 AM CDT) Only the most recent of 2 results within the time period is included. Phosphorus 2.4 2.3 - 4.7 mg/dL [facility] Specimen Blood - Entire right upper arm (body structure) Narrative Performed At Rivet Passer ID - PIAYA L [facility] Performing Organization Address [facility] Ph one Number [place] [phone] [place] [address] * Basic metabolic panel (09/20/2019 4:33 AM CDT) Only the most recent of 5 results within the time period is included. Sodium 136 136 - 145 meq/L [facility] Potassium 3.5 3.5 - 5.1 meq/L [facility] Chloride 100 98 - 107 meq/L [facility] CO2 29 22 - 29 meq/L [facility] BUN 14 7 - 21 mg/dL [facility] Creatinine 0.72 0.57 - 1.25 mg/dL [facility] Glucose 172 (H) 70 - 105 mg/dL [facility] Calcium 8.7 8.4 - 10.2 mg/dL [facility] EGFR Comment: INSUFFICIENT CLINICAL [facility] DATA TO CALCULATE ESTIMATED [facility] GFR. [facility] Specimen Blood - Entire right upper arm (body structure) Narrative Performed At Rivet Passer ID - PIAYA L [facility] Performing Organization Address City/[facility] Ph one Number [facility] [address] [place] [address] [facility] * Potassium (09/19/2019 5:07 PM CDT) Potassium 3.5 3.5 - 5.1 meq/L [facility] Specimen Blood Narrative Performed At Rivet Passer ID - DB [facility] Performing Organization Address [facility] Ph one Number [facility] [address] [place], [place] [address] [facility] * ECG 12 lead (09/19/2019 11:59 AM CDT) Only the most recent of 2 results within the time period is included. Specimen Narrative Performed At Ventricular Rate 93 BPM GE MUSE Atrial Rate 93 BPM P-R Interval 130 ms QRS Duration 96 ms Q-T Interval 364 ms QTC Calculation(Bazett) 452 ms P [place] 59 degrees R [place] -33 degrees T [place] 1 degrees Normal sinus rhythm Horizontal axis Normal ECG When compared with ECG of 17-SEP-2019 1 1:18, No significant change was found Confirmed by Preeti HOLLIDAY MICHAEL (1 [phone]) on 09/20/2019 7:37:21 AM Procedure Note Interface, External Ris In - 09/20/2019 7:37 AM CDT Ventricular Rate 93 BPM Atrial Rate 93 BPM P-R Interval 130 ms QRS Duration 96 ms Q-T Interval 364 ms QTC Calculation(Bazett) 452 ms P [place] 59 degrees R [place] -33 degrees T [place] 1 degrees Normal sinus rhythm Horizontal axis Normal ECG When compared with ECG of 17-SEP-2019 11:18, No significant change was found Confirmed by Preeti HOLLIDAY MICHAEL ([id number]) on 09/20/2019 7:37:21 AM Performing Organization Address [facility] one Number GE MUSE * US abdomen complete (09/18/2019 8:54 AM CDT) Specimen Narrative Performed At FINAL REPORT GE RIS U/S, ABDOMINAL, COMPLETE CLINICAL HISTORY: abdominal pain and AK I COMPARISON: None. TECHNIQUE: Real time grayscale and colo r Doppler images of the abdominal organs were obtained using a curved transducer. FINDINGS: Pancreas: Partially visualized and unre markable. Liver: Normal in size and homogeneous i n echogenicity. Focal liver lesions: None. Portal vein: Normal, hepatopetal flow. Bile ducts: No intrahepatic biliary ivette leighann dilation. Common bile duct not visualized. Gallbladder: Contracted with no appreci able stones. Borderline apparent gallbladder wall thickening is likely related to underdistention. No sonographic Adkins' s sign. Kidneys: Normal in size with normal cor tical thickness and echogenicity. No hydronephrosis. Spleen: Normal in size. Ascites: None in the upper abdomen. Visualized aorta and IVC: Unremarkable. MEASUREMENTS: Liver: 14.8 cm Common Duct: Not visualized Right Kidney: 10.8 cm Left Kidney: 9.7 cm Spleen: 9.0 cm Maximum Diameter Aorta: 1.7 cm IMPRESSION: No sonographic correlate for the patien t's abdominal pain. Contracted gallbladder with no gallstones or evide nce of acute cholecystitis. No hydronephrosis bilaterally. Signed: Sneha Zhao MD Report Verified Date/Time: 09/18/2019 09:08:08 Reading Location: [facility] [id number] [employer] Reading Room Procedure Note Interface, External Ris In - 09/18/2019 9:10 AM CDT FINAL REPORT U/S, ABDOMINAL, COMPLETE CLINICAL HISTORY: abdominal pain and MALIA COMPARISON: None. TECHNIQUE: Real time grayscale and color Doppler images of the abdominal organs were obtained using a curved transducer. FINDINGS: Pancreas: Partially visualized and unremarkable. Liver: Normal in size and homogeneous in echogenicity. Focal liver lesions: None. Portal vein: Normal, hepatopetal flow. Bile ducts: No intrahepatic biliary ductal dilation. Common bile duct not visualized. Gallbladder: Contracted with no appreciable stones. Borderline apparent gallbladder wall thickening is likely related to underdistention. No sonographic Adkins's sign. Kidneys: Normal in size with normal cortical thickness and echogenicity. No hydronephrosis. Spleen: Normal in size. Ascites: None in the upper abdomen. Visualized aorta and IVC: Unremarkable. MEASUREMENTS: Liver: 14.8 cm Common Duct: Not visualized Right Kidney: 10.8 cm Left Kidney: 9.7 cm Spleen: 9.0 cm Maximum Diameter Aorta: 1.7 cm IMPRESSION: No sonographic correlate for the patient's abdominal pain. Contracted gallbladder with no gallstones or evidence of acute cholecystitis. No hydronephrosis bilaterally. Signed: Sneha Zhao MD Report Verified Date/Time: 09/18/2019 09:08:08 Reading Location: [address] Ortho Consult Reading Room Performing Organization Address City/[facility] Ph one Number GE RIS * Creatine Kinase (CK) (09/18/2019 4:41 AM CDT) Only the most recent of 2 results within the time period is included. Total CK 34 29 - 200 U/L [facility] Specimen Blood Narrative Performed At Rivet Passer ID - PIAYA L [facility] Performing Organization Address [facility] Ph one Number [place] [phone] [facility] * Urinalysis w/Microscopic + Reflex to Culture (09/17/2019 1:03 PM CDT) Color, UA Yellow [facility] Clarity, UA Hazy [facility] Specific 1.011 1.001 - 1.035 [facility] Isabella, [facility] pH, UA 5.0 5.0 - 8.0 [facility] Protein, UA 10 mg/dL (A) Negative [facility] Glucose, UA 1000 mg/dL (A) Negative [facility] Ketones, UA Negative Negative [facility] Bilirubin, UA Negative Negative [facility] Blood, UA Large (A) Negative [facility] Nitrite, UA Negative Negative [facility] Leukocytes, UA Negative Negative [facility] Urobilinogen, 0.2 0.2 - 1.0 mg/dL [facility] UA [facility] RBC, UA 229 /HPF [facility] WBC, UA 0 /HPF [facility] Bacteria, UA Rare [facility] Mucus Rare [facility] Specimen Source [facility] Specimen Urine Narrative Performed At Rivet Passer ID - [auto] [facility] Rivet Passer ID - tech [facility] Performing Organization Address [facility] Ph one Number [place] [phone] [place] [address] * Urea Nitrogen, random urine (09/17/2019 1:03 PM CDT) Urea Nitrogen, 297 mg/dL [facility] Specimen Urine Narrative Performed At Reference Range: No Normals [facility] Rivet Passer ID - [facility] Performing Organization Address [facility] Ph one Number [place] [phone] [place] [address] * Rapid drug screen, urine (09/17/2019 1:03 PM CDT) Barbiturate Negative Negative [facility] Benzodiazepine Positive (A) Negative [facility] Cocaine Negative Negative [facility] (Metab.) [facility] Methadone Negative Negative [facility] Opiate Screen Positive (A) Negative [facility] Cannabinoid Negative Negative [facility] Amph/Methamph Negative Negative [facility] Phencyclidine Negative Negative [facility] pH, UA 5.0 5.0 - 8.0 [facility] Specimen Urine Narrative Performed At [facility] Cocaine 300 ng/mL [facility] Cannabinoid 50 ng/mL Benzodiazepine 200 ng/mL Barbiturate 200 ng/mL Phencyclidine 25 ng/mL Opiate 300 ng/mL Methadone 300 ng/mL Amphetamine/ 1000 ng/mL Methamphetamine This assay provides an unconfirmed qual itative test result for the clinical management of patients in emergency sit uations. Chain of custody not maintained. Some [id number] medications, as w ell as adulterants, may cause inaccurate results. Clinical correlation should be applied. A more comprehensive drug screen or confirmation of a detected dr enid may be performed upon request. Rivet Passer ID - [facility] Performing Organization Address [facility] one Number [phone] [place] [address] * Sodium, random urine (09/17/2019 1:03 PM CDT) Sodium Urine 109 meq/L [facility] Specimen Urine Narrative Performed At Reference Range: No Normals [facility] Rivet Passer ID - [facility] Performing Organization Address [facility] one Number [address] 0 [phone] [address] * Creatinine, random urine (09/17/2019 1:03 PM CDT) Creatinine, Ur 66.1 mg/dL [facility] Specimen Urine Narrative Performed At Reference Range: No Normals [facility] Rivet Passer ID - [facility] Performing Organization Address [facility] one [place] [phone] [place] [address] * XR chest 1 view portable / bedside (09/17/2019 12:22 PM CDT) Specimen Narrative Performed At FINAL REPORT [facility] CLINICAL HISTORY: concern for aspiratio n TECHNIQUE: 1 view of the chest. COMPARISON: None IMPRESSION: There are hazy bilateral lower lung air space opacities which could represent pulmonary edema versus pneumo bogdan/aspiration. There is blunting of both costophrenic angles. T he cardiomediastinal silhouette is magnified by technique. T here are cervical fusion hardware. Signed: Moustapha Way MD Report Verified Date/Time: 09/17/2019 14:56:08 Reading Location: [facility] Reading Room Procedure Note Interface, External Ris In - 09/17/2019 2:58 PM CDT FINAL REPORT CLINICAL HISTORY: concern for aspiration TECHNIQUE: 1 view of the chest. COMPARISON: None IMPRESSION: There are hazy bilateral lower lung airspace opacities which could represent pulmonary edema versus pneumonia/aspiration. There is blunting of both costophrenic angles. The cardiomediastinal silhouette is magnified by technique. There are cervical fusion hardware. Signed: Moustapha Way MD Report Verified Date/Time: 09/17/2019 14:56:08 Reading Location: [facility] Reading Room Performing Organization Address City/[facility] Ph one Number GE RIS * Lipase (09/17/2019 4:44 AM CDT) Lipase 49 8 - 78 U/L [facility] Specimen Blood Narrative Performed At Rivet Passer ID - NTP [facility] Performing Organization Address City/[facility] Ph one Number [place] [phone] [facility] * Hepatic function panel (09/17/2019 4:44 AM CDT) Protein, Total 6.5 6.0 - 8.3 gm/dL [facility] Albumin 4.0 3.5 - 5.0 g/dL [facility] Total Bilirubin 0.3 0.2 - 1.2 mg/dL [facility] Bilirubin, 0.2 0.1 - 0.5 mg/dL [facility] Alkaline 72 40 - 150 U/L [facility] AST 13 5 - 34 U/L [facility] ALT 10 6 - 55 U/L [facility] Specimen Blood Narrative Performed At Rivet Passer ID - NTP [facility] Performing Organization Address City/[facility] Ph one Number [phone] [place] [address] * Vitamin B12 and Folate (09/16/2019 7:13 PM CDT) Vitamin B12 436 213 - 816 pg/mL [facility] Folate 10.50 >=7.00 ng/mL [facility] Specimen Blood Narrative Performed At Rivet Passer ID - NTP [facility] Performing Organization Address [facility] Ph one Number [phone] [place] [address] * TSH/Free T4 If Indicated (09/16/2019 7:13 PM CDT) TSH 0.448 0.350 - 4.940 uIU/mL [facility] Specimen Blood Narrative Performed At Rivet Passer ID - NTP [facility] Performing Organization Address [facility] Ph one Number [address] [facility] * Hemoglobin A1c (09/16/2019 6:46 PM CDT) Hemoglobin A1C 6.6 (H) 4.3 - 6.1 % [facility] Specimen Blood Performing Organization Address City/[facility] Ph one Number [address] [facility] * Lipid panel (09/16/2019 6:46 PM CDT) Triglycerides 224 mg/dL [facility] Cholesterol 169 mg/dL [facility] HDL 61 mg/dL [facility] LDL Calculated 63 mg/dL [facility] Specimen Blood Narrative Performed At Triglyceride Reference Range: [facility] Low Risk <150 [facility] Borderline 150-199 High Risk 200-499 Very High Risk >=500 Cholesterol Reference Range: Low Risk <200 Borderline 200-239 High Risk >240 HDL Cholesterol Reference Range: Low Risk >=60 High Risk <40 LDL Cholesterol Reference Range: Optimal <100 Near Optimal 100-129 Borderline 130-159 High 160-189 Very High >=190 Rivet Passer ID - NTP Performing Organization Address City/State/Zipcode Ph one Number [facility] [address] [place], [place] [address] [facility] after 12/16/2018 Insurance Type Payer Benefit Subscriber ID Effective Phone Address Plan / Dates Group Medicare MEDICARE MEDICARE A [id number] 2012-P B resent PPO BLUE [employer] BCBS FED [id number] 2006- [id number] [place] [address] CDC REVIEW CDC REVIEW [id number] 2019- [place] [address] [place] [phone] Advance Directives For more information, please contact: [phone] Date Inactivated Comments Code Status Date Activated 09/29/2019 8:21 PM Full Code 09/26/2019 3:15 AM This code status was determined by: Patient 09/20/2019 2:48 PM Full Code 09/16/2019 5:44 PM This code status was determined by: Patient
--- OUTSIDE RECORDS SUMMARY | 2019-12-23 18:05 | XMS REPORT | Continuity of Care Document ---
Author Author [facility] t Organization [facility] Address [address] [place] [address] Phone Unavailable Care Team Providers Care Switchboard Inspector Name Role Phone MD CHANA JONES PCP Conor WALDRON Attphys Unavailable CHANA JONES Attphys Unavailable Amrit DYE Attphys Unavailable MATEUS WHITT Attphys Unavailable Mateus Whitt MD Attphys [phone] Juan BISHOP, Nohemy Attphys Anastacio BISHOP, Ana María Bass Attphys Danny OLMSTEAD Attphys Unavailable Rajwinder Camargo MD Attphys Prudencio BISHOP, Lonnie Atkinson Attphys Bryan Streeter MD, Manasa Medley Attphys [phone] RAJWINDER CAMARGO Attphys Unavailable GLENN RAMESH Attphys Unavailable CHANA JONES Admphys Unavailable MATEUS WHITT Admphys Unavailable LONNIE VIERA Admphys Unavailable Payers Payer Name Policy Type Policy Number Effective Date Expiration Date S ource Medicare A & B [id number] 2012 00:00:00 [facility] [employer] [id number] 2006 00:00:0 0 [facility] Cdc Review Covid19 [id number] [facility] MEDICAREMEDICARE A [id number] 2012-PresentMedicare [id number] 2012 00:00:00 [facility] BLUE CROSS/BLUE SHIELDBCBS [id number] [place]ADA [id number], [place] [address]RHD [id number] 2006 00:00:00 [facility] CDC REVIEWCDC [id number]/[place] [address] [id number] 2019 00:00:00 [facility] Problems Condition Name Condition Details Condition Category Status Onset Date Resolution Date Last Treatment Date Treating Clinician Comments Source Agitation Agitation Disease Active 2019-09-26 00:00:00 [facility] PNA (pneumonia) PNA (pneumonia) Disease Active 2019-09-26 00:00:00 [facility] Toxic metabolic encephalopathy Toxic metabolic encephalopathy Disea se Active 2019-09-26 00:00:00 [facility] AMS (altered mental status) AMS (altered mental status) Disease Active 2019-09-16 00:00:00 [facility] Benign essential HTN Benign essential HTN Disease Active 00:00:00 [facility] Type 2 diabetes mellitus without complic ation, without long-term current use of insulin Type 2 diabetes mellitus without complic ation, without long-term current use of insulin Disease Active 2019-09-16 00:00:00 [facility] MALIA (acute kidney injury) MALIA (acute kidney injury) Disease Ac tive 2019-09-16 00:00:00 [facility] Headache Problem Active [facility] Dehydration Problem Active [facility] Acute renal insufficiency Problem Active [facility] Hyperkalemia Problem Active [facility] Aphasia Problem Active [facility] Cerebrovascular accident (CVA) Problem Active [facility] Suspected severe acute respiratory syndr ome coronavirus 2 (SARS-CoV-2) infection Problem Active [facility] Vomiting and diarrhea Problem Active [facility] Febrile illness Problem Active [facility] Metabolic alkalosis Problem Active [facility] Hypokalemia Problem Active [facility] Hypomagnesemia Problem Active [facility] Severe sepsis Problem Active [facility] Allergies, Adverse Reactions, Alerts Allergy Name Allergy Type Status Severity Reaction(s) Onset Date Inacti ve Date Treating Clinician Comments Source Iodinated Contrast Media Allergy to substance Active s evere headache 2019-08-07 00:00:00 [facility] Iodinated Contrast- Oral and IV Dye DA Active U 5 00:00:00 [facility] Social History Social Habit Start Date Stop Date Quantity Comments Source Sex Assigned At [facility] Tobacco use and exposure 2019-09-26 00:00:00 2019-09-26 00:00:00 Diane garcia used [facility] Smoking Status Start Date Stop Date Source Never smoker [facility] Medications Ordered Medication Name Filled Medication Name Start Date Stop Da te Current Medication? Ordering Clinician Indication Dosage Frequency Signature (SIG) Comments Components Source sertraline (ZOLOFT) 100 MG tablet 2019-09-29 18:21:31 Yes 100mg QD Take 100 mg by mouth daily. [facility] (COZAAR[facility] 25 MG tablet 2019-09-29 18:21:31 Yes 25mg Q.5D Take 25 mg by mouth 2 (two) times daily. [facility] valbenazine (INGREZZA) 80 mg Cap 2019-09-29 18:21:31 Yes 80mg QD Take 80 mg by mouth daily. [facility] ALPRAZolam (XANAX) 0.5 MG tablet 2019-09-29 12:02:58 2019-09 00:00:00 No .5mg Take 0.5 mg by mouth daily as needed for Anxiet y. [facility] levoFLOXacin (LEVAQUIN) 750 MG tablet 2019-09-29 00:00 :00 2019-10-09 23:59:00 No 750mg QD Take 1 tablet (750 mg total) by mouth da bethany for 10 days. [facility] amLODIPine (NORVASC) 10 MG tablet 2019-09-21 00:00:00 2019 23:59:00 No 5mg QD Take 0.5 tablets (5 mg total) by mouth d aily for 90 days. [facility] magnesium oxide (MAG-OX) 400 mg (241.3 mg magnesium) tablet 2019-09-21 00:00:00 2019-10-21 23:59:00 No 400mg QD Take 1 tablet (400 mg total) by mouth daily for 30 days. [facility] potassium chloride SA (K-DUR,KLOR-CON) 20 MEQ tablet 2019-09-21 00:00:00 2019-10-01 23:59:00 No 20meq QD Take 1 tablet (20 mEq total) by mouth daily for 10 days. [facility] metFORMIN (GLUCOPHAGE) 1000 MG tablet 2019-09-20 10:59 :14 2019-09-20 00:00:00 No 2000mg Take 2,000 mg b y mouth 2 (two) times daily with breakfast and dinner. [facility] HYDROcodone-acetaminophen (NORCO 10-325) 10-325 mg per table t 2019-09-20 10:57:15 2019-09-20 00:00:00 No 1{tbl} Take 1 tablet by mouth every 6 (six) hours as needed for Pain. [facility] gabapentin (NEURONTIN) 800 MG tablet 2019-09-20 10:57: 15 2019-09-20 00:00:00 No 800mg Q.[id number] Take 800 mg b y mouth 3 (three) times daily. [facility] metFORMIN (GLUCOPHAGE) 1000 MG tablet 2019-09-20 00:00:00 Y es 1000mg Take 1 tablet (1,000 mg total) by mouth 2 (two) times daily with breakfast and dinner. [facility] Aspirin (Aspir 81) 81 Mg TABLET. Aspirin (Aspir 81) 81 Mg TABLET. Yes 81 Daily [facility] Baclofen Baclofen Yes 20 Three Times A Day [facility] Gabapentin (Neurontin) 300 Mg CAPSULE Gabapentin (Neurontin) 300 Mg CAPSULE Yes 800 Three Times A Day [facility] Losartan Potassium Losartan Potassium Yes Tw ice A Day [facility] Lovastatin Lovastatin Yes 40 Daily [facility] Metformin Hcl Metformin Hcl Yes 1000 Twice A Day [facility] Ondansetron Hcl (Zofran*) 4 Mg TABLET Ondansetron Hcl (Zofran*) 4 M g TABLET Yes 4 Every 4 Hours [facility] Pantoprazole Sodium (Protonix) 40 Mg TABLET. Pantopr azole Sodium (Protonix) 40 Mg TABLET. Yes 40 Twice A Day [facility] Pioglitazone Hcl (Actos) 30 Mg TABLET Pioglitazone Hcl (Actos) 30 M g TABLET Yes 30 Daily [facility] Sertraline Hcl (Zoloft) 50 Mg TABLET Sertraline Hcl (Zoloft) 50 Mg TABLET Yes 100 Daily [facility] Valbenazine Tosylate (Ingrezza) 80 Mg CAPSULE Valbenaz ine Tosylate (Ingrezza) 80 Mg CAPSULE 2019-10-15 00:00:00 No 80 Daily [facility] Glimepiride (Amaryl) 4 Mg TABLET Glimepiride (Amaryl) 4 Mg TABLE T 2019-08-28 00:00:00 No 4 Twice A Day [facility] Meloxicam Meloxicam 2019-08-28 00:00:00 No 15 Daily [facility] Citalopram Hydrobromide (Celexa) 40 Mg TABLET Citalopr am Hydrobromide (Celexa) 40 Mg TABLET 2019-08-27 00:00:00 No [facility] Acetylcarnitine (Acetyl L-Carnitine) 500 Mg CAPSULE Ac etylcarnitine (Acetyl L- Carnitine) 500 Mg CAPSULE 2019-08-06 00:00:00 No [facility] Alprazolam Alprazolam 2019-08-06 00:00:00 No 1 Twi ce A Day [facility] Aspirin Aspirin 2019-08-06 00:00:00 No 325 Daily [facility] Hydrocodone Bit/Acetaminophen ([place] 10-325 Tablet) 1 Each TABLET Hydrocodone Bit/Acetaminophen ([place] 10-325 Tablet) 1 Each TABLET 2019-08-06 00:00:00 No Q6prn [facility] Hydrocodone Bit/Acetaminophen ([place] 7.5-325 Tablet) 1 Each TABLET Hydrocodone Bit/Acetaminophen ([place] 7.5-325 Tablet) 1 Each TABLET 2019-07-19 9 00:00:00 No Every 6 Hours as needed for Pain [facility] Metoclopramide Hcl (Reglan) 10 Mg TABLET Metoclopramid e Hcl (Reglan) 10 Mg TABLET 2019-08-06 00:00:00 No 10 Four Times Daily [facility] Ropinirole Hcl (Requip) 0.5 Mg TAB Ropinirole Hcl (Requip) 0.5 M g TAB 2019-08-06 00:00:00 No .5 Bedtime [facility] Sitagliptin Phosphate (Januvia) 100 Mg TABLET Sitaglip tin Phosphate (Januvia) 100 Mg TABLET 2019-08-06 00:00:00 No 100 Daily [facility] Vits W-Ca,Fe,Fa(<1MG) ( Formula) 1 Ea ch TABLET Vits W- Ca,Fe,Fa(<1MG) ( Formula) 1 Each TABLET 2017-11-10 00:00:00 No 1 Daily [facility] Dicyclomine Hcl Dicyclomine Hcl 2017-11-05 00:00:00 No 10 Three Times A Day [facility] Duloxetine Hcl (Cymbalta) 30 Mg CAPSULE. Duloxetine Hcl (Cymbalta) 30 Mg CAPSULE. 2017-11-05 00:00:00 No 60 Daily [facility] Paroxetine Hcl (Paxil) 40 Mg TABLET Paroxetine Hcl (Paxil) 40 Mg TABLET 2015-09-13 00:00:00 No 40 Daily [facility] Vital Signs Vital Name Observation Time Observation Value Comments Source Body Temperature 2019-10-23 16:19:00 98.2 [degF] [facility] BMI (Body Mass Index) 2019-10-18 22:21:00 26.6 kg/m2 [facility] Weight 2019-10-17 15:17:00 150 [lb_av] [facility] Body Temperature 2019-10-15 15:59:00 98.1 [degF] [facility] Weight 2019-10-09 04:57:00 150.19 [lb_av] [facility] BMI (Body Mass Index) 2019-10-09 04:57:00 26.6 kg/m2 [facility] Systolic blood pressure 2019-09-29 15:34:00 173 mm[Hg] [facility] Diastolic blood pressure 2019-09-29 15:34:00 71 mm[Hg] [facility] Heart rate 2019-09-29 15:34:00 77 /min [facility] Body temperature 2019-09-29 15:34:00 36.78 Vashti [facility] Respiratory rate 2019-09-29 15:34:00 18 /min [facility] Oxygen saturation in Arterial blood by Pulse oximetry 09-28 15:34:00 94 /min [facility] Body weight 2019-09-26 03:00:00 70.5 kg [facility] BMI 2019-09-26 03:00:00 27.53 kg/m2 [facility] Body Temperature 2019-09-26 02:11:00 101.0 [degF] [facility] Weight 2019-09-25 19:04:00 170 [lb_av] [facility] BMI (Body Mass Index) 2019-09-25 19:04:00 30.1 kg/m2 [facility] Body height 2019-09-19 21:07:00 160 cm [facility] Body Temperature 2019-09-16 15:15:00 98.2 [degF] [facility] Weight 2019-09-16 11:47:00 170 [lb_av] [facility] BMI (Body Mass Index) 2019-09-16 11:47:00 30.1 kg/m2 [facility] Body Temperature 2019-08-28 09:13:00 98.6 [degF] [facility] Weight 2019-08-28 00:56:00 170 [lb_av] [facility] BMI (Body Mass Index) 2019-08-28 00:56:00 30.1 kg/m2 [facility] Procedures Procedure Date / Time Performed Performing Clinician [facility] e Computed tomography of brain without radiopaque contrast 2019-09 00:00:00 [facility] Magnetic resonance imaging of brain without contrast 2019-10-06 00:00:00 [facility] INSERTION OF INFUSION DEV INTO SUP VENA CAVA, PERC APPROACH 2019-10-06 00:00:00 [facility] ULTRASONOGRAPHY OF SUPERIOR VENA CAVA, GUIDANCE 2019-10-06 00:00 :00 [facility] DRAINAGE OF SPINAL CANAL, PERCUTANEOUS APPROACH, DIAGNOSTIC 2019-10-05 00:00:00 [facility] Computed tomography of brain without radiopaque contrast 2019-09 00:00:00 [facility] Computed tomography of cervical spine without contrast 2019-09-18 7 00:00:00 [facility] RHYTHM STRIP - SCAN 2019-09-30 15:10:41 Provider, Zay jensen [facility] POCT-GLUCOSE METER 2019-09-29 11:59:00 Anastacio, Kali Gotti [facility] CBC W/PLT COUNT & AUTO DIFFERENTIAL 2019-09-29 10:47:00 Anastacio, Aiden carmona [facility] POCT-GLUCOSE METER 2019-09-29 08:05:00 [facility] 2019-09-28 21:06:00 Juan, [facility] POCT-GLUCOSE METER 2019-09-28 17:06:00 Juan, [facility] POCT-GLUCOSE METER 2019-09-28 11:28:00 Juan, [facility] POCT-GLUCOSE METER 2019-09-28 08:36:00 Juan, [facility] COMPREHENSIVE METABOLIC PANEL 2019-09-28 04:03:00 Peri [facility] CBC W/PLT COUNT & AUTO DIFFERENTIAL 2019-09-28 04:03:00 [facility] POCT-GLUCOSE METER 2019-09-27 21:32:00 Juan, [facility] POCT-GLUCOSE METER 2019-09-27 17:25:00 Juan, [facility] POCT-GLUCOSE METER 2019-09-27 12:13:00 Juan, [facility] POCT-GLUCOSE METER 2019-09-27 07:37:00 Juan, [facility] COMPREHENSIVE METABOLIC PANEL 2019-09-27 05:13:00 Peri [facility] VANCOMYCIN LEVEL, TROUGH 2019-09-27 05:13:00 [facility], [facility] CBC W/PLT COUNT & AUTO DIFFERENTIAL 2019-09-27 05:13:00 Oksana blue, [facility] POCT-GLUCOSE METER 2019-09-26 21:15:00 Juan, [facility] POCT-GLUCOSE METER 2019-09-26 17:15:00 Juan, [facility] MRSA SCREEN 2019-09-26 12:47:00 [facility], [facility] LACTIC ACID, VENOUS 2019-09-26 12:47:00 Juan, [facility] PROCALCITONIN 2019-09-26 12:47:00 Juan, [facility] POCT-GLUCOSE METER 2019-09-26 12:23:00 Juan, [facility] POCT-GLUCOSE METER 2019-09-26 09:12:00 Juan, [facility] LEGIONELLA URINE ANTIGEN 2019-09-26 04:56:00 Robert Whitt [facility] SARS-COV2/RT-PCR ([facility]) 2019-09-26 04:35:00 Pita gonzalez [facility] COMPREHENSIVE METABOLIC PANEL 2019-09-26 04:25:00 Peri [facility] MAGNESIUM 2019-09-26 04:25:00 Peri [facility] CBC W/PLT COUNT & AUTO DIFFERENTIAL 2019-09-26 04:25:00 Oksana blue [facility] Computed tomography of brain without radiopaque contrast 2019-09 00:00:00 [facility] RHYTHM STRIP - SCAN 2019-09-21 15:30:44 Provider, Zya jensen [facility] POCT-GLUCOSE METER 2019-09-20 08:55:00 Jasmyne Valverde [facility] BASIC METABOLIC PANEL (7) 2019-09-20 04:33:00 [place] Viera [facility] CBC (HEMOGRAM ONLY) 2019-09-20 04:33:00 China Viera [facility] MAGNESIUM 2019-09-20 04:33:00 Jasmyne Valverde [facility] PHOSPHORUS 2019-09-20 04:33:00 Jasmyne Valverde [facility] POCT-GLUCOSE METER 2019-09-19 21:07:00 [facility] 2019-09-19 17:47:00 Paulino Syl, Jasmyne Levyshelia shannon [facility] POTASSIUM 2019-09-19 17:07:00 Paulino Syl Jasmyne Goel [facility] ECG 12-LEAD 2019-09-19 11:59:17 [facility], [facility] POCT-GLUCOSE METER 2019-09-19 11:25:00 [facility], Jasmyne Mina [facility] MAGNESIUM 2019-09-19 10:59:00 [facility], Jasmyne Goel [facility] PHOSPHORUS 2019-09-19 10:59:00 [facility] POCT-GLUCOSE METER 2019-09-19 08:59:00 [facility] Syl, [facility] BASIC [facility]ABOLIC PANEL (7) 2019-09-19 03:50:00 Viera [facility] CBC (HEMOGRAM ONLY) 2019-09-19 03:50:00 Prudencio [facility] POCT-GLUCOSE METER 2019-09-18 20:27:00 Viera [facility] POCT-GLUCOSE METER 2019-09-18 12:09:00 Prudencio [facility] US ABDOMEN COMPLETE 2019-09-18 08:54:00 Viera, [facility] POCT-GLUCOSE METER 2019-09-18 08:12[facility] (7) 2019-09-18 04:41:00 [facility] CBC (HEMOGRAM ONLY) 2019-09-18 04:41:00 [facility] CREATINE KINASE (CK) 2019-09-18 04:41:00 Prudencio [facility] CREATINE KINASE (CK) 2019-09-17 22:39:00 Prudencio [facility] POCT-GLUCOSE METER 2019-09-17 16:57:00 Prudencio [facility] URINALYSIS W/ REFLEX URINE CULTURE 2019-09-17 13:03:00 Prudencio [facility] SODIUM, RANDOM URINE 2019-09-17 13:03:00 Prudencio [facility] CREATININE, RANDOM URINE 2019-09-17 13:03:00 Prudencio [facility] UREA NITROGEN, RANDOM URINE 2019-09-17 13:03:00 Prudencio [facility] RAPID DRUG SCREEN, URINE 2019-09-17 13:03:00 Prudencio [facility] XR CHEST 1 VIEW PORTABLE/BEDSIDE 2019-09-17 12:22:00 Prudencio Carrie danny [facility] ECG 12-LEAD 2019-09-17 11:18:27 Prudencio [facility] POCT-GLUCOSE METER 2019-09-17 11:13:00 Prudencio [facility] POCT-GLUCOSE METER 2019-09-17 07:17:00 Prudencio [facility] BASIC METABOLIC PANEL (7) 2019-09-17 04:44:00 Prudencio [facility] CBC (HEMOGRAM ONLY) 2019-09-17 04:44:00 Prudencio [facility] LIPASE 2019-09-17 04:44:00 Prudencio [facility] HEPATIC FUNCTION PANEL 2019-09-17 04:44:[address] [facility] POCT-GLUCOSE METER 2019-09-16 21:28:00 Prudencio [facility] VITAMIN B12 AND FOLATE 2019-09-16 19:13:00 Viera, [place] Lonnie [facility] TSH/FREE T4 IF INDICATED 2019-09-16 19:13:00 [place] Viera [facility] BASIC METABOLIC PANEL (7) 2019-09-16 18:46:00 [facility] 2019-09-16 18:46:00 [place] Viera [facility] HEMOGLOBIN A1C 2019-09-16 18:46:00 [place] Viera [facility] LIPID PANEL 2019-09-16 18:46:00 [facility]) 2019-09-16 18:34:00 Skylar Viera [facility] Computed tomography of brain without radiopaque contrast 2019-08 00:00:00 [facility] Computed tomography of brain without radiopaque contrast 2019-08 00:00:00 [facility] REMOVE SPINE LAMINA 1 LMBR 2019-08-12 00:00:00 [facility] X-ray of chest, two views 2019-08-09 00:00:00 [facility] Magnetic resonance imaging of lumbar spine without contrast 2019-07-28 00:00:00 [facility] Plan of Care Planned Activity Planned Date Details Comments Source Future Scheduled Test 2020-03-18 00:00:00 Hemoglobin A1c suzette surement (procedure) [code = 14079237] [facility] Future Scheduled Test 2019-10-19 00:00:00 INFLUENZA VACCINE (#1) [code = INFLUENZA VACCINE (#1)] [facility] r Future Scheduled Test 2013-02-18 00:00:00 MEDICARE ANNUAL WE LLNESS (YEAR 2 or FIRST YEAR if no IPPE) [code = MEDICARE ANNUAL WELLNESS (YEAR 2 or FIRST YEAR if no IPPE)] [facility] 2012-02-23 00:00:00 PNEUMOCOCCAL 65+ Y RS (1 of 1 - [id number]) [code = PNEUMOCOCCAL 65+ YRS (1 of 1 - [id number])] [facility] Future [facility]uled Test 1957 00:00:00 DIABETIC EYE EXAM [code = DIABETIC EYE EXAM] [facility] 1957 00:00:00 Diabetic foot exam ination (regime/therapy) [code = 063333553] [facility] Future Scheduled Test 1957 00:00:00 Urine screening fo r protein (procedure) [code = 252551639] [facility] Future Scheduled Test 1947 00:00:00 Screening for smith gnant neoplasm of breast (procedure) [code = 666736144] [facility] Future Scheduled Test 1947 00:00:00 Screening for smith gnant neoplasm of colon (procedure) [code = 863427888] [facility] Encounters Start Date/Time End Date/Time Encounter Type Admission Type [facility] Care Department Encounter ID Source 2019-10-18 16:58:00 2019-10-23 18:23:00 [facility]charged [facility] [id number] [facility] 2019-10-04 17:32:00 2019-10-15 17:30:00 Discharged Inpatient 1 CHANA JONES [facility] [id number] [facility] 2019-09-25 18:32:00 2019-09-26 02:14:00 Departed Emergency Room 1 ERICH OLMSTEAD [facility] [id number] [facility] 2019-09-16 11:14:00 2019-09-16 16:29:00 Departed Emergency Room 1 [facility]IN [facility] [id number] [facility] 2019-08-27 04:17:00 2019-08-28 09:58:00 Discharged Inpatient (obs) 1 CHANA JONES [facility] [id number] [facility] 2019-08-12 05:15:00 2019-08-12 05:15:00 Registered Surgical Day Car e [facility] [id number] [facility] 2019-07-28 14:22:00 2019-07-28 14:22:00 Registered Clinic 3 CHANA JONES [facility] [id number] [facility] Results Test Description Test Time Test Comments Results Result Comments Source VQ SCAN PERFUSION ONLY 2019-12-17 22:43:00 [facility] 1945 Sex: [place] [id number] Patient Name: LAURI ROBERSON MR #: [id number] : 1945 Age/Sex: 74/F Req #: [id number] [facility] Physician: Ordered by: BILLY WALDRON MD Report #: [id number] Location: Room/Bed: Procedure: [id number] NM/VQ SCAN PERFUSION ONLY Exam Date: Exam Time: REPORT STATUS: Signed Perfusion Lung Scan NOTE: Lung ventilation studies with xenon are not being performed per the recommendation of the Society of Nuclear Medicine and Molecular Imaging. It is not possible to be certain that the ventilation system is adequately disinfected. Ventilation studies with Tc-99m DTPA particles is contraindicated because the delivery by nebulization generates too many water droplets from the patient's airway. Reason for exam: 74-year-old female with acute onset SOB and dyspnea. Comparison: Chest radiograph 12/17/2019 Discussion: Ventilation images were not obtained. See note above. Perfusion images of the lungs were obtained in multiple projections following intravenous administration of approximately 6 mCi of Tc-99m MAA. Distribution of tracer is minimally throughout the lungs. No segmental perfusion defects of any size are identified. The cardiomediastinal silhouette is unremarkable. Impression: 1. Scan findings represent a VERY LOW probability for acute pulmonary embolic disease based on the perfusion only modified PIOPED II criteria. Concurrent ventilation study would not alter the assigned probability for acute PE. 2. Scan findings are compatible with diffuse parenchymal and/or obstructive lung disease. Signed by: Dr. Twyla Petersen M.D. on 12/17/2019 10:47 PM Dictated By: TWYLA PETERSEN MD 48 Transcribed By: DAVON on 12/17/192246 COPY TO: BILLY WALDRON MD CHEST SINGLE (PORTABLE) 2019-12-17 15:58:00 [facility] : 1945 Sex: F [facility] [address] [address] Patient Name: LAURI ROBERSON MR #: [id number] : 1945 Age/Sex: 74/F Req #: [id number] Adm Physician: Ordered by: BILLY WALDRON MD Report #: [id number] Location: ER Room/Bed: Procedure: [id number] DX/CHEST SINGLE (PORTABLE) Exam Date: 12/17/19 Exam Time: 1529 REPORT STATUS: Signed Chest, 1 view, 12/17/2019. History: Shortness of breath, altered mental status. Comparison: None available. Findings: There is poor inspiration. The cardiomediastinal silhouette and pulmonary vasculature are within normal limits for a portable exam. There is no focal consolidation or pleural effusion. Linear opacities are present at the right lung base. There are no acute osseous or soft tissue abnormalities. Impression: Right-sided linear atelectasis. Signed by: Roman Cantu on 12/17/2019 3:59 PM Dictated By: ROMAN CANTU MD 58 Transcribed By: DAVON on 12/17/191558 COPY TO: BILLY WALDRON MD CT BRAIN WO 2019-12-17 15:58:00 [facility] 1945 Sex: F [facility] [address] [address] Patient Name: LAURI ROBERSON MR #: [id number] : 1945 Age/Sex: 74/F Req #: [id number] Adm Physician: Ordered by: BILLY WALDRON MD Report #: [id number] Location: Room/Bed: Procedure: [id number] CT/CT BRAIN WO Exam Date: 12/17/19 Exam Time: 1529 REPORT STATUS: Signed EXAMINATION: Head CT HISTORY: Alteration of consciousness COMPARISON: Head CT 12/12/2019, 10/17/2019, 10/04/2019, 09/25/2019, 09/16/2019, 08/27/2019, brain MRI 10/06/2019. TECHNIQUE: Helical axial images of the head were obtained. Reformatted coronal and sagittal images from the axial data. Dose modulation, iterative reconstruction, and/or weight based adjustment of the mA/kV was utilized to reduce the radiation dose to as low as reasonably achievable. FINDINGS: Parenchyma: 1. Unchanged moderate confluent supratentorial white matter hypodensities, most likely nonspecific chronic microvascular ischemic changes.. 2. No mass or h emorrhage. No CT evidence of acute territorial vascular insult. Extra-axial spaces:No abnormal density. No extra-axial fluid collections Brain volume: Normal for age. Ventricles: Stable nonspecific ventriculomegaly which may correspond to ex vacuo compensatory dilatation, however mild degree of communicating normal pressure hydrocephalus cannot be excluded in the appropriate clinical setting. Arteries: No density suggestive of thrombus. Dural sinuses: No abnormal density. Foramen magnum: No mass, Chiari malformation, or basilar invagination. Sella: No obvious mass. Paranasal/mastoid sinuses: Imaged portions unremarkable. Skull/Scalp: No lytic or blastic lesions. No fractures. IMPRESSION: 1. No acute intracranial abnormalities. 2. Persistent mild ventriculomegaly. 3. Moderate chronic microvascular ischemic changes, stable compared to head CT of 12/12/2019, and 5 additional head CTs during the last 3 months Signed by: Dr. Michael Lang M.D. on 12/17/2019 4:02 PM Dictated By: MICHAEL LANG MD 01 Transcribed By: DAVON on 12/17/191601 COPY TO: BILLY WALDRON MD CT BRAIN WO 2019-12-12 11:11:00 [facility] : 1945 Sex: F [address] [address] Patient Name: LAURI ROBERSON MR #: [id number] : 1945 Age/Sex: 74/F Req #: [id number] Adm Physician: CHANA JONES MD Ordered by: CHANA JONES MD Report #: [id number] Location: MED/SURG Room/Bed: [facility] Procedure: [id number] CT/CT BRAIN WO Exam Date: 12/12/19 Exam Time: 1035 REPORT STATUS: Signed CT BRAIN WO HISTORY: Altered mental status COMPARISON: Head CT 10/17/2019 Technique: Noncontrast axial scans were obtained from skull base to the vertex. Coronal and sagittal reconstructions obtained from the axial data. One or more of the following dose reduction techniques were used: Automated exposure control, adjustment of the mA and/or kV according to patient size, and/or utilization of iterative reconstruction technique. DISCUSSION: Scalp/Skull: Unremarkable. Brain sulci: Mildly prominent. Ventricles: Compensatory dilatation. Extra- axial spaces: No masses or fluid collections. Carotid siphon calcifications are present. Parenchyma: Mild to moderate bilateral deep white matter hypodensity is likely chronic microvascular ischemic change. Otherwise, no masses, hemorrhage, or large vascular territory acute infarct. Dural sinuses: No abnormal densities. Sellar/Suprasellar region: Intact. Skull base: At least mild to moderate canal stenosis at C1 due to atlantoaxial joint pannus. Incidental findings: Bilateral ocular lens replacement. Partial right frontal sinus opacification. IMPRESSION: 1. No acute intracranial abnormalities. 2. Mild to moderate supratentorial chronic microvascular ischemic change. Mild generalized cerebral volume loss. Signed by: Dr. Olu Bolton M.D. on 12/12/2019 11:14 AM Dictated By: OLU BOLTON MD 13 Transcribed By: DAVON on 12/12/191113 COPY TO: CHANA JONES MD KNEE LEFT THREE VIEWS 2019-12-10 08:08:00 [facility] 1945 Sex: F [address] [address] Patient Name: LAURI ROBERSON MR #: [id number] : 1945 Age/Sex: 74/F Req #: [id number] Adm Physician: Ordered by: Ramy Deshpande MD Report #: [id number] Location: ER Room/Bed: Procedure: [id number] DX/KNEE LEFT THREE VIEWS Exam Date: 12/10/19 Exam Time: 07 REPORT STATUS: Signed X-ray pelvis 1 view and left hip 2 views X-ray left femur 2 views X-ray left knee 3 views HISTORY: Pain. COMPARISON: None available. FINDINGS: Bones: Acute comminuted minimally displaced intertrochanteric fracture. Joints: Advanced degenerative changes in the knee spine hips and pelvis. Soft tissues: Vascular calcifications. IMPRESSION: Acute comminuted minimally displaced intertrochanteric fracture. Advanced degenerative changes in the knee spine hips and pelvis. Signed by: Markos Arteaga DO on 12/10/2019 8:12 AM Dictated By: MARKOS ARTEAGA DO 1 Transcribed By: DAVON on 12/10/19811 COPY TO: RAMY DESHPANDE MD FEMUR 2 VIEWS MINIMUM LEFT 2019-12-10 08:08:00 [facility] : 1945 Sex: F [facility] [address] [address] Patient Name: LAURI ROBERSON MR #: [id number] : 1945 Age/Sex: 74/F Req #: [id number] Adm Physician: Ordered by: Ramy Deshpande MD Report #: [id number] Location: ER Room/Bed: Procedure: [id number] DX/FEMUR 2 VIEWS MINIMUM LEFT Exam Date: Exam Time: REPORT STATUS: Signed X-ray pelvis 1 view and left hip 2 views X- ray left femur 2 views X-ray left knee 3 views HISTORY: Pain. COMPARISON: None available. FINDINGS: Bones: Acute comminuted minimally displaced intertrochanteric fracture. Joints: Advanced degenerative changes in the knee spine hips and pelvis. Soft tissues: Vascular calcifications. IMPRESSION: Acute comminuted minimally displaced intertrochanteric fracture. Advanced degenerative changes in the knee spine hips and pelvis. Signed by: Markos Arteaga DO on 12/10/2019 8:12 AM Dictated By: MARKOS ARTEAGA DO 1 Transcribed By: DAVON on 12/10/19811 COPY TO: RAMY DESHPANDE MD HIP LEFT 2-3 VW (+/- PELVIS) 2019-12-10 08:08:00 [facility] : 1945 Sex: F [address] [address] Patient Name: LAURI ROBERSON MR #: [id number] : 1945 Age/Sex: 74/F Req #: [id number] [facility] Physician: Ordered by: Ramy Deshpande MD Report #: [id number] Location: ER Room/Bed: Procedure: [id number] DX/HIP LEFT 2-3 VW (+/- PELVIS) Exam Date: Exam Time: REPORT STATUS: Signed X-ray pelvis 1 view and left hip 2 views X-ray left femur 2 views X-ray left knee 3 views HISTORY: Pain. COMPARISON: None available. FINDINGS: Bones: Acute comminuted minimally displaced intertrochanteric fracture. Joints: Advanced degenerative changes in the knee spine hips and pelvis. Soft tissues: Vascular calcifications. IMPRESSION: Acute comminuted minimally displaced intertrochanteric fracture. Advanced degenerative changes in the knee spine hips and pelvis. Signed by: Markos Arteaga DO on 12/10/2019 8:12 AM Dictated By: MARKOS ARTEAGA DO 1 Transcribed By: DAVON on 12/10/19811 COPY TO: RAMY DESHPANDE MD Blood leukocytes automated count (number/volume) 2019-10-23 05:05:00 Test Item White Blood Count (test code = 6690-2) 3.69 4.8-10.8 [facility] automated count (number/volume)2019-10-23 05:05:00* Test Item Value Reference Range Interpretation Comments Red Blood Count (test code = 789-8) 3.34 3.6-5.1 [facility] CenterBlood hemoglobin measurement (moles/volume)2019-10-23 05:05:00* Test Item Value Reference Range Interpretation Comments Hemoglobin (test code = 91490-0) 10.8 12.0-16.0 [facility] CenterAutomated blood hematocrit (volume fraction)2019-10-23 05:05:00* Test Item Value Reference Range Interpretation Comments Hematocrit (test code = 4544-3) 33.1 34.2-44.1 [facility] CenterAutomated erythrocyte mean corpuscular geblsk0568-71-10 05:05:00* Test Item Value Reference Range Interpretation Comments Mean Corpuscular Volume (test code = 787-2) 99.1 81-99 [facility] CenterAutomated erythrocyte mean corpuscular hemoglobin (mass per erythrocyte)2019-10-23 05:05:00* Test Item Value Reference Range Interpretation Comments Mean Corpuscular Hemoglobin (test code = 785-6) 32.3 28-32 [facility] CenterAutomated erythrocyte mean corpuscular hemoglobin concentration measurement (mass/volume)2019-10-23 05:05:00* Test Item Value Reference Range Interpretation Comments Mean Corpuscular Hemoglobin Concent (test code = 786-4) 32.6 31-35 [facility] CenterRDW KdqMr-Dny9657-77-05 05:05:00* Test Item Value Reference Range Interpretation Comments Red Cell Distribution Width (test code = 70874-6) 14.2 11.7 -14.4 [facility] CenterAutomated blood platelet count (count/volume)2019-10-23 05:05:00* Test Item Value Reference Range Interpretation Comments Platelet Count (test code = 777-3) 201 140-360 [facility] CenterAutomated blood segmented neutrophil count as percentage of total mrzcmaehnl8237-78-73 05:05:00* Test Item Value Reference Range Interpretation Comments Neutrophils (%) (Auto) (test code = 59694-7) 55.0 38.7-80.0 [facility] CenterAutomated blood lymphocyte count as percentage ot total blcsyvvyey3368-92-74 05:05:00* Test Item Value Reference Range Interpretation Comments Lymphocytes (%) (Auto) (test code = 736-9) 22.2 18.0-39.1 [facility] CenterAutomated blood monocyte count as percentage of total vqqhrmriic6460-12-88 05:05:00* Test Item Value Reference Range Interpretation Comments Monocytes (%) (Auto) (test code = 5905-5) 11.1 4.4-11.3 [facility] CenterAutomated blood eosinophil count as percentage of total qqbmsymwqw5348-97-58 05:05:00* Test Item Value Reference Range Interpretation Comments Eosinophils (%) (Auto) (test code = 713-8) 3.3 0.0-6.0 [facility] CenterAutomated blood basophil count as percentage of total xjwjrjamxh5682-15-47 05:05:00* Test Item Value Reference Range Interpretation Comments Basophils (%) (Auto) (test code = 706-2) 1.9 0.0-1.0 [facility] CenterFluoroscopic procedure less than one hour xxxabhxs7514-86-28 05:05:00* Test Item Value Reference Range Interpretation Comments IM GRANULOCYTES % (test code = IM GRANULOCYTES %) 6.5 0.0- 1.0 [facility] CenterAutomated blood neutrophil count 2019-10-23 05:05:00* Test Item Value Reference Range Interpretation Comments Neutrophils # (Auto) (test code = 751-8) 2.0 2.1-6.9 [facility] CenterBlood lymphocytes count (number/volume) 2019-10-23 05:05:00* Test Item Value Reference Range Interpretation Comments Lymphocytes # (Auto) (test code = 86856-4) 0.8 1.0-3.2 [facility] CenterBlmay[facility] clinic hospital monocytes automated count (number/volume)2019-10-23 05:05:00* Test Item Value Reference Range Interpretation Comments Monocytes # (Auto) (test code = 742-7) 0.4 0.2-0.8 [facility] CenterAutomated blood eosinophil count 2019-10-23 05:05:00* Test Item Value Reference Range Interpretation Comments Eosinophils # (Auto) (test code = 711-2) 0.1 0.0-0.4 [facility] CenterAutomated blood basophil count (count/volume)2019-10-23 05:05:00* Test Item Value Reference Range Interpretation Comments Basophils # (Auto) (test code = 704-7) 0.1 0.0-0.1 [facility] CenterFluoroscopic procedure less than one hour uyseeorf4087-41-04 05:05:00* Test Item Value Reference Range Interpretation Comments Absolute Immature Granulocyte (auto (sarabjit t code = Absolute Immature Granulocyte (auto) 0.24 0-0.1 [facility] CenterFluoroscopic procedure less than one hour kqjnryaz9966-81-25 05:05:00* Test Item Value Reference Range Interpretation Comments Differential Total Cells Counted (test code = Differvalarie tial Total Cells Counted) 100 [facility] blood neutrophils/100 leukocytes 2019-10-23 05:05:00* Test Item Value Reference Range Interpretation Comments Neutrophils % (Manual) (test code = 34666-4) 65 40-74 [facility] blood lymphocytes/100 leukocytes 2019-10-23 05:05:00* Test Item Value Reference Range Interpretation Comments Lymphocytes % (Manual) (test code = 737-7) 25 19-48 [facility] CenterManual blood monocytes/100 leukocytes 2019-10-23 05:05:00* Test Item Value Reference Range Interpretation Comments Monocytes % (Manual) (test code = 744-3) 7 3.4-9.0 [facility] blood eosinophil count as percentage of total wjtywkdook2627-03-15 05:05:00* Test Item Value Reference Range Interpretation Comments Eosinophils % (Manual) (test code = 714-6) 2 0-7 [facility] CenterManual basophil hxtaczyxww9529-16-21 05:05:00* Test Item Value Reference Range Interpretation Comments Basophils % (Manual) (test code = 80948-3) 1 0-1.5 [facility] CenterBlood platelets count by estimate (number/volume)2019-10-23 05:05:00* Test Item Value Reference Range Interpretation Comments Platelet Estimate (test code = 52824-4) ADEQUATE [facility] CenterPlatelet mmgilayiby3327-55-73 05:05:00* Test Item Value Reference Range Interpretation Comments Platelet Morphology Comment (test code = 77812-4) NORMAL [facility] CenterBlmayo clinic hospital anisocytosis detection by light egmwjwijgo5864-83-48 05:05:00* Test Item Value Reference Range Interpretation Comments Anisocytosis (test code = 702-1) SLIGHT [facility] macrocytes detection by light xziapbjxvg7641-98-26 05:05:00* Test Item Value Reference Range Interpretation Comments Macrocytosis (test code = 738-5) SLIGHT [facility] CenterRBC jmqmkiqrdt9785-82-42 05:05:00* Test Item Value Reference Range Interpretation Comments Red Cell Morphology Comment (test code = 6742-1) ABNORMAL [facility] sodium measurement (moles/volume)2019-10-23 05:05:00* Test Item Value Reference Range Interpretation Comments Sodium Level (test code = 2951-2) 140 136-145 [facility] Centererum or plasma potassium measurement (moles/volume)2019-10-23 05:05:00* Test Item Value Reference Range Interpretation Comments Potassium Level (test code = 2823-3) 3.3 3.5-5.1 [facility] Centererum or plasma chloride measurement (moles/volume)2019-10-23 05:05:00* Test Item Value Reference Range Interpretation Comments Chloride Level (test code = 2075-0) 105 98-107 [facility] Centererum or plasma carbon dioxide, total measurement (moles/volume)2019-10-23 05:05:00* Test Item Value Reference Range Interpretation Comments Carbon Dioxide Level (test code = 2028-9) 24 22-29 [facility] Centererum or plasma anion pta4352-08-86 05:05:00* Test Item Value Reference Range Interpretation Comments Anion Gap (test code = 02069-1) 14.3 8-16 [facility] Centererum or plasma urea nitrogen measurement (mass/volume)2019-10-23 05:05:00* Test Item Value Reference Range Interpretation Comments Blood Urea Nitrogen (test code = 3094-0) < 5 7-26 [facility] Centererum or plasma creatinine measurement (mass/volume)2019-10-23 05:05:00* Test Item Value Reference Range Interpretation Comments Creatinine (test code = 2160-0) 0.57 0.57-1.11 [facility] Centererum or plasma urea nitrogen/creatinine mass wulgo3335-20-11 05:05:00* Test Item Value Reference Range Interpretation Comments BUN/Creatinine Ratio (test code = 3097-3) 9 6-25 [facility] CenterEstimated glomerular filtration rate (GFR) cwvvpvscxcvan9434-60-36 05:05:00* Test Item Value Reference Range Interpretation Comments Estimat Glomerular Filtration Rate (test code = 024990764) > 60 >60 Ranges were taken from the National Kidney Disease Education Program and the [facility] [employer] literature.Reference ranges:60 or greater: Jwaifb99-25 ( for 3 consecutive months): Chronic kidney disease 15 or less: Kidney failureNacogdoches Medical CenterGlucose eaeqnhmrixh5120-06-30 05:05:00* Test Item Value Reference Range Interpretation Comments Glucose Level (test code = MKA0190) 121 74-118 [facility] Centererum or plasma calcium measurement (mass/volume)2019-10-23 05:05:00* Test Item Value Reference Range Interpretation Comments Calcium Level (test code = 91268-8) 8.1 8.4-10.2 [facility] Centererum or plasma total bilirubin measurement (mass/volume)2019-10-23 05:05:00* Test Item Value Reference Range Interpretation Comments Total Bilirubin (test code = 1975-2) 0.2 0.2-1.2 [facility] CenterFluoroscopic procedure less than one hour uiwosavj7859-94-04 05:05:00* Test Item Value Reference Range Interpretation Comments Aspartate Amino Transf (AST/SGOT) (test code = Aspartate Amino Transf (AST/SGOT)) 11 5-34 [facility] Centererum or plasma alanine aminotransferase measurement (enzymatic activity/volume)2019-10-23 05:05:00* Test Item Value Reference Range Interpretation Comments Alanine Aminotransferase (ALT/SGPT) (test code = 1742-6) 9 0-55 [facility] Centererum or plasma protein measurement (mass/volume)2019-10-23 05:05:00* Test Item Value Reference Range Interpretation Comments Total Protein (test code = 2885-2) 4.6 6.5-8.1 [facility] Centererum or plasma albumin measurement (mass/volume)2019-10-23 05:05:00* Test Item Value Reference Range Interpretation Comments Albumin (test code = 1751-7) 3.0 3.5-5.0 [facility] CenterPlasma globulin measurement (mass/volume) 2019-10-23 05:05:00* Test Item Value Reference Range Interpretation Comments Globulin (test code = 35633-2) 1.6 2.3-3.5 [facility] Centererum or plasma albumin/globulin mass kwnfh3700-68-99 05:05:00* Test Item Value Reference Range Interpretation Comments Albumin/Globulin Ratio (test code = 1759-0) 1.9 0.8-2.0 [facility] Centererum or plasma alkaline phosphatase measurement (enzymatic activity/volume)2019-10-23 05:05:00* Test Item Value Reference Range Interpretation Comments Alkaline Phosphatase (test code = 6768-6) 75 40-150 [facility] Centererum or plasma magnesium measurement (mass/volume)2019-10-22 04:35:00* Test Item Value Reference Range Interpretation Comments Magnesium Level (test code = 41819-1) 1.5 1.3-2.1 [facility] Centertool lactoferrin lvlsrjabb1335-16-05 10:40:00* Test Item Value Reference Range Interpretation Comments Stool Lactoferrin (LAB) (test code = 43036-2) POSITIVE NEGATIVE Testing on stool aspirate specimens is outside rn examiner claims since specime n type not validated on this assay.[facility] Centertool gastrointestinal hemoglobin gbzzfnuqz1406-31-59 10:40:00* Test Item Value Reference Range Interpretation Comments Stool Occult Blood (test code = 2335-8) POSITIVE NEGATIVE [facility] CenterAutomated reticulocyte count as percentage of total hxxugpiepqda2570-55-84 04:25:00* Test Item Value Reference Range Interpretation Comments Percent Reticulocyte Count (test code = 79443-7) 1.8 0.8-2 .2 [facility] Centererum or plasma iron measurement (mass/volume)2019-10-21 04:25:00* Test Item Value Reference Range Interpretation Comments Iron Level (test code = 2498-4) 48 50-170 [facility] Centererum or plasma iron binding capacity measurement (mass/volume)2019-10-21 04:25:00* Test Item Value Reference Range Interpretation Comments Total Iron Binding Capacity (test code = 2500-7) 148 261-4 78 [facility] Centererum or plasma iron saturation measurement (mass fraction)2019-10-21 04:25:00* Test Item Value Reference Range Interpretation Comments Percent Iron Saturation (test code = 2502-3) 32 15-50 [facility] Centererum or plasma transferrin measurement (mass/volume)2019-10-21 04:25:00* Test Item Value Reference Range Interpretation Comments Transferrin (test code = 3034-6) 106 180-382 [facility] Centererum or plasma ferritin measurement (mass/volume)2019-10-21 04:25:00* Test Item Value Reference Range Interpretation Comments Ferritin (test code = 2276-4) 697.25 4.63-204.00 [facility] CenterBlood cobalamin (vitamin B12) measurement (mass/volume)2019-10-21 04:25:00* Test Item Value Reference Range Interpretation Comments Vitamin B12 Level (test code = 49816-5) 566 213816 [facility] Centererum or plasma folate measurement (mass/volume)2019-10-21 04:25:00* Test Item Value Reference Range Interpretation Comments Folate (test code = 2284-8) 11.6 >3.0 A serum folate concentration of less than 3.1 ng/mL isconsidered to represent cl inical deficiency.Performed at: [facility] [address] [id number] Director: Young Thibodeaux MD, Phone: [phone] Medical CenterAmmonia Lvi-zArt1291-28-31 12:05:00* Test Item Value Reference Range Interpretation Comments Ammonia (test code = 16691-1) 38 31-123 [facility] Centererum or plasma creatine kinase measurement (enzymatic activity/volume)2019-10-18 12:05:00* Test Item Value Reference Range Interpretation Comments Creatine Kinase (test code = 2157-6) 44 29-168 [facility] Centererum or plasma creatine kinase MB measurement (mass/volume)2019-10-18 12:05:00* Test Item Value Reference Range Interpretation Comments Creatine Kinase MB (test code = 38044-3) 1.90 0-5.0 [facility] CenterTroponin I measurement by highly sensitive enzyme ctydzffvvyr6997-02-75 12:05:00* Test Item Value Reference Range Interpretation Comments Troponin I (test code = 64925-6) 0.019 0-0.300 [facility] Centererum or plasma prolactin measurement (mass/volume)2019-10-18 12:05:00* Test Item Value Reference Range Interpretation Comments Prolactin (test code = 2842-3) 9.1 4.8-23.3 Performed at: [facility] [id number] [place], [place] [id number] Director: Young Thibodeaux MD, Phone: [phone] HospitalP Wmp-yMmt6861-23-31 05:25:00* Test Item Value Reference Range Interpretation Comments B-Type Natriuretic Peptide (test code = 74420-7) 22.4 0-100 [facility] CenterFluoroscopic procedure less than one hour vvzfpfqw0485-70-19 01:40:00* Test Item Value Reference Range Interpretation Comments Lactic Acid Level (test code = Lactic Acid Level) 1.2 0.5- 2.0 [facility] CenterFluoroscopic procedure less than one hour ezrjorbe3032-60-34 22:56:00* Test Item Value Reference Range Interpretation Comments Coronavirus (PCR) (test code = Coronavirus (PCR)) NOT DETECTED NOTD ETECTED [employer] SARS-CoV-2 assay is a nucleic amplification test intended for the qualitative detection of RNA from SARS-CoV-2 from nasopharyngeal (TELEVISION SCHEDULE COORDINATOR) specimens. It is used under Emergency Use Authorization (EUA) by FDA.A positive result is indicative of the presence of SARS-CoV-2 RNA. Clinical correlation with patient history and other diagnostic information is necessary to determine patient infe ction status.A negative (Not Detected) result does not preclude SARS-CoV-2 infec tion. Clinical Correlation with patient history and other diagnostic information should be used in patient management decisions.Invalid: Unable to generate a va lid result on this specimen. Please submit a new specimen for reprat testing oc clinically indicated.Tesing performed by:[facility] [address] [place] [address] [id number], Erich Ozuna MD, PhD [facility]Blood eexawkp7491-50-89 17:15:00* Test Item Value Reference Range Interpretation Comments Blood Culture (test code = 71978025) NO GROWTH AFTER 5 DAYS, FINAL REPORT [facility] CenterCT BRAIN [id number] 17:03:00 [place] [address] Patient Name: LAURI ROBERSON MR #: [id number] : 1945 Age/Sex: 74/F Req #: [id number] [facility] Physician: Ordered by: TOD DYE DO Report #: [id number] Location: ER Room/Bed: Procedure: [id number] CT/CT BRAIN WO Exam Date: 10/17/19 Exam Time: 1540 REPORT STATUS: Signed Examination: CT head with out contrast Clinical Indication: Altered mental status. Technique: Transaxi al noncontrast images from the skull base through the vertex were obtained. Sa gittal and coronal reformatted images were done. Dose modulation, iterative re construction, and/or weight based adjustment of the mA/kV was utilized to redu ce the radiation dose to as low as reasonably achievable. Comparison: Head CT dated 10/04/2019. Brain MRI dated 10/06/2019. Findings: Scalp: No abn ormalities. Bones: Intact. No fractures. No blastic or lytic lesions. B rain sulci: Mild volume loss for patient's age. Ventricles: No hydrocephalus. Extra-axial space: No abnormalities. Parenchyma: There are mild confluent areas of low-attenuation within subcortical and periventricular whit e matter, nonspecific, but could represent microvascular ischemic disease. N o masses, hemorrhage, or acute or chronic cortical based vascular insults. Suprasellar region: No abnormalities. Craniocervical junction: The foramen mag num is patent. No Chiari one malformation. Impression: 1. No acute intracranial finding. No change from prior head CT dated 10/04/2019. 2. Unchanged generalized volume loss and chronic microvascular ischemic change. Signed by: Dr. Damaris Becerra M.D. on 10/17/2019 5:08 PM Dictated B y: DAMARIS RODRIGUEZ MD 07 Transcribed By: DVAON on 10/17/191707 COPY TO: TOD DYE DO Serum or plasma lipase measurement (enzymatic activity/volume)2019-10-17 17:00:00* Test Item Value Reference Range Interpretation Comments Lipase (test code = 3040-3) 7 8-78 [facility] SINGLE (PORTABLE)2019-10-17 16:15:00 [facility] [address] [place] [address] Patient Name: LAURI ROBERSON MR #: [id number] : 1945 Age/Sex: 74/F Req #: [id number] Adm Physician: Ordered by: TOD DYE DO Report #: [id number] Location: ER Room/Bed: Procedure: [id number] DX/CHEST SINGL E (PORTABLE) Exam Date: 10/17/19 Exam Time: 1550 REPORT STATUS: Signed EXAMINATION: CHEST SINGLE (PORTABLE) INDICATION: Altered mental status. COMPAR GODFREY: None FINDINGS: TUBES and LINES: None. LUNGS: No rmal lung volumes. Lungs are clear. No consolidations. PLEURA: No pleura l effusion or pneumothorax. Obliquely oriented density overlying the right mid lung may represent small amount of fluid or scarring in the minor fissure. HEART AND MEDIASTINUM: The cardiomediastinal silhouette is unremarkable. BONES AND SOFT TISSUES: No acute osseous lesion. Soft tissues are unrem arkable. UPPER ABDOMEN: No free air under the diaphragm. IMPRESSIO N: 1. No acute thoracic radiographic abnormality. 2. Obliquely oriente d density overlying the right midlung may represent small amount of fluid or s carring in the minor fissure. Signed by: Irwin Cagle MD on 10/17/2019 4 :17 PM Dictated By: IRWIN CAGLE MD 16 Transcribed By: DAVON on 10/17/191616 COPY TO: TOD DYE DO Urine color lmspgbzaadjus7044-05-26 15:35:00* Test Item Value Reference Range Interpretation Comments Urine Color (test code = 5778-6) YELLOW YELLOW [facility] CenterUrine rprenhr3081-45-55 15:35:00* Test Item Value Reference Range Interpretation Comments Urine Clarity (test code = 98873-7) SL CLOUDY CLEAR [facility] Centerpecific gravity of Urine by Test strip 2019-10-17 15:35:00* Test Item Value Reference Range Interpretation Comments Urine Specific Poston (test code = 5811-5) >=1.030 1.010-1.02 5 [facility] CenterUrine pH measurement by automated test xpjfx6757-96-10 15:35:00* Test Item Value Reference Range Interpretation Comments Urine pH (test code = 37401-3) 5 5-7 [facility] CenterUrine leukocyte esterase detection by qrdpbtiv5564-93-21 15:35:00* Test Item Value Reference Range Interpretation Comments Urine Leukocyte Esterase (test code = 5799-2) NEGATIVE NEGATIVE [facility] CenterUrine nitrite vcxtffqik5632-25-50 15:35:00* Test Item Value Reference Range Interpretation Comments Urine Nitrite (test code = 57773-1) NEGATIVE NEGATIVE [facility] CenterUrine protein measurement by test strip (mass/volume)2019-10-17 15:35:00* Test Item Value Reference Range Interpretation Comments Urine Protein (test code = 5804-0) NEGATIVE NEGATIVE [facility] CenterUrine glucose azjqyrltz4929-02-03 15:35:00* Test Item Value Reference Range Interpretation Comments Urine Glucose (UA) (test code = 2349-9) 2+ NEGATIVE [facility] CenterUrine ketones detection by automated test dmizh9398-38-20 15:35:00* Test Item Value Reference Range Interpretation Comments Urine Ketones (test code = 18710-8) NEGATIVE NEGATIVE [facility] CenterUrine opiates screening ggbk8738-55-20 15:35:00* Test Item Value Reference Range Interpretation Comments Urine Opiates Screen (test code = 74998-0) NEGATIVE NEGATIVE ALL TESTS PERFORMED MANUALLY ON Yuyuto TOX/SEE TESTNacogdoches Medical CenterBarbiturates screen, uyeve9955-51-65 15:35:00* Test Item Value Reference Range Interpretation Comments Urine Barbiturates Screen (test code = 261970898) NEGATIVE NEGA TIVE [facility] CenterUrine phencyclidine detection by screening gmrgsm1959-48-67 15:35:00* Test Item Value Reference Range Interpretation Comments Urine Phencyclidine Screen (test code = 80608-7) NEGATIVE NEGAT MACK [facility] CenterUrine amphetamines detection by screen method > 1000 ng/yS4089-89-43 15:35:00* Test Item Value Reference Range Interpretation Comments Urine Amphetamines Screen (test code = 69141-7) NEGATIVE NEGATI VE [facility] CenterFluoroscopic procedure less than one hour hjruxsll3644-51-08 15:35:00* Test Item Value Reference Range Interpretation Comments Urine Methamphetamines Screen (test code = Urine Metha mphetamines Screen) NEGATIVE NEGATIVE [facility] CenterUrine benzodiazepines detection by screening hofmok0615-49-38 15:35:00* Test Item Value Reference Range Interpretation Comments Urine Benzodiazepines Screen (test code = 85858-7) NEGATIVE NEG ATIVE [facility] CenterUrine cocaine measurement (mass/volume) 2019-10-17 15:35:00* Test Item Value Reference Range Interpretation Comments Urine Cocaine Screen (test code = 3398-5) NEGATIVE NEGATIVE [facility] CenterUrine cannabinoids detection by screening zaomhc6455-37-45 15:35:00* Test Item Value Reference Range Interpretation Comments Urine Cannabinoids Screen (test code = 58691-8) NEGATIVE NEGATI VE THESE RESULTS ARE FOR MEDICAL TREATMENT ONLYTHIS REPORT CONTAINS UNCONFIR MED SCREENING RESULTS*POSITIVE RESULTS WILL BE CONFIRMED BY REFERENCE LAB UPON R EQUEST CUT-OFFDRUG CLASS CONCENTRATION ng/mLAmphetamines 1000Methamphetamines 1000Cocaine 300Opiate 300Phencyc lidine 25Cannabinoid 50Barbiturates 300Benzodiazepine 300Methadone 300[facility] CampusU[facility] methadone sgzvmo3649-52-38 15:35:00* Test Item Value Reference Range Interpretation Comments Urine Methadone Screen (test code = 72366-0) NEGATIVE NEGATIVE THESE RESULTS ARE FOR MEDICAL TREATMENT ONLYTHIS REPORT CONTAINS UNCONFIR MED SCREENING RESULTS*POSITIVE RESULTS WILL BE CONFIRMED BY REFERENCE LAB UPON R EQUEST CUT-OFFDRUG CLASS CONCENTRATION ng/mLAmphetamines 1000Methamphetamines 1000Cocaine Metabolite 300Opiate 300Phencyc lidine 25Cannabinoid 50Barbiturates 300Benzodiazepine 300Methadone 300[facility] CenterUrine urobilinogen measurement by test strip (mass/volume)2019-10-17 15:35:00* Test Item Value Reference Range Interpretation Comments Urine Urobilinogen (test code = 60852-0) 0.2 0.2-1 [facility] CenterUrine total bilirubin measurement (mass/volume)2019-10-17 15:35:00* Test Item Value Reference Range Interpretation Comments Urine Bilirubin (test code = 1978-6) SMALL NEGATIVE [facility] CenterUrine erythrocytes onkerusdc7680-36-29 15:35:00* Test Item Value Reference Range Interpretation Comments Urine Blood (test code = 51769-0) NEGATIVE NEGATIVE [facility] CenterAutomated urine sediment leukocyte count by microscopy (number/high power field)2019-10-17 15:35:00* Test Item Value Reference Range Interpretation Comments Urine WBC (test code = 5821-4) 0-5 0-5 [facility] CenterErythrocytes detection in urine sediment by light ncdjnxgaet4715-58-09 15:35:00* Test Item Value Reference Range Interpretation Comments Urine RBC (test code = 56920-6) 0-5 0-5 [facility] CenterBacteria detection in urine sediment by light tfbzhsvabx0906-86-00 15:35:00* Test Item Value Reference Range Interpretation Comments Urine Bacteria (test code = 34119-0) RARE NONE [facility] CenterEpithelial cells detection in urine sediment by light emgfvfmbfb3428-80-15 15:35:00* Test Item Value Reference Range Interpretation Comments Urine Epithelial Cells (test code = 79254-3) FEW NONE [facility] CampusCapillary blood glucose measurement by glucometer (mass/volume)2019-10-15 15:13:00* Test Item Value Reference Range Interpretation Comments Bedside Glucose (test code = 43834-4) 120 70-120 Meter ID: [id number] [facility] CampusCapillary blood glucose measurement by glucometer (mass/volume)2019-10-14 21:05:00* Test Item Value Reference Range Interpretation Comments Bedside Glucose (test code = 10232-5) 172 70-120 Meter ID: [id number] [facility] CampusMODIFIED BA. SWALLOW 2019-10-14 11:59:00 [facility] [address] [place] [address] Patient Name: LAURI ROBERSON MR #: [id number] : 1945 Age/Sex: 74/F Req #: [id number] Adm Physician: CHANA JONES MD Ordered by: CHANA JONES MD Report #: [id number] Location: MED/SURG Room/Bed: [facility] Procedure: [id number] DX/MODIFIED BA. SW ALLOW Exam Date: 10/08/19 Exam Time: 1500 REPORT STATUS: Signed PROCEDURE: X-RAY MOD IFIED BARIUM SWALLOW COMPARISON: None. INDICATION: Aspiration Ra diation Details: Fluoroscopy time: 1.9 minutes Cumulative dose: 8.7 mGy DISCUSSION: Fluoroscopic examination was performed in conjunction with speech pathology during swallowing a variety of thin and thick liquid consistencies. Provided images demonstrate minimal laryngeal penetration and no aspiration. CONCLUSION: Modified barium swallow demonstrating minimal laryngeal penet ration and no aspiration. Please refer to the speech pathology report for furt her details. Signed by: Max Franks MD on 10/14/2019 12:00 PM Dictate d By: MAX FRANKS MD 1200 T ranscribed By: DAVON on 10/14/19 1200 COPY TO: CHANA JONES MD Serum or plasma sodium measurement (moles/volume)2019-10-13 12:25:00* Test Item Value Reference Range Interpretation Comments Sodium Level (test code = 2951-2) 142 136-145 [facility] Centererum or plasma potassium measurement (moles/volume)2019-10-13 12:25:00* Test Item Value Reference Range Interpretation Comments Potassium Level (test code = 2823-3) 4.1 3.5-5.1 [facility] Centererum or plasma chloride measurement (moles/volume)2019-10-13 12:25:00* Test Item Value Reference Range Interpretation Comments Chloride Level (test code = 2075-0) 104 98-107 [facility] Centererum or plasma carbon dioxide, total measurement (moles/volume)2019-10-13 12:25:00* Test Item Value Reference Range Interpretation Comments Carbon Dioxide Level (test code = 2028-9) 25 22-29 [facility] Centererum or plasma anion ezc7590-45-68 12:25:00* Test Item Value Reference Range Interpretation Comments Anion Gap (test code = 52813-4) 17.1 8-16 [facility] Centererum or plasma urea nitrogen measurement (mass/volume)2019-10-13 12:25:00* Test Item Value Reference Range Interpretation Comments Blood Urea Nitrogen (test code = 3094-0) 5 7-26 [facility] Centererum or plasma creatinine measurement (mass/volume)2019-10-13 12:25:00* Test Item Value Reference Range Interpretation Comments Creatinine (test code = 2160-0) 0.71 0.57-1.11 [facility] Centererum or plasma urea nitrogen/creatinine mass tmgko0025-75-44 12:25:00* Test Item Value Reference Range Interpretation Comments BUN/Creatinine Ratio (test code = 3097-3) 7 6-25 [facility] CenterEstimated glomerular filtration rate (GFR) uvdihnlqbhmjo3736-16-76 12:25:00* Test Item Value Reference Range Interpretation Comments Estimat Glomerular Filtration Rate (test code = 515111384) > 60 >60 Ranges were taken from the National Kidney Disease Education Program and the [facility] [employer] literature.Reference ranges:60 or greater: Nonlto26-40 ( for 3 consecutive months): Chronic kidney disease 15 or less: Kidney failureNacogdoches Medical CenterGlucose qasearnjzlx0851-05-23 12:25:00* Test Item Value Reference Range Interpretation Comments Glucose Level (test code = ZST9720) 139 74-118 [facility] Centererum or plasma calcium measurement (mass/volume)2019-10-13 12:25:00* Test Item Value Reference Range Interpretation Comments Calcium Level (test code = 57967-4) 8.6 8.4-10.2 [facility] CenterBlood leukocytes automated count (number/volume)2019-10-12 05:43:00* Test Item Value Reference Range Interpretation Comments White Blood Count (test code = 6690-2) 5.90 4.8-10.8 [facility] CenterBlood erythrocytes automated count (number/volume)2019-10-12 05:43:00* Test Item Value Reference Range Interpretation Comments Red Blood Count (test code = 789-8) 3.63 3.6-5.1 [facility] CenterBlood hemoglobin measurement (moles/volume)2019-10-12 05:43:00* Test Item Value Reference Range Interpretation Comments Hemoglobin (test code = 83320-6) 11.2 12.0-16.0 [facility] CenterAutomated blood hematocrit (volume fraction)2019-10-12 05:43:00* Test Item Value Reference Range Interpretation Comments Hematocrit (test code = 4544-3) 35.9 34.2-44.1 [facility] CenterAutomated erythrocyte mean corpuscular aradii3542-16-93 05:43:00* Test Item Value Reference Range Interpretation Comments Mean Corpuscular Volume (test code = 787-2) 98.9 81-99 [facility] CenterAutomated erythrocyte mean corpuscular hemoglobin (mass per erythrocyte)2019-10-12 05:43:00* Test Item Value Reference Range Interpretation Comments Mean Corpuscular Hemoglobin (test code = 785-6) 30.9 28-32 [facility] CenterAutomated erythrocyte mean corpuscular hemoglobin concentration measurement (mass/volume)2019-10-12 05:43:00* Test Item Value Reference Range Interpretation Comments Mean Corpuscular Hemoglobin Concent (test code = 786-4) 31.2 31-35 [facility] CenterRDW PwcPg-Qpc4769-87-25 05:43:00* Test Item Value Reference Range Interpretation Comments Red Cell Distribution Width (test code = 82114-1) 14.7 11.7 -14.4 [facility] CenterAutomated blood platelet count (count/volume)2019-10-12 05:43:00* Test Item Value Reference Range Interpretation Comments Platelet Count (test code = 777-3) 213 140-360 [facility] CenterAutomated blood segmented neutrophil count as percentage of total jwjqrsbmin6888-96-11 05:43:00* Test Item Value Reference Range Interpretation Comments Neutrophils (%) (Auto) (test code = 48875-8) 60.7 38.7-80.0 [facility] CenterAutomated blood lymphocyte count as percentage ot total mqoutigdbc7546-20-00 05:43:00* Test Item Value Reference Range Interpretation Comments Lymphocytes (%) (Auto) (test code = 736-9) 19.0 18.0-39.1 [facility] CenterAutomated blood monocyte count as percentage of total cnqbmwxuhy7589-56-82 05:43:00* Test Item Value Reference Range Interpretation Comments Monocytes (%) (Auto) (test code = 5905-5) 13.7 4.4-11.3 [facility] CenterAutomated blood eosinophil count as percentage of total fzrdafuqlw7227-05-29 05:43:00* Test Item Value Reference Range Interpretation Comments Eosinophils (%) (Auto) (test code = 713-8) 4.2 0.0-6.0 [facility] CenterAutomated blood basophil count as percentage of total qfogkqpogz4073-23-45 05:43:00* Test Item Value Reference Range Interpretation Comments Basophils (%) (Auto) (test code = 706-2) 1.0 0.0-1.0 [facility] CenterFluoroscopic procedure less than one hour oguwbzoe0714-82-15 05:43:00* Test Item Value Reference Range Interpretation Comments IM GRANULOCYTES % (test code = IM GRANULOCYTES %) 1.4 0.0- 1.0 [facility] CenterAutomated blood neutrophil count 2019-10-12 05:43:00* Test Item Value Reference Range Interpretation Comments Neutrophils # (Auto) (test code = 751-8) 3.6 2.1-6.9 [facility] CenterBlmay[facility] hospital lymphocytes count (number/volume) 2019-10-12 05:43:00* Test Item Value Reference Range Interpretation Comments Lymphocytes # (Auto) (test code = 24613-7) 1.1 1.0-3.2 [facility] CenterBlmay[facility] clinic hospital monocytes automated count (number/volume)2019-10-12 05:43:00* Test Item Value Reference Range Interpretation Comments Monocytes # (Auto) (test code = 742-7) 0.8 0.2-0.8 [facility] CenterAutomated blood eosinophil count 2019-10-12 05:43:00* Test Item Value Reference Range Interpretation Comments Eosinophils # (Auto) (test code = 711-2) 0.3 0.0-0.4 [facility] CenterAutomated blood basophil count (count/volume)2019-10-12 05:43:00* Test Item Value Reference Range Interpretation Comments Basophils # (Auto) (test code = 704-7) 0.1 0.0-0.1 [facility] CenterFluoroscopic procedure less than one hour drhvyzvr3189-24-16 05:43:00* Test Item Value Reference Range Interpretation Comments Absolute Immature Granulocyte (auto (sarabjit t code = Absolute Immature Granulocyte (auto) 0.08 0-0.1 [facility] Centererum or plasma magnesium measurement (mass/volume)2019-10-12 05:43:00* Test Item Value Reference Range Interpretation Comments Magnesium Level (test code = 00331-3) 1.3 1.3-2.1 [facility] Centererum or plasma total bilirubin measurement (mass/volume)2019-10-12 05:43:00* Test Item Value Reference Range Interpretation Comments Total Bilirubin (test code = 1975-2) 0.4 0.2-1.2 [facility] CenterFluoroscopic procedure less than one hour ilufficm4061-65-71 05:43:00* Test Item Value Reference Range Interpretation Comments Aspartate Amino Transf (AST/SGOT) (test code = Aspartate Amino Transf (AST/SGOT)) 12 5-34 [facility] Centererum or plasma alanine aminotransferase measurement (enzymatic activity/volume)2019-10-12 05:43:00* Test Item Value Reference Range Interpretation Comments Alanine Aminotransferase (ALT/SGPT) (test code = 1742-6) 12 0-55 [facility] Centererum or plasma protein measurement (mass/volume)2019-10-12 05:43:00* Test Item Value Reference Range Interpretation Comments Total Protein (test code = 2885-2) 5.1 6.5-8.1 [facility] Centererum or plasma albumin measurement (mass/volume)2019-10-12 05:43:00* Test Item Value Reference Range Interpretation Comments Albumin (test code = 1751-7) 2.8 3.5-5.0 [facility] CenterPlasma globulin measurement (mass/volume) 2019-10-12 05:43:00* Test Item Value Reference Range Interpretation Comments Globulin (test code = 02126-0) 2.3 2.3-3.5 [facility] Centererum or plasma albumin/globulin mass esuiy9112-02-94 05:43:00* Test Item Value Reference Range Interpretation Comments Albumin/Globulin Ratio (test code = 1759-0) 1.2 0.8-2.0 [facility] Centererum or plasma alkaline phosphatase measurement (enzymatic activity/volume)2019-10-12 05:43:00* Test Item Value Reference Range Interpretation Comments Alkaline Phosphatase (test code = 6768-6) 82 40-150 [facility] CampusMRI [facility]RA[facility] II5146-20-18 07:10:00 [facility] [address] [address] Patient Name: LAURI ROBERSON MR #: [id number] : 1945 Age/Sex: 74/F Req #: [id number] Adm Physician: CHANA JONES MD Ordered by: MENEA FERRER MD Report #: [id number] Location: [facility] Room/Bed: [place] [address] Procedure: [id number] MRI/MRI BRAIN WO Exam Date: Exam Time: REPORT STATUS: Signed EXAMINATION: MRI of the brain without contrast. HISTORY: Altered mental status, dehydration, fever COMPARISON: None. TECHNIQUE: Sagittal T2; axial DWI, T2, FLAIR, T1-IR, T2 gradient echo; c oronal FLAIR. Image quality: Artifact from patient's motion limits the evaluat ion of most of the sequences. FINDINGS: Parenchyma: 1. Scatter and mildly confluent periventricular white matter T2 and FLAIR hyperintense f oci, most likely nonspecific chronic microvascular ischemic changes. 2. No mass, hemorrhage, acute or chronic infarcts. Skull: Unremarkable. Vessels: Expected flow voids present in the major arteries and dural sinuses. Extra-axial spaces: No abnormal signal intensity or mass effect. Brain volume: Within normal limits for age. Ventricles: No hydr ocephalus or displacement. Foramen magnum: Unremarkable. Sella: Unremarkable. Paranasal / mastoid sinuses: No significant inflammatory disease. IMPRESSION: 1. Suboptimal study due to motion artifact. Sheron sly no acute intracranial hemorrhage, infarct, midline shift or herniation. 2. Moderate chronic microvascular ischemic changes, stable compared to head CT of 10/04/2019. Signed by: Dr. Michael Lang M.D. on 10/07/2019 7:13 AM Dictated By: MICHAEL LANG MD 2 COPY TO: RA MANI FERRER MD Serum or plasma amylase measurement (enzymatic activity/volume) 2019-10-07 05:25:00* Test Item Value Reference Range Interpretation Comments Amylase Level (test code = 1798-8) [facility]ererum or plasma lipase measurement (enzymatic activity/volume)2019-10-07 05:25:00* Test Item Value Reference Range Interpretation Comments Lipase (test code = 3040-3) [facility] Centererum or plasma amylase measurement (enzymatic activity/volume)2019-10-07 05:25:00* Test Item Value Reference Range Interpretation Comments Amylase Level (test code = 1798-8) [facility] Centererum West Nile virus IgG antibody detection by vsbkumdilmy3327-73-67 16:50:00* Test Item Value Reference Range Interpretation Comments West Nile Virus IgG Antibody (test code = 82750-2) Negative Neg ative No detectable West Nile Virus IgG Antibody. If a recentinfection is suspected, a nother specimen should besubmitted for testing within 7-14 days.[facility] Centererum West Nile virus IgM antibody detection by vcnzjkelzbr1297-16-93 16:50:00* Test Item Value Reference Range Interpretation Comments West Nile Virus IgM Antibody (test code = 83171-7) Negative Neg ative No detectable West Nile Virus IgM Antibody. If a recentinfection is suspected, a nother specimen should besubmitted for testing within 7-14 days.Performed at: [address] [id number] Director: Sa santi Gonzalez MD, Phone: [phone] Houston Healthcare Medical Centererum Blastomyces dermatitidis antibody wpdow7548-19-41 16:50:00* Test Item Value Reference Range Interpretation Comments Blastomyces Antibody (test code = 90683-4) Negative Neg:<1:1 [facility] Centererum Histoplasma capsulatum antibody titer by umjgbezcfvlzzdf3637-86-35 16:50:00* Test Item Value Reference Range Interpretation Comments Histoplasma Antibody (test code = 37479-9) Negative Neg:<1:1 Performed at: BN - [facility] [address] [id number] Ski Guide: Ervin Gonzalez MD, Phone: [phone] [facility] Centererum Aspergillus fumigatus antibody detection by immunodiffusion 2019-10-06 16:50:00* Test Item Value Reference Range Interpretation Comments Aspergillus fumigatus Antibody (test code = 50913-4) Negative N eg:<1:1 [facility] Aspergillus flavus antibody detection by llniebgwavdpxuj9066-29-89 16:50:00* Test Item Value Reference Range Interpretation Comments Aspergillus flavus Antibody (test code = 50914-0) Negative Neg: <1:1 [facility] Aspergillus niger antibody ptjaeujxb9797-72-08 16:50:00* Test Item Value Reference Range Interpretation Comments Aspergillus niger Antibody (test code = 30287-5) Negative Neg:< 1:1 [facility] West Nile virus IgG antibody detection by xskninjdjhf5890-28-12 16:50:00* Test Item Value Reference Range Interpretation Comments West Nile Virus IgG Antibody (test code = 68902-7) Negative Neg ative No detectable West Nile Virus IgG Antibody. If a recentinfection is suspected, a nother specimen should besubmitted for testing within 7-14 days.[facility] West Nile virus IgM antibody detection by oultyqknovp5352-79-04 16:50:00* Test Item Value Reference Range Interpretation Comments West Nile Virus IgM Antibody (test code = 53234-7) Negative Neg ative No detectable West Nile Virus IgM Antibody. If a recentinfection is suspected, a nother specimen should besubmitted for testing within 7-14 days.Performed at: B N - [facility] [address] [id number] Director: Sa santi Gonzalez MD, Phone: [phone] [facility] Centererum Blastomyces dermatitidis antibody jjpew6010-99-90 16:50:00* Test Item Value Reference Range Interpretation Comments Blastomyces Antibody (test code = 54636-6) Negative Neg:<1:1 [facility] Histoplasma capsulatum antibody titer by znbdtmzymvfwlcq4303-38-75 16:50:00* Test Item Value Reference Range Interpretation Comments Histoplasma Antibody (test code = 35585-6) Negative Neg:<1:1 Performed at: [address] [id number] Ski Guide: Ervin Gonzalez MD, Phone: [phone] [facility] Centererum Aspergillus fumigatus antibody detection by immunodiffusion 2019-10-06 16:50:00* Test Item Value Reference Range Interpretation Comments Aspergillus fumigatus Antibody (test code = 52970-0) Negative N eg:<1:1 [facility] Aspergillus flavus antibody detection by kdsfsxpazouchdf5931-01-94 16:50:00* Test Item Value Reference Range Interpretation Comments Aspergillus flavus Antibody (test code = 09388-1) Negative Neg: <1:1 [facility] Aspergillus niger antibody tjrgmgehy9155-78-15 16:50:00* Test Item Value Reference Range Interpretation Comments Aspergillus niger Antibody (test code = 36012-2) Negative Neg:< 1:1 [facility] WFNLVDJMW0181-79-29 06:01:00 [place] [address] Patient Name: LAURI ROBERSON MR #: [id number] : 1945 Age/Sex: 74/F Req #: [id number] Adm Physician: CHANA JONES MD Ordered by: CHANA JONES MD Report #: [id number] Location: MED/SURG Room/Bed: [facility] [place] Procedure: [id number] DX/CHEST XRAY LINE PLACEMENT Exam Date: 10/06/19 Exam Time: 0545 REPORT STATUS: Signed EXAMINATION: C HEST XRAY LINE PLACEMENT INDICATION: PICC LINE PLACEMENT, verify positi on COMPARISON: Chest x-ray 10/04/2019 FINDINGS: TUBES an d LINES: New right upper extremity PICC, tip in the superior cavoatrial junct ion. LUNGS: Normal lung volumes. Lungs are clear. No consolidations. PLEURA: No pleural effusion or pneumothorax. HEART AND MEDIASTINUM: The cardiomediastinal silhouette is unremarkable. There are atherosclerotic calci fications within the aorta. BONES AND SOFT TISSUES: No acute osseous lesio n. Soft tissues are unremarkable. UPPER ABDOMEN: No free air under the d iaphragm. IMPRESSION: New right upper extremity PICC, tip in the superior cavoatrial junction. Signed by: Markos Arteaga DO on 10/06/2019 6: 02 AM Dictated By: MARKOS ARTEAGA DO 0602 Transcribed By: DAVON on 10/06/19 0602 CO PY TO: CHANA JONES MD Erythrocyte sedimentation rate by Westergren ugyerj1891-76-66 03:45:00* Test Item Value Reference Range Interpretation Comments Erythrocyte Sedimentation Rate (test code = 4537-7) 5 0- 20 [facility] CenterAutomated reticulocyte count as percentage of total bxcohxcmpsfg3747-25-38 03:45:00* Test Item Value Reference Range Interpretation Comments Percent Reticulocyte Count (test code = 38021-4) 3.4 0.8-2 .2 [facility] CenterPhosphorus owvxdsqcerh7986-76-36 03:45:00 * Test Item Value Reference Range Interpretation Comments Phosphorus Level (test code = CTA8172) 2.8 2.3-4.7 [facility] or plasma iron measurement (mass/volume)2019-10-06 03:45:00* Test Item Value Reference Range Interpretation Comments Iron Level (test code = 2498-4) 33 50-170 [facility]ererum or plasma iron binding capacity measurement (mass/volume)2019-10-06 03:45:00* Test Item Value Reference Range Interpretation Comments Total Iron Binding Capacity (test code = 2500-7) 209 261-4 78 [facility]ererum or plasma iron saturation measurement (mass fraction)2019-10-06 03:45:00* Test Item Value Reference Range Interpretation Comments Percent Iron Saturation (test code = 2502-3) 16 15-50 [facility]ere[facility] or plasma transferrin measurement (mass/volume)2019-10-06 03:45:00* Test Item Value Reference Range Interpretation Comments Transferrin (test code = 3034-6) 149 180-382 [facility]ererum or plasma ferritin measurement (mass/volume)2019-10-06 03:45:00* Test Item Value Reference Range Interpretation Comments Ferritin (test code = 2276-4) 323.54 4.63-204.00 [facility] CenterBlood cobalamin (vitamin B12) measurement (mass/volume)2019-10-06 03:45:00* Test Item Value Reference Range Interpretation Comments Vitamin B12 Level (test code = 49263-8) 1135 213-816 [facility] CenterErythrocyte sedimentation rate by Westergren hechhj9500-00-17 03:45:00* Test Item Value Reference Range Interpretation Comments Erythrocyte Sedimentation Rate (test code = 4537-7) 5 0- 20 [facility] CenterPhosphorus sjggakwppul8415-31-83 03:45:00 * Test Item Value Reference Range Interpretation Comments Phosphorus Level (test code = QAX9586) 2.8 2.3-4.7 [facility] CenterCerebrospinal fluid appearance pjzvgqigazp0318-54-70 23:00:00* Test Item Value Reference Range Interpretation Comments CSF Appearance (test code = 00846-5) CLEAR CLEAR [facility] CenterCerebrospinal fluid color identification 2019-10-05 23:00:00* Test Item Value Reference Range Interpretation Comments CSF Color (test code = 12799-6) COLORLESS COLORLESS [facility] CenterTube # [id number] 23:00:00* Test Item Value Reference Range Interpretation Comments CSF Cell Count Tube # (test code = 29090-4) 3 [facility] CenterManual cerebrospinal fluid leukocytes count (number/volume)2019-10-05 23:00:00* Test Item Value Reference Range Interpretation Comments CSF WBC (test code = 806-0) 4 0-5 [facility] Centerebrospinal fluid erythrocytes count (number/volume)2019-10-05 23:00:00* Test Item Value Reference Range Interpretation Comments CSF RBC (test code = 62901-9) 2 0-10 [facility] Centerrospinal fluid glucose measurement (mass/volume)2019-10-05 23:00:00* Test Item Value Reference Range Interpretation Comments CSF Glucose (test code = 2342-4) 88 40-70 [facility] CenterHerpes simplex virus 1 DNA detection by probe and target amplification uemeik1030-57-98 23:00:00* Test Item Value Reference Range Interpretation Comments Herpes Simplex Virus I DNA (PCR) (test code = 05166-1) Negative Negative [facility] CenterHerpes simplex virus 2 DNA detection by probe and target amplification bjfogl4446-84-81 23:00:00* Test Item Value Reference Range Interpretation Comments Herpes Simplex Virus II DNA (PCR) (test code = 02916-9) Negative Negative This test was developed and its performance characteristicsdetermined by [employer]. It has not been clearedor approved by the U.S. Food and Drug Admi nistration. TheFDA has determined that such clearance or approval is notnecessar y. This test is used for clinical purposes. Itshould not be regarded as investig ational or research.Performed at: [facility] [employer] [id number] Director: Ervin Gonzalez MD, Phone: [phone] Children's Medical Centerrospinal fluid reagin antibody detection 2019-10-05 23:00:00* Test Item Value Reference Range Interpretation Comments CSF VDRL (test code = 55805-9) Non Reactive Non Nelsy:<1:1 Performed at: [facility] [employer] [id number] Ski Guide: Ervin Gonzalez MD, Phone: [phone] [facility] CampusRespiratory virus ugzup8161-72-64 23:00:00* Test Item Value Reference Range Interpretation Comments Influenza Type A (RT-PCR) (test code = 906267976) NOT DETECTED NOT DETECT [facility] CenterRespiratory virus rgvvt3667-13-34 23:00:00* Test Item Value Reference Range Interpretation Comments Influenza Type B (RT-PCR) (test code = 333011660) NOT DETECTED NOT DETECT [facility] CenterRespiratory virus ttxmc3447-38-19 23:00:00* Test Item Value Reference Range Interpretation Comments Parainfluenza Type 1 (PCR) (test code = 621956394) NOT DETECTED NOT DETECT [facility] CenterRespiratory virus crosh6762-36-76 23:00:00* Test Item Value Reference Range Interpretation Comments Parainfluenza Type 2 (PCR) (test code = 922023565) NOT DETECTED NOT DETECT [facility] CenterRespiratory virus vapvi9602-50-89 23:00:00* Test Item Value Reference Range Interpretation Comments Parainfluenza Type 3 (PCR) (test code = 355861000) NOT DETECTED NOT DETECT [facility] CenterRespiratory virus qbbum2997-91-20 23:00:00* Test Item Value Reference Range Interpretation Comments Rhinovirus (PCR) (test code = 467354452) NOT DETECTED NOT DETECT [facility] CenterRespiratory virus evyuz1045-90-42 23:00:00* Test Item Value Reference Range Interpretation Comments Human Metapneumovirus (PCR) (test code = 343289069) NOT DETECTED NO T DETECT [facility] CenterRespiratory virus lnxsc3210-97-18 23:00:00* Test Item Value Reference Range Interpretation Comments Adenovirus (PCR) (test code = 557082198) NOT DETECTED NOT DETECT [facility] CenterFluoroscopic procedure less than one hour ynfosrgz2421-83-94 23:00:00* Test Item Value Reference Range Interpretation Comments Coronavirus Type 229E (PCR) (test code = Coronavirus T ype 229E (PCR)) See Comment NOT DETECT NOT TESTEDNacogdoches Medical CenterCerebrospinal fluid appearance cmxurfgkcvc8434-02-54 23:00:00* Test Item Value Reference Range Interpretation Comments CSF Appearance (test code = 37064-2) CLEAR CLEAR [facility] fluid color identification 2019-10-05 23:00:00* Test Item Value Reference Range Interpretation Comments CSF Color (test code = 99486-4) COLORLESS COLORLESS [facility] CenterTube # [id number] 23:00:00* Test Item Value Reference Range Interpretation Comments CSF Cell Count Tube # (test code = 27923-3) 3 [facility] CenterMancleveland clinic foundation cerebrospinal fluid leukocytes count (number/volume)2019-10-05 23:00:00* Test Item Value Reference Range Interpretation Comments CSF WBC (test code = 806-0) 4 0-5 [facility] Centerrospinal fluid erythrocytes count (number/volume)2019-10-05 23:00:00* Test Item Value Reference Range Interpretation Comments CSF RBC (test code = 00097-2) 2 0-10 [facility] Centerrospinal fluid glucose measurement (mass/volume)2019-10-05 23:00:00* Test Item Value Reference Range Interpretation Comments CSF Glucose (test code = 2342-4) 88 40-70 [facility] CenterHerpes simplex virus 1 DNA detection by probe and target amplification jkhdyk8834-55-03 23:00:00* Test Item Value Reference Range Interpretation Comments Herpes Simplex Virus I DNA (PCR) (test code = 03155-8) Negative Negative [facility] CenterHerpes simplex virus 2 DNA detection by probe and target amplification dnrrdt0903-41-50 23:00:00* Test Item Value Reference Range Interpretation Comments Herpes Simplex Virus II DNA (PCR) (test code = 23599-4) Negative Negative This test was developed and its performance characteristicsdetermined by [employer]. It has not been clearedor approved by the U.S. Food and Drug Admi nistration. TheFDA has determined that such clearance or approval is notnecessar y. This test is used for clinical purposes. Itshould not be regarded as investig ational or research.Performed at: - [facility] [id number] Director: Ervin Gonzalez MD, Phone: [phone] [facility] CampusCerebrospinal fluid reagin antibody detection 2019-10-05 23:00:00* Test Item Value Reference Range Interpretation Comments CSF VDRL (test code = 83901-4) Non Reactive Non Piffard:<1:1 Performed at: - [facility] [id number] Ski Guide: Ervin Gonzalez MD, Phone: [phone] Medical CenterRespiratory virus gjjih2630-93-93 23:00:00* Test Item Value Reference Range Interpretation Comments Influenza Type A (RT-PCR) (test code = 135222255) NOT DETECTED NOT DETECT [facility] CenterRespiratory virus rqthq0436-04-85 23:00:00* Test Item Value Reference Range Interpretation Comments Influenza Type B (RT-PCR) (test code = 151241761) NOT DETECTED NOT DETECT [facility] CenterRespiratory virus ogdzy7121-96-08 23:00:00* Test Item Value Reference Range Interpretation Comments Parainfluenza Type 1 (PCR) (test code = 313972943) NOT DETECTED NOT DETECT [facility] CenterRespiratory virus sreea6097-39-20 23:00:00* Test Item Value Reference Range Interpretation Comments Parainfluenza Type 2 (PCR) (test code = 683150569) NOT DETECTED NOT DETECT [facility] CenterRespiratory virus xysqa4339-75-07 23:00:00* Test Item Value Reference Range Interpretation Comments Parainfluenza Type 3 (PCR) (test code = 278408293) NOT DETECTED NOT DETECT [facility] CenterRespiratory virus wiplh8733-93-62 23:00:00* Test Item Value Reference Range Interpretation Comments Rhinovirus (PCR) (test code = 772413012) NOT DETECTED NOT DETECT [facility] CenterRespiratory virus qpraq7909-95-39 23:00:00* Test Item Value Reference Range Interpretation Comments Human Metapneumovirus (PCR) (test code = 663899284) NOT DETECTED NO T DETECT [facility] CenterRespiratory virus bqzzp9430-30-89 23:00:00* Test Item Value Reference Range Interpretation Comments Adenovirus (PCR) (test code = 019756365) NOT DETECTED NOT DETECT [facility] CenterFluoroscopic procedure less than one hour bajrfotm5593-57-05 23:00:00* Test Item Value Reference Range Interpretation Comments Coronavirus Type 229E (PCR) (test code = Coronavirus T ype 229E (PCR)) See Comment NOT DETECT NOT TESTEDNacogdoches Medical CenterWest Nile virus RNA detection by probe and target amplification knueub0307-18-29 23:00:00* Test Item Value Reference Range Interpretation Comments West Nile Virus RNA (RT-PCR) (test code = 12269-8) Negative . Qualitative Only.PCR assay performed using [employer]'svalidate d, proprietary methodology.[facility] CenterWest Nile virus detection by AWD5901-68-09 23:00:00* Test Item Value Reference Range Interpretation Comments West Nile Virus RNA Special Info (test code = 882313758) Comment . PerformedPerformed at: [facility] [employer] [facility] K[address]Gdyo[address] [id number] Director: Usha Grant MD, Phone: [phone] at: [facility] [employer] [facility] D[address]Kntz[address] [place] [id number] Director: Usha Grant MD, Phone: [phone] [facility] Medical Centererum or plasma creatine kinase measurement (enzymatic activity/volume)2019-10-05 11:53:00* Test Item Value Reference Range Interpretation Comments Creatine Kinase (test code = 2157-6) 133 29-168 [facility] Centererum or plasma creatine kinase MB measurement (mass/volume)2019-10-05 11:53:00* Test Item Value Reference Range Interpretation Comments Creatine Kinase MB (test code = 71380-7) 2.20 0-5.0 [facility] CenterTroponin I measurement by highly sensitive enzyme lvtfegxpnab9683-55-65 11:53:00* Test Item Value Reference Range Interpretation Comments Troponin I (test code = 68092-9) 0.115 0-0.300 [facility] CenterUrine opiates screening gnwh8363-72-82 05:44:00* Test Item Value Reference Range Interpretation Comments Urine Opiates Screen (test code = 05960-0) NEGATIVE NEGATIVE ALL TESTS PERFORMED MANUALLY ON [employer]uto TOX/SEE TESTNacogdoches Medical CenterBarbiturates screen, konae4968-42-87 05:44:00* Test Item Value Reference Range Interpretation Comments Urine Barbiturates Screen (test code = 792953451) NEGATIVE NEGA TIVE [facility] CenterUrine phencyclidine detection by screening zhtbpt2658-78-72 05:44:00* Test Item Value Reference Range Interpretation Comments Urine Phencyclidine Screen (test code = 72944-1) NEGATIVE NEGAT MACK [facility] CenterUrine amphetamines detection by screen method > 1000 ng/iS5560-23-84 05:44:00* Test Item Value Reference Range Interpretation Comments Urine Amphetamines Screen (test code = 48551-9) NEGATIVE NEGATI VE [facility] CenterFluoroscopic procedure less than one hour auslgayq9510-58-58 05:44:00* Test Item Value Reference Range Interpretation Comments Urine Methamphetamines Screen (test code = Urine Metha mphetamines Screen) POSITIVE NEGATIVE This test provides only a screen. Positive results should be repeated by a confi rmatory test.[facility] CenterUrine benzodiazepines detection by screening ktzsel3624-72-32 05:44:00* Test Item Value Reference Range Interpretation Comments Urine Benzodiazepines Screen (test code = 78518-6) POSITIVE NEG ATIVE This test provides only a screen. Positive results should be repeated by a confi rmatory test.[facility] CenterUrine cocaine measurement (mass/volume)2019-10-05 05:44:00* Test Item Value Reference Range Interpretation Comments Urine Cocaine Screen (test code = 3398-5) NEGATIVE NEGATIVE [facility] CenterUrine cannabinoids detection by screening wfzhkv6082-10-65 05:44:00* Test Item Value Reference Range Interpretation Comments Urine Cannabinoids Screen (test code = 88250-1) NEGATIVE NEGATI VE THESE RESULTS ARE FOR MEDICAL TREATMENT ONLYTHIS REPORT CONTAINS UNCONFIR MED SCREENING RESULTS*POSITIVE RESULTS WILL BE CONFIRMED BY REFERENCE LAB UPON R EQUEST CUT-OFFDRUG CLASS CONCENTRATION ng/mLAmphetamines 1000Methamphetamines 1000Cocaine 300Opiate 300Phencyc lidine 25Cannabinoid 50Barbiturates 300Benzodiazepine 300Methadone 300[facility] CenterUrine methadone hyqaqt3728-43-48 05:44:00* Test Item Value Reference Range Interpretation Comments Urine Methadone Screen (test code = 75874-8) NEGATIVE NEGATIVE THESE RESULTS ARE FOR MEDICAL TREATMENT ONLYTHIS REPORT CONTAINS UNCONFIR MED SCREENING RESULTS*POSITIVE RESULTS WILL BE CONFIRMED BY REFERENCE LAB UPON R EQUEST CUT-OFFDRUG CLASS CONCENTRATION ng/mLAmphetamines 1000Methamphetamines 1000Cocaine Metabolite 300Opiate 300Phencyc lidine 25Cannabinoid 50Barbiturates 300Benzodiazepine 300Methadone 300[facility]ererum or plasma triglyceride measurement (mass/volume) 2019-10-05 04:27:00* Test Item Value Reference Range Interpretation Comments Triglycerides Level (test code = 2571-8) 86 0-149 [facility] Centererum or plasma cholesterol measurement (mass/volume)2019-10-05 04:27:00* Test Item Value Reference Range Interpretation Comments Cholesterol Level (test code = 2093-3) 178 0-199 Less than 200 mg/dL Low Abxs280 - 239 mg/dL Borderline Pzjk635 m g/dl and greater High Risk [facility] Centererum or plasma cholesterol in LDL measurement (mass/volume) 2019-10-05 04:27:00* Test Item Value Reference Range Interpretation Comments LDL Cholesterol (test code = 2089-1) 90 60-130 [facility] Centererum or plasma cholesterol in HDL measurement (mass/volume)2019-10-05 04:27:00* Test Item Value Reference Range Interpretation Comments HDL Cholesterol (test code = 2085-9) 71 40-60 [facility] Centererum or plasma total cholesterol/cholesterol in HDL mass wuygd0959-42-09 04:27:00* Test Item Value Reference Range Interpretation Comments Cholesterol/HDL Ratio (test code = 9830-1) 2.5 3.0-3.6 [facility] Centererum or plasma triglyceride measurement (mass/volume)2019-10-05 04:27:00* Test Item Value Reference Range Interpretation Comments Triglycerides Level (test code = 2571-8) 86 0-149 [facility] Centererum or plasma cholesterol measurement (mass/volume)2019-10-05 04:27:00* Test Item Value Reference Range Interpretation Comments Cholesterol Level (test code = 2093-3) 178 0-199 Less than 200 mg/dL Low Shtz932 - 239 mg/dL Borderline Sqsy104 m g/dl and greater High Risk [facility] Centererum or plasma cholesterol in LDL measurement (mass/volume) 2019-10-05 04:27:00* Test Item Value Reference Range Interpretation Comments LDL Cholesterol (test code = 2089-1) 90 60-130 [facility] Centererum or plasma cholesterol in HDL measurement (mass/volume)2019-10-05 04:27:00* Test Item Value Reference Range Interpretation Comments HDL Cholesterol (test code = 2085-9) 71 40-60 [facility] Centererum or plasma total cholesterol/cholesterol in HDL mass pxaim2396-83-73 04:27:00* Test Item Value Reference Range Interpretation Comments Cholesterol/HDL Ratio (test code = 9830-1) 2.5 3.0-3.6 [facility] CenterArterial blood pH vkyynoahilo1588-57-91 04:03:00* Test Item Value Reference Range Interpretation Comments Arterial Blood pH (test code = 2744-1) 7.40 7.35-7.45 [facility] CenterpCO2 TnkC0376-32-73 04:03:00* Test Item Value Reference Range Interpretation Comments Arterial Blood Partial Pressure CO2 (test code = 2018-09) 56 35-45 [facility] CenterpCO2 BbbA2954-23-00 04:03:00* Test Item Value Reference Range Interpretation Comments Arterial Blood Partial Pressure O2 (test code = 2018-09) 184 80-105 [facility] CenterArterial blood bicarbonate measurement (moles/volume)2019-10-05 04:03:00* Test Item Value Reference Range Interpretation Comments Arterial Blood HCO3 (test code = 1960-4) 34 22-26 [facility] CenterArterial cord blood carbon dioxide, total measurement by calculation (moles/volume)2019-10-05 04:03:00* Test Item Value Reference Range Interpretation Comments Arterial Blood Total CO2 (test code = 48387-7) 36 [facility] CenterArterial blood base excess by calculation 2019-10-05 04:03:00* Test Item Value Reference Range Interpretation Comments Arterial Blood Base Excess (test code = 1925-7) 10.0 -2-3 [facility] CenterArterial blood oxygen saturation xmvanwndmws8589-00-04 04:03:00* Test Item Value Reference Range Interpretation Comments Arterial Blood Oxygen Saturation (test code = 2708-6) 100.0 95-98 [facility] CenterFluoroscopic procedure less than one hour ypbmkdls4007-00-66 04:03:00* Test Item Value Reference Range Interpretation Comments FiO2 (test code = FiO2) 30 2.5L [facility] 2019-10-05 04:03:00* Test Item Value Reference Range Interpretation Comments Arterial Blood pH (test code = 2744-1) 7.40 7.35-7.45 [facility] CenterpCO2 WboC0485-21-65 04:03:00* Test Item Value Reference Range Interpretation Comments Arterial Blood Partial Pressure CO2 (test code = 2019-8) 56 35-45 [facility] CenterpCO2 [id number] 04:03:00* Test Item Value Reference Range Interpretation Comments Arterial Blood Partial Pressure O2 (test code = 2019-8) 184 80-105 [facility] CenterArterial blood bicarbonate measurement (moles/volume)2019-10-05 04:03:00* Test Item Value Reference Range Interpretation Comments Arterial Blood HCO3 (test code = 1960-4) 34 22-26 [facility] CenterArterial cord blood carbon dioxide, total measurement by calculation (moles/volume)2019-10-05 04:03:00* Test Item Value Reference Range Interpretation Comments Arterial Blood Total CO2 (test code = 97281-1) 36 [facility] CenterArterial blood base excess by calculation 2019-10-05 04:03:00* Test Item Value Reference Range Interpretation Comments Arterial Blood Base Excess (test code = 1925-7) 10.0 -2-3 [facility] CenterArterial blood oxygen saturation jebugakztrr1928-18-45 04:03:00* Test Item Value Reference Range Interpretation Comments Arterial Blood Oxygen Saturation (test code = 2708-6) 100.0 95-98 [facility] CenterFluoroscopic procedure less than one hour tgbqwvok1003-74-20 04:03:00* Test Item Value Reference Range Interpretation Comments FiO2 (test code = FiO2) 30 [facility]L [facility] gdoselpmi5978-77-20 22:10:00* Test Item Value Reference Range Interpretation Comments Stool Occult Blood (test code = 2335-8) POSITIVE NEGATIVE [facility] CenterClostridium difficile A and B toxin assay 2019-10-04 22:10:00* Test Item Value Reference Range Interpretation Comments Clostridium Difficile Toxin A & B (test code = 995912463) NEGATIVE NEGATIVE Testing on stool aspirate specimens is outside rn examiner claims since specime n type not validated on this assay.[facility] Clostridium difficile A and B toxin [id number] 22:10:00* Test Item Value Reference Range Interpretation Comments Clostridium Difficile Toxin A & B (test code = 464347460) NEGATIVE NEGATIVE Testing on stool aspirate specimens is outside rn examiner claims since specime n type not validated on this assay.[facility] CenterUrine sodium measurement (moles/volume)2019-10-04 18:07:00* Test Item Value Reference Range Interpretation Comments Urine Random Sodium (test code = 2955-3) 57 [facility] CenterUrine potassium measurement (moles/volume)2019-10-04 18:07:00* Test Item Value Reference Range Interpretation Comments Urine Random Potassium (test code = 2828-2) 15.6 [facility] CenterUrine sodium measurement (moles/volume) 2019-10-04 18:07:00* Test Item Value Reference Range Interpretation Comments Urine Random Sodium (test code = 2955-3) 57 [facility] CenterU[facility] potassium measurement (moles/volume)2019-10-04 18:07:00* Test Item Value Reference Range Interpretation Comments Urine Random Potassium (test code = 2828-2) 15.6 [facility] CenterFluoroscopic procedure less than one hour bjplnimo7259-62-22 16:09:00* Test Item Value Reference Range Interpretation Comments Coronavirus (PCR) (test code = Coronavirus (PCR)) NOT DETECTED NOTD ETECTED Hologic [employer]ima SARS-CoV-2 assay is a nucleic amplification test intended for the qualitative detection of RNA from SARS-CoV-2 from nasopharyngeal (TELEVISION SCHEDULE COORDINATOR) specimens. It is used under Emergency Use Authorization (EUA) by FDA.A positive result is indicative of the presence of SARS-CoV-2 RNA. Clinical correlation with patient history and other diagnostic information is necessary to determine patient infe ction status.A negative (Not Detected) result does not preclude SARS-CoV-2 infec tion. Clinical Correlation with patient history and other diagnostic information should be used in patient management decisions.Invalid: Unable to generate a va lid result on this specimen. Please submit a new specimen for reprat testing oc clinically indicated.Tesing performed by:[facility] [address] [place] [address] [id number], Erich Ozuna MD, PhD [facility] CenterCT C[facility] SP[facility] [id number] 15:15:00 [facility] [address] [place] [address] Patient Name: LAURI ROBERSON MR #: [id number] : 1945 Age/Sex: 74/F Req #: [id number] Adm Physician: Ordered by: MARK MARQUEZ MD Report #: [id number] Location: ER Room/Bed: Procedure: [id number] CT/CT CERVICAL SP INE WO Exam Date: 10/04/19 Exam Time: 1419 REPORT STATUS: Signed CT CERVICAL SPINE WO HISTORY: Altered mental status COMPARISON: Report from cervical spine MRI dated 09/04/2015 TECHNIQUE: CT of the cervical spine without contrast. Sagittal and coronal reformations were created. One or more of the following dose reduction techniques were used: Automated exposure control, adjustment of the mA and/or kV according to patient size, and/or utilization of iterative reconstruction technique. Motion and hardware streak artifacts obscure some details. FINDINGS: Bone demineralization limits evaluation. ACDF c hanges from C3 to C7 are noted. Hardware from C5 to C7 has been removed. Hardw are at C3-C4 remains. Cervical lordosis is straightened. There is no scol iosis or subluxation. No definite acute fracture or compression deformity seen . The craniocervical junction is intact. No gross spinal canal masses are seen. The paravertebral and paraspinal soft tissues are unremarkable. Degenerative changes: There are advanced spondylotic changes at C7-T1 and T1-T 2. Minimal grade 1 anterolisthesis of C2 on C3 and C7 on T1 are due to facet a rthrosis. Advanced atlantoaxial arthrosis is present; associated pannus causes at least mild canal stenosis at the C1 level. IMPRESSION: 1. No acute osseous abnormalities. 2. ACDF and degenerative changes as described above. Signed by: Dr. Olu Bolton M.D. on 10/04/2019 3:24 PM Dictated By: OLU BOLTON MD 1524 Transcribed By: DAVON on 10/04/19 1524 COPY TO: MARK MARQUEZ MD CT BRAIN [id number] 15:12:00 [place] [address] Patient Name: LAURI ROBERSON MR #: [id number] : 1945 Age/Sex: 74/F Req #: [id number] Adm Physician: Ordered by: MARK MARQUEZ MD Report #: [id number] Location: ER Room/Bed: Procedure: [id number] CT/CT BRAIN WO E xam Date: 10/04/19 Exam Time: 1419 REPORT STATUS: Signed CT BRAIN WO HISTORY: Al tered mental status COMPARISON: Head CT 09/25/2019 Technique: Noncon trast axial scans were obtained from skull base to the vertex. Coronal and sa gittal reconstructions obtained from the axial data. One or more of the follo wing dose reduction techniques were used: Automated exposure control, adjustme nt of the mA and/or kV according to patient size, and/or utilization of iterat mack reconstruction technique. Beam hardening artifacts obscure some details. DISCUSSION: Scalp/Skull: Unremarkable. Brain sulci: Mildly prominent. Ventricles: Compensatory dilatation. Extra-axial spaces: No masses or fluid collections. Carotid siphon calcifications are present. Parenchyma: M ild to moderate bilateral deep white matter hypodensity is likely chronic micr ovascular ischemic change. Otherwise, no masses, hemorrhage, or large vascula r territory acute infarct. Dural sinuses: No abnormal densities. Sellar/ Suprasellar region: Intact. Skull base: Intact. Incidental findings: Bilater al ocular lens replacement. IMPRESSION: 1. No acute intracranial abnorma lities. 2. Mild to moderate supratentorial chronic microvascular ischemic nahun nge. Mild generalized cerebral volume loss. Signed by: Dr. Olu Jenkins mpa, M.D. on 10/04/2019 3:16 PM Dictated By: OLU BOLTON MD Electron ically Signed By: OLU BOLTON MD on 10/04/191515 Transcribed By: DAVON on 10/04/191515 COPY TO: MARK MARQUEZ MD Urine color sjrxckyxvausr5296-14-84 14:50:00* Test Item Value Reference Range Interpretation Comments Urine Color (test code = 5778-6) YELLOW YELLOW [facility] CenterUrine moepbvm6842-21-78 14:50:00* Test Item Value Reference Range Interpretation Comments Urine Clarity (test code = 15712-1) CLEAR CLEAR [facility] Centerpecific gravity of Urine by Test strip 2019-10-04 14:50:00* Test Item Value Reference Range Interpretation Comments Urine Specific Poston (test code = 5811-5) 1.015 1.010-1.02 5 [facility] CenterUrine pH measurement by automated test [id number] 14:50:00* Test Item Value Reference Range Interpretation Comments Urine pH (test code = 40198-8) 7 5-7 [facility] CenterUrine leukocyte esterase detection by enfqjvrt5498-65-57 14:50:00* Test Item Value Reference Range Interpretation Comments Urine Leukocyte Esterase (test code = 5799-2) NEGATIVE NEGATIVE [facility] CenterUrine nitrite sgnnlpbad8094-09-38 14:50:00* Test Item Value Reference Range Interpretation Comments Urine Nitrite (test code = 01406-8) NEGATIVE NEGATIVE [facility] CenterUrine protein measurement by test strip (mass/volume)2019-10-04 14:50:00* Test Item Value Reference Range Interpretation Comments Urine Protein (test code = 5804-0) 1+ NEGATIVE [facility] CenterUrine glucose ngbljzlsy6895-95-95 14:50:00* Test Item Value Reference Range Interpretation Comments Urine Glucose (UA) (test code = 2349-9) 2+ NEGATIVE [facility] CenterUrine ketones detection by automated test riiyj5066-36-75 14:50:00* Test Item Value Reference Range Interpretation Comments Urine Ketones (test code = 78605-2) 2+ NEGATIVE [facility] CenterUrine urobilinogen measurement by test strip (mass/volume)2019-10-04 14:50:00* Test Item Value Reference Range Interpretation Comments Urine Urobilinogen (test code = 55904-6) 0.2 0.2-1 [facility] CenterUrine total bilirubin measurement (mass/volume)2019-10-04 14:50:00* Test Item Value Reference Range Interpretation Comments Urine Bilirubin (test code = 1978-6) NEGATIVE NEGATIVE [facility] CenterUrine erythrocytes aesugfvww6635-32-93 14:50:00* Test Item Value Reference Range Interpretation Comments Urine Blood (test code = 27611-2) TRACE NEGATIVE [facility] CenterAutomated urine sediment leukocyte count by microscopy (number/high power field)2019-10-04 14:50:00* Test Item Value Reference Range Interpretation Comments Urine WBC (test code = 5821-4) 0-5 0-5 [facility] CenterErythrocytes detection in urine sediment by light ikhrctxtib0859-27-80 14:50:00* Test Item Value Reference Range Interpretation Comments Urine RBC (test code = 56743-6) 0-5 0-5 [facility] CenterBacteria detection in urine sediment by light gfqcbtucqs5003-43-52 14:50:00* Test Item Value Reference Range Interpretation Comments Urine Bacteria (test code = 81792-7) RARE NONE [facility] CenterEpithelial cells detection in urine sediment by light agzalzwzow1547-28-52 14:50:00* Test Item Value Reference Range Interpretation Comments Urine Epithelial Cells (test code = 64440-3) FEW NONE [facility] CenterTransitional cells detection in urine sediment by light cubwlxtqwr9176-08-63 14:50:00* Test Item Value Reference Range Interpretation Comments Urine Transitional Epithelial Cells (test code = 8249-5) FEW NONE [facility] CenterTransitional cells detection in urine sediment by light erjlaekvkm6718-69-95 14:50:00* Test Item Value Reference Range Interpretation Comments Urine Transitional Epithelial Cells (test code = 8249-5) FEW NONE [facility] CenterCHEST SINGLE (PORTABLE)2019-10-04 14:50:00 [facility] [address] [place] [address] Patient Name: LAURI ROBERSON MR #: [id number] : 1945 Age/Sex: 74/F Req #: [id number] Adm Physician: Ordered by: MARK MARQUEZ MD Report #: [id number] Location: ER Room/Bed: Procedure: [id number] DX/CHEST SINGLE ( PORTABLE) Exam Date: 10/04/19 Exam Time: 1403 REPORT STATUS: Signed X-ray chest AP p ortable Comparison: 09/25/2019 History: Altered mental status, weakness Findings: Central airways unremarkable. Heart size borderline. Atherosclero tic ectatic aorta. No pleural effusion. No pneumothorax. No focal lung disease or nodules. Degenerative changes of the skeleton including the AC joints, the left shoulder and the lumbar spine. Anterior C-spine fusion. Upper abdomen unremarkable. Impression: No acute cardiopulmonary disease on this exam. Signed by: Martin Thurston MD on 10/04/2019 2:53 PM Dictated By: MARTIN THURSTON MD 1459 Quick scribed By: DAVON on 10/04/19 1453 COPY TO: MARK MARQUEZ MD Blood snexsik4457-23-42 13:20:00* Test Item Value Reference Range Interpretation Comments Blood Culture (test code = 56409553) Growth detected. Culture wo rkup ordered. [facility] CenterBacterial blood vwwcoyc8363-91-52 13:20:00* Test Item Value Reference Range Interpretation Comments Blood Culture (test code = 600-7) STAPHYLOCOCCUS SP COAG NEG [facility] CenterBacterial blood nncwyrs3400-86-18 13:20:00* Test Item Value Reference Range Interpretation Comments Blood Culture (test code = 600-7) STAPHYLOCOCCUS SP COAG NEG [facility] CenterAmmonia Yai-lIfs5682-40-17 13:09:00* Test Item Value Reference Range Interpretation Comments Ammonia (test code = 83311-8) 55 31-123 [facility] CenterBNP Gpa-kJay1110-03-17 13:09:00* Test Item Value Reference Range Interpretation Comments B-Type Natriuretic Peptide (test code = 55447-6) 152.1 0-100 [facility] CenterProthrombin time (PT) in platelet poor plasma by coagulation vwbkm6907-98-77 13:07:00* Test Item Value Reference Range Interpretation Comments Prothrombin Time (test code = 5902-2) 14.0 11.9-14.5 [facility] CenterINR in Platelet poor plasma by Coagulation rvxyz0330-27-28 13:07:00* Test Item Value Reference Range Interpretation Comments Prothromb Time International Ratio (test code = 6301-6) 1.03 Oral Anticoagulant Therapy INR Values:1. Low Intensity Therapy 1.5 - 2.02 . Moderate Intensity Therapy 2.0 - 3.03. High Intensity Therapy(1) 2.5 - 3. 54. High Intensity Therapy(2) 3.0 - 4.05. Panic Value INR > 5.0 [facility] CenterActivated partial thromboplastin time (aPTT) in platelet poor plasma by coagulation eiygs3463-15-32 13:07:00* Test Item Value Reference Range Interpretation Comments Activated Partial Thromboplast Time (test code = 06131-6) 31.8 23.8-35.5 [facility] CenterFluoroscopic procedure less than one hour azgddhub1268-25-64 13:07:00* Test Item Value Reference Range Interpretation Comments Lactic Acid Level (test code = Lactic Acid Level) 2.0 0.5- 2.0 [facility] Centererum or plasma acetaminophen measurement by screening method (mass/volume)2019-10-04 13:07:00* Test Item Value Reference Range Interpretation Comments Acetaminophen Level (test code = 00601-5) < 3.0 10-30 [facility] Centererum or plasma thyrotropin measurement by detection limit <= 0.005 miu/l (units/volume)2019-10-04 13:07:00* Test Item Value Reference Range Interpretation Comments Thyroid Stimulating Hormone (TSH) (test code = 31653-6) 0.217 0.350-4.940 [facility] Centererum or plasma ethanol measurement (mass/volume)2019-10-04 13:07:00* Test Item Value Reference Range Interpretation Comments Ethyl Alcohol Level (test code = 5643-2) < 10.0 0.0-10.0 [facility] Centererum or plasma salicylates measurement (mass/volume)2019-10-04 13:07:00* Test Item Value Reference Range Interpretation Comments Salicylates Level (test code = 4024-6) < 5.0 0-30 [facility] CenterProthrombin time (PT) in platelet poor plasma by coagulation hwdep8342-82-25 13:07:00* Test Item Value Reference Range Interpretation Comments Prothrombin Time (test code = 5902-2) 14.0 11.9-14.5 [facility] CenterINR in Platelet poor plasma by Coagulation geibp8615-86-59 13:07:00* Test Item Value Reference Range Interpretation Comments Prothromb Time International Ratio (test code = 6301-6) 1.03 Oral Anticoagulant Therapy INR Values:1. Low Intensity Therapy 1.5 - 2.02 . Moderate Intensity Therapy 2.0 - 3.03. High Intensity Therapy(1) 2.5 - 3. 54. High Intensity Therapy(2) 3.0 - 4.05. Panic Value INR > 5.0 [facility] CenterActivated partial thromboplastin time (aPTT) in platelet poor plasma by coagulation fjhqy9234-64-18 13:07:00* Test Item Value Reference Range Interpretation Comments Activated Partial Thromboplast Time (test code = 85508-2) 31.8 23.8-35.5 [facility] Centererum or plasma acetaminophen measurement by screening method (mass/volume)2019-10-04 13:07:00* Test Item Value Reference Range Interpretation Comments Acetaminophen Level (test code = 25935-0) < 3.0 10-30 [facility] Centererum or plasma thyrotropin measurement by detection limit <= 0.005 miu/l (units/volume)2019-10-04 13:07:00* Test Item Value Reference Range Interpretation Comments Thyroid Stimulating Hormone (TSH) (test code = 57329-6) 0.217 0.350-4.940 [facility] Centererum or plasma ethanol measurement (mass/volume)2019-10-04 13:07:00* Test Item Value Reference Range Interpretation Comments Ethyl Alcohol Level (test code = 5643-2) < 10.0 0.0-10.0 [facility] Centererum or plasma salicylates measurement (mass/volume)2019-10-04 13:07:00* Test Item Value Reference Range Interpretation Comments Salicylates Level (test code = 4024-6) < 5.0 0-30 [facility]-Glucose jqdfv5160-34-61 22:53:00* Test Item Value Reference Range Interpretation Comments POC-Glucose Meter (test code = 1538) 234 mg/dL 70-110 H : TESTED AT [place] [id number] [facility], [address]: Inspector Outside Steam Distribution/Paper Cutter ID = [id number] for ANA MAR Lab Interpretation (test code = 44307-6) Abnormal [facility]-GLUCOSE [id number] 22:53:00* Test Item Value Reference Range Interpretation Comments POC-GLUCOSE METER (BEAKER) (test code = 1538) 234 mg/dL 70-110 H : TESTED AT [facility] [address] [facility], [address]: Inspector Outside [employer] Distribution/Paper Cutter ID = [id number] for ANA MAR CBC with platelet count + automated [id number] 11:01:00* Test Item Value Reference Range Interpretation Comments WBC (test code = 6690-2) 5.8 3.5- 10.5 K/L RBC (test code = 789-8) 3.79 3.93- 5.22 M/L L MCHC (test code = 786-4) 32.4 32.2- 35.5 GM/DL Hematocrit (test code = 4544-3) 37.0 % 34.1-44.9 MCV (test code = 787-2) 97.6 fL 79.4-94.8 H MCH (test code = 785-6) 31.7 pg 25.6-32.2 RDW (test code = 788-0) 12.8 % 11.7-14.4 Platelets (test code = 777-3) 215 150- 450 K/CU MM MPV (test code = 70134-5) 10.7 fL 9.4-12.3 nRBC (test code = 413) 0 0- 0 /100 WBC % Neutros (test code = 429) 78 % % Lymphs (test code = 430) 11 % % Monos (test code = 431) 10 % % Eos (test code = 432) 0 % % Baso (test code = 437) 0 % # Neutros (test code = 670) 4.51 1.56- 6.13 K/L # Lymphs (test code = 414) 0.62 1.18- 3.74 K/L L # Monos (test code = 415) 0.57 0.24- 0.36 K/L H # Eos (test code = 416) 0.01 0.04- 0.36 K/L L # Baso (test code = 417) 0.02 0.01- 0.08 K/L Immature Granulocytes-Relative (test code = 2801) 2 % 0-1 H Lab Interpretation (test code = 44521-5) Abnormal [facility] W/PLT COUNT & AUTO [id number] 11:01:00* Test Item Value Reference Range Interpretation Comments WHITE BLOOD CELL COUNT (BEAKER) (test code = 775) 5.8 K/ L 3.5- 10.5 RED BLOOD CELL COUNT (BEAKER) (test code = 761) 3.79 M/ L 3.93-5 .22 L HEMOGLOBIN (BEAKER) (test code = 410) 12.0 GM/DL 11.2-15.7 HEMATOCRIT (BEAKER) (test code = 411) 37.0 % 34.1-44.9 MEAN CORPUSCULAR VOLUME (BEAKER) (test code = 753) 97.6 fL 79. 4-94.8 H MEAN CORPUSCULAR HEMOGLOBIN (BEAKER) (test code = 751) 31.7 pg 25.6-32.2 MEAN CORPUSCULAR HEMOGLOBIN CONC (BEAKER) (test code = 752) 32.4 GM/DL 32.2-35.5 RED CELL DISTRIBUTION WIDTH (BEAKER) (test code = 412) 12.8 % 11.7-14.4 PLATELET COUNT (BEAKER) (test code = 756) 215 K/CU MM 150-450 MEAN PLATELET VOLUME (BEAKER) (test code = 754) 10.7 fL 9.4-12 .3 NUCLEATED RED BLOOD CELLS (BEAKER) (test code = 413) 0 /100 WBC 0 -0 NEUTROPHILS RELATIVE PERCENT (BEAKER) (test code = 429) 78 % LYMPHOCYTES RELATIVE PERCENT (BEAKER) (test code = 430) 11 % MONOCYTES RELATIVE PERCENT (BEAKER) (test code = 431) 10 % EOSINOPHILS RELATIVE PERCENT (BEAKER) (test code = 432) 0 % BASOPHILS RELATIVE PERCENT (BEAKER) (test code = 437) 0 % NEUTROPHILS ABSOLUTE COUNT (BEAKER) (test code = 670) 4.51 K/ L 1.56-6.13 LYMPHOCYTES ABSOLUTE COUNT (BEAKER) (test code = 414) 0.62 K/ L 1.18-3.74 L MONOCYTES ABSOLUTE COUNT (BEAKER) (test code = 415) 0.57 K/ L 0. 24-0.36 H EOSINOPHILS ABSOLUTE COUNT (BEAKER) (test code = 416) 0.01 K/ L 0.04-0.36 L BASOPHILS ABSOLUTE COUNT (BEAKER) (test code = 417) 0.02 K/ L 0. 01-0.08 IMMATURE GRANULOCYTES-RELATIVE PERCENT (BEAKER) (test code = 2801) 2 % 0-1 H POCT-GLUCOSE [id number] 08:16:00* Test Item Value Reference Range Interpretation Comments POC-GLUCOSE METER (BEAKER) (test code = 1538) 186 mg/dL 70-110 H : TESTED AT [address], [address]: Inspector Outside [employer] Distribution/Paper Cutter ID = [id number] for BROWN, ANA POCT-GLUCOSE [id number] 01:16:00* Test Item Value Reference Range Interpretation Comments POC-GLUCOSE METER (BEAKER) (test code = 1538) 258 mg/dL 70-110 H : Notified RN/MD: TESTED AT [address], [address]: Inspector Outside [employer] Distribution/Paper Cutter ID = [id number] for LATHBRIDGE, JOSE POCT-GLUCOSE [id number] 17:20:00* Test Item Value Reference Range Interpretation Comments POC-GLUCOSE METER (BEAKER) (test code = 1538) 297 mg/dL 70-110 H : TESTED AT [address], [address]: Inspector Outside [employer]/Paper Cutter ID = [id number] for CINTRON, SHADE MRSA pdyihf4891-01-74 12:08:00* Test Item Value Reference Range Interpretation Comments Result (test code = 6463-4) No MRSA isolated [facility]MR[facility] [id number] 12:08:00* Test Item Value Reference Range Interpretation Comments CULTURE (BEAKER) (test code = 1095) No MRSA isolated POCT-GLUCOSE [id number] 11:43:00* Test Item Value Reference Range Interpretation Comments POC-GLUCOSE METER (BEAKER) (test code = 1538) 275 mg/dL 70-110 H : TESTED AT [facility] [address] [facility], [address]: Inspector Outside Steam Distribution/Paper Cutter ID = [id number] for SHADE CINTRON POCT-GLUCOSE [id number] 08:55:00* Test Item Value Reference Range Interpretation Comments POC-GLUCOSE METER (BEAKER) (test code = 1538) 225 mg/dL 70-110 H : TESTED AT [place] [id number] [facility], [address]: Inspector Outside [employer] Distribution/Paper Cutter ID = [id number] for SHADE CINTRON CBC W/PLT COUNT & AUTO [id number] 05:12:00* Test Item Value Reference Range Interpretation Comments WHITE BLOOD CELL COUNT (BEAKER) (test code = 775) 8.7 K/ L 3.5- 10.5 RED BLOOD CELL COUNT (BEAKER) (test code = 761) 3.62 M/ L 3.93-5 .22 L HEMOGLOBIN (BEAKER) (test code = 410) 11.3 GM/DL 11.2-15.7 HEMATOCRIT (BEAKER) (test code = 411) 35.7 % 34.1-44.9 MEAN CORPUSCULAR VOLUME (BEAKER) (test code = 753) 98.6 fL 79. 4-94.8 H MEAN CORPUSCULAR HEMOGLOBIN (BEAKER) (test code = 751) 31.2 pg 25.6-32.2 MEAN CORPUSCULAR HEMOGLOBIN CONC (BEAKER) (test code = 752) 31.7 GM/DL 32.2-35.5 L RED CELL DISTRIBUTION WIDTH (BEAKER) (test code = 412) 13.4 % 11.7-14.4 PLATELET COUNT (BEAKER) (test code = 756) 281 K/CU MM 150-450 MEAN PLATELET VOLUME (BEAKER) (test code = 754) 11.1 fL 9.4-12 .3 NUCLEATED RED BLOOD CELLS (BEAKER) (test code = 413) 0 /100 WBC 0 -0 NEUTROPHILS RELATIVE PERCENT (BEAKER) (test code = 429) 84 % LYMPHOCYTES RELATIVE PERCENT (BEAKER) (test code = 430) 6 % MONOCYTES RELATIVE PERCENT (BEAKER) (test code = 431) 9 % EOSINOPHILS RELATIVE PERCENT (BEAKER) (test code = 432) 0 % BASOPHILS RELATIVE PERCENT (BEAKER) (test code = 437) 0 % NEUTROPHILS ABSOLUTE COUNT (BEAKER) (test code = 670) 7.28 K/ L 1.56-6.13 H LYMPHOCYTES ABSOLUTE COUNT (BEAKER) (test code = 414) 0.52 K/ L 1.18-3.74 L MONOCYTES ABSOLUTE COUNT (BEAKER) (test code = 415) 0.82 K/ L 0. 24-0.36 H EOSINOPHILS ABSOLUTE COUNT (BEAKER) (test code = 416) 0.00 K/ L 0.04-0.36 L BASOPHILS ABSOLUTE COUNT (BEAKER) (test code = 417) 0.01 K/ L 0. 01-0.08 IMMATURE GRANULOCYTES-RELATIVE PERCENT (BEAKER) (test code = 2801) 1 % 0-1 Comprehensive metabolic [id number] 05:06:00* Test Item Value Reference Range Interpretation Comments Protein, Total (test code = 2885-2) 6.3 6.0- 8.3 gm/dL Specimen slightly hemolyzed Albumin (test code = 96033-2) 3.8 g/dL 3.5-5 Specimen slightly hemolyzed Alkaline Phosphatase (test code = 6768-6) 62 U/L 40-150 Total Bilirubin (test code = 1974-2) 0.6 mg/dL 0.2-1.2 Specimen slightly hemolyzed Sodium (test code = 2951-2) 144 meq/L 136-145 Potassium (test code = 2823-3) 3.0 meq/L 3.5-5.1 L Specimen slightly hemolyzed Chloride (test code = 2075-0) 102 meq/L 98-107 CO2 (test code = 2027-9) 27 meq/L 22-29 BUN (test code = 3094-0) 14 mg/dL 7-21 Creatinine (test code = 2160-0) 0.86 mg/dL 0.57-1.25 Specimen slightly hemolyzed Glucose (test code = 2345-7) 237 mg/dL 70-105 H Calcium (test code = 94898-5) 8.8 mg/dL 8.4-10.2 AST (test code = 1920-8) 26 U/L 5-34 Spe cimen slightly hemolyzed ALT (test code = 1742-6) 26 U/L 6-55 Spe cimen slightly hemolyzed EGFR (test code = 15150-6) I NSUFFICIENT CLINICAL DATA TO CALCULATE ESTIMATED GFR. CHANDAN (test code = CHANDAN) Inspector Outside [employer] ID - DB Lab Interpretation (test code = 94996-9) Abnormal [facility] [id number] 05:06:00* Test Item Value Reference Range Interpretation Comments TOTAL PROTEIN (BEAKER) (test code = 770) 6.3 gm/dL 6.0-8.3 Specimen slightly hemolyzed ALBUMIN (BEAKER) (test code = 1145) 3.8 g/dL 3.5-5.0 Specimen slightly hemolyzed ALKALINE PHOSPHATASE (BEAKER) (test code = 346) 62 U/L 40-150 BILIRUBIN TOTAL (BEAKER) (test code = 377) 0.6 mg/dL 0.2-1.2 Specimen slightly hemolyzed SODIUM (BEAKER) (test code = 381) 144 meq/L 136-145 POTASSIUM (BEAKER) (test code = 379) 3.0 meq/L 3.5-5.1 L Specimen slightly hemolyzed CHLORIDE (BEAKER) (test code = 382) 102 meq/L 98-107 CO2 (BEAKER) (test code = 355) 27 meq/L 22-29 BLOOD UREA NITROGEN (BEAKER) (test code = 354) 14 mg/dL 7-21 CREATININE (BEAKER) (test code = 358) 0.86 mg/dL 0.57-1.25 Specimen slightly hemolyzed GLUCOSE RANDOM (BEAKER) (test code = 652) 237 mg/dL 70-105 H CALCIUM (BEAKER) (test code = 697) 8.8 mg/dL 8.4-10.2 AST (SGOT) (BEAKER) (test code = 353) 26 U/L 5-34 Specimen slightly hemolyzed ALT (SGPT) (BEAKER) (test code = 347) 26 U/L 6-55 Specimen slightly hemolyzed EGFR (BEAKER) (test code = 1092) INSUFFICIENT CLINICAL DATA TO CALCULATE ESTIMATED GFR. Inspector Outside [employer] ID - DBPOCT-GLUCOSE [id number] 21:43:00* Test Item Value Reference Range Interpretation Comments POC-GLUCOSE METER (BEAKER) (test code = 1538) 252 mg/dL 70-110 H : Notified RN/MD: TESTED AT [address], [address]: Inspector Outside [employer]/Paper Cutter ID = [id number] for LATHBRIDGE, JOSE POCT-GLUCOSE [id number] 17:37:00* Test Item Value Reference Range Interpretation Comments POC-GLUCOSE METER (BEAKER) (test code = 1538) 239 mg/dL 70-110 H : TESTED AT [address], [address]: Inspector Outside [employer]/Paper Cutter ID = [id number] for AKINSONU, BAY POCT-GLUCOSE [id number] 12:25:00* Test Item Value Reference Range Interpretation Comments POC-GLUCOSE METER (BEAKER) (test code = 1538) 256 mg/dL 70-110 H : TESTED AT [address], [address]: Inspector Outside [employer]/Paper Cutter ID = [id number] for AKINSONU, BAY POCT-GLUCOSE [id number] 07:48:00* Test Item Value Reference Range Interpretation Comments POC-GLUCOSE METER (BEAKER) (test code = 1538) 260 mg/dL 70-110 H : TESTED AT [address], [address]: Inspector Outside [employer]/Paper Cutter ID = [id number] for AKINSONU, BAY COMPREHENSIVE METABOLIC [id number] 06:50:00* Test Item Value Reference Range Interpretation Comments TOTAL PROTEIN (BEAKER) (test code = 770) 5.9 gm/dL 6.0-8.3 L ALBUMIN (BEAKER) (test code = 1145) 3.7 g/dL 3.5-5.0 ALKALINE PHOSPHATASE (BEAKER) (test code = 346) 60 U/L 40-150 BILIRUBIN TOTAL (BEAKER) (test code = 377) 0.7 mg/dL 0.2-1.2 SODIUM (BEAKER) (test code = 381) 140 meq/L 136-145 POTASSIUM (BEAKER) (test code = 379) 2.8 meq/L 3.5-5.1 L CHLORIDE (BEAKER) (test code = 382) 100 meq/L 98-107 CO2 (BEAKER) (test code = 355) 24 meq/L 22-29 BLOOD UREA NITROGEN (BEAKER) (test code = 354) 14 mg/dL 7-21 CREATININE (BEAKER) (test code = 358) 0.76 mg/dL 0.57-1.25 GLUCOSE RANDOM (BEAKER) (test code = 652) 275 mg/dL 70-105 H CALCIUM (BEAKER) (test code = 697) 8.8 mg/dL 8.4-10.2 AST (SGOT) (BEAKER) (test code = 353) 17 U/L 5-34 ALT (SGPT) (BEAKER) (test code = 347) 21 U/L 6-55 EGFR (BEAKER) (test code = 1092) INSUFFICIENT CLINICAL DATA TO CALCULATE ESTIMATED GFR. Inspector Outside [employer] ID - EDASIVancomycin level, [id number] 06:48:00* Test Item Value Reference Range Interpretation Comments Vancomycin Tr (test code = 4092-3) 14.4 ug/mL 10-20 CHANDAN (test code = CHANDAN) Inspector Outside [employer] ID - EDASI Lab Interpretation (test code = 08318-7) Normal [facility] HospitalVANCOMYCIN LEVEL, [id number] 06:48:00* Test Item Value Reference Range Interpretation Comments VANCOMYCIN TROUGH (BEAKER) (test code = 522) 14.4 ug/mL 10.0-20.0 Inspector Outside [employer] ID - EDASICBC W/PLT COUNT & AUTO [id number] 06:05:00* Test Item Value Reference Range Interpretation Comments WHITE BLOOD CELL COUNT (BEAKER) (test code = 775) 9.1 K/ L 3.5- 10.5 RED BLOOD CELL COUNT (BEAKER) (test code = 761) 3.59 M/ L 3.93-5 .22 L HEMOGLOBIN (BEAKER) (test code = 410) 11.4 GM/DL 11.2-15.7 HEMATOCRIT (BEAKER) (test code = 411) 35.1 % 34.1-44.9 MEAN CORPUSCULAR VOLUME (BEAKER) (test code = 753) 97.8 fL 79. 4-94.8 H MEAN CORPUSCULAR HEMOGLOBIN (BEAKER) (test code = 751) 31.8 pg 25.6-32.2 MEAN CORPUSCULAR HEMOGLOBIN CONC (BEAKER) (test code = 752) 32.5 GM/DL 32.2-35.5 RED CELL DISTRIBUTION WIDTH (BEAKER) (test code = 412) 13.3 % 11.7-14.4 PLATELET COUNT (BEAKER) (test code = 756) 250 K/CU MM 150-450 MEAN PLATELET VOLUME (BEAKER) (test code = 754) 10.9 fL 9.4-12 .3 NUCLEATED RED BLOOD CELLS (BEAKER) (test code = 413) 0 /100 WBC 0 -0 NEUTROPHILS RELATIVE PERCENT (BEAKER) (test code = 429) 88 % LYMPHOCYTES RELATIVE PERCENT (BEAKER) (test code = 430) 5 % MONOCYTES RELATIVE PERCENT (BEAKER) (test code = 431) 6 % EOSINOPHILS RELATIVE PERCENT (BEAKER) (test code = 432) 0 % BASOPHILS RELATIVE PERCENT (BEAKER) (test code = 437) 0 % NEUTROPHILS ABSOLUTE COUNT (BEAKER) (test code = 670) 8.00 K/ L 1.56-6.13 H LYMPHOCYTES ABSOLUTE COUNT (BEAKER) (test code = 414) 0.44 K/ L 1.18-3.74 L MONOCYTES ABSOLUTE COUNT (BEAKER) (test code = 415) 0.53 K/ L 0. 24-0.36 H EOSINOPHILS ABSOLUTE COUNT (BEAKER) (test code = 416) 0.00 K/ L 0.04-0.36 L BASOPHILS ABSOLUTE COUNT (BEAKER) (test code = 417) 0.01 K/ L 0. 01-0.08 IMMATURE GRANULOCYTES-RELATIVE PERCENT (BEAKER) (test code = 2801) 2 % 0-1 H POCT-GLUCOSE [id number] 21:26:00* Test Item Value Reference Range Interpretation Comments POC-GLUCOSE METER (BEAKER) (test code = 1538) 209 mg/dL 70-110 H : TESTED AT [facility] [address] [facility], [address]: Inspector Outside [employer]/Paper Cutter ID = [id number] for JEN MATTHEWS POCT-GLUCOSE [id number] 17:26:00* Test Item Value Reference Range Interpretation Comments POC-GLUCOSE METER (BEAKER) (test code = 1538) 197 mg/dL 70-110 H : TESTED AT [place] [id number] [facility], [address]: Inspector Outside [employer]/Paper Cutter ID = [id number] for Natalya Jack [id number] 14:01:00* Test Item Value Reference Range Interpretation Comments Procalcitonin (test code = 05665-7) 0.05 ng/mL <0.05 H CHANDAN (test code = CHANDAN) SEPSIS RISK (ng/mL)Low: 0.05-0.50Intermediate: 0.51-2.00High: >=2.01 Lab Interpretation (test code = 40544-2) Abnormal [facility] HospitalPROCALCITONIN2020-08-09 14:01:00* Test Item Value Reference Range Interpretation Comments PROCALCITONIN (BEAKER) (test code = 3036) 0.05 ng/mL <0.05 H SEPSIS RISK (ng/mL)Low: 0.05-0.50Intermediate: 0.51-2.00High: > =2.01Lactic acid, [id number] 13:51:00* Test Item Value Reference Range Interpretation Comments Lactate, Venous (test code = 2872) 1.05 mmol/L 0.5-2.2 Specimen slightly hemolyzed CHANDAN (test code = CHANDAN) Inspector Outside [employer] ID Lakeisha ORION Barclay Lab Interpretation (test code = 30378-2) Normal [facility] HospitalLACTIC ACID, [id number] 13:51:00* Test Item Value Reference Range Interpretation Comments LACTATE BLOOD VENOUS (2) (BEAKER) (test code = 2872) 1.05 mmol/L 0 .50-2.20 Specimen slightly hemolyzed Inspector Outside [employer] ID Lakeisha SEARS FPOCT-GLUCOSE [id number] 12:34:00* Test Item Value Reference Range Interpretation Comments POC-GLUCOSE METER (BEAKER) (test code = 1538) 240 mg/dL 70-110 H : TESTED AT [facility] [address] [facility], [address]: Inspector Outside [employer]/Paper Cutter ID = [id number] for Natalya Jack SARS-CoV2/RT-PCR (Symptomatic ONLY)2019-09-26 11:09:00* Test Item Value Reference Range Interpretation Comments SARS-COV2/RT-PCR (test code = 71486-2) Negative N ot Detected, Negative, See external report for linked test SARS-COV-2 PERFORMING LAB (test code = 59494-4) [facility] LADARIUS CHANADN (test code = CHANDAN) Negative result for this sarabjit t determines that SARS-CoV-2 RNA was not present in the specimen above the Limit of Detection (LOD). However, Negative results do not preclude SARS-CoV-2 infection and should not be used as the sole basis for treatment or patient management decisions. Negative results must be combined with clinical observations, patient history, and epidemiological information. A false negative result may occur if a specimen is improperly collected, transported or handled. A false negative result should be considered if patient's recent exposures or clinical presentation indicate that COVID-19 (SARS-CoV-2) is likely and diagnostic tests for other causes of illness are negative. Re-testing should be considered in cases of suspected false negatives. The limit of detection for this assay is 800 copies/mL. This SARS CoV-2 test is a real-time RT-PCR test intended for the qualitative detection of nucleic acid from SARS-CoV-2 in a nasopharyngeal swab specimen collected from individuals suspected of COVID-19 by their healthcare provider. This test has not been Food and Drug Administration (FDA) cleared or approved. This is a modified version of an approved Emergency Use Authorization (EUA) and is in the process of review by the FDA. Once authorized by the FDA, the issued EUA will be effective until the declaration that circumstances exist justifying the authorization of the emergency use of in vitro diagnostic tests for detection and/or diagnosis of COVID-19 is terminated under Section 564(b)(2) of the Act or the EUA is revoked under Section 564(g) of the Act. Fact Sheet for Healthcare Providers:https://www.[employer]/sites/default/files/product/documents/Fact_Shee p_XY_Hbwvhbgnj_Rkvw_JBEE-YgL-6.pdf Fact Sheet for Healthcare Patients:https://www.[employer]/sites/default/files/pro duct/documents/Mdsy_Efvdy_Cwqjpmnn_Eoly_HQSL-VkB-7.pdf Performing Laboratory:[facility] [place] [address] [facility] ([facility])2019-09-26 11:09:00* Test Item Value Reference Range Interpretation Comments SARS-COV2/RT-PCR (test code = 3260896) Negative N ot Detected, Negative, See external report for linked test SARS-COV-2 PERFORMING LAB (test code = 8032401) [facility] LADARIUS Negative result for this test determines that SARS-CoV-2 RNA was not present in the specimen above the Limit of Detection (LOD). However, Negative results do n ot preclude SARS-CoV-2 infection and should not be used as the sole basis for tr eatment or patient management decisions. Negative results must be combined with clinical observations, patient history, and epidemiological information. A false negative result may occur if a specimen is improperly collected, transported or handled. A false negative result should be considered if patient's recent expo sures or clinical presentation indicate that COVID-19 (SARS-CoV-2) is likely and diagnostic tests for other causes of illness are negative. Re-testing should be considered in cases of suspected false negatives.The limit of detection for this assay is 800 copies/mL.This SARS CoV-2 test is a real-time RT-PCR test intended for the qualitative detection of nucleic acid from SARS-CoV-2 in a nasopharyn geal swab specimen collected from individuals suspected of COVID-19 by their [facility] provider.This test has not been Food and Drug Administration (FDA) clear ed or approved. This is a modified version of an approved Emergency Use Authori zation (EUA) and is in the process of review by the FDA. Once authorized by [facility] FDA, the issued EUA will be effective until the declaration that circumstances exist justifying the authorization of the emergency use of in vitro diagnostic tests for detection and/or diagnosis of COVID-19 is terminated under Section 564 (b)(2) of the Act or the EUA is revoked under Section 564(g) of the Act.Fact She et for Healthcare Providers:https://www.[employer]/sites/default/files/product/d ocuments/Iodl_Yivwg_LZ_Lotczewfy_Vgko_ZQSU-QmO-1.pdfFact Sheet for Healthcare Pa kris:https://www.[employer]/sites/default/files/product/documents/Fact_Sheet_P gvugdbq_Dzkn_KRGR-VzC-8.pdfPerforming Laboratory:[facility] [address] [facility].[place], [place] [address]JGDD-SYZJHPT [id number] 09:26:00* Test Item Value Reference Range Interpretation Comments POC-GLUCOSE METER (BEAKER) (test code = 1538) 233 mg/dL 70-110 H : TESTED AT [facility] [address] [facility], [address]: Inspector Outside [employer]/Paper Cutter ID = [id number] for LATOYA MEADE Legionella antigen, [id number] 06:29:00* Test Item Value Reference Range Interpretation Comments Legionella Urine Antigen (test code = 64377-6) Negative - see comme nt Negative for L. pneumophila serogroup 1 antigen, suggesting no recent or current infection with this serogroup. Legionellosis cannot be ruled out since other serogroups and species may cause disease. [facility] Centertrep pneumoniae [id number] 06:29:00* Test Item Value Reference Range Interpretation Comments Strep pneumoniae Antigen (test code = 06772-4) Presump tive negative for pneumococcal pneumonia - see comment Presumptive negative for pneumococcal pneumonia - see comment, Presumptive negative for pneumococcal meningitis CHANDAN (test code = CHANDAN) Presumptive negative for pne umococcal pneumonia, suggesting no current or recent pneumococcal infection. Infection due to S. pneumoniae cannot be ruled out since the antigen present in the sample may be below the detection limit of the test. Lab Interpretation (test code = 11449-7) Normal [facility] HospitalLEGIONELLA ANTIGEN, [id number] 06:29:00* Test Item Value Reference Range Interpretation Comments L. PNEUMOPHILA SEROGP 1 UR AG (BEAKER) (test code = 11 56) Negative - see comment Negative for L. pneu mophila serogroup 1 antigen, suggesting no recent or current infection with this serogroup. Legionellosis cannot be ruled out since other serogroups and species may cause disease. STREP PNEUMONIAE [id number] 06:29:00* Test Item Value Reference Range Interpretation Comments STREP PNEUMONIAE ANTIGEN (BEAKER) (test code = 1615) P resumptive negative for pneumococcal pneumonia - see comment Presumptive negative for pneumococcal pneumonia - see commen Presumptive negative for pneumococcal pneumonia, suggesting no current or recent pneumococcal infection. Infection due to S. pneumoniae cannot be ruled out since the antigen present in the sample may be below the detection limit of the test. CBC W/PLT COUNT & AUTO [id number] 06:05:00* Test Item Value Reference Range Interpretation Comments WHITE BLOOD CELL COUNT (BEAKER) (test code = 775) 11.2 K/ L 3.5- 10.5 H RED BLOOD CELL COUNT (BEAKER) (test code = 761) 4.11 M/ L 3.93-5 .22 HEMOGLOBIN (BEAKER) (test code = 410) 13.1 GM/DL 11.2-15.7 HEMATOCRIT (BEAKER) (test code = 411) 40.1 % 34.1-44.9 MEAN CORPUSCULAR VOLUME (BEAKER) (test code = 753) 97.6 fL 79. 4-94.8 H MEAN CORPUSCULAR HEMOGLOBIN (BEAKER) (test code = 751) 31.9 pg 25.6-32.2 MEAN CORPUSCULAR HEMOGLOBIN CONC (BEAKER) (test code = 752) 32.7 GM/DL 32.2-35.5 RED CELL DISTRIBUTION WIDTH (BEAKER) (test code = 412) 13.1 % 11.7-14.4 PLATELET COUNT (BEAKER) (test code = 756) 239 K/CU MM 150-450 MEAN PLATELET VOLUME (BEAKER) (test code = 754) 11.1 fL 9.4-12 .3 NUCLEATED RED BLOOD CELLS (BEAKER) (test code = 413) 0 /100 WBC 0 -0 NEUTROPHILS RELATIVE PERCENT (BEAKER) (test code = 429) 91 % LYMPHOCYTES RELATIVE PERCENT (BEAKER) (test code = 430) 3 % MONOCYTES RELATIVE PERCENT (BEAKER) (test code = 431) 5 % EOSINOPHILS RELATIVE PERCENT (BEAKER) (test code = 432) 0 % BASOPHILS RELATIVE PERCENT (BEAKER) (test code = 437) 0 % NEUTROPHILS ABSOLUTE COUNT (BEAKER) (test code = 670) 10.16 K/ L 1.56-6.13 H LYMPHOCYTES ABSOLUTE COUNT (BEAKER) (test code = 414) 0.32 K/ L 1.18-3.74 L MONOCYTES ABSOLUTE COUNT (BEAKER) (test code = 415) 0.55 K/ L 0. 24-0.36 H EOSINOPHILS ABSOLUTE COUNT (BEAKER) (test code = 416) 0.00 K/ L 0.04-0.36 L BASOPHILS ABSOLUTE COUNT (BEAKER) (test code = 417) 0.03 K/ L 0. 01-0.08 IMMATURE GRANULOCYTES-RELATIVE PERCENT (BEAKER) (test code = 2801) 1 % 0-1 COMPREHENSIVE METABOLIC [id number] 05:53:00* Test Item Value Reference Range Interpretation Comments TOTAL PROTEIN (BEAKER) (test code = 770) 6.5 gm/dL 6.0-8.3 ALBUMIN (BEAKER) (test code = 1145) 4.1 g/dL 3.5-5.0 ALKALINE PHOSPHATASE (BEAKER) (test code = 346) 70 U/L 40-150 BILIRUBIN TOTAL (BEAKER) (test code = 377) 0.6 mg/dL 0.2-1.2 SODIUM (BEAKER) (test code = 381) 140 meq/L 136-145 POTASSIUM (BEAKER) (test code = 379) 2.9 meq/L 3.5-5.1 L CHLORIDE (BEAKER) (test code = 382) 97 meq/L 98-107 L CO2 (BEAKER) (test code = 355) 25 meq/L 22-29 BLOOD UREA NITROGEN (BEAKER) (test code = 354) 10 mg/dL 7-21 CREATININE (BEAKER) (test code = 358) 0.75 mg/dL 0.57-1.25 GLUCOSE RANDOM (BEAKER) (test code = 652) 288 mg/dL 70-105 H CALCIUM (BEAKER) (test code = 697) 9.4 mg/dL 8.4-10.2 AST (SGOT) (BEAKER) (test code = 353) 15 U/L 5-34 ALT (SGPT) (BEAKER) (test code = 347) 18 U/L 6-55 EGFR (BEAKER) (test code = 1092) INSUFFICIENT CLINICAL DATA TO CALCULATE ESTIMATED GFR. Inspector Outside [employer] ID - [id number] 05:46:00* Test Item Value Reference Range Interpretation Comments Magnesium (test code = 87440-2) 1.2 mg/dL 1.6-2.6 L CHANDAN (test code = CHANDAN) Inspector Outside [employer] ID - EDASI Lab Interpretation (test code = 81570-1) [facility]normal [facility] Hospital[facility]2020-08-09 05:46:00* Test Item Value Reference Range Interpretation Comments MAGNESIUM (ASHWINIAKER) (test code = 627) 1.2 mg/dL 1.6-2.6 L Inspector Outside [employer] ID - EDASICT BRAIN [id number] 21:33:00 [facility] [address] [address] Patient Name: LAURI ROBERSON MR #: [id number] : 1945 Age/Sex: 74/F Req #: [id number] Adm Physician: Ordered by: ERICH OLMSTEAD MD Report #: [id number] Location: ER Room/Bed: Procedure: [id number] CT/CT WANDA Armijo WO Exam Date: 09/25/19 Exam Time: 2049 REPORT STATUS: Signed Examination: CT head without contrast Clinical Indication: Confusion; altered mental status. Tech nique: Transaxial noncontrast images from the skull base through the vertex we re obtained. Sagittal and coronal reformatted images were done. Dose modulatio n, iterative reconstruction, and/or weight based adjustment of the mA/kV was u tilized to reduce the radiation dose to as low as reasonably achievable. Co mparison: Head CT dated September 16, 2019. Findings: Scalp: No abnormaliti es. Bones: Intact. No fractures. No blastic or lytic lesions. Brain sul ci: Appropriate for patient's age. Ventricles: Normal in size and configuratio n. No hydrocephalus. . Extra-axial space: No abnormalities. Paren chyma: Again seen are confluent areas of low-attenuation within subcortical a nd periventricular white matter, nonspecific, but could represent microvascula r ischemic disease. No masses, hemorrhage, or acute or chronic cortical base d vascular insults. Suprasellar region: No abnormalities. Craniocervical junction: The foramen magnum is patent. No Chiari one malformation. Inci dental findings: Atherosclerotic calcification of the cavernous and supraclin oid internal carotid arteries. Impression: 1. No acute intracrania l abnormality when compared to prior head CT dated September 16, 2019. 2. Unc hanged chronic microvascular ischemic change. Signed by: Dr. Damaris pino M.D. on 09/25/2019 9:38 PM Dictated By: DAMARIS RODRIGUEZ MD El ectronically Signed By: DAMARIS RODRIGUEZ MD on 09/25/192137 Transcribe d By: DAVON on 09/25/192137 COPY TO: ERICH OLMSTEAD MD CHEST SINGLE (PORTABLE)2019-09-25 20:31:00 [place] [address] Patient Name: LAURI ROBERSON MR #: [id number] : 1945 Age/Sex: 74/F Req #: [id number] Adm Physician: Ordered by: ERICH OLMSTEAD MD Report #: [id number] Location: ER Room/Bed: Procedure: [id number] DX/CHEST S TAYLOR (PORTABLE) Exam Date: 09/25/19 Exam Time: 2004 REPORT STATUS: Signed EXAMINATI ON: CHEST SINGLE (PORTABLE) INDICATION: ams COMPARISON: Radiogra ph dated 08/27/2019. FINDINGS: Shallow lung volumes. LUNG S: Shallow lung volumes. New mild patchy bibasilar opacities. . PLEURA: No pleural effusion or pneumothorax. HEART AND MEDIASTINUM: The cardiomedias tinal silhouette is unremarkable. BONES AND SOFT TISSUES: Cervical fusi on hardware is partially imaged and incompletely assessed. IMPRESSION: Shallow lung volumes. New mild bibasilar patchy opacities could represent atelectasis or viral pneumonia/early pneumonia in the appropriate clinical set ting. Signed by: Tracy Olmos MD on 09/25/2019 8:35 PM Dictated B y: TRACY OLMOS MD 34 Transcribed By: DAVON on 09/25/192034 COPY TO: ERICH OLMSTEAD MD Serum or plasma sodium measurement (moles/volume)2019-09-25 20:19:00 * Test Item Value Reference Range Interpretation Comments Sodium Level (test code = 2951-2) 141 136-145 [facility] potassium measurement (moles/volume)2019-09-25 20:19:00* Test Item Value Reference Range Interpretation Comments Potassium Level (test code = 2823-3) 3.3 3.5-5.1 [facility]rum or plasma chloride measurement (moles/volume)2019-09-25 20:19:00* Test Item Value Reference Range Interpretation Comments Chloride Level (test code = 2075-0) 98 98-107 [facility] Centererum or plasma carbon dioxide, total measurement (moles/volume)2019-09-25 20:19:00* Test Item Value Reference Range Interpretation Comments Carbon Dioxide Level (test code = 2028-9) 25 22-29 [facility] Centererum or plasma anion [id number] 20:19:00* Test Item Value Reference Range Interpretation Comments Anion Gap (test code = 35542-8) 21.3 8-16 [facility] or plasma urea nitrogen measurement (mass/volume)2019-09-25 20:19:00* Test Item Value Reference Range Interpretation Comments Blood Urea Nitrogen (test code = 3094-0) 9 7-26 [facility] Centererum or plasma creatinine measurement (mass/volume)2019-09-25 20:19:00* Test Item Value Reference Range Interpretation Comments Creatinine (test code = 2160-0) 0.76 0.57-1.11 [facility] Centererum or plasma urea nitrogen/creatinine mass [id number] 20:19:00* Test Item Value Reference Range Interpretation Comments BUN/Creatinine Ratio (test code = 3097-3) 12 6-25 [facility] CenterEstim[facility] filtration rate (GFR) [id number] 20:19:00* Test Item Value Reference Range Interpretation Comments Estimat Glomerular Filtration Rate (test code = 092997348) > 60 >60 Ranges were taken from the National Kidney Disease Education Program and the [facility] literature.Reference ranges:60 or greater: Wsekki01-41 ( for 3 consecutive months): Chronic kidney disease 15 or less: Kidney failureNacogdoches Medical CenterGlucose vbpeynztqrv3603-31-52 20:19:00* Test Item Value Reference Range Interpretation Comments Glucose Level (test code = FVY3848) 209 74-118 [facility]ere[facility] or plasma calcium measurement (mass/volume)2019-09-25 20:19:00* Test Item Value Reference Range Interpretation Comments Calcium Level (test code = 32280-0) 9.5 8.4-10.2 [facility] Centererum or plasma total bilirubin measurement (mass/volume)2019-09-25 20:19:00* Test Item Value Reference Range Interpretation Comments Total Bilirubin (test code = 1975-2) 0.5 0.2-1.2 [facility] CenterFluoroscopic procedure less than one hour semtzwmg1496-90-79 20:19:00* Test Item Value Reference Range Interpretation Comments Aspartate Amino Transf (AST/SGOT) (test code = Aspartate Amino Transf (AST/SGOT)) 19 5-34 [facility] Centererum or plasma alanine aminotransferase measurement (enzymatic activity/volume)2019-09-25 20:19:00* Test Item Value Reference Range Interpretation Comments Alanine Aminotransferase (ALT/SGPT) (test code = 1742-6) 17 0-55 [facility] Centererum or plasma protein measurement (mass/volume)2019-09-25 20:19:00* Test Item Value Reference Range Interpretation Comments Total Protein (test code = 2885-2) 6.4 6.5-8.1 [facility] Centererum or plasma albumin measurement (mass/volume)2019-09-25 20:19:00* Test Item Value Reference Range Interpretation Comments Albumin (test code = 1751-7) 3.8 3.5-5.0 [facility] CenterPlasma globulin measurement (mass/volume) 2019-09-25 20:19:00* Test Item Value Reference Range Interpretation Comments Globulin (test code = 04675-1) 2.6 2.3-3.5 [facility] Centererum or plasma albumin/globulin mass jadxo4734-22-56 20:19:00* Test Item Value Reference Range Interpretation Comments Albumin/Globulin Ratio (test code = 1759-0) 1.5 0.8-2.0 [facility] Centererum or plasma alkaline phosphatase measurement (enzymatic activity/volume)2019-09-25 20:19:00* Test Item Value Reference Range Interpretation Comments Alkaline Phosphatase (test code = 6768-6) 71 40-150 [facility] Centererum or plasma creatine kinase measurement (enzymatic activity/volume)2019-09-25 20:19:00* Test Item Value Reference Range Interpretation Comments Creatine Kinase (test code = 2157-6) 57 29-168 [facility] Centererum or plasma creatine kinase MB measurement (mass/volume)2019-09-25 20:19:00* Test Item Value Reference Range Interpretation Comments Creatine Kinase MB (test code = 64676-6) 1.20 0-5.0 [facility] CenterTroponin I measurement by highly sensitive enzyme pyftmzhraou7042-88-72 20:19:00* Test Item Value Reference Range Interpretation Comments Troponin I (test code = 32831-6) 0.004 0-0.300 [facility] CenterUrine color osgwnrrygqzws8318-68-05 19:48:00* Test Item Value Reference Range Interpretation Comments Urine Color (test code = 5778-6) YELLOW YELLOW [facility] CenterUrine sronspl8852-82-56 19:48:00* Test Item Value Reference Range Interpretation Comments Urine Clarity (test code = 95186-1) CLEAR CLEAR [facility] Centerpecific gravity of Urine by Test strip 2019-09-25 19:48:00* Test Item Value Reference Range Interpretation Comments Urine Specific Poston (test code = 5811-5) 1.020 1.010-1.02 5 [facility] CenterUrine pH measurement by automated test fzuqh8223-52-39 19:48:00* Test Item Value Reference Range Interpretation Comments Urine pH (test code = 90042-2) 6 5-7 [facility] CenterUrine leukocyte esterase detection by icdecnfs5310-39-41 19:48:00* Test Item Value Reference Range Interpretation Comments Urine Leukocyte Esterase (test code = 5799-2) NEGATIVE NEGATIVE [facility] CenterUrine nitrite xinikddae1383-78-78 19:48:00* Test Item Value Reference Range Interpretation Comments Urine Nitrite (test code = 69780-5) NEGATIVE NEGATIVE [facility] CenterUrine protein measurement by test strip (mass/volume)2019-09-25 19:48:00* Test Item Value Reference Range Interpretation Comments Urine Protein (test code = 5804-0) 1+ NEGATIVE [facility] CenterUrine glucose zzojutzte7520-06-27 19:48:00* Test Item Value Reference Range Interpretation Comments Urine Glucose (UA) (test code = 2349-9) 3+ NEGATIVE [facility] CenterUrine ketones detection by automated test jgdyn7981-15-87 19:48:00* Test Item Value Reference Range Interpretation Comments Urine Ketones (test code = 31360-6) 2+ NEGATIVE [facility] CenterUrine urobilinogen measurement by test strip (mass/volume)2019-09-25 19:48:00* Test Item Value Reference Range Interpretation Comments Urine Urobilinogen (test code = 14170-7) 0.2 0.2-1 [facility] CenterUrine total bilirubin measurement (mass/volume)2019-09-25 19:48:00* Test Item Value Reference Range Interpretation Comments Urine Bilirubin (test code = 1978-6) NEGATIVE NEGATIVE [facility] CenterUrine erythrocytes jdxllyvve5544-85-89 19:48:00* Test Item Value Reference Range Interpretation Comments Urine Blood (test code = 26620-1) NEGATIVE NEGATIVE [facility] CenterAutomated urine sediment leukocyte count by microscopy (number/high power field)2019-09-25 19:48:00* Test Item Value Reference Range Interpretation Comments Urine WBC (test code = 5821-4) 0-5 0-5 [facility] CenterErythrocytes detection in urine sediment by light zbhfdubmgr3900-29-51 19:48:00* Test Item Value Reference Range Interpretation Comments Urine RBC (test code = 29946-4) NONE 0-5 [facility] CenterBacteria detection in urine sediment by light hxsraoqfiq6408-91-41 19:48:00* Test Item Value Reference Range Interpretation Comments Urine Bacteria (test code = 71473-5) FEW NONE [facility] CenterEpithelial cells detection in urine sediment by light znsiouamcw6396-62-33 19:48:00* Test Item Value Reference Range Interpretation Comments Urine Epithelial Cells (test code = 61298-3) FEW NONE [facility] CenterBlood leukocytes automated count (number/volume)2019-09-25 19:20:00* Test Item Value Reference Range Interpretation Comments White Blood Count (test code = 6690-2) 11.32 4.8-10.8 [facility] CenterBlood erythrocytes automated count (number/volume)2019-09-25 19:20:00* Test Item Value Reference Range Interpretation Comments Red Blood Count (test code = 789-8) 4.21 3.6-5.1 [facility] CenterBlood hemoglobin measurement (moles/volume)2019-09-25 19:20:00* Test Item Value Reference Range Interpretation Comments Hemoglobin (test code = 16315-9) 13.2 12.0-16.0 [facility] CenterAutomated blood hematocrit (volume fraction)2019-09-25 19:20:00* Test Item Value Reference Range Interpretation Comments Hematocrit (test code = 4544-3) 41.3 34.2-44.1 [facility] CenterAutomated erythrocyte mean corpuscular qvghlu8204-16-63 19:20:00* Test Item Value Reference Range Interpretation Comments Mean Corpuscular Volume (test code = 787-2) 98.1 81-99 [facility] CenterAutomated erythrocyte mean corpuscular hemoglobin (mass per erythrocyte)2019-09-25 19:20:00* Test Item Value Reference Range Interpretation Comments Mean Corpuscular Hemoglobin (test code = 785-6) 31.4 28-32 [facility] CenterAutomated erythrocyte mean corpuscular hemoglobin concentration measurement (mass/volume)2019-09-25 19:20:00* Test Item Value Reference Range Interpretation Comments Mean Corpuscular Hemoglobin Concent (test code = 786-4) 32.0 31-35 [facility] CenterRDW UtbQq-Ybx8142-57-08 19:20:00* Test Item Value Reference Range Interpretation Comments Red Cell Distribution Width (test code = 38180-0) 12.9 11.7 -14.4 [facility] CenterAutomated blood platelet count (count/volume)2019-09-25 19:20:00* Test Item Value Reference Range Interpretation Comments Platelet Count (test code = 777-3) 246 140-360 [facility] CenterAutomated blood segmented neutrophil count as percentage of total fjfngvbyfs8352-37-96 19:20:00* Test Item Value Reference Range Interpretation Comments Neutrophils (%) (Auto) (test code = 89171-1) 88.8 38.7-80.0 [facility] CenterAutomated blood lymphocyte count as percentage ot total kehsfdatps2240-37-06 19:20:00* Test Item Value Reference Range Interpretation Comments Lymphocytes (%) (Auto) (test code = 736-9) 3.8 18.0-39.1 [facility] CenterAutomated blood monocyte count as percentage of total hftgsmveca9924-74-89 19:20:00* Test Item Value Reference Range Interpretation Comments Monocytes (%) (Auto) (test code = 5905-5) 6.1 4.4-11.3 [facility] CenterAutomated blood eosinophil count as percentage of total iynmnbzcee2537-10-33 19:20:00* Test Item Value Reference Range Interpretation Comments Eosinophils (%) (Auto) (test code = 713-8) 0.1 0.0-6.0 [facility] CenterAutomated blood basophil count as percentage of total ippmdrwnml0370-10-20 19:20:00* Test Item Value Reference Range Interpretation Comments Basophils (%) (Auto) (test code = 706-2) 0.4 0.0-1.0 [facility] CenterFluoroscopic procedure less than one hour eeofpbif4652-47-52 19:20:00* Test Item Value Reference Range Interpretation Comments IM GRANULOCYTES % (test code = IM GRANULOCYTES %) 0.8 0.0- 1.0 [facility] CenterAutomated blood neutrophil count 2019-09-25 19:20:00* Test Item Value Reference Range Interpretation Comments Neutrophils # (Auto) (test code = 751-8) 10.1 2.1-6.9 [facility] CenterBlood lymphocytes count (number/volume) 2019-09-25 19:20:00* Test Item Value Reference Range Interpretation Comments Lymphocytes # (Auto) (test code = 19691-4) 0.4 1.0-3.2 [facility] CenterBlood monocytes automated count (number/volume)2019-09-25 19:20:00* Test Item Value Reference Range Interpretation Comments Monocytes # (Auto) (test code = 742-7) 0.7 0.2-0.8 [facility] CenterAutomated blood eosinophil count 2019-09-25 19:20:00* Test Item Value Reference Range Interpretation Comments Eosinophils # (Auto) (test code = 711-2) 0.0 0.0-0.4 [facility] CenterAutomated blood basophil count (count/volume)2019-09-25 19:20:00* Test Item Value Reference Range Interpretation Comments Basophils # (Auto) (test code = 704-7) 0.1 0.0-0.1 [facility] CenterFluoroscopic procedure less than one hour pdokugum3314-76-38 19:20:00* Test Item Value Reference Range Interpretation Comments Absolute Immature Granulocyte (auto (sarabjit t code = Absolute Immature Granulocyte (auto) 0.09 0-0.1 [facility] CenterFluoroscopic procedure less than one hour ncgiyawc6375-23-16 19:20:00* Test Item Value Reference Range Interpretation Comments Differential Total Cells Counted (test code = Denzel shetty Total Cells Counted) 100 [facility] blood neutrophils/100 leukocytes 2019-09-25 19:20:00* Test Item Value Reference Range Interpretation Comments Neutrophils % (Manual) (test code = 15454-1) 86 40-74 [facility] blood band neutrophils form/100 qtruzdrdyd8245-71-82 19:20:00* Test Item Value Reference Range Interpretation Comments Band Neutrophils % (test code = 764-1) 4 [facility] blood lymphocytes/100 leukocytes 2019-09-25 19:20:00* Test Item Value Reference Range Interpretation Comments Lymphocytes % (Manual) (test code = 737-7) 3 19-48 [facility] blood monocytes/100 leukocytes 2019-09-25 19:20:00* Test Item Value Reference Range Interpretation Comments Monocytes % (Manual) (test code = 744-3) 6 3.4-9.0 [facility] blood eosinophil count as percentage of total jwawwnzfzt0079-93-32 19:20:00* Test Item Value Reference Range Interpretation Comments Eosinophils % (Manual) (test code = 714-6) 1 0-7 [facility] CenterBlood platelets count by estimate (number/volume)2019-09-25 19:20:00* Test Item Value Reference Range Interpretation Comments Platelet Estimate (test code = 00259-6) ADEQUATE [facility] CenterPlatelet wfeesrumvk5402-16-68 19:20:00* Test Item Value Reference Range Interpretation Comments Platelet Morphology Comment (test code = 43233-1) NORMAL [facility] CenterRBC spxukvyxao6060-78-06 19:20:00* Test Item Value Reference Range Interpretation Comments Red Cell Morphology Comment (test code = 6742-1) NORMAL [facility] CenterProthrombin time (PT) in platelet poor plasma by coagulation pazuk2513-71-59 19:20:00* Test Item Value Reference Range Interpretation Comments Prothrombin Time (test code = 5902-2) 12.5 11.9-14.5 [facility] CenterINR in Platelet poor plasma by Coagulation qgkml4563-85-72 19:20:00* Test Item Value Reference Range Interpretation Comments Prothromb Time International Ratio (test code = 6301-6) 0.89 Oral Anticoagulant Therapy INR Values:1. Low Intensity Therapy 1.5 - 2.02 . Moderate Intensity Therapy 2.0 - 3.03. High Intensity Therapy(1) 2.5 - 3. 54. High Intensity Therapy(2) 3.0 - 4.05. Panic Value INR > 5.0 [facility] CenterActivated partial thromboplastin time (aPTT) in platelet poor plasma by coagulation xuaqu3425-88-62 19:20:00* Test Item Value Reference Range Interpretation Comments Activated Partial Thromboplast Time (test code = 51482-9) 18.5 23.8-35.5 [facility] CenterFluoroscopic procedure less than one hour bsoerszn9269-57-43 19:20:00* Test Item Value Reference Range Interpretation Comments Lactic Acid Level (test code = Lactic Acid Level) 2.0 0.5- 2.0 [facility] CenterFluoroscopic procedure less than one hour pudqtsht4615-66-53 19:20:00* Test Item Value Reference Range Interpretation Comments Differential Total Cells Counted (test code = Differvalarie tial Total Cells Counted) 100 [facility] blood neutrophils/100 leukocytes 2019-09-25 19:20:00* Test Item Value Reference Range Interpretation Comments Neutrophils % (Manual) (test code = 08451-5) 86 40-74 [facility] blood band neutrophils form/100 xhmcgxoxhi6303-28-56 19:20:00* Test Item Value Reference Range Interpretation Comments Band Neutrophils % (test code = 764-1) 4 [facility] blood lymphocytes/100 leukocytes 2019-09-25 19:20:00* Test Item Value Reference Range Interpretation Comments Lymphocytes % (Manual) (test code = 737-7) 3 19-48 [facility] blood monocytes/100 leukocytes 2019-09-25 19:20:00* Test Item Value Reference Range Interpretation Comments Monocytes % (Manual) (test code = 744-3) 6 3.4-9.0 [facility] blood eosinophil count as percentage of total uztasyctsp6459-51-12 19:20:00* Test Item Value Reference Range Interpretation Comments Eosinophils % (Manual) (test code = 714-6) 1 0-7 [facility] CenterBlood platelets count by estimate (number/volume)2019-09-25 19:20:00* Test Item Value Reference Range Interpretation Comments Platelet Estimate (test code = 92675-8) ADEQUATE [facility] CenterPlatelet evtzprunmo7674-75-73 19:20:00* Test Item Value Reference Range Interpretation Comments Platelet Morphology Comment (test code = 64002-5) NORMAL [facility] CenterRB cnrovlhqro0002-91-47 19:20:00* Test Item Value Reference Range Interpretation Comments Red Cell Morphology Comment (test code = 6742-1) NORMAL [facility] blood band neutrophils form/100 mrlgineatc8842-26-06 19:20:00* Test Item Value Reference Range Interpretation Comments Band Neutrophils % (test code = 764-1) 4 [facility] CenterPOCT-GLUCOSE JYBPN3585-63-35 09:14:00* Test Item Value Reference Range Interpretation Comments POC-GLUCOSE METER (BEAKER) (test code = 1538) 188 mg/dL 70-110 H : TESTED AT [facility] [address] [facility], [id number]: Inspector Outside [employer] Distribution/Paper Cutter ID = [id number] for Jeny Santana ECG 12 nbrx3151-29-96 07:37:24Interface, External Ris In - 09/20/2019 7:37 AM CDTVentricular Rate 93 BPMAtrial Rate 93 BPMP-R Interval 130 msQRS Duration 96 msQ-T Interval 364 msQTC Calculation([place]) 452 msP [place] 59 degreesR [place] -33 degreesT [place] 1 degreesNormal sinus rhythmHorizontal axisNormal ECGWhen compared with ECG of 17-SEP-2019 11:18,No significant change was foundConfirmed by Preeti HOLLIDAY MICHAEL (150) on 09/20/2019 7:37:21 [facility] metabolic vomhm6948-02-52 07:01:00* Test Item Value Reference Range Interpretation Comments Sodium (test code = 2951-2) 136 meq/L 136-145 Potassium (test code = 2823-3) 3.5 meq/L 3.5-5.1 Chloride (test code = 2075-0) 100 meq/L 98-107 CO2 (test code = 2028-9) 29 meq/L 22-29 BUN (test code = 3094-0) 14 mg/dL 7-21 Creatinine (test code = 2160-0) 0.72 mg/dL 0.57-1.25 Glucose (test code = 2345-7) 172 mg/dL 70-105 H Calcium (test code = 99735-0) 8.7 mg/dL 8.4-10.2 EGFR (test code = 98054-1) I NSUFFICIENT CLINICAL DATA TO CALCULATE ESTIMATED GFR. CHANDAN (test code = CHANDAN) Inspector Outside [employer] ID - ARTURO L Lab Interpretation (test code = 51158-8) Abnormal [facility] METABOLIC [id number] 07:01:00* Test Item Value Reference Range Interpretation Comments SODIUM (BEAKER) (test code = 381) 136 meq/L 136-145 POTASSIUM (BEAKER) (test code = 379) 3.5 meq/L 3.5-5.1 CHLORIDE (BEAKER) (test code = 382) 100 meq/L 98-107 CO2 (BEAKER) (test code = 355) 29 meq/L 22-29 BLOOD UREA NITROGEN (BEAKER) (test code = 354) 14 mg/dL 7-21 CREATININE (BEAKER) (test code = 358) 0.72 mg/dL 0.57-1.25 GLUCOSE RANDOM (BEAKER) (test code = 652) 172 mg/dL 70-105 H CALCIUM (BEAKER) (test code = 697) 8.7 mg/dL 8.4-10.2 EGFR (BEAKER) (test code = 1092) INSUFFICIENT CLINICAL DATA TO CALCULATE ESTIMATED GFR. Inspector Outside [employer] ID - ARTURO MNyomclckdb8930-51-26 06:57:00* Test Item Value Reference Range Interpretation Comments Phosphorus (test code = 2777-1) 2.4 mg/dL 2.3-4.7 CHANDAN (test code = CHANDAN) Inspector Outside [employer] ID - ARTURO L Lab Interpretation (test code = 86141-2) Normal [facility]PH[facility] 06:57:00* Test Item Value Reference Range Interpretation Comments PHOSPHORUS (BEAKER) (test code = 604) 2.4 mg/dL 2.3-4.7 Inspector Outside [employer] ID - ARTURO [id number] 06:57:00* Test Item Value Reference Range Interpretation Comments MAGNESIUM (BEAKER) (test code = 627) 1.4 mg/dL 1.6-2.6 L Inspector Outside [employer] ID - ARTURO LCBC (Hemogram only)2019-09-20 05:13:00* Test Item Value Reference Range Interpretation Comments WBC (test code = 6690-2) 7.0 3.5- 10.5 K/L RBC (test code = 789-8) 3.63 3.93- 5.22 M/L L MCHC (test code = 786-4) 32.4 32.2- 35.5 GM/DL Hematocrit (test code = 4544-3) 35.2 % 34.1-44.9 MCV (test code = 787-2) 97.0 fL 79.4-94.8 H MCH (test code = 785-6) 31.4 pg 25.6-32.2 RDW (test code = 788-0) 13.1 % 11.7-14.4 Platelets (test code = 777-3) 212 150- 450 K/CU MM MPV (test code = 92727-1) 10.9 fL 9.4-12.3 nRBC (test code = 413) 0 0- 0 /100 WBC Lab Interpretation (test code = 75758-0) Abnormal [facility] HospitalCBC (HEMOGRAM ONLY)2019-09-20 05:13:00* Test Item Value Reference Range Interpretation Comments WHITE BLOOD CELL COUNT (BEAKER) (test code = 775) 7.0 K/ L 3.5- 10.5 RED BLOOD CELL COUNT (BEAKER) (test code = 761) 3.63 M/ L 3.93-5 .22 L HEMOGLOBIN (BEAKER) (test code = 410) 11.4 GM/DL 11.2-15.7 HEMATOCRIT (BEAKER) (test code = 411) 35.2 % 34.1-44.9 MEAN CORPUSCULAR VOLUME (BEAKER) (test code = 753) 97.0 fL 79. 4-94.8 H MEAN CORPUSCULAR HEMOGLOBIN (BEAKER) (test code = 751) 31.4 pg 25.6-32.2 MEAN CORPUSCULAR HEMOGLOBIN CONC (BEAKER) (test code = 752) 32.4 GM/DL 32.2-35.5 RED CELL DISTRIBUTION WIDTH (BEAKER) (test code = 412) 13.1 % 11.7-14.4 PLATELET COUNT (BEAKER) (test code = 756) 212 K/CU MM 150-450 MEAN PLATELET VOLUME (BEAKER) (test code = 754) 10.9 fL 9.4-12 .3 NUCLEATED RED BLOOD CELLS (BEAKER) (test code = 413) 0 /100 WBC 0 -0 POCT-GLUCOSE [id number] 21:19:00* Test Item Value Reference Range Interpretation Comments POC-GLUCOSE METER (BEAKER) (test code = 1538) 166 mg/dL 70-110 H : TESTED AT [place] [id number] [facility], [address]: Inspector Outside [employer] Distribution/Paper Cutter ID = [id number] for SNOW WINTER Cuihijtzm8791-11-70 20:07:00* Test Item Value Reference Range Interpretation Comments Potassium (test code = 2823-3) 3.5 meq/L 3.5-5.1 CHANDAN (test code = CHANDAN) Inspector Outside [employer] ID - DB Lab Interpretation (test code = 75983-0) Normal [facility] 20:07:00* Test Item Value Reference Range Interpretation Comments POTASSIUM (BEAKER) (test code = 379) 3.5 meq/L 3.5-5.1 Inspector Outside [employer] ID - DBPOCT-GLUCOSE [id number] 17:59:00* Test Item Value Reference Range Interpretation Comments POC-GLUCOSE METER (BEAKER) (test code = 1538) 159 mg/dL 70-110 H : TESTED AT [place] [id number] [facility], [address]: Inspector Outside [employer] Distribution/Paper Cutter ID = [id number] for LU, SERKALEM POCT-GLUCOSE [id number] 13:46:00* Test Item Value Reference Range Interpretation Comments POC-GLUCOSE METER (BEAKER) (test code = 1538) 209 mg/dL 70-110 H : TESTED AT [facility] [address] [facility], [address]: Inspector Outside [employer] Distribution/Paper Cutter ID = [id number] for FABIÁN CINTRONIA POCT-GLUCOSE [id number] 13:46:00* Test Item Value Reference Range Interpretation Comments POC-GLUCOSE METER (BEAKER) (test code = 1538) 215 mg/dL 70-110 H : TESTED AT [place] [id number] [facility], [address]: Inspector Outside [employer] Distribution/Paper Cutter ID = [id number] for LUPE CINTRONRICIA POCT-GLUCOSE [id number] 13:46:00* Test Item Value Reference Range Interpretation Comments POC-GLUCOSE METER (BEAKER) (test code = 1538) 202 mg/dL 70-110 H : TESTED AT [place] [id number] [facility], [address]: Inspector Outside [employer]/Paper Cutter ID = [id number] for SNOW WINTER [id number] 11:39:00* Test Item Value Reference Range Interpretation Comments PHOSPHORUS (BEAKER) (test code = 604) 2.8 mg/dL 2.3-4.7 Inspector Outside [employer] ID - VERO WOMRBYEHMX0884-03-06 11:39:00* Test Item Value Reference Range Interpretation Comments MAGNESIUM (BEAKER) (test code = 627) 1.1 mg/dL 1.6-2.6 L Inspector Outside [employer] ID - VERO CBASIC METABOLIC [id number] 06:24:00* Test Item Value Reference Range Interpretation Comments SODIUM (BEAKER) (test code = 381) 138 meq/L 136-145 POTASSIUM (BEAKER) (test code = 379) 3.0 meq/L 3.5-5.1 L CHLORIDE (BEAKER) (test code = 382) 100 meq/L 98-107 CO2 (BEAKER) (test code = 355) 24 meq/L 22-29 BLOOD UREA NITROGEN (BEAKER) (test code = 354) 16 mg/dL 7-21 CREATININE (BEAKER) (test code = 358) 0.73 mg/dL 0.57-1.25 GLUCOSE RANDOM (BEAKER) (test code = 652) 188 mg/dL 70-105 H CALCIUM (BEAKER) (test code = 697) 9.3 mg/dL 8.4-10.2 EGFR (BEAKER) (test code = 1092) INSUFFICIENT CLINICAL DATA TO CALCULATE ESTIMATED GFR. Inspector Outside [employer] ID - PIAYA LCBC (HEMOGRAM ONLY)2019-09-19 04:36:00* Test Item Value Reference Range Interpretation Comments WHITE BLOOD CELL COUNT (BEAKER) (test code = 775) 8.1 K/ L 3.5- 10.5 RED BLOOD CELL COUNT (BEAKER) (test code = 761) 3.64 M/ L 3.93-5 .22 L HEMOGLOBIN (BEAKER) (test code = 410) 11.5 GM/DL 11.2-15.7 HEMATOCRIT (BEAKER) (test code = 411) 35.2 % 34.1-44.9 MEAN CORPUSCULAR VOLUME (BEAKER) (test code = 753) 96.7 fL 79. 4-94.8 H MEAN CORPUSCULAR HEMOGLOBIN (BEAKER) (test code = 751) 31.6 pg 25.6-32.2 MEAN CORPUSCULAR HEMOGLOBIN CONC (BEAKER) (test code = 752) 32.7 GM/DL 32.2-35.5 RED CELL DISTRIBUTION WIDTH (BEAKER) (test code = 412) 13.0 % 11.7-14.4 PLATELET COUNT (BEAKER) (test code = 756) 213 K/CU MM 150-450 MEAN PLATELET VOLUME (BEAKER) (test code = 754) 10.8 fL 9.4-12 .3 NUCLEATED RED BLOOD CELLS (BEAKER) (test code = 413) 0 /100 WBC 0 -0 POCT-GLUCOSE [id number] 12:55:00* Test Item Value Reference Range Interpretation Comments POC-GLUCOSE METER (BEAKER) (test code = 1538) 186 mg/dL 70-110 H : [facility] [facility] [address] [facility], [address]: Inspector Outside Steam Distribution/Paper Cutter ID = [id number] for BROWN, ANA POCT-GLUCOSE [id number] 12:55:00* Test Item Value Reference Range Interpretation Comments POC-GLUCOSE METER (BEAKER) (test code = 1538) 172 mg/dL 70-110 H : TESTED AT [facility] [address] [facility], [address]: Inspector Outside Steam Distribution/Paper Cutter ID = [id number] for BROWN, ANA U/S, ABDOMINAL, [id number] 09:08:00Reason for exam:->abdominal pain and AKIFINAL REPORT U/S, ABDOMINAL, COMPLETE CLINICAL HISTORY: abdominal [...] upper abdomen. Visualized aorta and IVC: Unremarkable. MEASUREMENTS:Liver: 14.8 cm Common Duct: Not visualizedRight Kidney: 10.8 cm Left Kidney: 9.7 cmSpleen: 9.0 cm Maximum Diameter Aorta: 1.7 cm IMPRESSION: No sonographic correlate for the patient's abdominal pain. Contracted gallbladder with no gallstones or evidence of acute cholecystitis. No hydronephrosis bilaterally. Signed: [facility] Verified Date/Time: 09/18/2019 09:08:08 Reading Location: [facility] C013X Ortho Consult Reading Room abdomen [id number] 09:08:00Interface, External Ris In - 09/18/2019 9:10 AM CDTFINAL REPORT U/S, ABDOMINAL, COMPLETE CLINICAL HISTORY: abdominal [...] upper abdomen. Visualized aorta and IVC: Unremarkable. MEASUREMENTS:Liver: 14.8 cm Common Duct: Not visualizedRight Kidney: 10.8 cm Left Kidney: 9.7 cmSpleen: 9.0 cm Maximum Diameter Aorta: 1.7 cm IMPRESSION: No sonographic correlate for the patient's abdominal pain. Contracted gallbladder with no gallstones or evidence of acute cholecystitis. No hydronephrosis bilaterally. Signed: Sneha Edward MDReport Verified Date/Time: 09/18/2019 09:08:08 Reading Location: [facility] C013X Ortho Consult Reading Room [facility] Hospital[facility] METABOLIC [id number] 07:05:00* Test Item Value Reference Range Interpretation Comments SODIUM (BEAKER) (test code = 381) 139 meq/L 136-145 POTASSIUM (BEAKER) (test code = 379) 3.4 meq/L 3.5-5.1 L CHLORIDE (BEAKER) (test code = 382) 102 meq/L 98-107 CO2 (BEAKER) (test code = 355) 25 meq/L 22-29 BLOOD UREA NITROGEN (BEAKER) (test code = 354) 19 mg/dL 7-21 CREATININE (BEAKER) (test code = 358) 0.85 mg/dL 0.57-1.25 GLUCOSE RANDOM (BEAKER) (test code = 652) 166 mg/dL 70-105 H CALCIUM (BEAKER) (test code = 697) 9.3 mg/dL 8.4-10.2 EGFR (BEAKER) (test code = 1092) INSUFFICIENT CLINICAL DATA TO CALCULATE ESTIMATED GFR. Inspector Outside Steam Distribution ID - PIAYA LCreatine Kinase (CK)2019-09-18 07:04:00* Test Item Value Reference Range Interpretation Comments Total CK (test code = 2157-6) 34 U/L 29-200 CHANDAN (test code = CHANDAN) Inspector Outside Steam Distribution ID - PIAYA L Lab Interpretation (test code = 91750-5) Normal [facility] HospitalCREATINE KINASE (CK)2019-09-18 07:04:00* Test Item Value Reference Range Interpretation Comments CREATINE KINASE TOTAL (BEAKER) (test code = 380) 34 U/L 29-20 0 Inspector Outside Steam Distribution ID - ARTURO LCBC (HEMOGRAM ONLY)2019-09-18 05:43:00* Test Item Value Reference Range Interpretation Comments WHITE BLOOD CELL COUNT (BEAKER) (test code = 775) 8.5 K/ L 3.5- 10.5 RED BLOOD CELL COUNT (BEAKER) (test code = 761) 3.44 M/ L 3.93-5 .22 L HEMOGLOBIN (BEAKER) (test code = 410) 10.8 GM/DL 11.2-15.7 L HEMATOCRIT (BEAKER) (test code = 411) 34.1 % 34.1-44.9 MEAN CORPUSCULAR VOLUME (BEAKER) (test code = 753) 99.1 fL 79. 4-94.8 H MEAN CORPUSCULAR HEMOGLOBIN (BEAKER) (test code = 751) 31.4 pg 25.6-32.2 MEAN CORPUSCULAR HEMOGLOBIN CONC (BEAKER) (test code = 752) 31.7 GM/DL 32.2-35.5 L RED CELL DISTRIBUTION WIDTH (BEAKER) (test code = 412) 13.5 % 11.7-14.4 PLATELET COUNT (BEAKER) (test code = 756) 206 K/CU MM 150-450 MEAN PLATELET VOLUME (BEAKER) (test code = 754) 10.9 fL 9.4-12 .3 NUCLEATED RED BLOOD CELLS (BEAKER) (test code = 413) 0 /100 WBC 0 -0 CREATINE KINASE (CK)2019-09-17 23:42:00* Test Item Value Reference Range Interpretation Comments CREATINE KINASE TOTAL (BEAKER) (test code = 380) 29 U/L 29-20 0 Inspector Outside Steam Distribution ID - ARTURO LPOCT-GLUCOSE [id number] 17:15:00* Test Item Value Reference Range Interpretation Comments POC-GLUCOSE METER (BEAKER) (test code = 1538) 301 mg/dL 70-110 H : TESTED AT [facility] [address] [facility], [address]: Inspector Outside Steam Distribution/Paper Cutter ID = [id number] for WALLACE GONSALEZ KATIE RAD, CHEST, 1 VIEW, NON [id number] 14:56:00Reason for exam:->concern for aspirationShould this be performed at the bedside?->YesFINAL REPORT CLINICAL HISTORY: concern for aspiration TECHNIQUE: 1 view of the chest. COMPARISON: None IMPRESSION: There are hazy bilateral lower lung airspace opacities which could represent pulmonary edema versus pneumonia/aspiration. There is blunting of both costophrenic angles. The cardiomediastinal silhouette is magnified by technique. There are cervical fusion hardware. Signed: Moustapha Hernandez Verified Date/Time: 09/17/2019 14:56:08 Reading Location: [facility] Reading Room chest 1 view portable / [id number] 14:56:00Interface, External Ris In - 09/17/2019 2:58 PM CDTFINAL REPORT CLINICAL HISTORY: concern for aspiration TECHNIQUE: 1 view of the chest. COMPARISON: None IMPRESSION: There are hazy bilateral lower lung airspace opacities which could represent pulmonary edema versus pneumonia/aspiration. There is blunting of both costophrenic angles. The cardiomediastinal silhouette is magnified by technique. There are cervical fusion hardware. Signed: Moustapha Hernandez Verified Date/Time: 09/17/2019 14:56:08 Reading Location: [facility] Reading Room [facility] HospitalRapid drug screen, [id number] 13:40:00* Test Item Value Reference Range Interpretation Comments Barbiturate Screen (test code = 72111-9) Negative Negative Benzodiazepine Screen (test code = 11590-3) Positive Negative A Cocaine (Metab.) Screen (test code = 3397-7) Negative Negative Methadone Screen (test code = 55299-3) Negative Negative Opiate Screen (test code = 03357-7) Positive Negative A Cannabinoid Screen (test code = 48239-5) Negative Negative Amph/Methamph Screen (test code = 18898-8) Negative Negative Phencyclidine Screen (test code = 22942-8) Negative Negative pH, UA (test code = 5803-2) 5.0 5.0-8.0 CHANDAN (test code = CHANDAN) DRUG CUTOFF C ONC.Cocaine 300 ng/mL Cannabinoid 50 ng/mLBenzodiazepine 200 ng/mLBarbiturate 200 ng/mLPhencyclidine 25 ng/mLOpiate 300 ng/mLMethadone 300 ng/mLAmphetamine/ 1000 ng/mL Methamphetamine This assay provides an unconfirmed qualitative test result for the clinical management of patients in emergency situations. Chain of custody not maintained. Some nmcl-sik-xlmghvk medications, as well as adulterants, may cause inaccurate results. Clinical correlation should be applied. A more comprehensive drug screen or confirmation of a detected drug may be performed upon request.Inspector Outside Steam Distribution ID - NTP Lab Interpretation (test code = 18365-3) Abnormal [facility] HospitalR[facility]ID DRUG SCREEN, [id number] 13:40:00* Test Item Value Reference Range Interpretation Comments BARBITURATE URINE (BEAKER) (test code = 725) Negative Negative BENZODIAZEPINE SCREEN URINE (BEAKER) (test code = 726) Positive Negative A COCAINE (METAB.) SCREEN (BEAKER) (test code = 1164) Negative Ne gative METHADONE SCREEN (BEAKER) (test code = 1436) Negative Negative OPIATE SCREEN URINE (BEAKER) (test code = 734) Positive Negativ e A CANNABINOID SCREEN URINE (BEAKER) (test code = 727) Negative Ne gative AMPH/METHAMPH SCREEN (BEAKER) (test code = 1438) Negative Negat mack PHENCYCLIDINE SCREEN URINE (BEAKER) (test code = 608) Negative Negative PH UA (BEAKER) (test code = 467) 5.0 5.0-8.0 DRUG CUTOFF CONC.Cocaine 300 ng/mL Cannabinoid 50 ng/mLBenzodiazepine 200 ng/mLBarbiturate 200 ng/mLPh encyclidine 25 ng/mLOpiate 300 ng/mLMethadone 300 ng/mLAmphetamine/ 1000 ng/mL MethamphetamineThis assay provides an unconfirmed qualitative test result for the clinical management of patients in emergency situations. Chain of custody not maintained. Some hqzc-ctj-stvkepm me dications, as well as adulterants, may cause inaccurate results. Clinical correl ation should be applied. A more comprehensive drug screen or confirmation of a d etected drug may be performed upon request.Inspector Outside Steam Distribution ID - SquidbidHepatic function [id number] 13:39:00* Test Item Value Reference Range Interpretation Comments Protein, Total (test code = 2885-2) 6.5 6.0- 8.3 gm/dL Albumin (test code = 00559-8) 4.0 g/dL 3.5-5 Total Bilirubin (test code = 1975-2) 0.3 mg/dL 0.2-1.2 Bilirubin, Direct (test code = 1967-7) 0.2 mg/dL 0.1-0.5 Alkaline Phosphatase (test code = 6768-6) 72 U/L 40-150 AST (test code = 1920-8) 13 U/L 5-34 ALT (test code = 1742-6) 10 U/L 6-55 CHANDAN (test code = CHANDAN) Inspector Outside Steam Distribution ID - [facility] Lab Interpretation (test code = 86175-7) Normal [facility] HospitalLipase2020-07-31 13:39:00* Test Item Value Reference Range Interpretation Comments Lipase (test code = 3040-3) 49 U/L 8-78 CHANDAN (test code = CHANDAN) Inspector Outside Steam Distribution ID - NTP Lab Interpretation (test code = 81443-5) Normal [facility] HospitalCreatinine, random [id number] 13:39:00* Test Item Value Reference Range Interpretation Comments Creatinine, Ur (test code = 2161-8) 66.1 mg/dL CHANDAN (test code = CHANDAN) Reference Range: No NormalsOperator ID - [facility] Vistaodium, random [id number] 13:39:00* Test Item Value Reference Range Interpretation Comments Sodium Urine (test code = 2955-3) 109 meq/L CHANDAN (test code = CHANDAN) Reference Range: No NormalsOperator ID - [facility] Nitrogen, random [id number] 13:39:00* Test Item Value Reference Range Interpretation Comments Urea Nitrogen, Ur (test code = 3095-7) 297 mg/dL CHANDAN (test code = CHANDAN) Reference Range: No NormalsOperator ID - [facility] CampusCREATININE, RANDOM [id number] 13:39:00* Test Item Value Reference Range Interpretation Comments CREATININE URINE (BEAKER) (test code = 375) 66.1 mg/dL Reference Range: No NormalsOperator ID - NTPSODIUM, RANDOM [id number] 13:39:00* Test Item Value Reference Range Interpretation Comments SODIUM URINE (BEAKER) (test code = 243) 109 meq/L Reference Range: No NormalsOperator ID - NTPUREA NITROGEN, RANDOM URINE 2019-09-17 13:39:00* Test Item Value Reference Range Interpretation Comments UREA NITROGEN URINE (BEAKER) (test code = 538) 297 mg/dL Reference Range: No NormalsOperator ID - NTPHEPATIC FUNCTION [id number] 13:39:00* Test Item Value Reference Range Interpretation Comments TOTAL PROTEIN (BEAKER) (test code = 770) 6.5 gm/dL 6.0-8.3 ALBUMIN (BEAKER) (test code = 1145) 4.0 g/dL 3.5-5.0 BILIRUBIN TOTAL (BEAKER) (test code = 377) 0.3 mg/dL 0.2-1.2 BILIRUBIN DIRECT (BEAKER) (test code = 706) 0.2 mg/dL 0.1-0.5 ALKALINE PHOSPHATASE (BEAKER) (test code = 346) 72 U/L 40-150 AST (SGOT) (BEAKER) (test code = 353) 13 U/L 5-34 ALT (SGPT) (BEAKER) (test code = 347) 10 U/L 6-55 Inspector Outside Steam Distribution ID - [id number] 13:39:00* Test Item Value Reference Range Interpretation Comments LIPASE (BEAKER) (test code = 749) 49 U/L 8-78 Inspector Outside Steam Distribution ID - NTPUrinalysis w/Microscopic + Reflex to [id number] 13:22:00 * Test Item Value Reference Range Interpretation Comments Color, UA (test code = 5778-6) Yellow Clarity, UA (test code = 5767-9) Hazy Specific Poston, UA (test code = 5811-5) 1.011 1.001-1.035 pH, UA (test code = 5803-2) 5.0 5.0-8.0 Protein, UA (test code = 20542-9) 10 mg/dL Negative A Glucose, UA (test code = 365) 1000 mg/dL Negative A Ketones, UA (test code = 2514-8) Negative Negative Bilirubin, UA (test code = 53803-6) Negative Negative Blood, UA (test code = 77857-7) Large Negative A Nitrite, UA (test code = 5802-4) Negative Negative Leukocytes, UA (test code = 5799-2) Negative Negative Urobilinogen, UA (test code = 13690-3) 0.2 mg/dL 0.2-1 RBC, UA (test code = 48015-2) 229 /HPF WBC, UA (test code = 5821-4) 0 /HPF Bacteria, UA (test code = 31568-5) Rare Mucus (test code = 8247-9) Rare Specimen Source (test code = 2795) CHANDAN (test code = CHANDAN) Inspector Outside Steam Distribution ID - [auto]Inspector Outside Steam Distribution ID - tech Lab Interpretation (test code = 77755-9) Abnormal [facility] HospitalURINALYSIS W/ REFLEX URINE [id number] 13:22:00* Test Item Value Reference Range Interpretation Comments COLOR (BEAKER) (test code = 470) Yellow CLARITY (BEAKER) (test code = 469) Hazy SPECIFIC GRAVITY UA (BEAKER) (test code = 468) 1.011 1.001-1 .035 PH UA (BEAKER) (test code = 467) 5.0 5.0-8.0 PROTEIN UA (BEAKER) (test code = 464) 10 mg/dL Negative A GLUCOSE UA (BEAKER) (test code = 365) 1000 mg/dL Negative A KETONES UA (BEAKER) (test code = 371) Negative Negative BILIRUBIN UA (BEAKER) (test code = 462) Negative Negative BLOOD UA (BEAKER) (test code = 461) Large Negative A NITRITE UA (BEAKER) (test code = 465) Negative Negative LEUKOCYTE ESTERASE UA (BEAKER) (test code = 466) Negative Negat mack UROBILINOGEN UA (BEAKER) (test code = 463) 0.2 mg/dL 0.2-1.0 RBC UA (BEAKER) (test code = 519) 229 /HPF WBC UA (BEAKER) (test code = 520) 0 /HPF BACTERIA (BEAKER) (test code = 517) Rare MUCUS (BEAKER) (test code = 1574) Rare SOURCE(BEAKER) (test code = 2795) Inspector Outside Steam Distribution ID - [auto]Inspector Outside Steam Distribution ID - techPOCT-GLUCOSE [id number] 11:24:00* Test Item Value Reference Range Interpretation Comments POC-GLUCOSE METER (BEAKER) (test code = 1538) 341 mg/dL 70-110 H : TESTED AT [facility] [address] [place], [address]: Inspector Outside Steam Distribution/Paper Cutter ID = [id number] for KATIE THORNTON SARS-COV2/RT-PCR ([facility])2019-09-17 09:45:00* Test Item Value Reference Range Interpretation Comments SARS-COV2/RT-PCR (test code = 7924496) Negative N ot Detected, Negative, See external report for linked test SARS-COV-2 PERFORMING LAB (test code = 1966152) [facility] LADARIUS Negative result for this test determines that SARS-CoV-2 RNA was not present in the specimen above the Limit of Detection (LOD). However, Negative results do n ot preclude SARS-CoV-2 infection and should not be used as the sole basis for tr eatment or patient management decisions. Negative results must be combined with clinical observations, patient history, and epidemiological information. A false negative result may occur if a specimen is improperly collected, transported or handled. A false negative result should be considered if patient's recent expo sures or clinical presentation indicate that COVID-19 (SARS-CoV-2) is likely and diagnostic tests for other causes of illness are negative. Re-testing should b e considered in cases of suspected false negatives.The limit of detection for th is assay is 800 copies/mL.This SARS CoV-2 test is a real-time RT-PCR test intend ed for the qualitative detection of nucleic acid from SARS-CoV-2 in a nasopharyn geal swab specimen collected from individuals suspected of COVID-19 by their [facility] provider.This test has not been Food and Drug Administration (FDA) clear ed or approved. This is a modified version of an approved Emergency Use Authori zation (EUA) and is in the process of review by the FDA. Once authorized by [facility] FDA, the issued EUA will be effective until the declaration that circumstances exist justifying the authorization of the emergency use of in vitro diagnostic tests for detection and/or diagnosis of COVID-19 is terminated under Section 564 (b)(2) of the Act or the EUA is revoked under Section 564(g) of the Act.Fact She et for Healthcare Providers:https://www.[employer]ppraise.[employer]/sites/default/files/product/d ocuments/Jfej_Bnpdg_[place]_Hijjgrsfp_Zosy_MJAQ-OeY-1.pdfFact Sheet for Healthcare Pa richimelvinas:https://www.Sav[employer]o/sites/default/files/product/documents/Fact_Sheet_P gzqkffd_Aicn_GNCH-XeP-1.pdfPerforming Laboratory:[facility] [address] [facility], [place] [address]HWNF-WGAKTSB [id number] 07:28:00* Test Item Value Reference Range Interpretation Comments POC-GLUCOSE METER (BEAKER) (test code = 1538) 315 mg/dL 70-110 H : TESTED AT [facility] [address] [facility], [address]: Inspector Outside Steam Distribution/Paper Cutter ID = [id number] for WALLACE GONSALEZ KATIE BASIC METABOLIC [id number] 05:35:00* Test Item Value Reference Range Interpretation Comments SODIUM (BEAKER) (test code = 381) 143 meq/L 136-145 POTASSIUM (BEAKER) (test code = 379) 3.9 meq/L 3.5-5.1 CHLORIDE (BEAKER) (test code = 382) 105 meq/L 98-107 CO2 (BEAKER) (test code = 355) 28 meq/L 22-29 BLOOD UREA NITROGEN (BEAKER) (test code = 354) 23 mg/dL 7-21 H CREATININE (BEAKER) (test code = 358) 1.42 mg/dL 0.57-1.25 H GLUCOSE RANDOM (BEAKER) (test code = 652) 353 mg/dL 70-105 H CALCIUM (BEAKER) (test code = 697) 9.6 mg/dL 8.4-10.2 EGFR (BEAKER) (test code = 1092) INSUFFICIENT CLINICAL DATA TO CALCULATE ESTIMATED GFR. Inspector Outside Steam Distribution ID - EDASICBC (HEMOGRAM ONLY)2019-09-17 05:32:00* Test Item Value Reference Range Interpretation Comments WHITE BLOOD CELL COUNT (BEAKER) (test code = 775) 9.8 K/ L 3.5- 10.5 RED BLOOD CELL COUNT (BEAKER) (test code = 761) 3.81 M/ L 3.93-5 .22 L HEMOGLOBIN (BEAKER) (test code = 410) 12.0 GM/DL 11.2-15.7 HEMATOCRIT (BEAKER) (test code = 411) 37.6 % 34.1-44.9 MEAN CORPUSCULAR VOLUME (BEAKER) (test code = 753) 98.7 fL 79. 4-94.8 H MEAN CORPUSCULAR HEMOGLOBIN (BEAKER) (test code = 751) 31.5 pg 25.6-32.2 MEAN CORPUSCULAR HEMOGLOBIN CONC (BEAKER) (test code = 752) 31.9 GM/DL 32.2-35.5 L RED CELL DISTRIBUTION WIDTH (BEAKER) (test code = 412) 13.1 % 11.7-14.4 PLATELET COUNT (BEAKER) (test code = 756) 210 K/CU MM 150-450 MEAN PLATELET VOLUME (BEAKER) (test code = 754) 10.7 fL 9.4-12 .3 NUCLEATED RED BLOOD CELLS (BEAKER) (test code = 413) 0 /100 WBC 0 -0 POCT-GLUCOSE [id number] 21:38:00* Test Item Value Reference Range Interpretation Comments POC-GLUCOSE METER (BEAKER) (test code = 1538) 222 mg/dL 70-110 H : Notified RN/MD: TESTED AT [address], [address]: Inspector Outside Steam Distribution/Paper Cutter ID = [id number] for OLIMPIA FU TSH/Free T4 If [id number] 20:26:00* Test Item Value Reference Range Interpretation Comments TSH (test code = 08909-5) 0.448 0.350- 4.940 uIU/mL CHANDAN (test code = CHANDAN) Inspector Outside Steam Distribution ID - NTP Lab Interpretation (test code = 20708-2) Normal [facility] HospitalVitamin B12 and [id number] 20:26:00* Test Item Value Reference Range Interpretation Comments Vitamin B12 (test code = 2132-9) 436 pg/mL 213-816 Folate (test code = 2284-8) 10.50 ng/mL >=7.00 CHANDAN (test code = CHANDAN) Inspector Outside Steam Distribution ID - NTP Lab Interpretation (test code = 26734-2) Normal [facility] HospitalTSH/FREE T4 IF [id number] 20:26:00* Test Item Value Reference Range Interpretation Comments THYROID STIMULATING HORMONE (BEAKER) (test code = 772) 0.448 uIU /mL 0.350-4.940 Inspector Outside Steam Distribution ID - NTPVITAMIN B12 AND [id number] 20:26:00* Test Item Value Reference Range Interpretation Comments VITAMIN B12 (BEAKER) (test code = 774) 436 pg/mL 213-816 FOLATE (BEAKER) (test code = 362) 10.50 ng/mL >=7.00 Inspector Outside Steam Distribution ID - NTPHemoglobin [id number] 19:47:00* Test Item Value Reference Range Interpretation Comments Hemoglobin A1C (test code = 4548-4) 6.6 % 4.3-6.1 H Lab Interpretation (test code = 31859-9) Abnormal [facility] HospitalHEMOGLOBIN [id number] 19:47:00* Test Item Value Reference Range Interpretation Comments HEMOGLOBIN A1C (BEAKER) (test code = 368) 6.6 % 4.3-6.1 H BASIC METABOLIC [id number] 19:28:00* Test Item Value Reference Range Interpretation Comments SODIUM (BEAKER) (test code = 381) 142 meq/L 136-145 POTASSIUM (BEAKER) (test code = 379) 4.5 meq/L 3.5-5.1 CHLORIDE (BEAKER) (test code = 382) 108 meq/L 98-107 H CO2 (BEAKER) (test code = 355) 26 meq/L 22-29 BLOOD UREA NITROGEN (BEAKER) (test code = 354) 27 mg/dL 7-21 H CREATININE (BEAKER) (test code = 358) 2.12 mg/dL 0.57-1.25 H GLUCOSE RANDOM (BEAKER) (test code = 652) 211 mg/dL 70-105 H CALCIUM (BEAKER) (test code = 697) 9.1 mg/dL 8.4-10.2 EGFR (BEAKER) (test code = 1092) INSUFFICIENT CLINICAL DATA TO CALCULATE ESTIMATED GFR. Inspector Outside Steam Distribution ID - NTPLipid [id number] 19:25:00* Test Item Value Reference Range Interpretation Comments Triglycerides (test code = 2571-8) 224 mg/dL Cholesterol (test code = 2093-3) 169 mg/dL HDL (test code = 2085-9) 61 mg/dL LDL Calculated (test code = 08682-8) 63 mg/dL CHANDAN (test code = CHANDAN) Triglyceride Reference Range : Low Risk <150 Borderline 150-199 High Risk 200-499 Very High Risk >=500 Cholesterol Reference Range: Low Risk <200 Borderline 200-239 High Risk >240 HDL Cholesterol Reference Range: Low Risk >=60 High Risk <40 LDL Cholesterol Reference Range: Optimal <100 Near Optimal 100-129 Borderline 130-159 High 160-189 Very High >=190 Inspector Outside Steam Distribution ID - NTP [facility] HospitalLIPID [id number] 19:25:00* Test Item Value Reference Range Interpretation Comments TRIGLYCERIDES (BEAKER) (test code = 540) 224 mg/dL CHOLESTEROL (BEAKER) (test code = 631) 169 mg/dL HDL CHOLESTEROL (BEAKER) (test code = 976) 61 mg/dL LDL CHOLESTEROL CALCULATED (BEAKER) (test code = 633) 63 mg/dL Triglyceride Reference Range: Low Risk <150 Borderline 150-199 High Risk 200-499 Very High Risk >=500Cholesterol Reference Range: Low Risk <200 Borderline 200-239 High Risk >240HDL Cholesterol Reference Range: Low Risk >=60 High Risk <40LDL Cholesterol Reference Range: Optimal <100 Near Optimal 100-129 Borderline 130-159 High 160-189 Very High >=190 Inspector Outside [employer] Distribution ID - NTPCB (HEMOGRAM ONLY)2019-09-16 18:58:00* Test Item Value Reference Range Interpretation Comments WHITE BLOOD CELL COUNT (BEAKER) (test code = 775) 4.1 K/ L 3.5- 10.5 RED BLOOD CELL COUNT (BEAKER) (test code = 761) 4.02 M/ L 3.93-5 .22 HEMOGLOBIN (BEAKER) (test code = 410) 12.7 GM/DL 11.2-15.7 HEMATOCRIT (BEAKER) (test code = 411) 41.7 % 34.1-44.9 MEAN CORPUSCULAR VOLUME (BEAKER) (test code = 753) 103.7 fL 79. 4-94.8 H MEAN CORPUSCULAR HEMOGLOBIN (BEAKER) (test code = 751) 31.6 pg 25.6-32.2 MEAN CORPUSCULAR HEMOGLOBIN CONC (BEAKER) (test code = 752) 30.5 GM/DL 32.2-35.5 L RED CELL DISTRIBUTION WIDTH (BEAKER) (test code = 412) 13.2 % 11.7-14.4 PLATELET COUNT (BEAKER) (test code = 756) 189 K/CU MM 150-450 MEAN PLATELET VOLUME (BEAKER) (test code = 754) 10.7 fL 9.4-12 .3 NUCLEATED RED BLOOD CELLS (BEAKER) (test code = 413) 0 /100 WBC 0 -0 CT BRAIN [id number] 12:57:00 [place] [address] Patient Name: LAURI ROBERSON MR #: [id number] : 1945 Age/Sex: 74/F Req #: [id number] Adm Physician: Ordered by: TOD DYE DO Report #: [id number] Location: ER Room/Bed: Procedure: [id number] CT/CT BRAIN WO Exam Date: 09/16/19 Exam Time: 1235 REPORT STATUS: Signed CT BRAIN WO HISTORY: Altered mental status COMPARISON: Head CT 08/27/2019 Technique: No ncontrast axial scans were obtained from skull base to the vertex. Coronal an d sagittal reconstructions obtained from the axial data. One or more of the f ollowing dose reduction techniques were used: Automated exposure control, adju stment of the mA and/or kV according to patient size, and/or utilization of it erative reconstruction technique. Beam hardening artifacts obscure some detail s. DISCUSSION: Scalp/Skull: Unremarkable. Brain sulci: Mildly promin ent. Ventricles: Compensatory dilatation. Extra-axial spaces: No masses or f luid collections. Carotid siphon calcifications are present. Parenchyma: Mild to moderate bilateral deep white matter hypodensity is likely chronic microvascular ischemic change. Otherwise, no masses, hemorrhage, or large vas cular territory acute infarct. Dural sinuses: No abnormal densities. Allie lar/Suprasellar region: Intact. Skull base: Intact. Incidental findings: Tono ateral ocular lens replacement. IMPRESSION: 1. No acute intracranial abn ormalities. 2. Mild to moderate supratentorial chronic microvascular ischemic change. Mild generalized cerebral volume loss. Signed by: Dr. Olu Bolton M.D. on 09/16/2019 1:01 PM Dictated By: OLU BOLTON MD Elec tronically Signed By: OLU BOLTON MD on 09/16/191300 Transcribed By: JASON RAN on 09/16/191300 COPY TO: TOD DYE DO Fluoroscopic procedure less than one hour llzdgivl6994-44-79 12:14:00* Test Item Value Reference Range Interpretation Comments Coronavirus (PCR) (test code = Coronavirus (PCR)) NOT DETECTED NOTD ETECTED [employer] SARS-CoV-2 assay is a nucleic amplification test intended for the qualitative detection of RNA from SARS-CoV-2 from nasopharyngeal (TELEVISION SCHEDULE COORDINATOR) specimens . It is used under Emergency Use Authorization (EUA) by FDA.A positive result is indicative of the presence of SARS-CoV-2 RNA. Clinical correlation with patient history and other diagnostic information is necessary to determine patient infe ction status.A negative (Not Detected) result does not preclude SARS-CoV-2 infec tion. Clinical Correlation with patient history and other diagnostic information should be used in patient management decisions.Invalid: Unable to generate a va lid result on this specimen. Please submit a new specimen for reprat testing oc clinically indicated.Tesing performed by:[facility] [id number] [place] [address] [id number], Erich Ozuna MD, PhD [facility] leukocytes automated count (number/volume)2019-09-16 11:30:00* Test Item Value Reference Range Interpretation Comments White Blood Count (test code = 6690-2) 4.30 4.8-10.8 [facility] erythrocytes automated count (number/volume)2019-09-16 11:30:00* Test Item Value Reference Range Interpretation Comments Red Blood Count (test code = 789-8) 3.66 3.6-5.1 [facility] hemoglobin measurement (moles/volume)2019-09-16 11:30:00* Test Item Value Reference Range Interpretation Comments Hemoglobin (test code = 60691-6) 11.3 12.0-16.0 [facility] CenterAutomated blood hematocrit (volume fraction)2019-09-16 11:30:00* Test Item Value Reference Range Interpretation Comments Hematocrit (test code = 4544-3) 37.0 34.2-44.1 [facility] CenterAutomated erythrocyte mean corpuscular soewsy8154-49-02 11:30:00* Test Item Value Reference Range Interpretation Comments Mean Corpuscular Volume (test code = 787-2) 101.1 81-99 [facility] CenterAutomated erythrocyte mean corpuscular hemoglobin (mass per erythrocyte)2019-09-16 11:30:00* Test Item Value Reference Range Interpretation Comments Mean Corpuscular Hemoglobin (test code = 785-6) 30.9 28-32 [facility] CenterAutomated erythrocyte mean corpuscular hemoglobin concentration measurement (mass/volume)2019-09-16 11:30:00* Test Item Value Reference Range Interpretation Comments Mean Corpuscular Hemoglobin Concent (test code = 786-4) 30.5 31-35 [facility] CenterRDW NyaNi-Ezh2139-63-30 11:30:00* Test Item Value Reference Range Interpretation Comments Red Cell Distribution Width (test code = 32831-0) 13.4 11.7 -14.4 [facility] CenterAutomated blood platelet count (count/volume)2019-09-16 11:30:00* Test Item Value Reference Range Interpretation Comments Platelet Count (test code = 777-3) 192 140-360 [facility] segmented neutrophil count as percentage of total hobgzjnxks2397-50-26 11:30:00* Test Item Value Reference Range Interpretation Comments Neutrophils (%) (Auto) (test code = 94373-1) 66.2 38.7-80.0 [facility] CenterAutomated blood lymphocyte count as percentage ot total wfgcrzggrh0752-46-76 11:30:00* Test Item Value Reference Range Interpretation Comments Lymphocytes (%) (Auto) (test code = 736-9) 16.5 18.0-39.1 [facility] CenterAutomated blood monocyte count as percentage of total dshnywsxbz5716-63-60 11:30:00* Test Item Value Reference Range Interpretation Comments Monocytes (%) (Auto) (test code = 5905-5) 11.2 4.4-11.3 [facility] CenterAutomated blood eosinophil count as percentage of total azqwwdvkcw8171-17-86 11:30:00* Test Item Value Reference Range Interpretation Comments Eosinophils (%) (Auto) (test code = 713-8) 4.9 0.0-6.0 [facility] CenterAutomated blood basophil count as percentage of total zctojkhtru1946-90-36 11:30:00* Test Item Value Reference Range Interpretation Comments Basophils (%) (Auto) (test code = 706-2) 0.7 0.0-1.0 [facility] CenterFluoroscopic procedure less than one hour giuhlrvj1130-63-90 11:30:00* Test Item Value Reference Range Interpretation Comments IM GRANULOCYTES % (test code = IM GRANULOCYTES %) 0.5 0.0- 1.0 [facility] CenterAutomated blood neutrophil count 2019-09-16 11:30:00* Test Item Value Reference Range Interpretation Comments Neutrophils # (Auto) (test code = 751-8) 2.9 2.1-6.9 [facility] CenterBlood lymphocytes count (number/volume) 2019-09-16 11:30:00* Test Item Value Reference Range Interpretation Comments Lymphocytes # (Auto) (test code = 74979-4) 0.7 1.0-3.2 [facility] CenterBlood monocytes automated count (number/volume)2019-09-16 11:30:00* Test Item Value Reference Range Interpretation Comments Monocytes # (Auto) (test code = 742-7) 0.5 0.2-0.8 [facility] CenterAutomated blood eosinophil count 2019-09-16 11:30:00* Test Item Value Reference Range Interpretation Comments Eosinophils # (Auto) (test code = 711-2) 0.2 0.0-0.4 [facility] CenterAutomated blood basophil count (count/volume)2019-09-16 11:30:00* Test Item Value Reference Range Interpretation Comments Basophils # (Auto) (test code = 704-7) 0.0 0.0-0.1 [facility] CenterFluoroscopic procedure less than one hour xgdsiuzk0520-56-81 11:30:00* Test Item Value Reference Range Interpretation Comments Absolute Immature Granulocyte (auto (sarabjit t code = Absolute Immature Granulocyte (auto) 0.02 0-0.1 [facility] CenterUrine color berewletzfpfp4394-43-51 11:30:00* Test Item Value Reference Range Interpretation Comments Urine Color (test code = 5778-6) YELLOW YELLOW [facility] CenterUrine iitvwfx2356-96-58 11:30:00* Test Item Value Reference Range Interpretation Comments Urine Clarity (test code = 12164-3) CLEAR CLEAR [facility] Center[facility] gravity of Urine by Test strip 2019-09-16 11:30:00* Test Item Value Reference Range Interpretation Comments Urine Specific Poston (test code = 5811-5) >=1.030 1.010-1.02 5 [facility] CenterUrine pH measurement by automated test ziwty1762-52-33 11:30:00* Test Item Value Reference Range Interpretation Comments Urine pH (test code = 46118-1) 5 5-7 [facility] CenterUrine leukocyte esterase detection by waiqxqxp3971-24-04 11:30:00* Test Item Value Reference Range Interpretation Comments Urine Leukocyte Esterase (test code = 5799-2) TRACE NEGATIVE [facility] CenterUrine nitrite xeenoyjwz4603-49-89 11:30:00* Test Item Value Reference Range Interpretation Comments Urine Nitrite (test code = 50626-5) NEGATIVE NEGATIVE [facility] CenterUrine protein measurement by test strip (mass/volume)2019-09-16 11:30:00* Test Item Value Reference Range Interpretation Comments Urine Protein (test code = 5804-0) TRACE NEGATIVE [facility] CenterUrine glucose iefghymut5707-26-52 11:30:00* Test Item Value Reference Range Interpretation Comments Urine Glucose (UA) (test code = 2349-9) 1+ NEGATIVE [facility] CenterUrine ketones detection by automated test sbxls3875-39-53 11:30:00* Test Item Value Reference Range Interpretation Comments Urine Ketones (test code = 31787-0) TRACE NEGATIVE [facility] CenterUrine urobilinogen measurement by test strip (mass/volume)2019-09-16 11:30:00* Test Item Value Reference Range Interpretation Comments Urine Urobilinogen (test code = 75530-8) 0.2 0.2-1 [facility] CenterUrine total bilirubin measurement (mass/volume)2019-09-16 11:30:00* Test Item Value Reference Range Interpretation Comments Urine Bilirubin (test code = 1978-6) SMALL NEGATIVE [facility] CenterUrine erythrocytes hpihsxqhv1105-90-32 11:30:00* Test Item Value Reference Range Interpretation Comments Urine Blood (test code = 31578-0) NEGATIVE NEGATIVE [facility] CenterAutomated urine sediment leukocyte count by microscopy (number/high power field)2019-09-16 11:30:00* Test Item Value Reference Range Interpretation Comments Urine WBC (test code = 5821-4) >50 0-5 [facility] CenterErythrocytes detection in urine sediment by light wtzbrmivxk0640-59-21 11:30:00* Test Item Value Reference Range Interpretation Comments Urine RBC (test code = 11865-4) NONE 0-5 [facility] CenterBacteria detection in urine sediment by light rryhbbtoej3733-79-94 11:30:00* Test Item Value Reference Range Interpretation Comments Urine Bacteria (test code = 94817-6) MANY NONE [facility] CenterEpithelial cells detection in urine sediment by light mpnkwsfvcc8816-74-04 11:30:00* Test Item Value Reference Range Interpretation Comments Urine Epithelial Cells (test code = 97708-6) FEW NONE [facility] CenterTransitional cells detection in urine sediment by light ezqjssqtnh2344-93-07 11:30:00* Test Item Value Reference Range Interpretation Comments Urine Transitional Epithelial Cells (test code = 8249-5) FEW NONE [facility] Centererum or plasma sodium measurement (moles/volume)2019-09-16 11:30:00* Test Item Value Reference Range Interpretation Comments Sodium Level (test code = 2951-2) 143 136-145 [facility] Centererum or plasma potassium measurement (moles/volume)2019-09-16 11:30:00* Test Item Value Reference Range Interpretation Comments Potassium Level (test code = 2823-3) 4.6 3.5-5.1 [facility] Centererum or plasma chloride measurement (moles/volume)2019-09-16 11:30:00* Test Item Value Reference Range Interpretation Comments Chloride Level (test code = 2075-0) 107 98-107 [facility] Centererum or plasma carbon dioxide, total measurement (moles/volume)2019-09-16 11:30:00* Test Item Value Reference Range Interpretation Comments Carbon Dioxide Level (test code = 2028-9) 24 22-29 [facility] Centererum or plasma anion jkk3055-06-29 11:30:00* Test Item Value Reference Range Interpretation Comments Anion Gap (test code = 03622-5) 16.6 8-16 [facility] Centererum or plasma urea nitrogen measurement (mass/volume)2019-09-16 11:30:00* Test Item Value Reference Range Interpretation Comments Blood Urea Nitrogen (test code = 3094-0) 29 7-26 [facility] Centererum or plasma creatinine measurement (mass/volume)2019-09-16 11:30:00* Test Item Value Reference Range Interpretation Comments Creatinine (test code = 2160-0) 2.92 0.57-1.11 [facility] Centererum or plasma urea nitrogen/creatinine mass rpppv6095-53-27 11:30:00* Test Item Value Reference Range Interpretation Comments BUN/Creatinine Ratio (test code = 3097-3) 10 6-25 [facility] CenterEstimated glomerular filtration rate (GFR) efswchhhomrtg9455-00-70 11:30:00* Test Item Value Reference Range Interpretation Comments Estimat Glomerular Filtration Rate (test code = 983395975) 16 >60 Ranges were taken from the National Kidney Disease Education Program and the [facility] literature.Reference ranges:60 or greater: Joliff90-36 ( for 3 consecutive months): Chronic kidney disease 15 or less: Kidney failureNacogdoches Medical CenterGlucose ocdilbjxojc3357-61-60 11:30:00* Test Item Value Reference Range Interpretation Comments Glucose Level (test code = FBR7488) 214 74-118 [facility] Centererum or plasma calcium measurement (mass/volume)2019-09-16 11:30:00* Test Item Value Reference Range Interpretation Comments Calcium Level (test code = 55402-6) 8.9 8.4-10.2 [facility] Centererum or plasma total bilirubin measurement (mass/volume)2019-09-16 11:30:00* Test Item Value Reference Range Interpretation Comments Total Bilirubin (test code = 1975-2) 0.2 0.2-1.2 [facility] CenterFluoroscopic procedure less than one hour oxakihde7613-36-44 11:30:00* Test Item Value Reference Range Interpretation Comments Aspartate Amino Transf (AST/SGOT) (test code = Aspartate Amino Transf (AST/SGOT)) 11 5-34 [facility] Centererum or plasma alanine aminotransferase measurement (enzymatic activity/volume)2019-09-16 11:30:00* Test Item Value Reference Range Interpretation Comments Alanine Aminotransferase (ALT/SGPT) (test code = 1742-6) 10 0-55 [facility] Centererum or plasma protein measurement (mass/volume)2019-09-16 11:30:00* Test Item Value Reference Range Interpretation Comments Total Protein (test code = 2885-2) 6.2 6.5-8.1 [facility] Centererum or plasma albumin measurement (mass/volume)2019-09-16 11:30:00* Test Item Value Reference Range Interpretation Comments Albumin (test code = 1751-7) 3.5 3.5-5.0 [facility] CenterPlasma globulin measurement (mass/volume) 2019-09-16 11:30:00* Test Item Value Reference Range Interpretation Comments Globulin (test code = 38215-7) 2.7 2.3-3.5 [facility] Centererum or plasma albumin/globulin mass fjvmw0326-87-91 11:30:00* Test Item Value Reference Range Interpretation Comments Albumin/Globulin Ratio (test code = 1759-0) 1.3 0.8-2.0 [facility] Centererum or plasma alkaline phosphatase measurement (enzymatic activity/volume)2019-09-16 11:30:00* Test Item Value Reference Range Interpretation Comments Alkaline Phosphatase (test code = 6768-6) 70 40-150 [facility] Centererum or plasma creatine kinase measurement (enzymatic activity/volume)2019-09-16 11:30:00* Test Item Value Reference Range Interpretation Comments Creatine Kinase (test code = 2157-6) 35 29-168 [facility] Centererum or plasma creatine kinase MB measurement (mass/volume)2019-09-16 11:30:00* Test Item Value Reference Range Interpretation Comments Creatine Kinase MB (test code = 25426-2) 0.90 0-5.0 [facility] CenterTroponin I measurement by highly sensitive enzyme parjioqtwpz3832-90-73 11:30:00* Test Item Value Reference Range Interpretation Comments Troponin I (test code = 36133-5) 0.015 0-0.300 [facility] CenterTransitional cells detection in urine sediment by light nsgrabfyfq5826-95-60 11:30:00* Test Item Value Reference Range Interpretation Comments Urine Transitional Epithelial Cells (test code = 8249-5) FEW NONE [facility] CenterCapillary blood glucose measurement by glucometer (mass/volume)2019-08-28 07:34:00* Test Item Value Reference Range Interpretation Comments Bedside Glucose (test code = 63260-1) 89 70-120 Meter ID: [id number] Medical CenterCapillary blood glucose measurement by glucometer (mass/volume)2019-08-28 07:34:00* Test Item Value Reference Range Interpretation Comments Bedside Glucose (test code = 71872-0) 89 70-120 Meter ID: [id number] Medical CenterBlood leukocytes automated count (number/volume)2019-08-28 05:10:00* Test Item Value Reference Range Interpretation Comments White Blood Count (test code = 6690-2) 5.29 4.8-10.8 [facility] CenterBlood erythrocytes automated count (number/volume)2019-08-28 05:10:00* Test Item Value Reference Range Interpretation Comments Red Blood Count (test code = 789-8) 3.52 3.6-5.1 [facility] CenterBlood hemoglobin measurement (moles/volume)2019-08-28 05:10:00* Test Item Value Reference Range Interpretation Comments Hemoglobin (test code = 82007-6) 11.3 12.0-16.0 [facility] CenterAutomated blood hematocrit (volume fraction)2019-08-28 05:10:00* Test Item Value Reference Range Interpretation Comments Hematocrit (test code = 4544-3) 35.8 34.2-44.1 [facility] CenterAutomated erythrocyte mean corpuscular yjsssk6757-83-46 05:10:00* Test Item Value Reference Range Interpretation Comments Mean Corpuscular Volume (test code = 787-2) 101.7 81-99 [facility] CenterAutomated erythrocyte mean corpuscular hemoglobin (mass per erythrocyte)2019-08-28 05:10:00* Test Item Value Reference Range Interpretation Comments Mean Corpuscular Hemoglobin (test code = 785-6) 32.1 28-32 [facility] CenterAutomated erythrocyte mean corpuscular hemoglobin concentration measurement (mass/volume)2019-08-28 05:10:00* Test Item Value Reference Range Interpretation Comments Mean Corpuscular Hemoglobin Concent (test code = 786-4) 31.6 31-35 [facility] CenterRDW PpwPv-Uqo5506-41-11 05:10:00* Test Item Value Reference Range Interpretation Comments Red Cell Distribution Width (test code = 65621-0) 13.7 11.7 -14.4 [facility] CenterAutomated blood platelet count (count/volume)2019-08-28 05:10:00* Test Item Value Reference Range Interpretation Comments Platelet Count (test code = 777-3) 223 140-360 [facility] CenterAutomated blood segmented neutrophil count as percentage of total cxnrajlozo0927-41-65 05:10:00* Test Item Value Reference Range Interpretation Comments Neutrophils (%) (Auto) (test code = 90041-1) 64.0 38.7-80.0 [facility] CenterAutomated blood lymphocyte count as percentage ot total bfuujiuxzn8213-49-26 05:10:00* Test Item Value Reference Range Interpretation Comments Lymphocytes (%) (Auto) (test code = 736-9) 19.8 18.0-39.1 [facility] CenterAutomated blood monocyte count as percentage of total sbptbhjtbj8551-72-21 05:10:00* Test Item Value Reference Range Interpretation Comments Monocytes (%) (Auto) (test code = 5905-5) 10.0 4.4-11.3 [facility] CenterAutomated blood eosinophil count as percentage of total mllztqqgkx3821-96-48 05:10:00* Test Item Value Reference Range Interpretation Comments Eosinophils (%) (Auto) (test code = 713-8) 4.3 0.0-6.0 [facility] CenterAutomated blood basophil count as percentage of total vrhypgrpgp8420-87-84 05:10:00* Test Item Value Reference Range Interpretation Comments Basophils (%) (Auto) (test code = 706-2) 1.5 0.0-1.0 [facility] CenterFluoroscopic procedure less than one hour acifnief4562-86-26 05:10:00* Test Item Value Reference Range Interpretation Comments IM GRANULOCYTES % (test code = IM GRANULOCYTES %) 0.4 0.0- 1.0 [facility] CenterAutomated blood neutrophil count 2019-08-28 05:10:00* Test Item Value Reference Range Interpretation Comments Neutrophils # (Auto) (test code = 751-8) 3.4 2.1-6.9 [facility] CenterBlood lymphocytes count (number/volume) 2019-08-28 05:10:00* Test Item Value Reference Range Interpretation Comments Lymphocytes # (Auto) (test code = 96550-7) 1.1 1.0-3.2 [facility] CenterBlood monocytes automated count (number/volume)2019-08-28 05:10:00* Test Item Value Reference Range Interpretation Comments Monocytes # (Auto) (test code = 742-7) 0.5 0.2-0.8 [facility] CenterAutomated blood eosinophil count 2019-08-28 05:10:00* Test Item Value Reference Range Interpretation Comments Eosinophils # (Auto) (test code = 711-2) 0.2 0.0-0.4 [facility] CenterAutomated blood basophil count (count/volume)2019-08-28 05:10:00* Test Item Value Reference Range Interpretation Comments Basophils # (Auto) (test code = 704-7) 0.1 0.0-0.1 [facility] CenterFluoroscopic procedure less than one hour vtzmfjxe3768-71-01 05:10:00* Test Item Value Reference Range Interpretation Comments Absolute Immature Granulocyte (auto (sarabjit t code = Absolute Immature Granulocyte (auto) 0.02 0-0.1 [facility] Centererum or plasma sodium measurement (moles/volume)2019-08-28 05:10:00* Test Item Value Reference Range Interpretation Comments Sodium Level (test code = 2951-2) 144 136-145 [facility] Centererum or plasma potassium measurement (moles/volume)2019-08-28 05:10:00* Test Item Value Reference Range Interpretation Comments Potassium Level (test code = 2823-3) 4.2 3.5-5.1 [facility] Centererum or plasma chloride measurement (moles/volume)2019-08-28 05:10:00* Test Item Value Reference Range Interpretation Comments Chloride Level (test code = 2075-0) 109 98-107 [facility] Centererum or plasma carbon dioxide, total measurement (moles/volume)2019-08-28 05:10:00* Test Item Value Reference Range Interpretation Comments Carbon Dioxide Level (test code = 2028-9) 26 22-29 [facility] Centererum or plasma anion kpr1003-93-62 05:10:00* Test Item Value Reference Range Interpretation Comments Anion Gap (test code = 32750-3) 13.2 8-16 [facility] Centererum or plasma urea nitrogen measurement (mass/volume)2019-08-28 05:10:00* Test Item Value Reference Range Interpretation Comments Blood Urea Nitrogen (test code = 3094-0) 17 7-26 [facility] Centererum or plasma creatinine measurement (mass/volume)2019-08-28 05:10:00* Test Item Value Reference Range Interpretation Comments Creatinine (test code = 2160-0) 0.74 0.57-1.11 [facility] Centererum or plasma urea nitrogen/creatinine mass ntoqt7910-96-53 05:10:00* Test Item Value Reference Range Interpretation Comments BUN/Creatinine Ratio (test code = 3097-3) 23 6-25 [facility] CenterEstimated glomerular filtration rate (GFR) jffsugddbgfpw2976-89-95 05:10:00* Test Item Value Reference Range Interpretation Comments Estimat Glomerular Filtration Rate (test code = 215078396) > 60 >60 Ranges were taken from the National Kidney Disease Education Program and the [facility] Kid[facility] Foundation literature.Reference ranges:60 or greater: Cmghrf41-34 ( for 3 consecutive months): Chronic kidney disease 15 or less: Kidney failureNacogdoches Medical CenterGlucose ykqjrsbbpdm6185-26-23 05:10:00* Test Item Value Reference Range Interpretation Comments Glucose Level (test code = SIA2832) 56 74-118 Results repeated and called to YURI HERNANDEZ RN at 0611 on 08/28/19 by Yady yao. Read back and verified.[facility] Centererum or plasma calcium measurement (mass/volume)2019-08-28 05:10:00* Test Item Value Reference Range Interpretation Comments Calcium Level (test code = 19329-5) 9.1 8.4-10.2 [facility] Centererum or plasma total bilirubin measurement (mass/volume)2019-08-28 05:10:00* Test Item Value Reference Range Interpretation Comments Total Bilirubin (test code = 1975-2) 0.3 0.2-1.2 [facility] CenterFluoroscopic procedure less than one hour igzknvqd4954-83-57 05:10:00* Test Item Value Reference Range Interpretation Comments Aspartate Amino Transf (AST/SGOT) (test code = Aspartate Amino Transf (AST/SGOT)) 14 5-34 [facility] Centererum or plasma alanine aminotransferase measurement (enzymatic activity/volume)2019-08-28 05:10:00* Test Item Value Reference Range Interpretation Comments Alanine Aminotransferase (ALT/SGPT) (test code = 1742-6) 11 0-55 [facility] Centererum or plasma protein measurement (mass/volume)2019-08-28 05:10:00* Test Item Value Reference Range Interpretation Comments Total Protein (test code = 2885-2) 6.1 6.5-8.1 [facility] Centererum or plasma albumin measurement (mass/volume)2019-08-28 05:10:00* Test Item Value Reference Range Interpretation Comments Albumin (test code = 1751-7) 3.3 3.5-5.0 [facility] CenterPlasma globulin measurement (mass/volume) 2019-08-28 05:10:00* Test Item Value Reference Range Interpretation Comments Globulin (test code = 48705-5) 2.8 2.3-3.5 [facility] Centererum or plasma albumin/globulin mass cxoxi3369-98-54 05:10:00* Test Item Value Reference Range Interpretation Comments Albumin/Globulin Ratio (test code = 1759-0) 1.2 0.8-2.0 [facility] Centererum or plasma alkaline phosphatase measurement (enzymatic activity/volume)2019-08-28 05:10:00* Test Item Value Reference Range Interpretation Comments Alkaline Phosphatase (test code = 6768-6) 70 40-150 [facility] CenterCapillary blood glucose measurement by glucometer (mass/volume)2019-08-27 19:38:00* Test Item Value Reference Range Interpretation Comments Bedside Glucose (test code = 15243-4) 91 70-120 Meter ID: [id number] [facility] Healthcare Medical Centererum or plasma creatine kinase measurement (enzymatic activity/volume)2019-08-27 16:00:00* Test Item Value Reference Range Interpretation Comments Creatine Kinase (test code = 2157-6) 20 29-168 [facility] Centererum or plasma creatine kinase MB measurement (mass/volume)2019-08-27 16:00:00* Test Item Value Reference Range Interpretation Comments Creatine Kinase MB (test code = 05663-2) 0.40 0-5.0 [facility] CenterTroponin I measurement by highly sensitive enzyme pexoiuxizpg2497-83-16 16:00:00* Test Item Value Reference Range Interpretation Comments Troponin I (test code = 84936-9) < 0.001 0-0.300 [facility] CenterFluoroscopic procedure less than one hour uoizenyq9034-48-84 05:00:00* Test Item Value Reference Range Interpretation Comments Coronavirus (PCR) (test code = Coronavirus (PCR)) NOT DETECTED NOTD ETECTED SARS-COV-2 (COVID19), HIGHRISK, RT-PCRNegative results do not preclude SARS-CoV- 2 infection and should not be used as the sole basis for patient management deci sions. Negative results must be combined with clinical observations, patient his tory, and epidemiological information. Optimum specimen types and timing for pea k viral levels during infections caused by SARS-CoV-2 have not been determined. Collection of multiple specimens ot types of specimens may be necessary to detec t virus. Improper specimen collection and handling, sequence variability under p rimers/probes, or organism present below the limit of detection may lead to fals e negative results. Positive and negative predictive values of testing are highl y dependent on prevalance. False negative test results are more likely when prev alence is high.The expected result is negative (not detected).The SARS-CoV-2 sarabjit t is intended for the qualitative detection of nucleic acid from SARS-CoV-2 in n asopharyngeal and oropharyngeal swab samples from patients who meet COVID-19 cli nical and or epidemiological criteria. For lower respiratory tract specimens, th e assay is submitted for authoriztion by FDA under an Emergency Use Authorizatio n (EUA). Testing methodology is real time RT-PCR. If received as separate collec tion devices, nasopharygeal and oropharyngeal specimens are combined for analysi s. Additional specimens may be split to a separate accession for analysi and rep orting as this test includes a single unit of service.Test results must be corre lated with clinical presentation and evaluated in the context of other laborator y and epidemiologic data. Test performance can be affected because the epidemiol ogy and clinical spectrum of infection caused by SARS-CoV-2 is not fully known. For example, the optimum types of specimens to collect and when during the cours e of infection these specimens are most likely to contain detectable viral RNA m ay not be known.This test has not been Food and Drug Administration (FDA) cleare d or approved and has been authorized by FDA under an Emergency Use Authorizatio n (EUA). The test is only authorized for the duration of the declaration that ci rcumstances exist justifying the authorization of emergency use of in vitro diag nostic tests for detection and/or diagnosis of SARS-CoV-2 under section 564(b) o f the Act, 21 U.S.C. section 360bbb-3(b)(1), unless the authorization is termina eloise or revoked sooner. [facility] are certified under the C linical Laboratory Improvement Amendments of 1988 (CLIA), 42 U.S.C. section 263a , to perform high complexity tests.Testing performed by [facility] [id number] [phone] Director: Tim Christianson M.D.CLIA # [id number] Medical CenterUrine color kjrviyzljskki5467-57-32 03:38:00* Test Item Value Reference Range Interpretation Comments Urine Color (test code = 5778-6) YELLOW YELLOW [facility] CenterUrine ftvqklb2804-86-02 03:38:00* Test Item Value Reference Range Interpretation Comments Urine Clarity (test code = 16150-1) CLEAR CLEAR [facility] Centerpecific gravity of Urine by Test strip 2019-08-27 03:38:00* Test Item Value Reference Range Interpretation Comments Urine Specific Poston (test code = 5811-5) 1.020 1.010-1.02 5 [facility] CenterUrine pH measurement by automated test rfmvt9125-77-10 03:38:00* Test Item Value Reference Range Interpretation Comments Urine pH (test code = 92936-8) 5.5 5-7 [facility] CenterUrine leukocyte esterase detection by pkncqxii9675-55-75 03:38:00* Test Item Value Reference Range Interpretation Comments Urine Leukocyte Esterase (test code = 5799-2) NEGATIVE NEGATIVE [facility] CenterUrine nitrite wzcflsrgg4495-25-95 03:38:00* Test Item Value Reference Range Interpretation Comments Urine Nitrite (test code = 61995-8) NEGATIVE NEGATIVE [facility] CenterUrine protein measurement by test strip (mass/volume)2019-08-27 03:38:00* Test Item Value Reference Range Interpretation Comments Urine Protein (test code = 5804-0) NEGATIVE NEGATIVE [facility] CenterUrine glucose kawxdiqli3105-97-47 03:38:00* Test Item Value Reference Range Interpretation Comments Urine Glucose (UA) (test code = 2349-9) NEGATIVE NEGATIVE [facility] CenterUrine ketones detection by automated test cpenh9087-41-05 03:38:00* Test Item Value Reference Range Interpretation Comments Urine Ketones (test code = 66735-0) NEGATIVE NEGATIVE [facility] CenterUrine urobilinogen measurement by test strip (mass/volume)2019-08-27 03:38:00* Test Item Value Reference Range Interpretation Comments Urine Urobilinogen (test code = 07602-7) 0.2 0.2-1 [facility] CenterUrine total bilirubin measurement (mass/volume)2019-08-27 03:38:00* Test Item Value Reference Range Interpretation Comments Urine Bilirubin (test code = 1978-6) NEGATIVE NEGATIVE [facility] CenterUrine erythrocytes uzirpuypn8327-60-26 03:38:00* Test Item Value Reference Range Interpretation Comments Urine Blood (test code = 06281-6) NEGATIVE NEGATIVE [facility] CenterAutomated urine sediment leukocyte count by microscopy (number/high power field)2019-08-27 03:38:00* Test Item Value Reference Range Interpretation Comments Urine WBC (test code = 5821-4) 11-20 0-5 [facility] CenterErythrocytes detection in urine sediment by light dnbmtqsepc3508-79-40 03:38:00* Test Item Value Reference Range Interpretation Comments Urine RBC (test code = 33394-1) 6-10 0-5 [facility] CenterBacteria detection in urine sediment by light dyrfoyvtyq8673-20-26 03:38:00* Test Item Value Reference Range Interpretation Comments Urine Bacteria (test code = 32146-2) FEW NONE [facility] CenterEpithelial cells detection in urine sediment by light dcljlphvhv1916-83-93 03:38:00* Test Item Value Reference Range Interpretation Comments Urine Epithelial Cells (test code = 72536-2) FEW NONE [facility] CenterTransitional cells detection in urine sediment by light wivmjszinv2703-29-38 03:38:00* Test Item Value Reference Range Interpretation Comments Urine Transitional Epithelial Cells (test code = 8249-5) FEW NONE [facility] CenterRenal epithelial cells detection in urine sediment by light abzlaljyjs6818-87-21 03:38:00* Test Item Value Reference Range Interpretation Comments Urine Renal Epithelial Cells (test code = 95689-4) FEW NON E [facility] CenterHyaline casts detection in urine sediment by light crwmnvbucs7947-68-58 03:38:00* Test Item Value Reference Range Interpretation Comments Urine Hyaline Casts (test code = 26317-2) 11-15 0-1 [facility] CenterRenal epithelial cells detection in urine sediment by light aczyvpfjkg8862-88-88 03:38:00* Test Item Value Reference Range Interpretation Comments Urine Renal Epithelial Cells (test code = 58514-6) FEW NON E [facility] CenterHyaline casts detection in urine sediment by light hcjolmjpfo1011-24-86 03:38:00* Test Item Value Reference Range Interpretation Comments Urine Hyaline Casts (test code = 58547-1) 11-15 0-1 [facility] CenterRenal epithelial cells detection in urine sediment by light zxkpwrhara8508-59-21 03:38:00* Test Item Value Reference Range Interpretation Comments Urine Renal Epithelial Cells (test code = 76405-3) FEW NON E [facility] CenterHyaline casts detection in urine sediment by light pwxawlsmmi4078-98-73 03:38:00* Test Item Value Reference Range Interpretation Comments Urine Hyaline Casts (test code = 65753-4) 01-01 0-1 [facility] CenterRenal epithelial cells detection in urine sediment by light bbsofxrkaa0693-40-15 03:38:00* Test Item Value Reference Range Interpretation Comments Urine Renal Epithelial Cells (test code = 93532-1) FEW NON E [facility] CenterHyaline casts detection in urine sediment by light dlxyfjtqlc7259-01-16 03:38:00* Test Item Value Reference Range Interpretation Comments Urine Hyaline Casts (test code = 13131-1) 01-01 0-1 [facility] CenterRenal epithelial cells detection in urine sediment by light jbdnrmdutm9009-41-84 03:38:00* Test Item Value Reference Range Interpretation Comments Urine Renal Epithelial Cells (test code = 74967-0) FEW NON E [facility] CenterHyaline casts detection in urine sediment by light zjzgqttkgp7499-04-46 03:38:00* Test Item Value Reference Range Interpretation Comments Urine Hyaline Casts (test code = 61245-7) 01-01 0-1 [facility] CenterCHEST SINGLE (PORTABLE)2019-08-27 02:27:00 [place] [address] Patient Name: LAURI ROBERSON MR #: [id number] : 1945 Age/Sex: 74/F Req #: [id number] Adm Physician: CHANA JONES MD Ordered by: ERICH OLMSTEAD MD Report #: [id number] Location: MED/SURG Room/Bed: [facility] Procedure: [id number] DX/CHEST S TAYLOR (PORTABLE) Exam Date: 08/27/19 Exam Time: 0125 REPORT STATUS: Signed EXAMINATI ON: CHEST SINGLE (PORTABLE) INDICATION: Headache, elevated blood pressure. COMPARISON: Chest x-ray 08/09/2019 FINDINGS: TUBES and LINES: None. LUNGS: Normal lung volumes. Lungs are clear. Pro minent central pulmonary vasculature. PLEURA: No pleural effusion or pne umothorax. HEART AND MEDIASTINUM: Cardiac size is mildly enlarged. Aortic calcifications. BONES AND SOFT TISSUES: No acute osseous lesion. Soft tis sues are unremarkable. Degenerative changes in the spine and shoulders. U PPER ABDOMEN: No free air under the diaphragm. IMPRESSION: Mild c ardiomegaly and pulmonary vascular congestion. Signed by: Haylie Stacy on 08/27/2019 2:28 AM Dictated By: MARKOS ARTEAGA DO Electronically S igned By: MARKOS ARTEAGA DO on 08/27/19227 Transcribed By: DAVON on 08/26 COPY TO: ERICH OLMSTEAD MD CT BRAIN [id number] 01:34:00 [place] [address] Patient Name: LAURI ROBERSON MR #: [id number] : 1945 Age/Sex: 74/F Req #: [id number] Adm Physician: CHANA JONES MD Ordered by: ERICH OLMSTEAD MD Report #: [id number] Location: MED/SURG Room/Bed: [facility] Procedure: [id number] CT/CT WANDA Armijo WO Exam Date: 08/27/19 Exam Time: 0115 REPORT STATUS: Signed History:Headache Comparison studies: None Technique: Axial images were obtained from th e skull base to the vertex. Coronal and sagittal images reconstructed from the axial data. Dose modulation, iterative reconstruction, and/or weight based ad justment of the mA/kV was utilized to reduce the radiation dose to as low as reasonably achievable. Intravenous contrast: None Findings: Sc alp/skull: No abnormalities. Extra-axial spaces: No masses. No fluid collections. Brain sulci: Mildly prominent. 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 No hydrocephalus. Parenchyma: Focal and confluent, hypoden sities in the supratentorial white matter are small vessel ischemic changes. No masses, hemorrhage, acute or chronic cortical vascular insults. Sellar /suprasellar region: No abnormalities. Craniocervical junction: Patent foramen magnum. No Chiari one malformation. Incidental findings: Subtle atheros clerotic calcifications in the carotid siphons . Impression: No acute abnormalities. Chronic findings: 1. Mild generalized volume loss. 2. Mild supratentorial white matter small vessel ischemic changes. Signed by: Dr. Fabi Chapman M.D. on 08/27/2019 1:35 AM Dictated By: FABI PIPER MD, MD 4 COPY TO: TOSHA OLMSTEAD MD Prothrombin time (PT) in platelet poor plasma by coagulation dlykq5978-70-47 00:30:00* Test Item Value Reference Range Interpretation Comments Prothrombin Time (test code = 5902-2) 11.0 11.9-14.5 [facility] CenterINR in Platelet poor plasma by Coagulation abygs8046-38-57 00:30:00* Test Item Value Reference Range Interpretation Comments Prothromb Time International Ratio (test code = 6301-6) 0.75 Oral Anticoagulant Therapy INR Values:1. Low Intensity Therapy 1.5 - 2.02 . Moderate Intensity Therapy 2.0 - 3.03. High Intensity Therapy(1) 2.5 - 3. 54. High Intensity Therapy(2) 3.0 - 4.05. Panic Value INR > 5.0 [facility] CenterActivated partial thromboplastin time (aPTT) in platelet poor plasma by coagulation aituh3712-90-37 00:30:00* Test Item Value Reference Range Interpretation Comments Activated Partial Thromboplast Time (test code = 69441-5) 28.4 23.8-35.5 [facility] CenterProthrombin time (PT) in platelet poor plasma by coagulation wggqv6911-39-82 00:30:00* Test Item Value Reference Range Interpretation Comments Prothrombin Time (test code = 5902-2) 11.0 11.9-14.5 [facility] CenterINR in Platelet poor plasma by Coagulation unddw6001-19-75 00:30:00* Test Item Value Reference Range Interpretation Comments Prothromb Time International Ratio (test code = 6301-6) 0.75 Oral Anticoagulant Therapy INR Values:1. Low Intensity Therapy 1.5 - 2.02 . Moderate Intensity Therapy 2.0 - 3.03. High Intensity Therapy(1) 2.5 - 3. 54. High Intensity Therapy(2) 3.0 - 4.05. Panic Value INR > 5.0 [facility] CenterActivated partial thromboplastin time (aPTT) in platelet poor plasma by coagulation zifvm6966-54-63 00:30:00* Test Item Value Reference Range Interpretation Comments Activated Partial Thromboplast Time (test code = 89701-1) 28.4 23.8-35.5 [facility] CenterCHEST 2 [id number] 15:14:00 [place] [address] Patient Name: LAURI ROBERSON MR #: [id number] : 1945 Age/Sex: 74/F Req #: [id number] Adm Physician: Ordered by: GLENN RAMESH MD Report #: [id number] Location: OR Room/Bed: Procedure: [id number] DX/CHEST 2 VIEW S Exam Date: 08/09/19 Exam Time: 1427 REPORT STATUS: Signed X-ray chest PA and later al views Comparison: None History: Preop Findings: Central airway s unremarkable. Atherosclerotic aorta with prominence of descending thoracic a khadra. Heart size normal. No pleural effusion. No pneumothorax. No focal lung d isease. Visualized skeletal structures are remarkable for levo convexity of th e thoracolumbar spine. Upper abdomen unremarkable. Impression: No acute c ardiopulmonary disease. Signed by: Martin Thurston MD on 08/09/2019 3:15 PM Dictated By: MARTIN THURSTON MD 14 Transcribed By: DAVON on 08/09/191514 COPY TO: GLENN RAMESH MD Fluoroscopic procedure less than one hour duration 2019-08-09 15:10:00* Test Item Value Reference Range Interpretation Comments Coronavirus (PCR) (test code = Coronavirus (PCR)) NOT DETECTED NOTD ETECTED SARS-COV-2 (COVID19), HIGHRISK, RT-PCRNegative results do not preclude SARS-CoV- 2 infection and should not be used as the sole basis for patient management deci sions. Negative results must be combined with clinical observations, patient his tory, and epidemiological information. Optimum specimen types and timing for pea k viral levels during infections caused by SARS-CoV-2 have not been determined. Collection of multiple specimens ot types of specimens may be necessary to detec t virus. Improper specimen collection and handling, sequence variability under p rimers/probes, or organism present below the limit of detection may lead to fals e negative results. Positive and negative predictive values of testing are highl y dependent on prevalance. False negative test results are more likely when prev alence is high.The expected result is negative (not detected).The SARS-CoV-2 sarabjit t is intended for the qualitative detection of nucleic acid from SARS-CoV-2 in n asopharyngeal and oropharyngeal swab samples from patients who meet COVID-19 cli nical and or epidemiological criteria. For lower respiratory tract specimens, th e assay is submitted for authoriztion by FDA under an Emergency Use Authorizatio n (EUA). Testing methodology is real time RT-PCR. If received as separate collec tion devices, nasopharygeal and oropharyngeal specimens are combined for analysi s. Additional specimens may be split to a separate accession for analysi and rep orting as this test includes a single unit of service.Test results must be corre lated with clinical presentation and evaluated in the context of other laborator y and epidemiologic data. Test performance can be affected because the epidemiol ogy and clinical spectrum of infection caused by SARS-CoV-2 is not fully known. For example, the optimum types of specimens to collect and when during the cours e of infection these specimens are most likely to contain detectable viral RNA m ay not be known.This test has not been Food and Drug Administration (FDA) cleare d or approved and has been authorized by FDA under an Emergency Use Authorizatio n (EUA). The test is only authorized for the duration of the declaration that ci rcumstances exist justifying the authorization of emergency use of in vitro diag nostic tests for detection and/or diagnosis of SARS-CoV-2 under section 564(b) o f the Act, 21 U.S.C. section 360bbb-3(b)(1), unless the authorization is termina eloise or revoked sooner. [facility] are certified under the C linical Laboratory Improvement Amendments of 1988 (CLIA), 42 U.S.C. section 263a , to perform high complexity tests.Testing performed by [facility] [id number] [place], [place] [phone] Director: Tim Christianson M.D.CLIA # [id number] [facility] CampusMRI SP[facility] LUMBAR [id number] 19:08:00 [place] [address] Patient Name: LAURI ROBERSON MR #: [id number] : 1945 Age/Sex: 74/F Req #: [id number] Adm Physician: Ordered by: CHANA JONES MD Report #: [id number] Location: MRI Room/Bed: Procedure: [id number] MRI/MRI SPINE LUMB AR WO Exam Date: Exam Time: REPORT STATUS: Signed MRI SPINE LUMBAR WO HISTORY : Sciatica, right-sided COMPARISON: MRI of the lumbar spine report from (images not available); MRI of the lumbar spine 06/09/2012 TECHNIQ UE: Sagittal T1, sagittal T2, sagittal STIR, axial T2, coronal T2, and axial p roton density weighted images of the lumbar spine were obtained without contra st. DISCUSSION: Number of non-rib bearing lumbar vertebral bodies: 5 . Alignment: Normal lordosis. Mild thoracolumbar levoscoliosis is present. V ertebrae: No fractures, infection or neoplasm. Conus medullaris: Normal, ends at L1-L2. Cauda equina: No masses or arachnoiditis. Posterior paraspinal mu scles: There is paraspinal muscle atrophy throughout the lumbar spine. Posteri or incision signal changes are noted. Soft tissues: No signal abnormalities. Multilevel advanced lumbar disc degeneration is present. T12-L1: Patent canal and foramina. L1-L2: Disc bulge without significant canal or foramin al stenosis. L2-L3: Mild canal stenosis due to disc bulge and ligamentum f lavum thickening is accentuated by epidural lipomatosis. No significant forami nal stenosis. L3-L4: Moderate canal stenosis due to disc bulge and ligament um flavum thickening is accentuated by epidural lipomatosis. Both lateral rece sses are slightly effaced. Mild bilateral foraminal stenoses due to disc bulge and facet arthrosis. L4-L5: Left hemilaminotomy changes. Mild to moderat e canal stenosis due to disc bulge and ligamentum flavum thickening. Both late ral recesses are slightly effaced. Mild right and moderate left foraminal sten oses due to disc bulge and facet arthrosis. L5-S1: Mild canal stenosis du e to disc bulge and ligamentum flavum thickening. Mild to moderate right and m oderate left foraminal stenoses due to disc bulge and facet arthrosis. IM PRESSION: 1. Multilevel advanced lumbar disc degeneration with mild thoracolu mbar levoscoliosis. 2. Left hemilaminotomy changes at L4-L5. 3. Multilev el degenerative canal stenoses - moderate at L3-L4 and mild to moderate at L4- L5. 4. Multilevel degenerative foraminal stenoses - moderate on the left at L 4-L5; mild to moderate right and moderate left at L5-S1. Signed by: Dr. Perry Bolton M.D. on 07/28/2019 7:19 PM Dictated By: OLU BOLTON MD 18 Transcribed By : DAVON on 07/28/191918 COPY TO: CHANA JONES MD - MRI C- SPINE W/O [id number] 09:22:00 FAX: Glenn Hickey MD [phone] [place]: St: REG FAX: Chana Cheng MD [phone] Name: LAURI ROBERSONDRIDGE [facility] : 1945 Age/S: 73/F [address] [facility] Unit #: [id number] Loc: [place] [address] Phys: Glenn Ramesh MD Acct: [id number] Dis Date: Status: REG CLI PHONE #: [phone] Exam Date: 05/09/2018 0911 FAX #: [phone] Reason: ATAXIA EXAMS: CPT CODE: [id number] MRI C-SPINE W/O CONT [id number] REASON FOR EXAM: ATAXIA Exam Order Date: 05/09/2018 8:35 AM Attending Preeti: Glenn Ramesh MD Comparison: Procedure: - MRI C-SPINE W/O CONT FINDINGS: Sagittal and axial images of the cervical spine were obtained in in T1, T2, and proton density with fat saturation. No IV gadolinium was given. The sagittal images show within normal alignment of the cervical spine. . Diffuse anterior and posterior fusion of C5-7 suggestive of sequela chronic fusion. Artifacts noted from the anterior fixation plate C3-4. No evidence of diskitis or osteomyelitis. The axial images show no evidence of cord compression. No evidence of narrowing of the neurofora men. The cord is unremarkable without evidence of intramedullary m ass. IMPRESSION: Unremarkable cervical spine. Mild posterior di sc bulge of T1-2 with minimal narrowing of bilateral neural foramen at 0922 Reported and signed by: Sameer Brady M.D. CC: Vasu Ramesh MD; Chana Jones MD Technologist: Maricel Chang)(M R) Trnscrd Date/Time/By: 05/09/2018 (09) : By: Irasema GLOVERVTL Orig Print D/T: S: 05/09/2018 (925) BANNER 1 Signed Report - MRI BRAIN W/O [id number] 09:17:00 FAX: Glenn Hickey MD [phone] [place]: St: [facility] FAX: Chana Cheng MD [phone] Name: LAURI ROBERSON [facility] : 1945 Age/S: 73/F [address] [facility] Unit #: [id number] Loc: [place] [address] Phys: Glenn Ramesh MD Acct: [id number] Dis Date: Status: REG CLI PHONE #: [phone] Exam Date: 05/09/2018 0911 FAX #: [phone] Reason: ATAXIA EXAMS: CPT CODE: [id number] MRI BRAIN W/O CONTRAST [id number] REASON FOR EXAM: ATAXIA Exam Order Date: 05/09/2018 8:35 AM Attending Preeti: Glenn Ramesh MD Procedu re: - MRI BRAIN W/O CONTRAST Comparison: FINDINGS: Axial, sagittal, and coronal images of the head were obtained using T1, T2 weighted, inversion recovery, and gradient echo sequences. The diffusion images are within normal limits without abnormal signal intensity to sugg est acute infarct. No IV gadolinium was given. The sagittal images show normal pituitary, cerebellum, and brain stem. No evidence of s uprasellar mass. The axial T2, inversion recovery, and gradient ec ho images show no evidence of intra or extra axial mass. The ventricles, c isterns, and sulci are unremarkable. No evidence of hemorrhage. Nonspecif ic minimal bright signal intensities in the paraventricular region The cerebellar pontine angle area is within normal limits. There is no evidence of mass noted. The axial T1 images show no evidence o f mass. The coronal images show normal optic chiasm. 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 No other significant findings Electronic ally Signed by Preeti Brady on 05/09/2018 at 0917 Report ed and signed by: Sameer Brady M.D. CC: Glenn Ramesh MD; Chana Jones MD Technologist: Maricel Alejandre(R)(MR) Trnscrd Date/Time/By: 05/09/2018 ([id number]) : By: OmiVTL Orig t D/T: S: 05/09/2018 (2133) PAGE 1 Signed Report
== END 2019-12-18 00:13 ==
LOC: ER 15:13
DX: R06.00 Dyspnea, unspecified (principal); Z96.642 Presence of left artificial hip joint; E11.65 Type 2 diabetes mellitus with hyperglycemia; I10 Essential (primary) hypertension; Z11.59 Encounter for screening for other viral diseases; F32.9 Major depressive disorder, single episode, unspecified; K21.9 Gastro-esophageal reflux disease without esophagitis; Z86.73 Personal history of transient ischemic attack (TIA), and cerebral infarction without residual deficits
CPT/HCPCS: 36415; 70450; 71045; 78597; 80053; 81001; 82550; 82553; 82948; 83605; 84443; 84484; 85025; 85610; 99284; A9540; U0002

== ENCOUNTER 2022-12-04 07:59 | Inpatient (IN) | payer MEDICARE, BC ==
[2022-12-04] VITALS (8 sets, daily range): BP systolic 164–172; BP diastolic 77–89; PULSE 111–120; RESP 18–20; TEMP 98–98.2; O2SAT 98–99
[~2022-12-04] VITALS: Ht 157.5 cm; Wt 65.0 kg
[2022-12-04] MEDS ORDERED: SODIUM CHLORIDE 0.9% 1000 ML BAG IV STA (08:11)
[2022-12-04] MEDS ORDERED: ONDANSETRON HCL INJ 2MG/ML 2ML 2 MG/ML VIAL IV STA (08:11)
[2022-12-04] MEDS ORDERED: PROMETHAZINE 12.5MG/ NACL 0.9% 12.5 MG/50 ML BAG IV ONE (08:15)
[2022-12-04 08:22] LABS: BASOPHILS # (AUTO) 0.1 (0.0-0.1); BASOPHILS % 0.3 % (0.0-1.0); EOSINOPHILS # (AUTO) 4.7 (0.0-0.4); EOSINOPHILS % 25.5 % (0.0-6.0); HEMATOCRIT 47.8 % (34.2-44.1); HEMOGLOBIN 16.2 g/dL (12.0-16.0); LYMPHOCYTES # (AUTO) 1.2 (1.0-3.2); LYMPHOCYTES % 6.4 % (18.0-39.1); MEAN CORPUSCULAR HEMOGLOBIN 31.8 pg (28-32); MEAN CORPUSCULAR HGB CONC 33.9 g/dL (31-35); MEAN CORPUSCULAR VOLUME 93.9 fL (81-99); MONOCYTES # (AUTO) 1.6 (0.2-0.8); MONOCYTES % 8.7 % (4.4-11.3); NEUTROPHILS # (AUTO) 10.7 (2.1-6.9); NEUTROPHILS % 58.4 % (38.7-80.0); PLATELET COUNT 342 x10e3/uL (140-360); RED BLOOD COUNT 5.09 x10e6/uL (3.6-5.1); RED CELL DISTRIBUTION WIDTH 13.4 % (11.7-14.4); WHITE BLOOD COUNT 18.28 x10e3/uL (4.8-10.8)
[2022-12-04 08:55] LABS: ALBUMIN 4.3 g/dL (3.5-5.0); ALBUMIN/GLOBULIN RATIO 1.2 (0.8-2.0); ANION GAP 36.1 mmol/L (8-16); BILIRUBIN,DIRECT 0.3 mg/dL (0.0-0.5); CALCIUM 10.2 mg/dL (8.4-10.2); CREATININE, SERUM 1.73 mg/dL (0.57-1.11); POTASSIUM 3.1 mmol/L (3.5-5.1)
[2022-12-04] MEDS ORDERED: CEFTRIAXONE 1 GM VIAL IM ONE (09:30)
[2022-12-04] MEDS ORDERED: LACTATED RINGER'S 1,000 ML INJ ONE (09:30)
[2022-12-04] MEDS: SODIUM CHLORIDE 0.9% 1000ML 1,000 ML IV SCH ×2 (09:59→19:45)
[2022-12-04 10:29] LABS: PLATELET ESTIMATE ADEQUATE; PLATELET MORPHOLOGY COMMENT NORMAL; RBC MORPHOLOGY COMMENT NORMAL
[2022-12-04 10:32] LABS: NEUTROPHILS % (MANUAL) 90 % (40-74)
[2022-12-04 10:33] LABS: LYMPHOCYTES % (MANUAL) 4 % (19-48); MONOCYTES % (MANUAL) 6 % (3.4-9.0)
[2022-12-04] MEDS ORDERED: CELEBREX200 MG PO (10:49)
[2022-12-04] MEDS ORDERED: JARDIANCE25 MG PO (10:49)
[2022-12-04] MEDS ORDERED: GLIMEPIRIDE2 MG PO (10:49)
[2022-12-04] MEDS ORDERED: ACTOS15 MG PO (10:49)
[2022-12-04] MEDS ORDERED: PIOGLITAZONE HC30 MG PO (11:29)
[2022-12-04 12:13] LABS: CLARITY,URINE CLEAR (CLEAR); COLOR,URINE YELLOW (YELLOW); LEUKOCYTE ESTERASE ,URINE NEGATIVE (NEGATIVE); NITRITE,URINE NEGATIVE (NEGATIVE)
[2022-12-04 12:14] LABS: KETONES,URINE 2+ (NEGATIVE); PROTEIN,URINE DIPSTICK 1+ (NEGATIVE)
[2022-12-04 12:15] LABS: URINE UROBILINOGEN 0.2 mg/dL (0.2 - 1)
[2022-12-04 12:22] LABS: BACTERIA,URINE FEW /HPF; EPITHELIAL CELLS,URINE FEW /LPF; WBC,URINE (MAN) 0-5 /HPF (0-5)
[2022-12-04 12:23] LABS: YEAST,URINE FEW
[2022-12-04] MEDS: ONDANSETRON HCL INJ 2MG/ML 2ML 2 MG/ML VIAL IV PRN ×2 (13:32→19:38)
[2022-12-04] MEDS: PROMETHAZINE 12.5MG/ NACL 0.9% 12.5 MG/50 ML BAG IV PRN (16:28)
[2022-12-04] MEDS: RIVASTIGMINE TARTRATE 1.5 MG CAP PO SCH (17:00)
[2022-12-04] MEDS: ALPRAZOLAM 1 MG TAB PO PRN (21:35)
[2022-12-04] MEDS: SIMVASTATIN 40 MG TAB PO SCH (21:35)
[2022-12-04] MEDS: CELECOXIB 200 MG CAP PO SCH (21:35)
[2022-12-05] VITALS (10 sets, daily range): BP systolic 141–188; BP diastolic 68–79; PULSE 73–123; RESP 17–20; TEMP 98–98.9; O2SAT 96–100
[2022-12-05] MEDS: SODIUM CHLORIDE 0.9% 1000ML 1,000 ML IV SCH ×3 (01:30→14:36)
[2022-12-05] MEDS: ONDANSETRON HCL INJ 2MG/ML 2ML 2 MG/ML VIAL IV PRN ×3 (03:22→20:52)
[2022-12-05] MEDS ORDERED: LORAZEPAM INJ 2 MG/ML VIAL IV ONE (04:30)
[2022-12-05] MEDS: METOCLOPRAMIDE HCL 10 MG/2ML VIAL IV SCH ×3 (06:00→21:00)
[2022-12-05 07:20] LABS: BASOPHILS % 0.2 % (0.0-1.0); HEMATOCRIT 42.4 % (34.2-44.1); HEMOGLOBIN 14.8 g/dL (12.0-16.0); LYMPHOCYTES # (AUTO) 0.8 (1.0-3.2); LYMPHOCYTES % 5.2 % (18.0-39.1); MEAN CORPUSCULAR HEMOGLOBIN 35.2 pg (28-32); MEAN CORPUSCULAR HGB CONC 34.9 g/dL (31-35); MONOCYTES # (AUTO) 1.1 (0.2-0.8); MONOCYTES % 7.5 % (4.4-11.3); NEUTROPHILS # (AUTO) 12.5 (2.1-6.9); NEUTROPHILS % 86.2 % (38.7-80.0); PLATELET COUNT 188 x10e3/uL (140-360); RED CELL DISTRIBUTION WIDTH 16.9 % (11.7-14.4); WHITE BLOOD COUNT 14.51 x10e3/uL (4.8-10.8)
[2022-12-05] MEDS: GLIMEPIRIDE 2 MG TAB PO SCH (07:30)
[2022-12-05 07:49] LABS: ALBUMIN 3.5 g/dL (3.5-5.0); ALBUMIN/GLOBULIN RATIO 1.1 (0.8-2.0); ANION GAP 30.5 mmol/L (8-16); CALCIUM 9.1 mg/dL (8.4-10.2); CREATININE, SERUM 1.48 mg/dL (0.57-1.11); POTASSIUM 3.5 mmol/L (3.5-5.1)
[2022-12-05] MEDS ORDERED: PIOGLITAZONE HCL 30 MG PO SCH (09:00)
[2022-12-05] MEDS: PAROXETINE HCL 20 MG TAB PO SCH (09:00)
[2022-12-05] MEDS: (Empagliflozin (Jardiance) 25 MG) PO SCH (09:00)
[2022-12-05] MEDS: CELECOXIB 200 MG CAP PO SCH ×2 (09:00→20:52)
[2022-12-05] MEDS: RIVASTIGMINE TARTRATE 1.5 MG CAP PO SCH ×2 (09:00→17:00)
[2022-12-05] MEDS: PIOGLITAZONE HCL 15 MG TAB PO SCH (09:00)
[2022-12-05] MEDS ORDERED: PANTOPRAZOLE SOD 40 MG TABEC PO SCH (09:00)
[2022-12-05 09:23] LABS: ABG HCO3 10 mmol/L (22-26); ABG PCO2 25 mmHg (35-45); ABG PH 7.21 (7.35-7.45); ABG PO2 92 mmHg (80-105); ABG TCO2 11
[2022-12-05] MEDS ORDERED: SODIUM BICARBONATE 8.4% INJ 50 ML SYR IV ONE ×2 (10:00→13:30)
[2022-12-05 12:37] LABS: ALBUMIN 3.5 g/dL (3.5-5.0); ALBUMIN/GLOBULIN RATIO 1.2 (0.8-2.0); ANION GAP 30.4 mmol/L (8-16); CALCIUM 9.2 mg/dL (8.4-10.2); CREATININE, SERUM 1.36 mg/dL (0.57-1.11); POTASSIUM 3.4 mmol/L (3.5-5.1)
[2022-12-06] VITALS (18 sets, daily range): BP systolic 87–182; BP diastolic 46–151; PULSE 81–132; RESP 13–31; TEMP 97.4–100; O2SAT 96–100
[2022-12-06] MEDS: PROMETHAZINE 12.5MG/ NACL 0.9% 12.5 MG/50 ML BAG IV PRN ×3 (01:42→20:39)
[2022-12-06] MEDS: SODIUM CHLORIDE 0.9% 1000ML 1,000 ML IV SCH ×2 (01:42→09:03)
[2022-12-06 05:52] LABS: BASOPHILS % 0.1 % (0.0-1.0); HEMATOCRIT 40.1 % (34.2-44.1); HEMOGLOBIN 13.8 g/dL (12.0-16.0); LYMPHOCYTES # (AUTO) 0.5 (1.0-3.2); LYMPHOCYTES % 4.7 % (18.0-39.1); MEAN CORPUSCULAR HEMOGLOBIN 33.2 pg (28-32); MEAN CORPUSCULAR HGB CONC 34.4 g/dL (31-35); MEAN CORPUSCULAR VOLUME 96.4 fL (81-99); MONOCYTES # (AUTO) 0.8 (0.2-0.8); MONOCYTES % 8.3 % (4.4-11.3); NEUTROPHILS # (AUTO) 8.7 (2.1-6.9); NEUTROPHILS % 86.4 % (38.7-80.0); PLATELET COUNT 185 x10e3/uL (140-360); RED BLOOD COUNT 4.16 x10e6/uL (3.6-5.1); RED CELL DISTRIBUTION WIDTH 14.8 % (11.7-14.4); WHITE BLOOD COUNT 10.12 x10e3/uL (4.8-10.8)
[2022-12-06 06:34] LABS: ALBUMIN 3.3 g/dL (3.5-5.0); ALBUMIN/GLOBULIN RATIO 1.2 (0.8-2.0); ANION GAP 29.7 mmol/L (8-16); CALCIUM 8.6 mg/dL (8.4-10.2); CREATININE, SERUM 1.29 mg/dL (0.57-1.11); MAGNESIUM 1.8 MG/DL (1.3-2.1)
[2022-12-06 06:39] LABS: POTASSIUM 2.7 mmol/L (3.5-5.1)
[2022-12-06] MEDS: METOCLOPRAMIDE HCL 10 MG/2ML VIAL IV SCH ×3 (06:44→20:39)
[2022-12-06] MEDS: GLIMEPIRIDE 2 MG TAB PO SCH (07:30)
[2022-12-06] MEDS ORDERED: DEXTROSE 5% IV ONE (08:15)
[2022-12-06] MEDS ORDERED: POTASSIUM CHL IV ONE (08:15)
[2022-12-06] MEDS ORDERED: SODIUM BICARBONATE 8.4% INJ 50 ML SYR IV ONE (08:15)
[2022-12-06] MEDS: (Empagliflozin (Jardiance) 25 MG) PO SCH (09:00)
[2022-12-06] MEDS: PIOGLITAZONE HCL 15 MG TAB PO SCH (09:00)
[2022-12-06] MEDS: PAROXETINE HCL 20 MG TAB PO SCH (09:02)
[2022-12-06] MEDS: RIVASTIGMINE TARTRATE 1.5 MG CAP PO SCH ×2 (09:02→16:05)
[2022-12-06] MEDS: CELECOXIB 200 MG CAP PO SCH (09:02)
[2022-12-06] MEDS ORDERED: SODIUM CHLORIDE 0.45% 1,000 ML IV ONE (11:15)
[2022-12-06] MEDS ORDERED: DEXTROSE 50% SYRINGE 50 ML IV PRN (12:00)
[2022-12-06] MEDS ORDERED: POTASSIUM CHLORIDE 20 MEQ TAB CR PO ONE (12:30)
[2022-12-06] MEDS: ONDANSETRON HCL INJ 2MG/ML 2ML 2 MG/ML VIAL IV PRN (12:41)
[2022-12-06] MEDS: INSULIN REGULAR, HUMAN 3ML VL 100 UNIT in SODIUM CHLORIDE 0.9% 100 ML IV SCH ×2 (12:52)
[2022-12-06] MEDS: D5.45%NS/KCL 20MEQ 1,000 ML IV SCH ×2 (12:58→20:39)
[2022-12-06] MEDS ORDERED: Morphine 2mg Syringe 2 MG/ML SYR IV ONE (13:15)
[2022-12-06] MEDS: ALPRAZOLAM 1 MG TAB PO PRN (13:18)
[2022-12-06] MEDS ORDERED: POTASSIUM CHLORIDE 20MEQ/100ML 200 ML IV ONE (14:30)
[2022-12-06] MEDS: SODIUM BICARBONATE 650 MG TAB PO SCH (16:05)
[2022-12-06 16:41] LABS: ALBUMIN 3.2 g/dL (3.5-5.0); ALBUMIN/GLOBULIN RATIO 1.2 (0.8-2.0); ANION GAP 23.4 mmol/L (8-16); CALCIUM 8.8 mg/dL (8.4-10.2); CREATININE, SERUM 1.39 mg/dL (0.57-1.11)
[2022-12-06 16:44] LABS: POTASSIUM 2.4 mmol/L (3.5-5.1)
[2022-12-06] MEDS: SIMVASTATIN 40 MG TAB PO SCH (20:03)
[2022-12-06] MEDS: POTASSIUM CHLORIDE 10MEQ/100ML 100 ML IV SCH ×2 (22:06→23:08)
[2022-12-07] VITALS (26 sets, daily range): BP systolic 75–171; BP diastolic 48–117; PULSE 87–124; RESP 12–25; TEMP 98.1–99.7; O2SAT 94–100
[2022-12-07] MEDS: POTASSIUM CHLORIDE 10MEQ/100ML 100 ML IV SCH ×2 (00:09→01:01)
[2022-12-07] MEDS: PROMETHAZINE 12.5MG/ NACL 0.9% 12.5 MG/50 ML BAG IV PRN ×3 (02:17→22:10)
[2022-12-07] MEDS: D5.45%NS/KCL 20MEQ 1,000 ML IV SCH ×3 (04:35→20:03)
[2022-12-07 04:46] LABS: BASOPHILS % 0.1 % (0.0-1.0); HEMATOCRIT 39.4 % (34.2-44.1); HEMOGLOBIN 13.9 g/dL (12.0-16.0); LYMPHOCYTES # (AUTO) 0.8 (1.0-3.2); LYMPHOCYTES % 8.8 % (18.0-39.1); MEAN CORPUSCULAR HEMOGLOBIN 31.8 pg (28-32); MEAN CORPUSCULAR HGB CONC 35.3 g/dL (31-35); MEAN CORPUSCULAR VOLUME 90.2 fL (81-99); MONOCYTES % 11.8 % (4.4-11.3); NEUTROPHILS # (AUTO) 6.9 (2.1-6.9); NEUTROPHILS % 79.1 % (38.7-80.0); PLATELET COUNT 202 x10e3/uL (140-360); RED BLOOD COUNT 4.37 x10e6/uL (3.6-5.1); RED CELL DISTRIBUTION WIDTH 14.3 % (11.7-14.4); WHITE BLOOD COUNT 8.68 x10e3/uL (4.8-10.8)
[2022-12-07 05:04] LABS: BLOOD UREA NITROGEN 18 mg/dL (7-26); BUN/CREATININE RATIO 17 (6-25); CALCIUM 9.1 mg/dL (8.4-10.2); CARBON DIOXIDE 24 mmol/L (22-29); CHLORIDE 113 mmol/L (98-107); CREATININE, SERUM 1.04 mg/dL (0.57-1.11); GLUCOSE 90 mg/dL (74-118); SODIUM 149 mmol/L (136-145)
[2022-12-07 05:16] LABS: ANION GAP 15.1 mmol/L (8-16); POTASSIUM 3.1 mmol/L (3.5-5.1)
[2022-12-07 05:17] LABS: PHOSPHORUS < 0.7 MG/DL (2.3-4.7)
[2022-12-07] MEDS ORDERED: POTASSIUM CHLORIDE 10MEQ/100ML 400 ML IV ONE (05:45)
[2022-12-07] MEDS ORDERED: MAGNESIUM SULFATE 2GM/50ML 50 ML IV ONE ×2 (05:45→20:00)
[2022-12-07] MEDS: METOCLOPRAMIDE HCL 10 MG/2ML VIAL IV SCH ×3 (05:54→22:00)
[2022-12-07] MEDS ORDERED: POTASSIUM CHLORIDE 10MEQ/100ML 300 ML ONE (06:16)
[2022-12-07] MEDS ORDERED: POTASSIUM PHOSPHATE 15 MM in SODIUM CHLORIDE 0.9% 250ML 250 ML IV ONE (08:15)
[2022-12-07] MEDS: SODIUM BICARBONATE 650 MG TAB PO SCH ×2 (09:00→17:00)
[2022-12-07] MEDS: RIVASTIGMINE TARTRATE 1.5 MG CAP PO SCH ×2 (09:00→17:00)
[2022-12-07] MEDS: PAROXETINE HCL 20 MG TAB PO SCH (09:00)
[2022-12-07] MEDS: FLUCONAZOLE 200 MG/100 ML 100 ML IV SCH (10:05)
[2022-12-07] MEDS ORDERED: CEFTRIAXONE 1 GM VIAL ONE (10:05)
[2022-12-07] MEDS ORDERED: PROPOFOL IV EMULSION 10 MG/ML 20 ML VIAL ONE (12:16)
[2022-12-07] MEDS ORDERED: LIDOCAINE HCL 2% LOCAL INJ 5 ML SDV VIAL INJ ONE (12:16)
[2022-12-07] MEDS: ALPRAZOLAM 1 MG TAB PO PRN (17:41)
[2022-12-07 18:20] LABS: ANION GAP 14.4 mmol/L (8-16); CALCIUM 8.8 mg/dL (8.4-10.2); CREATININE, SERUM 0.87 mg/dL (0.57-1.11); MAGNESIUM 1.7 MG/DL (1.3-2.1); PHOSPHORUS 0.8 MG/DL (2.3-4.7); POTASSIUM 3.4 mmol/L (3.5-5.1)
[2022-12-07] MEDS ORDERED: POTASSIUM CHLORIDE 20MEQ/100ML 100 ML IV ONE ×2 (20:00→22:00)
[2022-12-07] MEDS: SIMVASTATIN 40 MG TAB PO SCH (20:04)
[2022-12-07] MEDS: INSULIN REGULAR, HUMAN 3ML VL 100 UNIT in SODIUM CHLORIDE 0.9% 100 ML IV SCH ×2 (20:22)
[2022-12-07] MEDS: ONDANSETRON HCL INJ 2MG/ML 2ML 2 MG/ML VIAL IV PRN (20:54)
[2022-12-08] VITALS (25 sets, daily range): BP systolic 86–172; BP diastolic 53–113; PULSE 83–117; RESP 15–23; TEMP 98–98.4; O2SAT 63–100
[2022-12-08] MEDS: HYDROCODONE/APAP 5MG-325MG TAB PO PRN ×3 (01:07→20:54)
[2022-12-08] MEDS: D5.45%NS/KCL 20MEQ 1,000 ML IV SCH (04:07)
[2022-12-08] MEDS: METOCLOPRAMIDE HCL 10 MG/2ML VIAL IV SCH ×3 (05:26→21:37)
[2022-12-08 06:58] LABS: BASOPHILS % 0.3 % (0.0-1.0); EOSINOPHILS % 0.5 % (0.0-6.0); HEMATOCRIT 40.8 % (34.2-44.1); HEMOGLOBIN 14.2 g/dL (12.0-16.0); LYMPHOCYTES # (AUTO) 1.1 (1.0-3.2); LYMPHOCYTES % 16.6 % (18.0-39.1); MEAN CORPUSCULAR HEMOGLOBIN 31.7 pg (28-32); MEAN CORPUSCULAR HGB CONC 34.8 g/dL (31-35); MEAN CORPUSCULAR VOLUME 91.1 fL (81-99); MONOCYTES # (AUTO) 0.7 (0.2-0.8); MONOCYTES % 10.7 % (4.4-11.3); NEUTROPHILS # (AUTO) 4.6 (2.1-6.9); NEUTROPHILS % 71.3 % (38.7-80.0); PLATELET COUNT 175 x10e3/uL (140-360); RED BLOOD COUNT 4.48 x10e6/uL (3.6-5.1); RED CELL DISTRIBUTION WIDTH 14.7 % (11.7-14.4); WHITE BLOOD COUNT 6.45 x10e3/uL (4.8-10.8)
[2022-12-08 07:42] LABS: ALBUMIN 2.8 g/dL (3.5-5.0); CALCIUM 8.8 mg/dL (8.4-10.2); CREATININE, SERUM 0.81 mg/dL (0.57-1.11)
[2022-12-08] MEDS ORDERED: DEXTROSE 50% SYRINGE 50 ML IV PRN (08:30)
[2022-12-08] MEDS: FLUCONAZOLE 200 MG/100 ML 100 ML IV SCH (08:50)
[2022-12-08] MEDS: SODIUM BICARBONATE 650 MG TAB PO SCH ×2 (09:53→18:23)
[2022-12-08] MEDS: PAROXETINE HCL 20 MG TAB PO SCH (09:54)
[2022-12-08] MEDS: RIVASTIGMINE TARTRATE 1.5 MG CAP PO SCH ×2 (09:54→18:23)
[2022-12-08] MEDS: PIOGLITAZONE HCL 15 MG TAB PO SCH (11:01)
[2022-12-08] MEDS: PROMETHAZINE 12.5MG/ NACL 0.9% 12.5 MG/50 ML BAG IV PRN (11:01)
[2022-12-08] MEDS: INSULIN REGULAR, HUMAN 100 UNIT/1 ML SQ SCH ×3 (12:59→21:36)
[2022-12-08] MEDS ORDERED: POTASSIUM PHOSPHATE 20 MM in SODIUM CHLORIDE 0.9% 250ML 250 ML IV ONE (17:00)
[2022-12-08 18:08] LABS: CLARITY,URINE HAZY (CLEAR); COLOR,URINE YELLOW (YELLOW)
[2022-12-08 18:09] LABS: KETONES,URINE 2+ (NEGATIVE); LEUKOCYTE ESTERASE ,URINE TRACE (NEGATIVE); NITRITE,URINE NEGATIVE (NEGATIVE); PROTEIN,URINE DIPSTICK NEGATIVE (NEGATIVE); URINE UROBILINOGEN 0.2 mg/dL (0.2 - 1)
[2022-12-08 18:20] LABS: BACTERIA,URINE FEW /HPF; EPITHELIAL CELLS,URINE FEW /LPF; MUCUS,URINE FEW (RARE); RBC,URINE 21-50 /HPF (0-5); YEAST,URINE FEW
[2022-12-08] MEDS: SIMVASTATIN 40 MG TAB PO SCH (20:53)
[2022-12-09] VITALS (9 sets, daily range): BP systolic 86–154; BP diastolic 52–90; PULSE 92–107; RESP 16–36; TEMP 97.7–98.6; O2SAT 93–100
[2022-12-09] MEDS: ALPRAZOLAM 1 MG TAB PO PRN ×2 (01:41→22:19)
[2022-12-09] MEDS: METOCLOPRAMIDE HCL 10 MG/2ML VIAL IV SCH ×3 (05:52→22:12)
[2022-12-09 06:35] LABS: BASOPHILS % 0.3 % (0.0-1.0); EOSINOPHILS # (AUTO) 0.1 (0.0-0.4); EOSINOPHILS % 1.8 % (0.0-6.0); HEMATOCRIT 40.4 % (34.2-44.1); HEMOGLOBIN 13.7 g/dL (12.0-16.0); LYMPHOCYTES # (AUTO) 1.1 (1.0-3.2); LYMPHOCYTES % 17.3 % (18.0-39.1); MEAN CORPUSCULAR HEMOGLOBIN 31.9 pg (28-32); MEAN CORPUSCULAR HGB CONC 33.9 g/dL (31-35); MEAN CORPUSCULAR VOLUME 94.2 fL (81-99); MONOCYTES # (AUTO) 0.5 (0.2-0.8); MONOCYTES % 8.9 % (4.4-11.3); NEUTROPHILS # (AUTO) 4.3 (2.1-6.9); NEUTROPHILS % 70.9 % (38.7-80.0); PLATELET COUNT 156 x10e3/uL (140-360); RED BLOOD COUNT 4.29 x10e6/uL (3.6-5.1); RED CELL DISTRIBUTION WIDTH 14.7 % (11.7-14.4); WHITE BLOOD COUNT 6.06 x10e3/uL (4.8-10.8)
[2022-12-09 06:52] LABS: CALCIUM 8.9 mg/dL (8.4-10.2); CREATININE, SERUM 0.74 mg/dL (0.57-1.11)
[2022-12-09 07:05] LABS: INR 1.15; PROTHROMBIN TIME 15.4 seconds (11.9-14.5)
[2022-12-09] MEDS: INSULIN REGULAR, HUMAN 100 UNIT/1 ML SQ SCH ×4 (07:17→22:08)
[2022-12-09] MEDS: GLIMEPIRIDE 2 MG TAB PO SCH (07:17)
[2022-12-09] MEDS: FLUCONAZOLE 200 MG/100 ML 100 ML IV SCH (08:50)
[2022-12-09] MEDS: RIVASTIGMINE TARTRATE 1.5 MG CAP PO SCH ×2 (09:03→17:24)
[2022-12-09] MEDS: PIOGLITAZONE HCL 15 MG TAB PO SCH (09:03)
[2022-12-09] MEDS: BALSAM PERU/CASTOR OIL 60 GM OINT...G. TP SCH (09:03)
[2022-12-09] MEDS: PAROXETINE HCL 20 MG TAB PO SCH (09:03)
[2022-12-09] MEDS: SODIUM BICARBONATE 650 MG TAB PO SCH (09:03)
[2022-12-09] MEDS: SIMVASTATIN 40 MG TAB PO SCH (22:00)
[2022-12-10] VITALS (9 sets, daily range): BP systolic 108–151; BP diastolic 54–84; PULSE 70–108; RESP 17–19; TEMP 97.9–99.1; O2SAT 96–100
[2022-12-10] MEDS: HYDROCODONE/APAP 5MG-325MG TAB PO PRN ×2 (01:35→20:21)
[2022-12-10] MEDS: METOCLOPRAMIDE HCL 10 MG/2ML VIAL IV SCH ×3 (05:02→21:31)
[2022-12-10 06:05] LABS: BASOPHILS % 0.4 % (0.0-1.0); EOSINOPHILS # (AUTO) 0.1 (0.0-0.4); EOSINOPHILS % 1.3 % (0.0-6.0); HEMATOCRIT 41.4 % (34.2-44.1); HEMOGLOBIN 13.9 g/dL (12.0-16.0); LYMPHOCYTES # (AUTO) 1.1 (1.0-3.2); LYMPHOCYTES % 16.1 % (18.0-39.1); MEAN CORPUSCULAR HEMOGLOBIN 31.5 pg (28-32); MEAN CORPUSCULAR HGB CONC 33.6 g/dL (31-35); MEAN CORPUSCULAR VOLUME 93.9 fL (81-99); MONOCYTES # (AUTO) 0.6 (0.2-0.8); NEUTROPHILS # (AUTO) 5.1 (2.1-6.9); NEUTROPHILS % 72.2 % (38.7-80.0); PLATELET COUNT 171 x10e3/uL (140-360); RED BLOOD COUNT 4.41 x10e6/uL (3.6-5.1); RED CELL DISTRIBUTION WIDTH 13.8 % (11.7-14.4); WHITE BLOOD COUNT 7.02 x10e3/uL (4.8-10.8)
[2022-12-10 06:45] LABS: ALBUMIN 2.9 g/dL (3.5-5.0); ALBUMIN/GLOBULIN RATIO 1.1 (0.8-2.0); ANION GAP 17.3 mmol/L (8-16); CALCIUM 9.1 mg/dL (8.4-10.2); CREATININE, SERUM 0.7 mg/dL (0.57-1.11); MAGNESIUM 1.6 MG/DL (1.3-2.1); POTASSIUM 3.3 mmol/L (3.5-5.1)
[2022-12-10] MEDS: INSULIN REGULAR, HUMAN 100 UNIT/1 ML SQ SCH ×4 (08:09→20:19)
[2022-12-10] MEDS: FLUCONAZOLE 200 MG/100 ML 100 ML IV SCH (08:18)
[2022-12-10] MEDS: GLIMEPIRIDE 2 MG TAB PO SCH (08:19)
[2022-12-10] MEDS: PAROXETINE HCL 20 MG TAB PO SCH (08:19)
[2022-12-10] MEDS: RIVASTIGMINE TARTRATE 1.5 MG CAP PO SCH ×2 (08:19→17:46)
[2022-12-10] MEDS: BALSAM PERU/CASTOR OIL 60 GM OINT...G. TP SCH (08:27)
[2022-12-10] MEDS ORDERED: SODIUM CHLORIDE 0.9% 250ML 250 ML ONE (08:32)
[2022-12-10] MEDS ORDERED: POTASSIUM CHLORIDE 20 MEQ TAB CR PO ONE (09:30)
[2022-12-10] MEDS: PIOGLITAZONE HCL 15 MG TAB PO SCH (09:50)
[2022-12-10] MEDS: SIMVASTATIN 40 MG TAB PO SCH (20:21)
[2022-12-10] MEDS: ALPRAZOLAM 1 MG TAB PO PRN (20:21)
[2022-12-11] VITALS (7 sets, daily range): BP systolic 100–141; BP diastolic 54–81; PULSE 100–107; RESP 17–20; TEMP 97.8–98.6; O2SAT 96–100
[2022-12-11] MEDS: METOCLOPRAMIDE HCL 10 MG/2ML VIAL IV SCH ×3 (05:19→22:01)
[2022-12-11 06:06] LABS: ANION GAP 13.6 mmol/L (8-16); CALCIUM 8.9 mg/dL (8.4-10.2); CREATININE, SERUM 0.7 mg/dL (0.57-1.11); POTASSIUM 3.6 mmol/L (3.5-5.1)
[2022-12-11] MEDS: INSULIN REGULAR, HUMAN 100 UNIT/1 ML SQ SCH ×4 (08:26→20:00)
[2022-12-11] MEDS: RIVASTIGMINE TARTRATE 1.5 MG CAP PO SCH ×2 (08:28→16:14)
[2022-12-11] MEDS: FLUCONAZOLE 100 MG TAB PO SCH (08:28)
[2022-12-11] MEDS: GLIMEPIRIDE 2 MG TAB PO SCH (08:28)
[2022-12-11] MEDS: PAROXETINE HCL 20 MG TAB PO SCH (08:28)
[2022-12-11] MEDS: PIOGLITAZONE HCL 15 MG TAB PO SCH (08:29)
[2022-12-11] MEDS: BALSAM PERU/CASTOR OIL 60 GM OINT...G. TP SCH ×3 (08:29→20:01)
[2022-12-11] MEDS ORDERED: PROPOFOL IV EMULSION 10 MG/ML 20 ML VIAL ONE (12:51)
[2022-12-11] MEDS: ONDANSETRON HCL 4 MG ORAL DISINTEGRATING TAB PO PRN (20:01)
[2022-12-11] MEDS: ALPRAZOLAM 1 MG TAB PO PRN (20:01)
[2022-12-11] MEDS: SIMVASTATIN 40 MG TAB PO SCH (20:01)
[2022-12-11] MEDS: HYDROCODONE/APAP 5MG-325MG TAB PO PRN (22:08)
[2022-12-12] VITALS (7 sets, daily range): BP systolic 112–140; BP diastolic 56–74; PULSE 89–107; RESP 17–20; TEMP 97.4–98.6; O2SAT 95–100
[2022-12-12] MEDS: METOCLOPRAMIDE HCL 10 MG/2ML VIAL IV SCH ×3 (04:56→20:35)
[2022-12-12] MEDS: INSULIN REGULAR, HUMAN 100 UNIT/1 ML SQ SCH ×4 (07:30→20:42)
[2022-12-12] MEDS: BALSAM PERU/CASTOR OIL 60 GM OINT...G. TP SCH (08:04)
[2022-12-12] MEDS: RIVASTIGMINE TARTRATE 1.5 MG CAP PO SCH ×2 (08:05→16:37)
[2022-12-12] MEDS: PIOGLITAZONE HCL 15 MG TAB PO SCH (08:05)
[2022-12-12] MEDS: PAROXETINE HCL 20 MG TAB PO SCH (08:05)
[2022-12-12] MEDS: FLUCONAZOLE 100 MG TAB PO SCH (08:05)
[2022-12-12] MEDS: GLIMEPIRIDE 2 MG TAB PO SCH (08:05)
[2022-12-12] MEDS: ONDANSETRON HCL 4 MG ORAL DISINTEGRATING TAB PO PRN (12:10)
[2022-12-12] MEDS: ALPRAZOLAM 1 MG TAB PO PRN (20:34)
[2022-12-12] MEDS: HYDROCODONE/APAP 5MG-325MG TAB PO PRN (20:34)
[2022-12-12] MEDS: SIMVASTATIN 40 MG TAB PO SCH (20:35)
[2022-12-13 00:42] VITALS: BP 112/51; PULSE 89; RESP 18; TEMP 97.9; O2SAT 94
[2022-12-13 04:43] VITALS: BP 124/77; PULSE 96; RESP 17; TEMP 98.1; O2SAT 97
[2022-12-13] MEDS: METOCLOPRAMIDE HCL 10 MG/2ML VIAL IV SCH (05:45)
[2022-12-13 06:24] LABS: ANION GAP 13.6 mmol/L (8-16); CALCIUM 8.6 mg/dL (8.4-10.2); CREATININE, SERUM 0.69 mg/dL (0.57-1.11); POTASSIUM 3.6 mmol/L (3.5-5.1)
[2022-12-13] MEDS: INSULIN REGULAR, HUMAN 100 UNIT/1 ML SQ SCH (07:30)
[2022-12-13 08:00] VITALS: BP 133/65; PULSE 94; RESP 19; TEMP 98; O2SAT 96
[2022-12-13] MEDS: BALSAM PERU/CASTOR OIL 60 GM OINT...G. TP SCH (08:51)
[2022-12-13] MEDS: FLUCONAZOLE 100 MG TAB PO SCH (08:52)
[2022-12-13] MEDS: GLIMEPIRIDE 2 MG TAB PO SCH (08:52)
[2022-12-13] MEDS: PAROXETINE HCL 20 MG TAB PO SCH (08:52)
[2022-12-13] MEDS: RIVASTIGMINE TARTRATE 1.5 MG CAP PO SCH (08:52)
[2022-12-13] MEDS: PIOGLITAZONE HCL 15 MG TAB PO SCH (08:53)
[2022-12-13 09:00] VITALS: BP 133/65; PULSE 94; RESP 19; TEMP 98; O2SAT 96
== END 2022-12-13 11:16 | disposition home health service (06) | DRG 638 ==
LOC: ER 08:08 → ERHOLD 09:34 → MED/SURG3 10:27 → ICU 12-06 11:43 → MED/SURG2 12-09 21:28
PROVIDERS: ADMIT Internal Medicine; ATTEND Internal Medicine
PROC: 4A033R1 Measurement of Arterial Saturation, Peripheral, Percutaneous Approach (ICD-10-PCS; 2022-12-05)
PROC: 02HV33Z Insertion of Infusion Device into Superior Vena Cava, Percutaneous Approach (ICD-10-PCS; 2022-12-06)
PROC: B548ZZA Ultrasonography of Superior Vena Cava, Guidance (ICD-10-PCS; 2022-12-06)
PROC: 0DB78ZX Excision of Stomach, Pylorus, Via Natural or Artificial Opening Endoscopic, Diagnostic (ICD-10-PCS; 2022-12-09)
PROC: 0DB38ZX Excision of Lower Esophagus, Via Natural or Artificial Opening Endoscopic, Diagnostic (ICD-10-PCS; principal; 2022-12-09 08:20)
DX: E11.10 Type 2 diabetes mellitus with ketoacidosis without coma (principal); B48.8 Other specified mycoses; E87.0 Hyperosmolality and hypernatremia; N17.9 Acute kidney failure, unspecified; E86.0 Dehydration; D72.829 Elevated white blood cell count, unspecified; K29.00 Acute gastritis without bleeding; K21.00 Gastro-esophageal reflux disease with esophagitis, without bleeding; E87.6 Hypokalemia; K44.9 Diaphragmatic hernia without obstruction or gangrene; I25.10 Atherosclerotic heart disease of native coronary artery without angina pectoris; E78.5 Hyperlipidemia, unspecified; F41.9 Anxiety disorder, unspecified; R53.81 Other malaise; I12.9 Hypertensive chronic kidney disease with stage 1 through stage 4 chronic kidney disease, or unspecified chronic kidney disease; E11.22 Type 2 diabetes mellitus with diabetic chronic kidney disease; N18.30 Chronic kidney disease, stage 3 unspecified; I10 Essential (primary) hypertension; D64.9 Anemia, unspecified; F32.A Depression, unspecified; G24.01 Drug induced subacute dyskinesia; E11.40 Type 2 diabetes mellitus with diabetic neuropathy, unspecified; Z96.649 Presence of unspecified artificial hip joint; Z96.659 Presence of unspecified artificial knee joint; Z79.1 Long term (current) use of non-steroidal anti-inflammatories (NSAID); Z86.73 Personal history of transient ischemic attack (TIA), and cerebral infarction without residual deficits; Z91.041 Radiographic dye allergy status; Z79.82 Long term (current) use of aspirin; Z79.899 Other long term (current) drug therapy; E83.42 Hypomagnesemia; Z91.119 Patient's noncompliance with dietary regimen due to unspecified reason; Z91.148 Patient's other noncompliance with medication regimen for other reason; Z20.822 Contact with and (suspected) exposure to COVID-19
CPT/HCPCS: 36415; 36569; 36600; 43239; 71045; 74176; 80048; 80053; 81001; 82248; 82805; 82948; 83605; 83690; 83735; 84100; 84484; 85025; 85610; 87040; 88305; 88342; 93005; 96361; 96372; 99252; 99284; J0696; J1450; J2001; J2060; J2270; J2405; J2550; J2765; J3475; J3480; J7030; J7050; J7070; Q0162; U0002